=== PATIENT | female | born 1955 | race Caucasian/White ===

== ENCOUNTER 2022-02-11 09:22 | Emergency (ER) | payer OTHER ==
--- OUTSIDE RECORDS SUMMARY | 2022-02-11 09:35 | XMS REPORT | Continuity of Care Document ---
:1955 Author Organization [facility] t Address [address] [place] [address] Dr. [address] [place] [address] Care Team Providers Name Role Phone AIDAN GARCIA Primary Care Physician Unavailable Aidan Garcia Attending Clinician Unavailable Brennon Lora Attending Clinician ELISE_N Attending Clinician Unavailable Gerri Peterson Attending Clinician BEN GARCIA Attending Clinician Unavailable Therapy, [facility] Attending Clinician Unavailable Ben Garcia MD Attending Clinician Doctor Unassigned, [place] Attending Clinician Unavailable NATTY PRADO Attending Clinician Unavailable MISSY ESPINOZA Attending Clinician Unavailable ELISE_Herbert Admitting Clinician Unavailable MISSY ESPINOZA Admitting Clinician Unavailable Payers Payer Name Policy Type Policy Effective Date Expiration Date Sour ce Number [id number] 00:00:00 REPLACEMENT HMO) [address] [facility] 00[facility]00 [facility] MEDICARE NOVITAS MB [id number] 2019 [facility] 00:00:[address] [facility]00 [facility] MEDICARE NOVITAS MB [id number] 2019 [facility] 00:00:00 [place] [id number] 2020 MEDICARE 00:00:00 ADVANTAGE PLAN BCBS [facility] [id number] 1998 00:00:00 MEDICARE NOVITAS MB [id number] 2019 [facility] 00:00:00 [place] [id number] 2020 [facility] 00:[facility]:00 [facility] MEDICARE NOVITAS MB [id number] 2019 [facility] 00:00:00 [place] [id number] 2020 [facility] 00:[facility]00 [facility] Problems Condition Condition Condition Status Onset Resolution Last Treating Co mments Source Name Details Category Date Date Treatment Clinician Date [id number] Unilateral Problem C ommon [id number] primary Spirit osteoarthr - [facility] itis, left [facility] Arthritis Arthritis Problem Com mon of both of both Spirit knees knees - [facility] [id number] Cataract Problem Commo n of both Spirit eyes, - [facility] unspecifie [facility] cataract [facility] GERD Problem Commo n hageal (gastroeso Spirit reflux phageal - CHI disease reflux St disease) [facility] [id number] Right Problem Common sciatic Spirit nerve pain - [facility] [id number] Pain, [place] n [id number] joint, Spirit hip, right - [facility] [id number] Other Problem Common chronic Spirit pain - [facility] [id number] Other Problem Common obesity Spirit due to - [facility]I excess [facility] [id number] Lymphedema Problem Co mmon Spirit - [facility] [id number] Mixed Problem Common hyperlipid Spirit emia - [facility] [id number] Allergic Problem Commo n rhinitis, Spirit unspecifie - CHI d [facility] seasonalit [facility] y, Medical unspecifie Center d trigger [id number] Current Problem Common moderate Spirit episode of - [facility] major [facility] prior episode [id number] Arthritis Problem Co mmon [id number] of knee, [facility] left [facility] [id number] Adult BMI Problem Com mon 33.0-33.9 Spirit kg/sq m [facility] [id number] GERD Problem Common without [facility] esophagiti - [facility] [id number] Bilateral Problem Com [facility] primary [facility] osteoarthr [facility] itis of [facility] [id number] Arthritis Problem Co mmon [id number] of knee, [facility] right [facility] Allergies, Adverse Reactions, Alerts Allergy Allergy Status Severity Reaction(s) Onset Inactive Treating Comm ents Source Name Type Date Date Clinician PENICILL Drug Active Hives 2020-03 Univers INS Class 0-09 ity of 00:00: [address] [place] Propensi Active Hives 2020-03 Univer s ins ty to 0-09 ity of adverse 00:00: [place] reaction [address] [place] [address] NO KNOWN Drug Active Univers ALLERGIE Class ity of [facility] Social History Social Habit Start Date Stop Date Quantity Comments Source History of Tobacco Use Co mmon [facility] Sex Assigned At Com [facility] Smoking Status Start Date Stop Date Source Unknown if ever smoked [facility] Former Smoker 2022-01-22 00:00:00 2022-01-22 00:00:00 Common S pirit [facility] nter Medications Ordered Filled Start Stop Current Ordering Indication Dosage Frequency Signature Comments Components Source Medication Medication Date Date Medication? Clinician (SIG) Name Name methylPREDN methylPREDN 2021- No QD methylPRED ISolone 4 ISolone 4 12-02 NISolone 4 MG MG 00:00: 00:00 MG 00 :00 methylPREDN methylPREDN 2021- No QD methylPRED ISolone 4 ISolone 4 12-02 NISolone 4 MG MG 00:00: 00:00 MG 00 :00 Kenalog Kenalog No 40mg Common (Triamcinol (Triamcinol 9-19 S pirit one) one) 00:00: - [facility] Kenalog Kenalog No 40mg Common (Triamcinol (Triamcinol 9-19 S pirit one) one) 00:00: - [facility]I 00 [facility] Kenalog Kenalog 2021-0 No 40mg Common (Triamcinol (Triamcinol 9-19 S pirit one) one) 00:00: - [facility]I 00 [facility] Ozempic Ozempic 2021-0 2- No Ozempic 0.25 or 0.5 0.25 or 0.5 - 11-20 0.25 or MG/DOSE MG/DOSE 00:00: 00:00 0.5 00 :00 MG/DOSE Ozempic Ozempic 2021-0 2021- No Ozempic 0.25 or 0.5 0.25 or 0.5 11-02 11-20 0.25 or MG/DOSE MG/DOSE 00:00: 00:00 0.5 00 :00 MG/DOSE Ozempic Ozempic 2021-0 2022- No Ozempic 0.25 or 0.5 0.25 or 0.5 11-02 11-20 0.25 or MG/DOSE MG/DOSE 00:00: 00:00 0.5 00 :00 MG/DOSE Cephalexin Cephalexin 0 2021- No 1{capsu TID Cephalexin 500 MG 500 MG 09-16 le} 500 MG 00:00: 00:00 00 :00 Cephalexin Cephalexin 2021-0 2- No 1{capsu TID Cephalexin 500 MG 500 MG 09-16 le} 500 MG 00:00: 00:00 00 :00 Rocephin Rocephin 2021-0 No 1g Commo n (Ceftriaxon (Ceftriaxon 4-04 S pirit e) e) 00:00: - CHI 00 [facility] Toradol Toradol 2021-0 No 2mL Common (Ketorolac) (Ketorolac) 4-04 S pirit 00:00: - CHI 00 [facility] Rocephin Rocephin 2021-0 No 1g Commo n (Ceftriaxon (Ceftriaxon 4-04 S pirit e) e) 00:00: - CHI 00 [facility] Toradol Toradol 2021-0 No 2mL Common (Ketorolac) (Ketorolac) 4-04 S pirit 00:00: - CHI 00 [facility] Toradol Toradol 2-0 No 2mL Common (Ketorolac) (Ketorolac) 4-04 S pirit 00:00: - [facility]I 00 [facility] Rocephin Rocephin 2-0 No 1g Commo n (Ceftriaxon (Ceftriaxon 4-04 S pirit e) e) 00:00: - CHI 00 [facility] Toradol Toradol 2021-0 No 2mL Common (Ketorolac) (Ketorolac) 4-04 S pirit 00:00: - CHI 00 [facility] Rocephin Rocephin 2-0 No 1g Commo n (Ceftriaxon (Ceftriaxon 4-04 S pirit e) e) 00:00: - CHI 00 [facility] Toradol Toradol 2021-0 No 2mL Common (Ketorolac) (Ketorolac) 4-04 S pirit 00:00: - CHI 00 [facility] Rocephin Rocephin 2-0 No 1g Commo n (Ceftriaxon (Ceftriaxon 4-04 S pirit e) e) 00:00: - CHI 00 [facility] Toradol Toradol 2021-0 No 2mL Common (Ketorolac) (Ketorolac) 4-04 S pirit 00:00: - CHI 00 [facility] Rocephin Rocephin 2-0 No 1g Commo n (Ceftriaxon (Ceftriaxon 4-04 S pirit e) e) 00:00: - CHI 00 [facility] Toradol Toradol 2-0 No 2mL Common (Ketorolac) (Ketorolac) 4-04 S pirit 00:00: - CHI 00 [facility] Rocephin Rocephin 2-0 No 1g Commo n (Ceftriaxon (Ceftriaxon 4-04 S pirit e) e) 00:00: - [facility]I 00 [facility] Toradol Toradol 2-0 No 2mL Common (Ketorolac) (Ketorolac) 4-04 S pirit 00:00: - [facility]I 00 [facility] Rocephin Rocephin 2-0 No 1g Commo n (Ceftriaxon (Ceftriaxon 4-04 S pirit e) e) 00:00: - CHI 00 [facility] Toradol Toradol 2021-0 No 2mL Common (Ketorolac) (Ketorolac) 4-04 S pirit 00:00: - [facility]I 00 [facility] Rocephin Rocephin 2-0 No 1g Commo n (Ceftriaxon (Ceftriaxon 4-04 S pirit e) e) 00:00: - [facility]I 00 [facility] Toradol Toradol 2021-0 No 2mL Common (Ketorolac) (Ketorolac) 4-04 S pirit 00:00: - [facility]I 00 [facility] Rocephin Rocephin 2021-0 No 1g Commo n (Ceftriaxon (Ceftriaxon 4-04 S pirit e) e) 00:00: - [facility]I 00 [facility] Toradol Toradol 2021-0 No 2mL Common (Ketorolac) (Ketorolac) 4-04 S pirit 00:00: - CHI 00 [facility] Rocephin Rocephin 2021-0 No 1g Commo n (Ceftriaxon (Ceftriaxon 4-04 S pirit e) e) 00:00: - [facility]I 00 [facility] Toradol Toradol 2021-0 No 2mL Common (Ketorolac) (Ketorolac) 4-04 S pirit 00:00: - CHI 00 [facility] Rocephin Rocephin 2-0 No 1g Commo n (Ceftriaxon (Ceftriaxon 4-04 S pirit e) e) 00:00: - [facility]I 00 [facility] Toradol Toradol 2021-0 No 2mL Common (Ketorolac) (Ketorolac) 4-04 S pirit 00:00: - CHI 00 [facility] Rocephin Rocephin 2-0 No 1g Commo n (Ceftriaxon (Ceftriaxon 4-04 S pirit e) e) 00:00: - [facility]I 00 [facility] Toradol Toradol 2-0 No 2mL Common (Ketorolac) (Ketorolac) 4-04 S pirit 00:00: - CHI 00 [facility] Rocephin Rocephin 2022-0 No 1g Commo n (Ceftriaxon (Ceftriaxon 4-04 S pirit e) e) 00:00: - CHI [facility] Toradol Toradol 2021-0 No 2mL Common (Ketorolac) (Ketorolac) 4-04 S pirit 00:00: - [facility]I [facility] Rocephin Rocephin 2021-0 No 1g Commo n (Ceftriaxon (Ceftriaxon 4-04 S pirit e) e) 00:00: - [facility]I [facility] Toradol Toradol 2021-0 No 2mL Common (Ketorolac) (Ketorolac) 4-04 S pirit 00:00: - CHI [facility] Rocephin Rocephin 2021-0 No 1g Commo n (Ceftriaxon (Ceftriaxon 4-04 S pirit e) e) 00:00: - CHI [facility] Rocephin Rocephin 2021-0 No 1g Commo n (Ceftriaxon (Ceftriaxon 4-04 S pirit e) e) 00:00: - CHI [facility] Toradol Toradol 2021-0 No 2mL Common (Ketorolac) (Ketorolac) 4-04 S pirit 00:00: - CHI [facility] Azithromyci Azithromyci 2021-0 2021- No QD Azithromyc n 250 MG n 250 MG 06-14-09 in 250 MG 00:00: 00:00 00 :00 Azithromyci Azithromyci 2021-0 2021- No QD Azithromyc n 250 MG n 250 MG 06-14-09 in 250 MG 00:00: 00:00 00 :00 Promethazin Promethazin 2021-0 2021- No 10{ml_a TID Promethazi e HCl 6.25 e HCl 6.25 04-09 s_neede ne HCl MG/5ML MG/5ML 00:00: 00:00 d} 6.25 00 :00 MG/5ML predniSONE predniSONE 2021-0 2021- No QD predniSONE 20 MG 20 MG 04-09 20 MG 00:00: 00:00 00 :00 Furosemide Furosemide 2020-03 No QD Furosemide 20 MG 20 MG 209 20 MG 00:00: 00 Furosemide Furosemide 2020-03 No QD Furosemide 20 MG 20 MG 2 20 MG 00:00: 00 Furosemide Furosemide 2020-03 No QD Furosemide 20 MG 20 MG 09 20 MG 00:00: 00 Furosemide Furosemide 2020-03 No QD Furosemide 20 MG 20 MG 09 20 MG 00:00: 00 Ondansetron Ondansetron 2020-03 No 1{table Ondansetro HCl 4 MG HCl 4 MG 0-21 t} n HCl 4 MG 00:00: 00 Ondansetron Ondansetron 2020-03 No 1{table Ondansetro HCl 4 MG HCl 4 MG 0-21 t} n HCl 4 MG 00:00: 00 Ondansetron Ondansetron 2020-03 No 1{table Ondansetro HCl 4 MG HCl 4 MG 0-21 t} n HCl 4 MG 00:00: 00 Ondansetron Ondansetron 2020-03 No 1{table Ondansetro HCl 4 MG HCl 4 MG 0-21 t} n HCl 4 MG 00:00: 00 Ondansetron Ondansetron 2020-03 No 1{table Ondansetro HCl 4 MG HCl 4 MG 0-21 t} n HCl 4 MG 00:00: 00 Levsin Levsin 2020-03- No 1{table Levsin 0.125 MG 0.125 MG 0-21 - t_as_ne 0.125 MG 00:00: 00:00 eded} 00 :00 casirivimab 2020-03- No [id number] 1200mg 1,200 mg, Univers -imdevimab 12-19 Subcutaneo it y of (REGEN-COV 16:45: 15:30 us, ONCE, [place] (EUA)) 00 :00 1 dose, On Medical injection Sat Branch 1,200 mg 12/19/20 at 1145, Routine Pantoprazol Pantoprazol No 1{table QD Pantoprazo e Sodium 40 e Sodium 40 8-27 t} le Sodium MG MG 00:00: 40 MG 00 Pantoprazol Pantoprazol No 1{table QD Pantoprazo e Sodium 40 e Sodium 40 8-27 t} le Sodium MG MG 00:00: 40 MG 00 Pantoprazol Pantoprazol 2020-0 No 1{table QD Pantoprazo e Sodium 40 e Sodium 40 8-27 t} le Sodium MG MG 00:00: 40 MG 00 Pantoprazol Pantoprazol 2020-0 No 1{table QD Pantoprazo e Sodium 40 e Sodium 40 8-27 t} le Sodium MG MG 00:00: 40 MG 00 Pantoprazol Pantoprazol 2020-0 No 1{table QD Pantoprazo e Sodium 40 e Sodium 40 8-27 t} le Sodium MG MG 00:00: 40 MG 00 Pantoprazol Pantoprazol 2020-0 No 1{table QD Pantoprazo e Sodium 40 e Sodium 40 8-27 t} le Sodium MG MG 00:00: 40 MG 00 Pantoprazol Pantoprazol 2020-0 No 1{table QD Pantoprazo e Sodium 40 e Sodium 40 8-27 t} le Sodium MG MG 00:00: 40 MG 00 Pantoprazol Pantoprazol 2020-0 No 1{table QD Pantoprazo e Sodium 40 e Sodium 40 8-27 t} le Sodium MG MG 00:00: 40 MG 00 Synvisc Synvisc 2020-0 No 16mg Common 11-03 Spirit 00:00: - [facility] 00 [facility] Synvisc Synvisc 2020-0 No 16mg Common 11-03 Spirit 00:00: - [facility] 00 [facility] Synvisc Synvisc 1-0 No 16mg Common 11-03 Spirit 00:00: - [facility] 00 [facility] Synvisc Synvisc 1-0 No 16mg Common 11-03 Spirit 00:00: - [facility] 00 [facility] Synvisc Synvisc 1-0 No 16mg Common 11-03 Spirit 00:00: - [facility] 00 [facility] Synvisc Synvisc 1-0 No 16mg Common 11-03 Spirit 00:00: - [facility] 00 [facility] Synvisc Synvisc 1-0 No 16mg Common 11-03 Spirit 00:00: - [facility] 00 [facility] Synvisc Synvisc 1-0 No 16mg Common 11-03 Spirit 00:00: - [facility] 00 [facility] Synvisc Synvisc 2021-0 No 16mg Common 8-24 Spirit 00:00: - [facility] 00 [facility] Synvisc Synvisc 2021-0 No 16mg Common 8-24 Spirit 00:00: - [facility] 00 [facility] Synvisc Synvisc 1-0 No 16mg Common 8-24 Spirit 00:00: - [facility] 00 [facility] Synvisc Synvisc 1-0 No 16mg Common 8-24 Spirit 00:00: - [facility] 00 [facility] Synvisc Synvisc 1-0 No 16mg Common 8-24 Spirit 00:00: - [facility] 00 [facility] Synvisc Synvisc 1-0 No 16mg Common 8-24 Spirit 00:00: - [facility] 00 [facility] Synvisc Synvisc 1-0 No 16mg Common 8 Spirit 00:00: - [facility] 00 [facility] Synvisc Synvisc 1-0 No 16mg Common 8-24 Spirit 00:00: - [facility] 00 [facility] Synvisc Synvisc 1-0 No 16mg Common 8-24 Spirit 00:00: - [facility] 00 [facility] Synvisc Synvisc 1-0 No 16mg Common 8-24 Spirit 00:00: - [facility] 00 [facility] Synvisc Synvisc 1-0 No 16mg Common 8-24 Spirit 00:00: - [facility]I 00 [facility] Synvisc Synvisc 2021-0 No 16mg Common 8-24 Spirit 00:00: - [facility] 00 [facility] Synvisc Synvisc 1-0 No 16mg Common 8-24 Spirit 00:00: - [facility] 00 [facility] Synvisc Synvisc 2021-0 No 16mg Common 8-24 Spirit 00:00: - [facility] 00 [facility] Synvisc Synvisc 1-0 No 16mg Common 8-24 Spirit 00:00: - [facility] 00 [facility] Synvisc Synvisc 2021-0 No 16mg Common 8-24 Spirit 00:00: - [facility] 00 [facility] Synvisc Synvisc 1-0 No 16mg Common 8-24 Spirit 00:00: - [facility] 00 [facility] Synvisc Synvisc 2021-0 No 16mg Common 11-03 Spirit 00:00: - [facility] 00 [facility] Synvisc Synvisc 1-0 No 16mg Common 11-03 Spirit 00:00: - [facility] 00 [facility] Synvisc Synvisc 1-0 No 16mg Common 11-03 Spirit 00:00: - [facility] 00 [facility] Synvisc Synvisc 1-0 No 16mg Common 11-03 Spirit 00:00: - [facility] 00 [facility] Synvisc Synvisc 1-0 No 16mg Common 11-03 Spirit 00:00: - [facility] 00 [facility] Synvisc Synvisc 1-0 No 16mg Common 11-03 Spirit 00:00: - [facility] Synvisc Synvisc 1-0 No 16mg Common 11-03 Spirit 00:00: - CH[facility] Synvisc Synvisc 1-0 No 16mg Common 11-03 Spirit 00:00: - [facility] 00 [facility] Synvisc Synvisc 1-0 No 16mg Common 11-03 Spirit 00:00: - [facility] 00 [facility] Synvisc Synvisc 1-0 No 16mg Common 11-03 Spirit 00:00: - [facility] Synvisc Synvisc 1-0 No 16mg Common 11-03 Spirit 00:00: - CH[facility] Synvisc Synvisc 1-0 No 16mg Common 10-27 Spirit 00:00: - [facility] 00 [facility] Synvisc Synvisc 1-0 No 16mg Common 8 Spirit 00:00: - [facility] 00 [facility] Synvisc Synvisc 1-0 No 16mg Common 8- Spirit 00:00: - [facility] 00 [facility] Synvisc Synvisc 1-0 No 16mg Common 8- Spirit 00:00: - [facility] 00 [facility] Synvisc Synvisc 1-0 No 16mg Common 8-17 Spirit 00:00: - [facility] 00 [facility] Synvisc Synvisc 1-0 No 16mg Common 8-17 Spirit 00:00: - [facility] 00 [facility] Synvisc Synvisc 2021-0 No 16mg Common 8-17 Spirit 00:00: - [facility] 00 [facility] Synvisc Synvisc 2021-0 No 16mg Common 8-17 Spirit 00:00: - [facility] 00 [facility] Synvisc Synvisc 2021-0 No 16mg Common 8-17 Spirit 00:00: - [facility] 00 [facility] Synvisc Synvisc 2021-0 No 16mg Common 8-17 Spirit 00:00: - [facility] 00 [facility] Synvisc Synvisc 2021-0 No 16mg Common 8-17 Spirit 00:00: - [facility] 00 [facility] Synvisc Synvisc 1-0 No 16mg Common 8-17 Spirit 00:00: - [facility] 00 [facility] Synvisc Synvisc 2021-0 No 16mg Common 8-17 Spirit 00:00: - [facility] 00 [facility] Synvisc Synvisc 2021-0 No 16mg Common 8-17 Spirit 00:00: - [facility] 00 [facility] Synvisc Synvisc 2021-0 No 16mg Common 8-17 Spirit 00:00: - [facility] 00 [facility] Synvisc Synvisc 2021-0 No 16mg Common 8-17 Spirit 00:00: - [facility] 00 [facility] Synvisc Synvisc 2021-0 No 16mg Common 8-17 Spirit 00:00: - [facility] 00 [facility] Synvisc Synvisc 2021-0 No 16mg Common 8-17 Spirit 00:00: - [facility] 00 [facility] Synvisc Synvisc 2021-0 No 16mg Common 8-17 Spirit 00:00: - [facility] 00 [facility] Synvisc Synvisc 2021-0 No 16mg Common 8-17 Spirit 00:00: - [facility] 00 [facility] Synvisc Synvisc 2021-0 No 16mg Common 8-17 Spirit 00:00: - [facility] 00 [facility] Synvisc Synvisc 2021-0 No 16mg Common 8-17 Spirit 00:00: - [facility] 00 [facility] Synvisc Synvisc 2021-0 No 16mg Common 8-17 Spirit 00:00: - [facility] 00 [facility] Synvisc Synvisc 2020-0 No 16mg Common 8-17 Spirit 00:00: - [facility] 00 [facility] Synvisc Synvisc 2020-0 No 16mg Common 8-17 Spirit 00:00: - [facility] 00 [facility] Synvisc Synvisc 2020-0 No 16mg Common 8-17 Spirit 00:00: - [facility] 00 [facility] Synvisc Synvisc 2020-0 No 16mg Common 8-17 Spirit 00:00: - [facility] 00 [facility] Synvisc Synvisc 2020-0 No 16mg Common 8-17 Spirit 00:00: - [facility] 00 [facility] Synvisc Synvisc 2020-0 No 16mg Common 8-17 Spirit 00:00: - [facility]I 00 [facility] Synvisc Synvisc 2020-0 No 16mg Common 8-17 Spirit 00:00: - [facility] 00 [facility] Synvisc Synvisc 2020-0 No 16mg Common 8-17 Spirit 00:00: - [facility] 00 [facility] Synvisc Synvisc 2020-0 No 16mg Common 8-17 Spirit 00:00: - [facility] 00 [facility] Synvisc Synvisc 2020-0 No 16mg Common 8-17 Spirit 00:00: - [facility] 00 [facility] Synvisc Synvisc 2020-0 No 16mg Common 8-17 Spirit 00:00: - [facility] 00 [facility] Synvisc Synvisc 2020-0 No 16mg Common 8-17 Spirit 00:00: - [facility] 00 [facility] Synvisc Synvisc 2020-0 No 16mg Common 8-17 Spirit 00:00: - [facility] 00 [facility] Bupivicaine Bupivicaine 2020-0 No 2.5mg Common [place] 8-10 Spirit 00:00: - CHI 00 [facility] Synvisc Synvisc 2020-0 No 16mg Common 8-10 Spirit 00:00: - CHI 00 [facility] Kenalog Kenalog 2020-0 No 40mg Common (Triamcinol (Triamcinol 8-10 S pirit one) one) 00:00: - CHI 00 [facility] Bupivicaine Bupivicaine 2020-0 No 2.5mg Common [place] 8-10 Spirit 00:00: - [facility]I 00 [facility] Synvisc Synvisc 2020-0 No 16mg Common 8-10 Spirit 00:00: - [facility]I 00 [facility] Kenalog Kenalog 2020-0 No 40mg Common (Triamcinol (Triamcinol 8-10 S pirit one) one) 00:00: - CHI 00 [facility] Bupivicaine Bupivicaine 2020-0 No 2.5mg Common [place] 8-10 Spirit 00:00: - [facility]I 00 [facility] Synvisc Synvisc 2020-0 No 16mg Common 8-10 Spirit 00:00: - CH[facility] Kenalog Kenalog 2020-0 No 40mg Common (Triamcinol (Triamcinol 8-10 S pirit one) one) 00:00: - CH[facility] Bupivicaine Bupivicaine 2020-0 No 2.5mg Common [place] 8-10 Spirit 00:00: - [facility]I 00 [facility] Synvisc Synvisc 2020-0 No 16mg Common 8-10 Spirit 00:00: - [facility] 00 [facility] Kenalog Kenalog 2020-0 No 40mg Common (Triamcinol (Triamcinol 8-10 S pirit one) one) 00:00: - [facility]I 00 [facility] Bupivicaine Bupivicaine 2020-0 No Common [place] 8-10 Spirit 00:00: - [facility] 00 [facility] Bupivicaine Bupivicaine 2020-0 No Common [place] 8-10 Spirit 00:00: - [facility]I 00 [facility] Synvisc Synvisc 2020-0 No 16mg Common 8-10 Spirit 00:00: - [facility] 00 [facility] Synvisc Synvisc 2020-0 No 16mg Common 8-10 Spirit 00:00: - [facility] 00 [facility] Kenalog Kenalog 2020-0 No 40mg Common (Triamcinol (Triamcinol 8-10 S pirit one) one) 00:00: - CHI 00 [facility] Kenalog Kenalog 2020-0 No 40mg Common (Triamcinol (Triamcinol 8-10 S pirit one) one) 00:00: - [facility]I 00 [facility] Bupivicaine Bupivicaine 2020-0 No 2.5mg Common [place] 8-10 Spirit 00:00: - [facility] 00 [facility] Bupivicaine Bupivicaine 2020-0 No 2.5mg Common [place] 8-10 Spirit 00:00: - [facility] 00 [facility] Synvisc Synvisc 2020-0 No 16mg Common 8-10 Spirit 00:00: - [facility] 00 [facility] Synvisc Synvisc 2020-0 No 16mg Common 8-10 Spirit 00:00: - [facility] 00 [facility] Kenalog Kenalog 2020-0 No 40mg Common (Triamcinol (Triamcinol 8-10 S pirit one) one) 00:00: - CHI 00 [facility] Kenalog Kenalog 2020-0 No 40mg Common (Triamcinol (Triamcinol 8-10 S pirit one) one) 00:00: - [facility]I 00 [facility] Bupivicaine Bupivicaine 2020-0 No 2.5mg Common [place] 8-10 Spirit 00:00: - [facility] 00 [facility] Bupivicaine Bupivicaine 2020-0 No 2.5mg Common [place] 8-10 Spirit 00:00: - [facility] 00 [facility] Synvisc Synvisc 2020-0 No 16mg Common 8-10 Spirit 00:00: - [facility] 00 [facility] Synvisc Synvisc 2020-0 No 16mg Common 8-10 Spirit 00:00: - [facility] 00 [facility] Kenalog Kenalog 2020-0 No 40mg Common (Triamcinol (Triamcinol 8-10 S pirit one) one) 00:00: - [facility]I 00 [facility] Kenalog Kenalog 2020-0 No 40mg Common (Triamcinol (Triamcinol 8-10 S pirit one) one) 00:00: - [facility] 00 [facility] Bupivicaine Bupivicaine 2020-0 No 2.5mg Common [place] 8-10 Spirit 00:00: - [facility] 00 [facility] Bupivicaine Bupivicaine 2020-0 No 2.5mg Common [place] 8-10 Spirit 00:00: - [facility] 00 [facility] Synvisc Synvisc 2020-0 No 16mg Common 8-10 Spirit 00:00: - [facility] 00 [facility] Synvisc Synvisc 2020-0 No 16mg Common 8-10 Spirit 00:00: - [facility] 00 [facility] Kenalog Kenalog 2020-0 No 40mg Common (Triamcinol (Triamcinol 8-10 S pirit one) one) 00:00: - [facility]I 00 [facility] Kenalog Kenalog 2020-0 No 40mg Common (Triamcinol (Triamcinol 8-10 S pirit one) one) 00:00: - [facility] 00 [facility] Bupivicaine Bupivicaine 2020-0 No 2.5mg Common [place] 8-10 Spirit 00:00: - [facility] 00 [facility] Bupivicaine Bupivicaine 2020-0 No 2.5mg Common [place] 8-10 Spirit 00:00: - [facility] 00 [facility] Synvisc Synvisc 2020-0 No 16mg Common 8-10 Spirit 00:00: - [facility] 00 [facility] Synvisc Synvisc 2020-0 No 16mg Common 8-10 Spirit 00:00: - [facility] 00 [facility] Kenalog Kenalog 2020-0 No 40mg Common (Triamcinol (Triamcinol 8-10 S pirit one) one) 00:00: - [facility] 00 [facility] Kenalog Kenalog 2020-0 No 40mg Common (Triamcinol (Triamcinol 8-10 S pirit one) one) 00:00: - [facility] 00 [facility] Bupivicaine Bupivicaine 1-0 No 2.5mg Common [place] 8-10 [facility] 00:00: - [facility] 00 [facility] Bupivicaine Bupivicaine 2020-0 No 2.5mg Common [place] 8-10 Spirit 00:00: - [facility] 00 [facility] Synvisc Synvisc 2020-0 No 16mg Common 8-10 Spirit 00:00: - [facility] 00 [facility] Synvisc Synvisc 2020-0 No 16mg Common 8-10 Spirit 00:00: - [facility] 00 [facility] Kenalog Kenalog 2020-0 No 40mg Common (Triamcinol (Triamcinol 8-10 S pirit one) one) 00:00: - [facility] 00 [facility] Kenalog Kenalog 2020-0 No 40mg Common (Triamcinol (Triamcinol 8-10 S pirit one) one) 00:00: - [facility] Bupivicaine Bupivicaine 2020-0 No 2.5mg Common [place] 8[place]10 Spirit 00:00: - [facility] Bupivicaine Bupivicaine 2020-0 No 2.5mg Common [place] 8[place]10 Spirit 00:00: - [facility] Synvisc Synvisc 2020-0 No 16mg Common 8-10 Spirit 00:00: - [facility] Synvisc Synvisc 2020-0 No 16mg Common 8-10 Spirit 00:00: - [facility] Kenalog Kenalog 2020-0 No 40mg Common (Triamcinol (Triamcinol 8-10 S pirit one) one) 00:00: - [facility] Kenalog Kenalog 2020-0 No 40mg Common (Triamcinol (Triamcinol 8-10 S pirit one) one) 00:00: - [facility] Bupivicaine Bupivicaine 2020-0 No 2.5mg Common [place] 8-10 Spirit 00:00: - [facility] Bupivicaine Bupivicaine 2020-0 No 2.5mg Common [place] 8-10 Spirit 00:00: - [facility] Synvisc Synvisc 2020-0 No 16mg Common 8-10 Spirit 00:00: - [facility] Synvisc Synvisc 2021-0 No 16mg Common 8-10 Spirit 00:00: - [facility] Kenalog Kenalog 2020-0 No 40mg Common (Triamcinol (Triamcinol 8-10 S pirit one) one) 00:00: - [facility] Kenalog Kenalog 2020-0 No 40mg Common (Triamcinol (Triamcinol 8-10 S pirit one) one) 00:00: - [facility] Bupivicaine Bupivicaine 2020-0 No 2.5mg Common [place] 8-10 Spirit 00:00: - [facility] Bupivicaine Bupivicaine 2020-0 No 2.5mg Common [place] 8-10 Spirit 00:00: - [facility] Synvisc Synvisc 2020-0 No 16mg Common 8-10 Spirit 00:00: - [facility] Synvisc Synvisc 2020-0 No 16mg Common 8-10 Spirit 00:00: - [facility] Kenalog Kenalog 2020-0 No 40mg Common (Triamcinol (Triamcinol 8-10 S pirit one) one) 00:00: - [facility] Kenalog Kenalog 2020-0 No 40mg Common (Triamcinol (Triamcinol 8-10 S pirit one) one) 00:00: - [facility] Bupivicaine Bupivicaine 2020-0 No 2.5mg Common [place] 8-10 Spirit 00:00: - [facility] Bupivicaine Bupivicaine 2020-0 No 2.5mg Common [place] 8-10 Spirit 00:00: - [facility] Synvisc Synvisc 2020-0 No 16mg Common 8-10 Spirit 00:00: - [facility] Synvisc Synvisc 2020-0 No 16mg Common 8-10 Spirit 00:00: - [facility] Kenalog Kenalog 2020-0 No 40mg Common (Triamcinol (Triamcinol 8-10 S pirit one) one) 00:00: - [facility] Kenalog Kenalog 2020-0 No 40mg Common (Triamcinol (Triamcinol 8-10 S pirit one) one) 00:00: - [facility] Bupivicaine Bupivicaine 2020-0 No 2.5mg Common [place] 8-10 Spirit 00:00: - [facility] Bupivicaine Bupivicaine 2020-0 No 2.5mg Common [place] 8-10 Spirit 00:00: - [facility] Synvisc Synvisc 2020-0 No 16mg Common 8-10 Spirit 00:00: - [facility] 00 [facility] Synvisc Synvisc 2020-0 No 16mg Common 8-10 Spirit 00:00: - [facility] 00 [facility] Kenalog Kenalog 2020-0 No 40mg Common (Triamcinol (Triamcinol 8-10 S pirit one) one) 00:00: - [facility] Kenalog Kenalog 2020-0 No 40mg Common (Triamcinol (Triamcinol 8-10 S pirit one) one) 00:00: - [facility] Bupivicaine Bupivicaine 2020-0 No 2.5mg Common [place] 8-10 Spirit 00:00: - [facility] 00 [facility] Bupivicaine Bupivicaine 2020-0 No 2.5mg Common [place] 8-10 Spirit 00:00: - [facility] 00 [facility] Synvisc Synvisc 2020-0 No 16mg Common 8-10 Spirit 00:00: - [facility] 00 [facility] Synvisc Synvisc 2020-0 No 16mg Common 8-10 Spirit 00:00: - [facility] 00 [facility] Kenalog Kenalog 2020-0 No 40mg Common (Triamcinol (Triamcinol 8-10 S pirit one) one) 00:00: - [facility] Kenalog Kenalog 2020-0 No 40mg Common (Triamcinol (Triamcinol 8-10 S pirit one) one) 00:00: - [facility] Bupivicaine Bupivicaine 2021-0 No 2.5mg Common [place] 8-10 Spirit 00:00: - [facility] 00 [facility] Bupivicaine Bupivicaine 2020-0 No 2.5mg Common [place] 8-10 Spirit 00:00: - [facility] 00 [facility] Synvisc Synvisc 2020-0 No 16mg Common 8-10 Spirit 00:00: - [facility] 00 [facility] Synvisc Synvisc 2020-0 No 16mg Common 8-10 Spirit 00:00: - [facility] 00 [facility] Kenalog Kenalog 2020-0 No 40mg Common (Triamcinol (Triamcinol 8-10 S pirit one) one) 00:00: - [facility] Kenalog Kenalog 2020-0 No 40mg Common (Triamcinol (Triamcinol 8-10 S pirit one) one) 00:00: - [facility] Bupivicaine Bupivicaine 2020-0 No 2.5mg Common [place] 8-10 Spirit 00:00: - [facility] 00 [facility] Bupivicaine Bupivicaine 2020-0 No 2.5mg Common [place] 8-10 Spirit 00:00: - [facility] 00 [facility] Synvisc Synvisc 2020-0 No 16mg Common 8-10 Spirit 00:00: - [facility] 00 [facility] Synvisc Synvisc 2020-0 No 16mg Common 8-10 Spirit 00:00: - [facility] 00 [facility] Kenalog Kenalog 2020-0 No 40mg Common (Triamcinol (Triamcinol 8-10 S pirit one) one) 00:00: - [facility] 00 [facility] Kenalog Kenalog 2020-0 No 40mg Common (Triamcinol (Triamcinol 8-10 S pirit one) one) 00:00: - [facility] Bupivicaine Bupivicaine 1-0 No 2.5mg Common [place] 8-10 Spirit 00:00: - [facility] Bupivicaine Bupivicaine 2020-0 No 2.5mg Common [place] 8-10 Spirit 00:00: - [facility] 00 [facility] Synvisc Synvisc 0 No 16mg Common 8-10 Spirit 00:00: - [facility] Syn[facility]isc 0 No 16mg Common 8-10 Spirit 00:00: - [facility] Kenalog Kenalog 2020-0 No 40mg Common (Triamcinol (Triamcinol 8-10 S pirit one) one) 00:00: - [facility] Kenalog Kenalog 0 No 40mg Common (Triamcinol (Triamcinol 8-10 S pirit one) one) 00:00: - [facility] Bupivicaine Bupivicaine 2020-0 No 2.5mg Common [place] 8-10 Spirit 00:00: - [facility] Syn[facility] No 16mg Common 8-10 Spirit 00:00: - [facility] Kenalog Kenalog 0 No 40mg Common (Triamcinol (Triamcinol 8-10 S pirit one) one) 00:00: - [facility] Bupivicaine Bupivicaine 2020-0 No 2.5mg Common [place] 8-10 Spirit 00:00: - [facility] Syn[facility] 0 No 16mg Common 8-10 Spirit 00:00: - [facility] Kenalog Kenalog 2020-0 No 40mg Common (Triamcinol (Triamcinol 8-10 S pirit one) one) 00:00: - [facility] BD BD 2020-0 No QD BD Ultra-Fine Ultra-Fine 1-27 Ultra-Fine Anita Pen Anita Pen 00:00: Anita Pen Ericson 4mm Ericson 4mm 00 Ericson x 32Gm x 32Gm 4mm x 32Gm BD BD 2020-0 No QD BD Ultra-Fine Ultra-Fine 1-27 Ultra-Fine Anita Pen Anita Pen 00:00: Anita Pen Ericson 4mm Ericson 4mm 00 Ericson x 32Gm x 32Gm 4mm x 32Gm BD BD 2020-0 No QD BD Ultra-Fine Ultra-Fine 1-27 Ultra-Fine Anita Pen Anita Pen 00:00: Anita Pen Ericson 4mm Ericson 4mm 00 Ericson x 32Gm x 32Gm 4mm x 32Gm BD BD No QD BD Ultra-Fine Ultra-Fine 1-27 Ultra-Fine Anita Pen Anita Pen 00:00: Anita Pen Ericson 4mm Ericson 4mm 00 Ericson x 32Gm x 32Gm 4mm x 32Gm BD BD No QD BD Ultra-Fine Ultra-Fine 1-27 Ultra-Fine Anita Pen Anita Pen 00:00: Anita Pen Ericson 4mm Ericson 4mm 00 Ericson x 32Gm x 32Gm 4mm x 32Gm BD BD No QD BD Ultra-Fine Ultra-Fine 1-27 Ultra-Fine Anita Pen Anita Pen 00:00: Anita Pen Ericson 4mm Ericson 4mm 00 Ericson x 32Gm x 32Gm 4mm x 32Gm BD BD No QD BD Ultra-Fine Ultra-Fine 1-27 Ultra-Fine Anita Pen Anita Pen 00:00: Anita Pen Ericson 4mm Ericson 4mm 00 Ericson x 32Gm x 32Gm 4mm x 32Gm Omeprazole Omeprazole Yes Apolinar TAKE 1 Common [place] CAPSULE BY Spirit MOUTH - [facility] EVERY DAY [facility] MethylPREDN MethylPREDN Yes Apolinar TAKE Common ISolone ISolone [place] DIRECTED Spi rit - [facility] Doxycycline Doxycycline Yes Apolinar TAKE 1 Common Hyclate Hyclate [place] CAPSULE BY S pirit MOUTH - [facility] TWICE A [facility] DAY [facility] Methocarbam Methocarbam Yes Apolinar TAKE 1 Common ol ol [place] TABLET BY Spirit MOUTH - [facility]ICE A [facility] DAY [facility] Montelukast Montelukast Yes Apolinar TAKE 1 Common Sodium Sodium [place] TABLET BY Spir it MOUTH - [facility] EVERY DAY [facility] Acetaminoph Acetaminoph Yes Apolinar (Schedule Common en-Codeine en-Codeine [place] III Drug) Spirit #3 #3 TAKE 1 TO - [facility] [address] [facility] MOUTH [facility] HOURS [facility] NEEDED FOR PAIN Escitalopra Escitalopra No 1{table QD Escitalopr m Oxalate m Oxalate t} am Oxalate 10 MG 10 MG 10 MG traMADol traMADol No 1{table QD traMADol HCl 50 MG HCl 50 MG t_as_ne HCl 50 MG eded} CeleBREX CeleBREX No CeleBREX Pantoprazol Pantoprazol No Pantoprazo e Sodium 40 e Sodium 40 le Sodium MG MG 40 MG Multivital Multivital No Multivital Furosemide Furosemide No Furosemide 20 MG 20 MG 20 MG Atorvastati Atorvastati No 1{table QD Atorvastat n Calcium n Calcium t} in Calcium 20 MG 20 MG 20 MG Famotidine Famotidine No 1{table QD Famotidine 40 MG 40 MG t_at_be 40 MG dtime} Vitamin D3 Vitamin D3 No Vitamin D3 Vitamin B12 Vitamin B12 No Vitamin B12 Triamcinolo Triamcinolo No 1{appli BID Triamcinol ne ne cation} one Acetonide Acetonide Acetonide 0.1 % 0.1 % 0.1 % Escitalopra Escitalopra No Escitalopr m Oxalate m Oxalate am Oxalate 10 MG 10 MG 10 MG Celecoxib Celecoxib No Celecoxib 200 MG 200 MG 200 MG Montelukast Montelukast No Montelukas Sodium 10 Sodium 10 t Sodium MG MG 10 MG Ozempic Ozempic No Ozempic 0.25 or 0.5 0.25 or 0.5 0.25 or MG/DOSE MG/DOSE 0.5 MG/DOSE tiZANidine tiZANidine No tiZANidine HCl HCl HCl Trelegy Trelegy No 1{puff} QD Trelegy Ellipta Ellipta Ellipta 200-62.5-25 200-62.5-25 200-62.5-2 MCG/INH MCG/INH 5 MCG/INH Ozempic Ozempic No Ozempic (0.25 or (0.25 or (0.25 or 0.5 0.5 0.5 MG/DOSE) 2 MG/DOSE) 2 MG/DOSE) 2 MG/1.5ML MG/1.5ML MG/1.5ML CoQ10 CoQ10 No CoQ10 Triamcinolo Triamcinolo No 1{appli BID Triamcinol ne ne cation} one Acetonide Acetonide Acetonide 0.1 % 0.1 % 0.1 % CeleBREX CeleBREX No CeleBREX Pantoprazol Pantoprazol No Pantoprazo e Sodium 40 e Sodium 40 le Sodium MG MG 40 MG tiZANidine tiZANidine No 1{table QD tiZANidine HCl 4 MG HCl 4 MG t_as_ne HCl 4 MG eded} Vitamin D3 Vitamin D3 No Vitamin D3 Vitamin B12 Vitamin B12 No Vitamin B12 Atorvastati Atorvastati No 1{table QD Atorvastat n Calcium n Calcium t} in Calcium 10 MG 10 MG 10 MG traMADol traMADol No 1{table QD traMADol HCl 50 MG HCl 50 MG t_as_ne HCl 50 MG eded} Montelukast Montelukast No Montelukas Sodium 10 Sodium 10 t Sodium MG MG 10 MG Trelegy Trelegy No 1{puff} QD Trelegy Ellipta Ellipta Ellipta 200-62.5-25 200-62.5-25 200-62.5-2 MCG/INH MCG/INH 5 MCG/INH Escitalopra Escitalopra No 1{table QD Escitalopr m Oxalate m Oxalate t} am Oxalate 10 MG 10 MG 10 MG Celecoxib Celecoxib No Celecoxib 200 MG 200 MG 200 MG Multivital Multivital No Multivital Furosemide Furosemide No Furosemide 20 MG 20 MG 20 MG Famotidine Famotidine No 1{table QD Famotidine 40 MG 40 MG t_at_be 40 MG dtime} Vitamin D3 Vitamin D3 No Vitamin D3 Pantoprazol Pantoprazol No Pantoprazo e Sodium e Sodium le Sodium CeleBREX CeleBREX No CeleBREX methylPREDN methylPREDN No methylPRED ISolone 4 ISolone 4 NISolone 4 MG MG MG Montelukast Montelukast No Montelukas Sodium 10 Sodium 10 t Sodium MG MG 10 MG BD Pen BD Pen No BD Pen Needle Anita Needle Anita Needle U/F 32G X 4 U/F 32G X 4 Anita U/F MM MM 32G X 4 MM Celecoxib Celecoxib No Celecoxib 200 MG 200 MG 200 MG Montelukast Montelukast No Montelukas Sodium 10 Sodium 10 t Sodium MG MG 10 MG Saxenda 18 Saxenda 18 No 2.4{ml} QD Saxenda 18 MG/3ML MG/3ML MG/3ML Doxycycline Doxycycline No Doxycyclin Hyclate 100 Hyclate 100 e Hyclate MG MG 100 MG Vitamin B12 Vitamin B12 No Vitamin B12 CoQ10 CoQ10 No CoQ10 Acetaminoph Acetaminoph No Acetaminop en-Codeine en-Codeine hen-Codein #3 300-30 #3 300-30 e #3 MG MG 300-30 MG Escitalopra Escitalopra No 1{table QD Escitalopr m Oxalate m Oxalate t} am Oxalate 10 MG 10 MG 10 MG Atorvastati Atorvastati No 1{table QD Atorvastat n Calcium n Calcium t} in Calcium 10 MG 10 MG 10 MG Multivital Multivital No Multivital tiZANidine tiZANidine No tiZANidine HCl HCl HCl Pantoprazol Pantoprazol No Pantoprazo e Sodium e Sodium le Sodium Celecoxib Celecoxib No Celecoxib 200 MG 200 MG 200 MG Vitamin D3 Vitamin D3 No Vitamin D3 CeleBREX CeleBREX No CeleBREX Multivital Multivital No Multivital Acetaminoph Acetaminoph No Acetaminop en-Codeine en-Codeine hen-Codein #3 300-30 #3 300-30 e #3 MG MG 300-30 MG BD Pen BD Pen No BD Pen Needle Anita Needle Anita Needle U/F 32G X 4 U/F 32G X 4 Anita U/F MM MM 32G X 4 MM Atorvastati Atorvastati No 1{table QD Atorvastat n Calcium n Calcium t} in Calcium 10 MG 10 MG 10 MG methylPREDN methylPREDN No methylPRED ISolone 4 ISolone 4 NISolone 4 MG MG MG tiZANidine tiZANidine No tiZANidine HCl HCl HCl CoQ10 CoQ10 No CoQ10 Vitamin B12 Vitamin B12 No Vitamin B12 Montelukast Montelukast No Montelukas Sodium 10 Sodium 10 t Sodium MG MG 10 MG Escitalopra Escitalopra No 1{table QD Escitalopr m Oxalate m Oxalate t} am Oxalate 10 MG 10 MG 10 MG Montelukast Montelukast No Montelukas Sodium 10 Sodium 10 t Sodium MG MG 10 MG Doxycycline Doxycycline No Doxycyclin Hyclate 100 Hyclate 100 e Hyclate MG MG 100 MG Saxenda 18 Saxenda 18 No 2.4{ml} QD Saxenda 18 MG/3ML MG/3ML MG/3ML Celecoxib Celecoxib No Celecoxib 200 MG 200 MG 200 MG Saxenda 18 Saxenda 18 No 2.4{ml} QD Saxenda 18 MG/3ML MG/3ML MG/3ML Multivital Multivital No Multivital Escitalopra Escitalopra No 1{table QD Escitalopr m Oxalate m Oxalate t} am Oxalate 10 MG 10 MG 10 MG Pantoprazol Pantoprazol No Pantoprazo e Sodium e Sodium le Sodium Vitamin B12 Vitamin B12 No Vitamin B12 Acetaminoph Acetaminoph No Acetaminop en-Codeine en-Codeine hen-Codein #3 300-30 #3 300-30 e #3 MG MG 300-30 MG Doxycycline Doxycycline No Doxycyclin Hyclate 100 Hyclate 100 e Hyclate MG MG 100 MG tiZANidine tiZANidine No tiZANidine HCl HCl HCl CeleBREX CeleBREX No CeleBREX Montelukast Montelukast No Montelukas Sodium 10 Sodium 10 t Sodium MG MG 10 MG BD Pen BD Pen No BD Pen Needle Anita Needle Anita Needle U/F 32G X 4 U/F 32G X 4 Anita U/F MM MM 32G X 4 MM Atorvastati Atorvastati No 1{table QD Atorvastat n Calcium n Calcium t} in Calcium 10 MG 10 MG 10 MG Vitamin D3 Vitamin D3 No Vitamin D3 methylPREDN methylPREDN No methylPRED ISolone 4 ISolone 4 NISolone 4 MG MG MG CoQ10 CoQ10 No CoQ10 Montelukast Montelukast No Montelukas Sodium 10 Sodium 10 t Sodium MG MG 10 MG Montelukast Montelukast No Montelukas Sodium 10 Sodium 10 t Sodium MG MG 10 MG methylPREDN methylPREDN No methylPRED ISolone 4 ISolone 4 NISolone 4 MG MG MG Escitalopra Escitalopra No 1{table QD Escitalopr m Oxalate m Oxalate t} am Oxalate 10 MG 10 MG 10 MG CeleBREX CeleBREX No CeleBREX CoQ10 CoQ10 No CoQ10 BD Pen BD Pen No BD Pen Needle Anita Needle Anita Needle U/F 32G X 4 U/F 32G X 4 Anita U/F MM MM 32G X 4 MM Atorvastati Atorvastati No 1{table QD Atorvastat n Calcium n Calcium t} in Calcium 10 MG 10 MG 10 MG Acetaminoph Acetaminoph No Acetaminop en-Codeine en-Codeine hen-Codein #3 300-30 #3 300-30 e #3 MG MG 300-30 MG Pantoprazol Pantoprazol No Pantoprazo e Sodium e Sodium le Sodium Celecoxib Celecoxib No Celecoxib 200 MG 200 MG 200 MG Doxycycline Doxycycline No Doxycyclin Hyclate 100 Hyclate 100 e Hyclate MG MG 100 MG Multivital Multivital No Multivital Montelukast Montelukast No Montelukas Sodium 10 Sodium 10 t Sodium MG MG 10 MG Vitamin D3 Vitamin D3 No Vitamin D3 Vitamin B12 Vitamin B12 No Vitamin B12 tiZANidine tiZANidine No tiZANidine HCl HCl HCl Acetaminoph Acetaminoph No Acetaminop en-Codeine en-Codeine hen-Codein #3 300-30 #3 300-30 e #3 MG MG 300-30 MG CoQ10 CoQ10 No CoQ10 Montelukast Montelukast No Montelukas Sodium 10 Sodium 10 t Sodium MG MG 10 MG Vitamin B12 Vitamin B12 No Vitamin B12 Multivital Multivital No Multivital Vitamin D3 Vitamin D3 No Vitamin D3 Celecoxib Celecoxib No Celecoxib 200 MG 200 MG 200 MG BD Pen BD Pen No BD Pen Needle Anita Needle Anita Needle U/F 32G X 4 U/F 32G X 4 Anita U/F MM MM 32G X 4 MM Atorvastati Atorvastati No Atorvastat n Calcium n Calcium in Calcium 10 MG 10 MG 10 MG Pantoprazol Pantoprazol No Pantoprazo e Sodium e Sodium le Sodium tiZANidine tiZANidine No tiZANidine HCl HCl HCl Escitalopra Escitalopra No Escitalopr m Oxalate m Oxalate am Oxalate 10 MG 10 MG 10 MG CeleBREX CeleBREX No CeleBREX methylPREDN methylPREDN No methylPRED ISolone 4 ISolone 4 NISolone 4 MG MG MG Montelukast Montelukast No Montelukas Sodium 10 Sodium 10 t Sodium MG MG 10 MG Doxycycline Doxycycline No Doxycyclin Hyclate 100 Hyclate 100 e Hyclate MG MG 100 MG Azithromyci Azithromyci No QD Azithromyc n 250 MG n 250 MG in 250 MG Doxycycline Doxycycline No Doxycyclin Hyclate 100 Hyclate 100 e Hyclate MG MG 100 MG Vitamin B12 Vitamin B12 No Vitamin B12 Pantoprazol Pantoprazol No Pantoprazo e Sodium e Sodium le Sodium Celecoxib Celecoxib No Celecoxib 200 MG 200 MG 200 MG Acetaminoph Acetaminoph No Acetaminop en-Codeine en-Codeine hen-Codein #3 300-30 #3 300-30 e #3 MG MG 300-30 MG Montelukast Montelukast No Montelukas Sodium 10 Sodium 10 t Sodium MG MG 10 MG CoQ10 CoQ10 No CoQ10 BD Pen BD Pen No BD Pen Needle Anita Needle Anita Needle U/F 32G X 4 U/F 32G X 4 Anita U/F MM MM 32G X 4 MM Vitamin D3 Vitamin D3 No Vitamin D3 methylPREDN methylPREDN No methylPRED ISolone 4 ISolone 4 NISolone 4 MG MG MG Multivital Multivital No Multivital Atorvastati Atorvastati No Atorvastat n Calcium n Calcium in Calcium 10 MG 10 MG 10 MG tiZANidine tiZANidine No tiZANidine HCl HCl HCl Albuterol Albuterol No 2{puff_ 6xD Albuterol Sulfate HFA Sulfate HFA as_need Sulfate 108 (90 108 (90 ed} HFA 108 Base) Base) (90 Base) MCG/ACT MCG/ACT MCG/ACT CeleBREX CeleBREX No CeleBREX Montelukast Montelukast No Montelukas Sodium 10 Sodium 10 t Sodium MG MG 10 MG Escitalopra Escitalopra No Escitalopr m Oxalate m Oxalate am Oxalate 10 MG 10 MG 10 MG Vitamin B12 Vitamin B12 No Vitamin B12 tiZANidine tiZANidine No tiZANidine HCl HCl HCl Celecoxib Celecoxib No Celecoxib 200 MG 200 MG 200 MG methylPREDN methylPREDN No methylPRED ISolone 4 ISolone 4 NISolone 4 MG MG MG Acetaminoph Acetaminoph No Acetaminop en-Codeine en-Codeine hen-Codein #3 300-30 #3 300-30 e #3 MG MG 300-30 MG Montelukast Montelukast No Montelukas Sodium 10 Sodium 10 t Sodium MG MG 10 MG CoQ10 CoQ10 No CoQ10 Atorvastati Atorvastati No Atorvastat n Calcium n Calcium in Calcium 10 MG 10 MG 10 MG BD Pen BD Pen No BD Pen Needle Anita Needle Anita Needle U/F 32G X 4 U/F 32G X 4 Anita U/F MM MM 32G X 4 MM Montelukast Montelukast No Montelukas Sodium 10 Sodium 10 t Sodium MG MG 10 MG Escitalopra Escitalopra No Escitalopr m Oxalate m Oxalate am Oxalate 10 MG 10 MG 10 MG Doxycycline Doxycycline No Doxycyclin Hyclate 100 Hyclate 100 e Hyclate MG MG 100 MG Pantoprazol Pantoprazol No Pantoprazo e Sodium e Sodium le Sodium Vitamin D3 Vitamin D3 No Vitamin D3 Albuterol Albuterol No 2{puff_ 6xD Albuterol Sulfate HFA Sulfate HFA as_need Sulfate 108 (90 108 (90 ed} HFA 108 Base) Base) (90 Base) MCG/ACT MCG/ACT MCG/ACT Azithromyci Azithromyci No QD Azithromyc n 250 MG n 250 MG in 250 MG CeleBREX CeleBREX No CeleBREX Multivital Multivital No Multivital CeleBREX CeleBREX No CeleBREX Atorvastati Atorvastati No 1{table QD Atorvastat n Calcium n Calcium t} in Calcium 10 MG 10 MG 10 MG CoQ10 CoQ10 No CoQ10 Vitamin B12 Vitamin B12 No Vitamin B12 Celecoxib Celecoxib No Celecoxib 200 MG 200 MG 200 MG Atorvastati Atorvastati No Atorvastat n Calcium n Calcium in Calcium 10 MG 10 MG 10 MG Multivital Multivital No Multivital Montelukast Montelukast No Montelukas Sodium 10 Sodium 10 t Sodium MG MG 10 MG traMADol traMADol No 1{table QD traMADol HCl 50 MG HCl 50 MG t_as_ne HCl 50 MG eded} Montelukast Montelukast No Montelukas Sodium 10 Sodium 10 t Sodium MG MG 10 MG tiZANidine tiZANidine No tiZANidine HCl HCl HCl Escitalopra Escitalopra No Escitalopr m Oxalate m Oxalate am Oxalate 10 MG 10 MG 10 MG Vitamin D3 Vitamin D3 No Vitamin D3 Escitalopra Escitalopra No 1{table QD Escitalopr m Oxalate m Oxalate t} am Oxalate 10 MG 10 MG 10 MG Furosemide Furosemide No Furosemide 20 MG 20 MG 20 MG Vitamin D3 Vitamin D3 No Vitamin D3 Vitamin B12 Vitamin B12 No Vitamin B12 traMADol traMADol No 1{table QD traMADol HCl 50 MG HCl 50 MG t_as_ne HCl 50 MG eded} Celecoxib Celecoxib No Celecoxib 200 MG 200 MG 200 MG Pantoprazol Pantoprazol No Pantoprazo e Sodium 40 e Sodium 40 le Sodium MG MG 40 MG Atorvastati Atorvastati No Atorvastat n Calcium n Calcium in Calcium 10 MG 10 MG 10 MG CoQ10 CoQ10 No CoQ10 Escitalopra Escitalopra No Escitalopr m Oxalate m Oxalate am Oxalate 10 MG 10 MG 10 MG tiZANidine tiZANidine No tiZANidine HCl HCl HCl CeleBREX CeleBREX No CeleBREX Montelukast Montelukast No Montelukas Sodium 10 Sodium 10 t Sodium MG MG 10 MG Multivital Multivital No Multivital CoQ10 CoQ10 No CoQ10 tiZANidine tiZANidine No tiZANidine HCl HCl HCl traMADol traMADol No 1{table QD traMADol HCl 50 MG HCl 50 MG t_as_ne HCl 50 MG eded} Multivital Multivital No Multivital Pantoprazol Pantoprazol No Pantoprazo e Sodium 40 e Sodium 40 le Sodium MG MG 40 MG Vitamin D3 Vitamin D3 No Vitamin D3 Celecoxib Celecoxib No Celecoxib 200 MG 200 MG 200 MG Atorvastati Atorvastati No Atorvastat n Calcium n Calcium in Calcium 10 MG 10 MG 10 MG Vitamin B12 Vitamin B12 No Vitamin B12 Montelukast Montelukast No Montelukas Sodium 10 Sodium 10 t Sodium MG MG 10 MG CeleBREX CeleBREX No CeleBREX Furosemide Furosemide No Furosemide 20 MG 20 MG 20 MG Escitalopra Escitalopra No Escitalopr m Oxalate m Oxalate am Oxalate 10 MG 10 MG 10 MG CoQ10 CoQ10 No CoQ10 tiZANidine tiZANidine No tiZANidine HCl HCl HCl traMADol traMADol No 1{table QD traMADol HCl 50 MG HCl 50 MG t_as_ne HCl 50 MG eded} Multivital Multivital No Multivital Pantoprazol Pantoprazol No Pantoprazo e Sodium 40 e Sodium 40 le Sodium MG MG 40 MG Vitamin D3 Vitamin D3 No Vitamin D3 Celecoxib Celecoxib No Celecoxib 200 MG 200 MG 200 MG Atorvastati Atorvastati No Atorvastat n Calcium n Calcium in Calcium 10 MG 10 MG 10 MG Vitamin B12 Vitamin B12 No Vitamin B12 Montelukast Montelukast No Montelukas Sodium 10 Sodium 10 t Sodium MG MG 10 MG CeleBREX CeleBREX No CeleBREX Furosemide Furosemide No Furosemide 20 MG 20 MG 20 MG Escitalopra Escitalopra No Escitalopr m Oxalate m Oxalate am Oxalate 10 MG 10 MG 10 MG Vitamin D3 Vitamin D3 No Vitamin D3 Celecoxib Celecoxib No Celecoxib 200 MG 200 MG 200 MG tiZANidine tiZANidine No tiZANidine HCl HCl HCl traMADol traMADol No 1{table QD traMADol HCl 50 MG HCl 50 MG t_as_ne HCl 50 MG eded} Multivital Multivital No Multivital Montelukast Montelukast No Montelukas Sodium 10 Sodium 10 t Sodium MG MG 10 MG Pantoprazol Pantoprazol No Pantoprazo e Sodium 40 e Sodium 40 le Sodium MG MG 40 MG Furosemide Furosemide No Furosemide 20 MG 20 MG 20 MG Escitalopra Escitalopra No Escitalopr m Oxalate m Oxalate am Oxalate 10 MG 10 MG 10 MG CoQ10 CoQ10 No CoQ10 Atorvastati Atorvastati No Atorvastat n Calcium n Calcium in Calcium 10 MG 10 MG 10 MG CeleBREX CeleBREX No CeleBREX Vitamin B12 Vitamin B12 No Vitamin B12 CeleBREX CeleBREX No CeleBREX Celecoxib Celecoxib No Celecoxib 200 MG 200 MG 200 MG traMADol traMADol No 1{table QD traMADol HCl 50 MG HCl 50 MG t_as_ne HCl 50 MG eded} Multivital Multivital No Multivital Atorvastati Atorvastati No Atorvastat n Calcium n Calcium in Calcium 10 MG 10 MG 10 MG tiZANidine tiZANidine No tiZANidine HCl HCl HCl Vitamin B12 Vitamin B12 No Vitamin B12 Pantoprazol Pantoprazol No Pantoprazo e Sodium 40 e Sodium 40 le Sodium MG MG 40 MG Escitalopra Escitalopra No Escitalopr m Oxalate m Oxalate am Oxalate 10 MG 10 MG 10 MG CoQ10 CoQ10 No CoQ10 Vitamin D3 Vitamin D3 No Vitamin D3 Furosemide Furosemide No Furosemide 20 MG 20 MG 20 MG Montelukast Montelukast No Montelukas Sodium 10 Sodium 10 t Sodium MG MG 10 MG CeleBREX CeleBREX No CeleBREX Celecoxib Celecoxib No Celecoxib 200 MG 200 MG 200 MG traMADol traMADol No 1{table QD traMADol HCl 50 MG HCl 50 MG t_as_ne HCl 50 MG eded} Multivital Multivital No Multivital Atorvastati Atorvastati No Atorvastat n Calcium n Calcium in Calcium 10 MG 10 MG 10 MG tiZANidine tiZANidine No tiZANidine HCl HCl HCl Vitamin B12 Vitamin B12 No Vitamin B12 Pantoprazol Pantoprazol No Pantoprazo e Sodium 40 e Sodium 40 le Sodium MG MG 40 MG Escitalopra Escitalopra No Escitalopr m Oxalate m Oxalate am Oxalate 10 MG 10 MG 10 MG CoQ10 CoQ10 No CoQ10 Vitamin D3 Vitamin D3 No Vitamin D3 Furosemide Furosemide No Furosemide 20 MG 20 MG 20 MG Montelukast Montelukast No Montelukas Sodium 10 Sodium 10 t Sodium MG MG 10 MG CeleBREX CeleBREX No CeleBREX Celecoxib Celecoxib No Celecoxib 200 MG 200 MG 200 MG traMADol traMADol No 1{table QD traMADol HCl 50 MG HCl 50 MG t_as_ne HCl 50 MG eded} Multivital Multivital No Multivital Atorvastati Atorvastati No Atorvastat n Calcium n Calcium in Calcium 10 MG 10 MG 10 MG tiZANidine tiZANidine No tiZANidine HCl HCl HCl Vitamin B12 Vitamin B12 No Vitamin B12 Pantoprazol Pantoprazol No Pantoprazo e Sodium 40 e Sodium 40 le Sodium MG MG 40 MG Escitalopra Escitalopra No Escitalopr m Oxalate m Oxalate am Oxalate 10 MG 10 MG 10 MG CoQ10 CoQ10 No CoQ10 Vitamin D3 Vitamin D3 No Vitamin D3 Furosemide Furosemide No Furosemide 20 MG 20 MG 20 MG Montelukast Montelukast No Montelukas Sodium 10 Sodium 10 t Sodium MG MG 10 MG CeleBREX CeleBREX No CeleBREX Celecoxib Celecoxib No Celecoxib 200 MG 200 MG 200 MG traMADol traMADol No 1{table QD traMADol HCl 50 MG HCl 50 MG t_as_ne HCl 50 MG eded} Multivital Multivital No Multivital Atorvastati Atorvastati No Atorvastat n Calcium n Calcium in Calcium 10 MG 10 MG 10 MG tiZANidine tiZANidine No tiZANidine HCl HCl HCl Vitamin B12 Vitamin B12 No Vitamin B12 Pantoprazol Pantoprazol No Pantoprazo e Sodium 40 e Sodium 40 le Sodium MG MG 40 MG Escitalopra Escitalopra No Escitalopr m Oxalate m Oxalate am Oxalate 10 MG 10 MG 10 MG CoQ10 CoQ10 No CoQ10 Vitamin D3 Vitamin D3 No Vitamin D3 Furosemide Furosemide No Furosemide 20 MG 20 MG 20 MG Montelukast Montelukast No Montelukas Sodium 10 Sodium 10 t Sodium MG MG 10 MG CeleBREX CeleBREX No CeleBREX Celecoxib Celecoxib No Celecoxib 200 MG 200 MG 200 MG traMADol traMADol No 1{table QD traMADol HCl 50 MG HCl 50 MG t_as_ne HCl 50 MG eded} Multivital Multivital No Multivital Atorvastati Atorvastati No Atorvastat n Calcium n Calcium in Calcium 10 MG 10 MG 10 MG tiZANidine tiZANidine No tiZANidine HCl HCl HCl Vitamin B12 Vitamin B12 No Vitamin B12 Pantoprazol Pantoprazol No Pantoprazo e Sodium 40 e Sodium 40 le Sodium MG MG 40 MG Escitalopra Escitalopra No Escitalopr m Oxalate m Oxalate am Oxalate 10 MG 10 MG 10 MG CoQ10 CoQ10 No CoQ10 Vitamin D3 Vitamin D3 No Vitamin D3 Furosemide Furosemide No Furosemide 20 MG 20 MG 20 MG Montelukast Montelukast No Montelukas Sodium 10 Sodium 10 t Sodium MG MG 10 MG Multivital Multivital No Multivital Furosemide Furosemide No Furosemide 20 MG 20 MG 20 MG tiZANidine tiZANidine No 1{table QD tiZANidine HCl 4 MG HCl 4 MG t_as_ne HCl 4 MG eded} Vitamin B12 Vitamin B12 No Vitamin B12 CeleBREX CeleBREX No CeleBREX Vitamin D3 Vitamin D3 No Vitamin D3 Pantoprazol Pantoprazol No Pantoprazo e Sodium 40 e Sodium 40 le Sodium MG MG 40 MG CoQ10 CoQ10 No CoQ10 Atorvastati Atorvastati No Atorvastat n Calcium n Calcium in Calcium 10 MG 10 MG 10 MG Celecoxib Celecoxib No Celecoxib 200 MG 200 MG 200 MG Escitalopra Escitalopra No Escitalopr m Oxalate m Oxalate am Oxalate 10 MG 10 MG 10 MG Famotidine Famotidine No 1{table QD Famotidine 40 MG 40 MG t_at_be 40 MG dtime} traMADol traMADol No 1{table QD traMADol HCl 50 MG HCl 50 MG t_as_ne HCl 50 MG eded} Montelukast Montelukast No Montelukas Sodium 10 Sodium 10 t Sodium MG MG 10 MG Multivital Multivital No Multivital Furosemide Furosemide No Furosemide 20 MG 20 MG 20 MG tiZANidine tiZANidine No 1{table QD tiZANidine HCl 4 MG HCl 4 MG t_as_ne HCl 4 MG eded} Vitamin B12 Vitamin B12 No Vitamin B12 CeleBREX CeleBREX No CeleBREX Vitamin D3 Vitamin D3 No Vitamin D3 Pantoprazol Pantoprazol No Pantoprazo e Sodium 40 e Sodium 40 le Sodium MG MG 40 MG CoQ10 CoQ10 No CoQ10 Atorvastati Atorvastati No Atorvastat n Calcium n Calcium in Calcium 10 MG 10 MG 10 MG Celecoxib Celecoxib No Celecoxib 200 MG 200 MG 200 MG Escitalopra Escitalopra No Escitalopr m Oxalate m Oxalate am Oxalate 10 MG 10 MG 10 MG Famotidine Famotidine No 1{table QD Famotidine 40 MG 40 MG t_at_be 40 MG dtime} traMADol traMADol No 1{table QD traMADol HCl 50 MG HCl 50 MG t_as_ne HCl 50 MG eded} Montelukast Montelukast No Montelukas Sodium 10 Sodium 10 t Sodium MG MG 10 MG Multivital Multivital No Multivital Furosemide Furosemide No Furosemide 20 MG 20 MG 20 MG tiZANidine tiZANidine No 1{table QD tiZANidine HCl 4 MG HCl 4 MG t_as_ne HCl 4 MG eded} Vitamin B12 Vitamin B12 No Vitamin B12 CeleBREX CeleBREX No CeleBREX Vitamin D3 Vitamin D3 No Vitamin D3 Pantoprazol Pantoprazol No Pantoprazo e Sodium 40 e Sodium 40 le Sodium MG MG 40 MG CoQ10 CoQ10 No CoQ10 Atorvastati Atorvastati No Atorvastat n Calcium n Calcium in Calcium 10 MG 10 MG 10 MG Celecoxib Celecoxib No Celecoxib 200 MG 200 MG 200 MG Escitalopra Escitalopra No Escitalopr m Oxalate m Oxalate am Oxalate 10 MG 10 MG 10 MG Famotidine Famotidine No 1{table QD Famotidine 40 MG 40 MG t_at_be 40 MG dtime} traMADol traMADol No 1{table QD traMADol HCl 50 MG HCl 50 MG t_as_ne HCl 50 MG eded} Montelukast Montelukast No Montelukas Sodium 10 Sodium 10 t Sodium MG MG 10 MG Multivital Multivital No Multivital Furosemide Furosemide No Furosemide 20 MG 20 MG 20 MG tiZANidine tiZANidine No 1{table QD tiZANidine HCl 4 MG HCl 4 MG t_as_ne HCl 4 MG eded} Vitamin B12 Vitamin B12 No Vitamin B12 CeleBREX CeleBREX No CeleBREX Vitamin D3 Vitamin D3 No Vitamin D3 Pantoprazol Pantoprazol No Pantoprazo e Sodium 40 e Sodium 40 le Sodium MG MG 40 MG CoQ10 CoQ10 No CoQ10 Atorvastati Atorvastati No Atorvastat n Calcium n Calcium in Calcium 10 MG 10 MG 10 MG Celecoxib Celecoxib No Celecoxib 200 MG 200 MG 200 MG Escitalopra Escitalopra No Escitalopr m Oxalate m Oxalate am Oxalate 10 MG 10 MG 10 MG Famotidine Famotidine No 1{table QD Famotidine 40 MG 40 MG t_at_be 40 MG dtime} traMADol traMADol No 1{table QD traMADol HCl 50 MG HCl 50 MG t_as_ne HCl 50 MG eded} Montelukast Montelukast No Montelukas Sodium 10 Sodium 10 t Sodium MG MG 10 MG Multivital Multivital No Multivital Furosemide Furosemide No Furosemide 20 MG 20 MG 20 MG tiZANidine tiZANidine No 1{table QD tiZANidine HCl 4 MG HCl 4 MG t_as_ne HCl 4 MG eded} Vitamin B12 Vitamin B12 No Vitamin B12 CeleBREX CeleBREX No CeleBREX Vitamin D3 Vitamin D3 No Vitamin D3 Pantoprazol Pantoprazol No Pantoprazo e Sodium 40 e Sodium 40 le Sodium MG MG 40 MG CoQ10 CoQ10 No CoQ10 Atorvastati Atorvastati No Atorvastat n Calcium n Calcium in Calcium 10 MG 10 MG 10 MG Celecoxib Celecoxib No Celecoxib 200 MG 200 MG 200 MG Escitalopra Escitalopra No Escitalopr m Oxalate m Oxalate am Oxalate 10 MG 10 MG 10 MG Famotidine Famotidine No 1{table QD Famotidine 40 MG 40 MG t_at_be 40 MG dtime} traMADol traMADol No 1{table QD traMADol HCl 50 MG HCl 50 MG t_as_ne HCl 50 MG eded} Montelukast Montelukast No Montelukas Sodium 10 Sodium 10 t Sodium MG MG 10 MG Pantoprazol Pantoprazol No Pantoprazo e Sodium 40 e Sodium 40 le Sodium MG MG 40 MG Montelukast Montelukast No Montelukas Sodium 10 Sodium 10 t Sodium MG MG 10 MG Atorvastati Atorvastati No Atorvastat n Calcium n Calcium in Calcium 10 MG 10 MG 10 MG traMADol traMADol No 1{table QD traMADol HCl 50 MG HCl 50 MG t_as_ne HCl 50 MG eded} Furosemide Furosemide No Furosemide 20 MG 20 MG 20 MG Atorvastati Atorvastati No 1{table QD Atorvastat n Calcium n Calcium t} in Calcium 10 MG 10 MG 10 MG Escitalopra Escitalopra No Escitalopr m Oxalate m Oxalate am Oxalate 10 MG 10 MG 10 MG CoQ10 CoQ10 No CoQ10 CeleBREX CeleBREX No CeleBREX Montelukast Montelukast No Montelukas Sodium 10 Sodium 10 t Sodium MG MG 10 MG Vitamin D3 Vitamin D3 No Vitamin D3 Multivital Multivital No Multivital Vitamin B12 Vitamin B12 No Vitamin B12 Celecoxib Celecoxib No Celecoxib 200 MG 200 MG 200 MG Famotidine Famotidine No 1{table QD Famotidine 40 MG 40 MG t_at_be 40 MG dtime} Escitalopra Escitalopra No 1{table QD Escitalopr m Oxalate m Oxalate t} am Oxalate 10 MG 10 MG 10 MG tiZANidine tiZANidine No tiZANidine HCl HCl HCl Trelegy Trelegy No 1{puff} QD Trelegy Ellipta Ellipta Ellipta 200-62.5-25 200-62.5-25 200-62.5-2 MCG/INH MCG/INH 5 MCG/INH Triamcinolo Triamcinolo No 1{appli BID Triamcinol ne ne cation} one Acetonide Acetonide Acetonide 0.1 % 0.1 % 0.1 % CeleBREX CeleBREX No CeleBREX Pantoprazol Pantoprazol No Pantoprazo e Sodium 40 e Sodium 40 le Sodium MG MG 40 MG tiZANidine tiZANidine No 1{table QD tiZANidine HCl 4 MG HCl 4 MG t_as_ne HCl 4 MG eded} Vitamin D3 Vitamin D3 No Vitamin D3 Vitamin B12 Vitamin B12 No Vitamin B12 Atorvastati Atorvastati No 1{table QD Atorvastat n Calcium n Calcium t} in Calcium 10 MG 10 MG 10 MG traMADol traMADol No 1{table QD traMADol HCl 50 MG HCl 50 MG t_as_ne HCl 50 MG eded} Montelukast Montelukast No Montelukas Sodium 10 Sodium 10 t Sodium MG MG 10 MG Trelegy Trelegy No 1{puff} QD Trelegy Ellipta Ellipta Ellipta 200-62.5-25 200-62.5-25 200-62.5-2 MCG/INH MCG/INH 5 MCG/INH Escitalopra Escitalopra No 1{table QD Escitalopr m Oxalate m Oxalate t} am Oxalate 10 MG 10 MG 10 MG Celecoxib Celecoxib No Celecoxib 200 MG 200 MG 200 MG Multivital Multivital No Multivital Furosemide Furosemide No Furosemide 20 MG 20 MG 20 MG Famotidine Famotidine No 1{table QD Famotidine 40 MG 40 MG t_at_be 40 MG dtime} Immunizations Ordered Filled Immunization Date Status Comments Sourc e Immunization Name Name [facility]vis 2020-11-03 [facility]isc Synvis 2020-11-03 [facility]:00 [facility] Synvis Synvis 2020-11-03 Com[facility] 13:40:00 [facility] Synvis Synvis 2020-11-03 Com[facility] - 13:39:00 [facility] Synvis Synvis 2020-11-03 Com[facility] 13:39:00 [facility] Synvis Synvis 2020-11-03 [facility]:39:[facility]27 [facility] 08:48:00 [facility] Synvis Synvis 2020-10-27 Com[facility] - 08:48:00 [facility] Synvis Synvis 2020-10-27 Com[facility] - 08:47:00 [facility] Synvis Synvis 2020-10-27 Completed [facility] - 08:47:00 [facility] Synvisc Synvis 2020-10-27 Com[facility] 08:47:00 [facility] Vianney Faith 2020-10-20 Com[facility] - (Triamcinolone) (Triamcinolone) 08:22:00 [facility] 2020-10-20 Com[facility] (Triamcinolone) (Triamcinolone) 08:22:00 [facility] 2020-10-20 Completed [facility] (Triamcinolone) (Triamcinolone) 08:22:00 [facility] 2020-10-20 Completed [facility] (Triamcinolone) (Triamcinolone) 08:22:00 [facility] 2020-10-20 Completed [facility] (Triamcinolone) (Triamcinolone) 08:22:00 [facility] V[facility] 2020-10-20 Com[facility] (Triamcinolone) (Triamcinolone) 08:22:00 [facility] Synvisc Synvisc 2020-10-20 Completed [facility] - 08:21:00 [facility] Bupivicaine [place] Bupivicaine [place] 2020-10-20 Completed [facility] - 08:21:00 [facility] Bupivicaine [place] Bupivicaine [place] 2020-10-20 Completed [facility] - 08:21:00 [facility] Synvisc Synvisc 2020-10-20 Completed [facility] - 08:21:00 [facility] Bupivicaine [place] Bupivicaine [place] 2020-10-20 Completed [facility] - 08:21:00 [facility] Bupivicaine [place] Bupivicaine [place] 2020-10-20 Completed [facility] - 08:21:00 [facility] Synvisc Synvisc 2020-10-20 Completed [facility] - 08:21:00 [facility] Bupivicaine [place] Bupivicaine [place] 2020-10-20 Completed [facility] - 08:21:00 [facility] Bupivicaine [place] Bupivicaine [place] 2020-10-20 Completed [facility] - 08:21:00 [facility] Synvisc Synvisc 2020-10-20 Completed [facility] - 08:20:00 [facility] Synvisc Synvisc 2020-10-20 Completed [facility] - 08:20:00 [facility] Synvisc Synvisc 2020-10-20 Completed [facility] - 08:20:00 [facility] SARS-COV-2 COVID-19 2020-05-17 Completed [facility]:00:00 [facility] SARS-COV-2 COVID-19 2020-05-17 Completed [facility] MODERNA VACCINE 00:00:00 [facility] SARS-COV-2 COVID-19 2020-04-19 Completed [facility] MODERNA VACCINE 00:00:00 [facility] SARS-COV-2 COVID-19 2020-04-19 Completed [facility] MODERNA VACCINE 00:00:00 [facility] Pneumovax (PPSV23) Pneumovax (PPSV23) 2019-12-26 Completed [facility] - 15:10:00 [facility] Pneumovax (PPSV23) Pneumovax (PPSV23) 2019-12-26 Completed [facility] - 15:10:00 [facility] Pneumovax (PPSV23) Pneumovax (PPSV23) 2019-12-26 Completed [facility] - 15:10:00 [facility] Pneumovax (PPSV23) Pneumovax (PPSV23) 2019-12-26 Completed [facility] 15:10:00 [facility] Pneumovax (PPSV23) Pneumovax (PPSV23) 2019-12-26 Completed [facility] 15:10:00 [facility] Pneumovax (PPSV23) Pneumovax (PPSV23) 2019-12-26 Completed [facility] - 15:10:00 [facility] Pneumovax (PPSV23) Pneumovax (PPSV23) 2019-12-26 Completed [facility] 15:10:00 [facility] Pneumovax (PPSV23) Pneumovax (PPSV23) 2019-12-26 Completed [facility] 15:10:00 [facility] Pneumovax (PPSV23) Pneumovax (PPSV23) 2019-12-26 Completed [facility] 15:10:00 [facility] Pneumovax (PPSV23) Pneumovax (PPSV23) 2019-12-26 Completed [facility] 15:10:00 [facility] Pneumovax (PPSV23) Pneumovax (PPSV23) 2019-12-26 Completed [facility] 15:10:00 [facility] Pneumovax (PPSV23) Pneumovax (PPSV23) 2019-12-26 Completed [facility] 15:10:00 [facility] Pneumovax (PPSV23) Pneumovax (PPSV23) 2019-12-26 Completed [facility] 15:10:00 [facility] Pneumovax (PPSV23) Pneumovax (PPSV23) 2019-12-26 Completed [facility] 15:10:00 [facility] Pneumovax (PPSV23) Pneumovax (PPSV23) 2019-12-26 Completed [facility] 15:10:00 [facility] Pneumovax (PPSV23) Pneumovax (PPSV23) 2019-12-26 Completed [facility] 15:10:00 [facility] Pneumovax (PPSV23) Pneumovax (PPSV23) 2019-12-26 Completed [facility] 15:10:00 [facility] Pneumovax (PPSV23) Pneumovax (PPSV23) 2019-12-26 Completed [facility] 15:10:00 [facility] Pneumovax (PPSV23) Pneumovax (PPSV23) 2019-12-26 Completed [facility] - 15:10:00 [facility] Pneumovax (PPSV23) Pneumovax (PPSV23) 2019-12-26 Completed [facility] - 15:10:00 [facility] Pneumovax (PPSV23) Pneumovax (PPSV23) 2019-12-26 Completed [facility] - 15:10:00 [facility] Pneumovax (PPSV23) Pneumovax (PPSV23) 2019-12-26 Completed [facility] - 15:10:00 [facility] Pneumovax (PPSV23) Pneumovax (PPSV23) 2019-12-26 Completed [facility] - 15:10:00 [facility] Pneumovax (PPSV23) Pneumovax (PPSV23) 2019-12-26 Completed [facility] - 15:10:00 [facility] Pneumovax (PPSV23) Pneumovax (PPSV23) 2019-12-26 Completed [facility] - 15:10:00 [facility] Pneumovax (PPSV23) Pneumovax (PPSV23) 2019-12-26 Completed [facility] - 15:10:00 [facility] Shingrix Shingrix 2019-12-24 Completed [facility] - 15:10:00 [facility] Shingrix Shingrix 2019-12-24 Completed [facility] - 15:10:00 [facility] Shingrix Shingrix 2019-12-24 Completed [facility] - 15:10:00 [facility] Shingrix Shingrix 2019-12-24 Completed [facility] - 15:10:00 [facility] Shingrix Shingrix 2019-12-24 Completed [facility] - 15:10:00 [facility] Shingrix Shingrix 2019-12-24 Completed [facility] - 15:10:00 [facility] Shingrix Shingrix 2019-12-24 Completed [facility] - 15:10:00 [facility] Shingrix Shingrix 2019-12-24 Completed [facility] - 15:10:00 [facility] Shingrix Shingrix 2019-12-24 Completed [facility] - 15:10:00 [facility] Shingrix Shingrix 2019-12-24 Completed [facility] - 15:10:00 [facility] Shingrix Shingrix 2019-12-24 Completed [facility] - 15:10:00 [facility] Shingrix Shingrix 2019-12-24 Completed [facility] - 15:10:00 [facility] Shingrix Shingrix 2019-12-24 Completed [facility] - 15:10:00 [facility] Shingrix Shingrix 2019-12-24 Completed [facility] - 15:10:00 [facility] Shingrix Shingrix 2019-12-24 Completed [facility] - 15:10:00 [facility] Shingrix Shingrix 2019-12-24 Completed [facility] - 15:10:00 [facility] Shingrix Shingrix 2019-12-24 Completed [facility] - 15:10:00 [facility] Shingrix Shingrix 2019-12-24 Completed [facility] - 15:10:00 [facility] Shingrix Shingrix 2019-12-24 Completed [facility] - 15:10:00 [facility] Shingrix Shingrix 2019-12-24 Completed [facility] - 15:10:00 [facility] Shingrix Shingrix 2019-12-24 Completed [facility] - 15:10:00 [facility] Shingrix Shingrix 2019-12-24 Completed [facility] - 15:10:00 [facility] Shingrix Shingrix 2019-12-24 Completed [facility] - 15:10:00 [facility] Shingrix Shingrix 2019-12-24 Completed [facility] - 15:10:00 [facility] Shingrix Shingrix 2019-12-24 Completed [facility] - 15:10:00 [facility] Shingrix Shingrix 2019-12-24 Completed [facility] - 15:10:00 [facility] FluAD FluAD 2019-12-18 Completed [facility] - 15:09:00 [facility] FluAD FluAD 2019-12-18 Completed [facility] - 15:09:00 [facility] FluAD FluAD 2019-12-18 Completed [facility] - 15:09:00 [facility] FluAD FluAD 2019-12-18 Completed [facility] - 15:09:00 [facility] FluAD FluAD 2019-12-18 Completed [facility] - 15:09:00 [facility] FluAD FluAD 2019-12-18 Completed [facility] - 15:09:00 [facility] FluAD FluAD 2019-12-18 Completed [facility] - 15:09:00 [facility] FluAD FluAD 2019-12-18 Completed [facility] - 15:09:00 [facility] FluAD FluAD 2019-12-18 Completed [facility] - 15:09:00 [facility] FluAD FluAD 2019-12-18 Completed [facility] - 15:09:00 [facility] FluAD FluAD 2019-12-18 Completed [facility] - 15:09:00 [facility] FluAD FluAD 2019-12-18 Completed [facility] - 15:09:00 [facility] FluAD FluAD 2019-12-18 Completed [facility] - 15:09:00 [facility] FluAD FluAD 2019-12-18 Completed [facility] - 15:09:00 [facility] FluAD FluAD 2019-12-18 Completed [facility] - 15:09:00 [facility] FluAD FluAD 2019-12-18 Completed [facility] - 15:09:00 [facility] FluAD FluAD 2019-12-18 Completed [facility] - 15:09:00 [facility] FluAD FluAD 2019-12-18 Completed [facility] - 15:09:00 [facility] FluAD FluAD 2019-12-18 Completed [facility] - 15:09:00 [facility] FluAD FluAD 2019-12-18 Completed [facility] - 15:09:00 [facility] FluAD FluAD 2019-12-18 Completed [facility] - 15:09:00 [facility] FluAD FluAD 2019-12-18 Completed [facility] - 15:09:00 [facility] FluAD FluAD 2019-12-18 Completed [facility] - 15:09:00 [facility] FluAD FluAD 2019-12-18 Completed [facility] - 15:09:00 [facility] FluAD FluAD 2019-12-18 Completed [facility] - 15:09:00 [facility] FluAD FluAD 2019-12-18 Completed [facility] - 15:09:00 [facility] Vital Signs Vital Name Observation Time Observation Value Comments Source height 2022-01-26 15:00:00 64 [in_i] [facility] weight 2022-01-26 15:00:00 174.4 [lb_av] [facility] temperature 2022-01-26 15:00:00 96.9 [degF] [facility] bmi 2022-01-26 15:00:00 29.93 kg/m2 [facility] oximetry 2022-01-26 15:00:00 94 % [facility] respiratory rate 2022-01-26 15:00:00 16 /min Comm on [facility] blood pressure 2022-01-26 15:00:00 110 mm[Hg] [facility] - systolic [facility] blood pressure 2022-01-26 15:00:00 63 mm[Hg] [facility] - diastolic [facility] height 2021-12-02 08:20:00 64 [in_i] [facility] weight 2021-12-02 08:20:00 184.6 [lb_av] [facility] temperature 2021-12-02 08:20:00 97.3 [degF] [facility] bmi 2021-12-02 08:20:00 31.68 kg/m2 [facility] oximetry 2021-12-02 08:20:00 97 % [facility] 2021-12-02 08:20:00 16 /min Comm on [facility] blood pressure 2021-12-02 08:20:00 131 mm[Hg] [facility] - systolic [facility] blood pressure 2021-12-02 08:20:00 64 mm[Hg] [facility] - diastolic [facility] height 2021-11-02 14:40:00 64 [in_i] [facility] 2021-11-02 14:40:00 194.0 [lb_av] [facility] temperature 2021-11-02 14:40:00 97.8 [degF] [facility] bmi 2021-11-02 14:40:00 33.3 kg/m2 [facility] oximetry 2021-11-02 14:40:00 93 % [facility] 2021-11-02 14:40:00 16 /min Comm on [facility] blood pressure 2021-11-02 14:40:00 119 mm[Hg] [facility] - systolic [facility] blood pressure 2021-11-02 14:40:00 72 mm[Hg] [facility] diastolic [facility] height 2021-09-16 11:20:00 64 [in_i] [facility] weight 2021-09-16 11:20:00 193.2 [lb_av] [facility] temperature 2021-09-16 11:20:00 97.5 [degF] [facility] bmi 2021-09-16 11:20:00 33.16 kg/m2 [facility] oximetry 2021-09-16 11:20:00 97 % [facility] respiratory rate 2021-09-16 11:20:00 18 /min Comm on [facility] blood pressure 2021-09-16 11:20:00 135 mm[Hg] [facility] - systolic [facility] blood pressure 2021-09-16 11:20:00 70 mm[Hg] [facility] - diastolic [facility] height 2021-08-03 10:30:00 64 [in_i] [facility] weight 2021-08-03 10:30:00 191.0 [lb_av] [facility] temperature 2021-08-03 10:30:00 97.7 [degF] [facility] bmi 2021-08-03 10:30:00 32.78 kg/m2 [facility] oximetry 2021-08-03 10:30:00 97 % [facility] respiratory rate 2021-08-03 10:30:00 17 /min Comm on [facility] blood pressure 2021-08-03 10:30:00 132 mm[Hg] [facility] - systolic [facility] blood pressure 2021-08-03 10:30:00 70 mm[Hg] [facility] - diastolic [facility] height 2021-08-03 10:30:00 64 [in_i] [facility] weight 2021-08-03 10:30:00 191.0 [lb_av] [facility] temperature 2021-08-03 10:30:00 97.7 [degF] [facility] bmi 2021-08-03 10:30:00 32.78 kg/m2 [facility] oximetry 2021-08-03 10:30:00 97 % [facility] respiratory rate 2021-08-03 10:30:00 17 /min Comm on [facility] blood pressure 2021-08-03 10:30:00 132 mm[Hg] [facility] - systolic [facility] blood pressure 2021-08-03 10:30:00 70 mm[Hg] [facility] - diastolic [facility] height 2021-06-14 13:40:00 64 [in_i] Common [facility] weight 2021-06-14 13:40:00 192.7 [lb_av] [facility] temperature 2021-06-14 13:40:00 98.1 [degF] [facility] bmi 2021-06-14 13:40:00 33.07 kg/m2 [facility] oximetry 2021-06-14 13:40:00 95 % Common [facility] respiratory rate 2021-06-14 13:40:00 18 /min Comm on [facility] blood pressure 2021-06-14 13:40:00 136 mm[Hg] Common [facility] - systolic [facility] blood pressure 2021-06-14 13:40:00 75 mm[Hg] Common [facility] - diastolic [facility] height 2021-05-03 11:20:00 64 [in_i] Common [facility] weight 2021-05-03 11:20:00 199 [lb_av] [facility] temperature 2021-05-03 11:20:00 97.5 [degF] Common [facility] bmi 2021-05-03 11:20:00 34.15 kg/m2 Common [facility] oximetry 2021-05-03 11:20:00 96 % [facility] respiratory rate 2021-05-03 11:20:00 18 /min Comm on [facility] blood pressure 2021-05-03 11:20:00 122 mm[Hg] Common [facility] - systolic [facility] blood pressure 2021-05-03 11:20:00 63 mm[Hg] Common [facility] - diastolic [facility] height 2021-04-09 13:40:00 64 [in_i] Common [facility] weight 2021-04-09 13:40:00 190 [lb_av] [facility] temperature 2021-04-09 13:40:00 98.6 [degF] [facility] bmi 2021-04-09 13:40:00 32.61 kg/m2 [facility] height 2021-01-21 08:10:00 64 [in_i] [facility] weight 2021-01-21 08:10:00 187 [lb_av] [facility] temperature 2021-01-21 08:10:00 98.7 [degF] [facility] bmi 2021-01-21 08:10:00 32.09 kg/m2 [facility] blood pressure 2021-01-21 08:10:00 121 mm[Hg] Common [facility] - systolic [facility] blood pressure 2021-01-21 08:10:00 77 mm[Hg] Common [facility] - [facility] height 2020-12-31 10:40:00 64 [in_i] [facility] weight 2020-12-31 10:40:00 180 [lb_av] [facility] bmi 2020-12-31 10:40:00 30.89 kg/m2 [facility] Systolic blood 2020-12-19 16:15:00 141 mm[Hg] [facility] Diastolic blood 2020-12-19 16:15:00 78 mm[Hg] Unive rsity of pressure [facility] Heart rate 2020-12-19 16:15:00 71 /min [facility] Body temperature 2020-12-19 16:15:00 36.72 [facility] rate 2020-12-19 16:15:00 18 /min [facility] Oxygen saturation in 2020-12-19 16:15:00 93 /min [facility] Arterial blood by [facility] Pulse oximetry [facility] height 2020-12-19 15:13:00 160 cm [facility] Body weight 2020-12-19 15:13:00 81.647 kg [facility] BMI 2020-12-19 15:13:00 31.89 kg/m2 [facility] height 2020-12-17 10:20:00 64 [in_i] [facility] weight 2020-12-17 10:20:00 180 [lb_av] [facility] temperature 2020-12-17 10:20:00 98.3 [degF] [facility] bmi 2020-12-17 10:20:00 30.89 kg/m2 [facility] Procedures Procedure Date / Time Performed Performing Clinician Sour e [id number] CONSENT 2020-12-19 05:01:00 [facility] End Encounter Admission Attending Care Care Encounter Source Date/Time Date/Time Type Type Clinicians Facility Department ID 2022-01-24 Outpatient [facility] [id number] Common 14:09:00 Aidan [id number] [facility] 2021-09-16 Outpatient Garcia, STLMLC ST[facility] [id number] Common 11:49:00 Aidan [id number] [facility] 2021-04-29 Outpatient Garcia, STLMLC [facility] [id number] Common 11:21:02 Aidan [facility] 2021-04-07 Outpatient Garcia, STLMLC STL[facility] [id number] Common 14:12:39 Aidan [id number] [facility] 2021-04-07 Outpatient Garcia, STLMLC STL[facility] [id number] Common 14:03:22 Aidan [id number] [facility] 2021-04-07 Outpatient Garcia, STLMLC STLMLC [id number] Common 14:02:49 Aidan 34042 [facility] 2021-04-07 Outpatient Garcia, STLMLC STLMLC [id number] Common 13:35:30 Aidan [id number] [facility] 2021-04-07 Outpatient Garcia, STLMLC [facility] [id number] Common 13:29:38 Aidan 04952 [facility] 2021-04-07 Outpatient Garcia, STLMLC [facility] [id number] Common 13:22:30 Aidan 82374 [facility] 2021-04-07 Outpatient Garcia, STLMLC ST[facility] [id number] Common 13:13:27 Aidan 62664 [facility] 2021-04-07 Outpatient Garcia, STLMLC ST[facility] [id number] Common 13:10:27 Aidan 62926 [facility] 2021-04-07 Outpatient Garcia, STLMLC ST[facility] [id number] Common 13:09:48 Aidan [id number] [facility] 2021-04-07 Outpatient Garcia, STLMLC STLMLC [id number] Common 12:55:44 Aidan [id number] [facility] 2021-04-07 Outpatient Garcia, STLMLC STLMLC [id number] Common 12:42:28 Aidan [id number] [facility] 2021-04-07 Outpatient Garcia, STLMLC ST[facility] [id number] Common 12:16:01 Aidan 90015 [facility] 2021-04-07 Outpatient Garcia, STLMLC STLMLC [id number] Common 12:13:51 Aidan [id number] [facility] 2022-01-26 2022-01-26 OFFICE STLMLC STLMLC [id number] Co mmon 00:00:00 00:00:00 VISIT Spirit ESTAB PT - CHI LEVEL 4 [facility] 2021-12-02 2021-12-02 OFFICE STLMLC STLMLC [id number] Co mmon 00:00:00 00:00:00 VISIT EST Spir it PT LEVEL 3 - CHI [facility] 2021-11-11 2021-11-11 TORRIE Lora [id number] [facility] 20:30:00 21:30:00 [id number] 4CF [facility] [id number] 2021-11-02 2021-11-02 OFFICE STLMLC STLMLC [id number] Co mmon 00:00:00 00:00:00 VISIT [facility] PT - CHI LEVEL 4 [facility] 2021-10-08 2021-10-08 (TEL) STLMLC STLMLC [id number] Co mmon 00:00:00 00:00:00 [facility] 2021-10-05 2021-10-05 (TEL) STLMLC STLMLC [id number] Co mmon 00:00:00 00:00:00 [facility] 2021-09-30 2021-09-30 (TEL) STLMLC STLMLC [id number] Co mmon 00:00:00 00:00:00 [facility] 2021-09-24 2021-09-24 [facility] [id number] [facility] 03:46:00 03:46:00 _N 0715 [facility] 2021-09-16 2021-09-16 (TEL) STLMLC STLMLC [id number] Co mmon 00:00:00 00:00:00 [facility] 2021-09-16 2021-09-16 OFFICE STLMLC STLMLC [id number] Co mmon 00:00:00 00:00:00 VISIT EST Spir it PT LEVEL 3 - [facility]I [facility] 2021-09-07 2021-09-07 (TEL) STLMLC STLMLC [id number] Co mmon 00:00:00 00:00:00 [facility] 2021-09-06 2021-09-06 (TEL) STLMLC STLMLC [id number] Co mmon 00:00:00 00:00:00 [facility] 2021-08-03 2021-08-03 OFFICE STLMLC STLMLC [id number] Co mmon 00:00:00 00:00:[address] [facility] ESTAB PT - CHI LEVEL 4 [facility] 2021-08-03 2021-08-03 (TEL) STLMLC STLMLC [id number] Co mmon 00:00:00 00:00:00 [facility] 2021-08-03 2021-08-03 SUB ANNUAL STLMLC STLMLC [id number] Common 00:00:00 00:00:[address] [facility] - [facility] VISIT [facility] 2021-07-02 2021-07-02 (TEL) STLMLC STLMLC [id number] Co mmon 00:00:00 00:00:00 [facility] 2021-06-14 2021-06-14 (TEL) STLMLC STLMLC [id number] Co mmon 00:00:00 00:00:00 [facility] 2021-06-14 2021-06-14 OFFICE STLMLC STLMLC [id number] Co mmon 00:00:00 00:00:00 VISIT EST Spir it PT LEVEL 3 - [facility]I [facility] 2021-05-31 2021-05-31 (TEL) STLMLC STLMLC [id number] Co mmon 00:00:00 00:00:00 [facility] 2021-05-03 2021-05-03 OFFICE STLMLC STLMLC [id number] Co mmon 00:00:00 00:00:[address] [facility] ESTAB PT - CHI LEVEL 4 [facility] 2021-04-09 2021-04-09 OFFICE STLMLC STLMLC [id number] Co mmon 00:00:00 00:00:00 VISIT EST Spir it PT LEVEL 3 - [facility] 2021-04-08 2021-04-08 CAV Gerri [id number]. [id number]. CLAC [id number] [facility] 17:30:00 18:30:00 [place] [id number] [facility] Medical [id number] 2021-04-08 2021-04-08 (TEL) STLMLC STLMLC [id number] Co mmon 00:00:00 00:00:00 [facility] - [facility] 2021-02-26 2021-02-26 Outpatient ELISE SINGER [facility] [id number] [facility] 10:32:00 10:32:00 _N 1217 [facility] 2021-02-16 2021-02-16 (TEL) STLMLC STLMLC [id number] Co mmon 00:00:00 00:00:00 [facility] - [facility] 2021-01-21 2021-01-21 OFFICE STLMLC STLMLC [id number] Co mmon 00:00:00 00:00:00 VISIT Spirit ESTAB PT - [facility]I LEVEL 4 [facility] 2020-12-31 2020-12-31 OFFICE STLMLC STLMLC [id number] Co mmon 00:00:00 00:00:00 VISIT EST Spir it PT LEVEL 3 - [facility] 2020-12-19 2020-12-19 Outpatient Jeannette GARCIA [facility] [id number] Univers 10:00:00 10:00:00 BEN morales [facility] 2020-12-19 2020-12-19 Nurse Therapy, Adc Covid Infusion [facility] [id number] Univers 08:04:33 09:04:33 Visit Ben Garcia [id number] lucie [facility] [id number] [place] [facility] [id number] [place] [address] [place] 2020-12-19 2020-12-19 Orders Doctor ROSS [id number] Univers 00:00:00 00:00:00 Only Unassigned, JESSE [id number] [facility] [place] [facility] [id number] Michael as [id number] [place] [address] [place] 2020-12-17 2020-12-17 OFFICE STLMLC STLMLC [id number] Co mmon 00:00:00 00:00:00 VISIT EST Spir it PT LEVEL 3 [facility] 2020-12-16 2020-12-16 (TEL) STLMLC STLMLC [id number] Co mmon 00:00:00 00:00:00 [facility] 2020-11-06 2020-11-06 Outpatient STLMLC STLMLC [id number] Common 00:00:00 00:00:00 [facility] 2020-11-03 2020-11-03 Outpatient STLMLC STLMLC [id number] Common 00:00:00 00:00:00 [facility] 2020-10-27 2020-10-27 Outpatient STLMLC STLMLC [id number] Common 00:00:00 00:00:00 [facility] 2020-10-20 2020-10-20 Outpatient STLMLC STLMLC [id number] Common 00:00:00 00:00:00 [facility] 2020-10-19 2020-10-19 Outpatient STLMLC STLMLC [id number] Common 00:00:00 00:00:00 [facility] 2020-10-07 2020-10-07 Outpatient STLMLC STLMLC [id number] Common 00:00:00 00:00:00 [facility] 2020-10-01 2020-10-01 Outpatient STLMLC STLMLC [id number] Common 00:00:00 00:00:00 [facility] 2020-09-30 2020-09-30 Outpatient STLMLC STLMLC [id number] Common 00:00:00 00:00:00 [facility] 2020-09-29 2020-09-29 Outpatient STLMLC STLMLC [id number] Common 00:00:00 00:00:00 [facility] 2020-09-15 2020-09-15 Outpatient STLMLC STLMLC [id number] Common 00:00:00 00:00:00 [facility] 2020-08-20 2020-08-20 Outpatient STLMLC STLMLC [id number] Common 00:00:00 00:00:00 [facility] 2020-08-13 2020-08-13 Outpatient STLMLC STLMLC [id number] Common 00:00:00 00:00:00 [facility] 2020-07-17 2020-07-17 Outpatient STLMLC STLMLC [id number] Common 00:00:00 00:00:00 [facility] 2020-07-17 2020-07-17 Outpatient STLMLC STLMLC [id number] Common 00:00:00 00:00:00 [facility] 2020-07-15 2020-07-15 [facility] [id number] [facility] 10:50:00 10:50:00 _N 0505 [facility] 2020-07-08 2020-07-08 Outpatient STLMLC STLMLC [id number] Common 00:00:00 00:00:00 [facility] 2020-07-06 2020-07-06 Outpatient STLMLC STLMLC [id number] Common 00:00:00 00:00:00 [facility] 2020-06-10 2020-06-10 Outpatient STLMLC STLMLC [id number] Common 00:00:00 00:00:00 [facility] 2020-06-01 2020-06-01 Outpatient STLMLC STLMLC [id number] Common 00:00:00 00:00:00 [facility] 2020-06-01 2020-06-01 Outpatient STLMLC STLMLC [id number] Common 00:00:00 00:00:00 [facility] 2020-05-17 2020-05-17 Outpatient Jeannette PRADO [facility] [id number] Univers 13:00:00 13:00:00 NATTY [facility] 2020-04-19 2020-04-19 Outpatient Jeannette PRADO [facility] [id number] Univers 13:00:00 13:00:00 NATTY [facility] 2020-04-07 2020-04-07 Outpatient STLMLC STLMLC [id number] Common 00:00:00 00:00:00 [facility] 2020-03-04 2020-03-04 [facility]patient [facility] [id number] Common 00:00:00 00:00:00 [facility] 2018-10-24 2018-10-24 [id number] Common 10:00:00 10:00:00 [facility] 2016-07-11 2016-07-11 Emergency Luis Fernando ESPINOZA, [facility] [id number] [place] 19:43:00 20:06:00 [facility] Results This patient has no known results.
[2022-02-11] MEDS ORDERED: TAMSULOSIN 0.4 MG SR CAP ONE (09:38)
[2022-02-11] MEDS ORDERED: MORPHINE 4 MG/ML SYR ONE ×2 (09:38→10:12)
[2022-02-11] MEDS ORDERED: MAGNESIUM SULFATE 1 gm IVPB 1 GM/100 ML BAG IV ONE (09:38)
[2022-02-11] MEDS ORDERED: ONDANSETRON 4 MG/2 ML VIAL ONE (09:38)
[2022-02-11 09:52] LABS: Absolute Lymphocytes (CBC) 2.3 K/uL (0.7-4.9); Hematocrit 38.1 % (36.0-45.0); Lymphocytes % 18.2 % (15.3-44.8); MCV 91.1 fL (80-100); MPV 7.2 fL (7.6-11.3); RBC Red Blood Cell Count 4.19 M/uL (3.86-4.86)
[2022-02-11 10:04] LABS: Potassium 3.6 mmol/L (3.5-5.1)
--- NOTE | 2022-02-11 10:18 | RAD REPORT ---
EXAM DESCRIPTION: CTStone Protocol - 02/11/2022 10:03 am CLINICAL HISTORY: right flank pain, hx of stones COMPARISON: Abdomen Pelvis Wo Contrast dated 10/23/2017; CT ABD PELVIS W CONTRAST dated 12/10/2006 TECHNIQUE: CT of the abdomen and pelvis was performed without contrast. All CT scans are performed using dose optimization technique as appropriate and may include automated exposure control or mA/KV adjustment according to patient size. FINDINGS: Lower chest: Small hiatal hernia. Liver: No acute abnormality or suspicious lesions. Biliary: No biliary ductal dilatation. Stomach: No significant focal abnormality. Duodenum: No significant focal abnormality. Pancreas: No significant abnormality. Spleen: No significant abnormality. Adrenal: No suspicious lesions. Kidney/ureter: Mild right-sided hydroureteronephrosis secondary to a 5 mm stone in the right proximal to mid ureter. Retroperitoneum: No retroperitoneal adenopathy. Vascular: No aneurysm. Bowel: No significant focal abnormality. Peritoneum: No ascites or free air. Bladder: Grossly unremarkable. Reproductive: No adnexal masses. Hysterectomy Bones: No acute fracture. Other: n/a IMPRESSION: Mild right-sided hydroureteronephrosis secondary to a 5 mm stone at the right proximal t o mid ureter.
[2022-02-11] MEDS ORDERED: KETOROLAC 30 MG/ML INJ ONE (10:33)
[2022-02-11] MEDS ORDERED: NA CHLORIDE 0.9% 500 ML ONE (13:46)
[2022-02-11] MEDS ORDERED: FENTANYL CITR 100 MCG/2 ML ONE (13:46)
--- NOTE | 2022-02-11 15:01 | EDPHYS ---
Physician Documentation [facility] Name: Jessica Riojas Age: 66 yrs Sex: Female : 1955 Arrival Date: 02/11/2022 Time: 09:23 Bed 6 Private MD: ED Physician Robbie Echevarria HPI: 02/11 10:02 This 66 yrs old Female presents to ER via Wheelchair with complaints of Possible Kidney rn Stone. 10:02 The patient complains of pain in the right low back. The pain radiates to the abdomen. rn Onset: The symptoms/episode began/occurred 2 hour(s) ago. Modifying factors: The symptoms are alleviated by nothing. the symptoms are aggravated by nothing. Associated signs and symptoms: Pertinent positives: nausea, vomiting, Pertinent negatives: fever. Severity of pain: At its worst the pain was moderate in the emergency department the pain is unchanged. The patient has experienced similar episodes in the past. The patient has not recently seen a physician. + right flank and right abd pain, began 2 hours ago, identical to previous kidney stones. Has never had surgery or procedure for kidney stones. . Historical: - Allergies: 09:34 PENICILLINS; kb3 - PMHx: 09:34 seasonal allergies; Hypercholesterolemia; kb3 - PSHx: 09:34 None; kb3 - Immunization history:: Adult Immunizations up to date, Client reports having NOT received the Covid vaccine. Last tetanus immunization: unknown. - Social history:: Smoking status: unknown. - Family history:: not pertinent. - Hospitalizations: : No recent hospitalization is reported. ROS: 10:02 Constitutional: Negative for fever, chills, and weight loss, Cardiovascular: Negative rn for chest pain, palpitations, and edema, Respiratory: Negative for shortness of breath, cough, wheezing, and pleuritic chest pain, Abdomen/GI: Negative for diarrhea, and constipation Back: + right flank pain : Negative for injury, bleeding, discharge, and swelling, MS/Extremity: Negative for injury and deformity, Skin: Negative for injury, rash, and discoloration, Neuro: Negative for headache, weakness, numbness, tingling, and seizure. Exam: 10:02 Constitutional: This is a well developed, well nourished patient who is awake, alert, rn appears in pain and uncomfortable. Cardiovascular: Regular rate and rhythm. No pulse deficits. Respiratory: Mild tachypnea, no retractions Abdomen/GI: soft, non-tender Back: No spinal tenderness. No costovertebral tenderness. Full range of motion. Skin: Warm, dry MS/ Extremity: Pulses equal, no cyanosis. Neuro: Awake and alert, GCS 15 Vital Signs: 09:33 BP 115 / 78; Pulse 63; Resp 26; Temp 97.6; Pulse Ox 100% ; Weight 79.38 kg; Height 5 kb3 ft. 3 in. (160.02 cm); Pain 10/10; 10:49 BP 132 / 71; Pulse 71; Resp 12; Pulse Ox 95% on 4 lpm NC; vg1 11:00 BP 121 / 70; Pulse 66; Resp 12; Pulse Ox 96% on 2 lpm NC; vg1 11:30 BP 133 / 71; Pulse 68; Resp 15; Pulse Ox 97% on R/A; vg1 12:00 BP 114 / 70; Pulse 73; Resp 14; Pulse Ox 92% on 2 lpm NC; vg1 13:00 BP 116 / 65; Pulse 67; Resp 14; Pulse Ox 100% on 2 lpm NC; vg1 09:33 Body Mass Index 31.00 (79.38 kg, 160.02 cm) kb3 MDM: 09:23 Patient medically screened. rn 12:08 ED course: Pain down to 0, will cont to monitor for return of pain. rn 14:59 Differential diagnosis: nephrolithiasis. Data reviewed: vital signs, nurses notes, laboratory sampler test result(s), radiologic studies, CT scan, and as a result, I will discharge patient. Counseling: I had a detailed discussion with the patient and/or guardian regarding: the historical points, exam findings, and any diagnostic results supporting the discharge/admit diagnosis, lab results, radiology results, the need for outpatient follow up, to return to the emergency department if symptoms worsen or persist or if there are any questions or concerns that arise at home. Response to treatment: the patient's symptoms have markedly improved after treatment, and as a result, I will discharge patient. ED course: pt improved, no pain, states ready to go home. . 02/11 09:32 Order name: CBC with Diff; Complete Time: 10:16 rn 02/11 09:32 Order name: CT Stone Protocol; Complete Time: 10:19 rn 02/11 09:32 Order name: Basic Metabolic Panel; Complete Time: 10:16 rn 02/11 09:32 Order name: Urine Dipstick-Ancillary (obtain specimen); Complete Time: 09:45 rn 02/11 09:32 Order name: IV Start; Complete Time: :45 rn Administered Medications: 09:38 Drug: Zofran (Ondansetron) 4 mg Route: IVP; Site: right antecubital; vg1 10:14 Follow up: Response: No adverse reaction; Marked relief of symptoms vg1 09:40 Drug: morphine 4 mg Route: IVP; Infused Over: 4 mins; Site: right antecubital; vg1 10:15 Follow up: Response: No adverse reaction; Pain is decreased; Pain is decreased; 10/20 vg1 09:42 Drug: Magnesium Sulfate 1 grams Route: IVPB; Infused Over: 1 hrs; Site: right vg1 antecubital; 12:00 Follow up: IV Status: Completed infusion; IV Intake: 100ml vg1 09:57 Drug: Flomax (tamsulosin) 0.4 mg Route: PO; vg1 12:01 Follow up: Response: No adverse reaction vg1 10:10 Drug: morphine 4 mg Route: IVP; Infused Over: 4 mins; Site: right antecubital; vg1 12:01 Follow up: Response: No adverse reaction; Marked relief of symptoms vg1 10:30 Drug: Ketorolac 15 mg Route: IVP; Site: right antecubital; bp 12:01 Follow up: Response: No adverse reaction; Marked relief of symptoms vg1 13:46 Drug: NS 0.9% 500 ml Route: IV; Rate: bolus; Site: right antecubital; vg1 15:25 Follow up: IV Status: Completed infusion; IV Intake: 500ml vg1 13:47 Drug: fentaNYL (PF) 50 mcg Route: IVP; Site: right antecubital; vg1 15:25 Follow up: Response: No adverse reaction; Marked relief of symptoms vg1 Disposition Summary: 02/11/22 15:00 Discharge Ordered Location: Home rn Problem: an acute exacerbation rn Symptoms: have improved rn Condition: Stable rn Diagnosis - Urinary calculus, unspecified rn Followup: rn - With: Private Physician - When: As needed - Reason: Recheck today's complaints, Re-evaluation by your physician Discharge Instructions: - Discharge Summary Sheet rn - Kidney Stones rn - Renal Colic rn Forms: - Medication Reconciliation Form rn - Thank You Letter rn - Antibiotic e learning coordinator - Prescription Opioid Use rn Prescriptions: - Flomax 0.4 mg Oral capsule - take 1 capsule by ORAL route once daily Stop taking once you feel that you have rn passed your kidney stone.; 10 capsule; Refills: 0, Product Selection Permitted - ondansetron 4 mg Oral tablet,disintegrating - take 1 tablet by ORAL route every 6-8 hours As needed; 15 tablet; Refills: 0, rn Product Selection Permitted - Cipro 500 mg Oral Tablet - take 1 tablet by ORAL route every 12 hours for 7 days; 14 tablet; Refills: 0, rn Product Selection Permitted - Tylenol-Codeine #3 300 mg-30 mg Oral - take 1 tablet by ORAL route every 6 hours As needed; 15 tablet; Refills: 0, rn Product Selection Permitted Signatures: Dispatcher [employer] EDRobbie Pérez MD MD rn Peltier, Brian, RN RN Katie Kahn RN RN vg1 Yu Deshpande RN RN kb3
--- NOTE | 2022-02-11 15:01 | ER ---
Nurse's Notes [facility] Name: Jessica Riojas Age: 66 yrs Sex: Female : 1955 Arrival Date: 02/11/2022 Time: 09:23 Bed 6 Private MD: Diagnosis: Urinary calculus, unspecified Presentation: 02/11 09:33 Chief complaint: Patient states: Right flank pain radiating into right lower abdomen x2 kb3 hrs with associated vomiting. Hx of kidney stones. Coronavirus screen: Vaccine status: Patient reports being unvaccinated. Client denies travel out of the [place] in the last 14 days. Ebola Screen: Patient negative for fever greater than or equal to 101.5 degrees Fahrenheit, and additional compatible Ebola Virus Disease symptoms Patient denies exposure to infectious person. Patient denies travel to an Ebola-affected area in the 21 days before illness onset. Initial Sepsis Screen: Does the patient meet any 2 criteria? No. Patient's initial sepsis screen is negative. Does the patient have a suspected source of infection? No. Patient's initial sepsis screen is negative. Risk Assessment: Do you want to hurt yourself or someone else? Patient reports no desire to harm self or others. Onset of symptoms was February 11, 2022 at 07:30. 09:33 Method Of Arrival: Wheelchair kb3 09:33 Acuity: ABRAHAM 3 kb3 Triage Assessment: 09:34 General: Appears distressed, uncomfortable, Behavior is cooperative. Pain: Complains of kb3 pain in right low back Pain radiates to right lower quadrant Pain currently is 10 out of 10 on a pain scale. Quality of pain is described as sharp, Pain began 2 hours ago. GI: Reports lower abdominal pain, vomiting. : Reports right flank pain with history of kidney stones. Historical: - Allergies: 09:34 PENICILLINS; kb3 - PMHx: 09:34 seasonal allergies; Hypercholesterolemia; kb3 - PSHx: 09:34 None; kb3 - Immunization history:: Adult Immunizations up to date, Client reports having NOT received the Covid vaccine. Last tetanus immunization: unknown. - Social history:: Smoking status: unknown. - Family history:: not pertinent. - Hospitalizations: : No recent hospitalization is reported. Screenin:46 Abuse screen: Denies threats or abuse. Nutritional screening: No deficits noted. vg1 Tuberculosis screening: No symptoms or risk factors identified. Fall Risk No fall in past 12 months (0 pts). No secondary diagnosis (0 pts). IV access (20 points). Ambulatory Aid- None/Bed Rest/Nurse Assist (0 pts). Gait- Normal/Bed Rest/Wheelchair (0 pts) Mental Status- Oriented to own ability (0 pts). Total Reese Fall Scale indicates No Risk (0-24 pts). Assessment: 09:46 General: Appears uncomfortable, Behavior is cooperative. Pain: Complains of pain in vg1 right lower quadrant and right low back Pain currently is 10 out of 10 on a pain scale. Pain began 2 hours ago. Neuro: Level of Consciousness is awake, alert, obeys commands, Oriented to person, place, time, situation. Cardiovascular: Patient's skin is warm and dry. Respiratory: Airway is patent Respiratory effort is even, unlabored. GI: Abdomen is round non-distended, Bowel sounds present X 4 quads. Abdomen is tender to palpation in posterior aspect of right lateral abdomen and right lower quadrant Parent/caregiver reports the patient having nausea, vomiting. : No signs and/or symptoms were reported regarding the genitourinary system. EENT: No signs and/or symptoms were reported regarding the EENT system. Derm: Skin is clammy. Musculoskeletal: Circulation, motion, and sensation intact. 10:08 Reassessment: Received VO from DR Echevarria to administer Morphine 4 mg IVP x1. vg1 10:20 Reassessment: Pt O2 at 85 % RA; provider notified, pt placed on Oxygen 4 L NC. vg1 10:49 Reassessment: Patient appears in no apparent distress at this time. Patient and/or vg1 family updated on plan of care and expected duration. Pain level reassessed. Resting with eyes closed. 11:57 Reassessment: Patient appears in no apparent distress at this time. Patient and/or vg1 family updated on plan of care and expected duration. Pain level reassessed. Patient is alert, oriented x 3, equal unlabored respirations, skin warm/dry/pink. Rated pain 2/10 Patient states feeling better. 13:51 Reassessment: Patient appears in no apparent distress at this time. Patient and/or vg1 family updated on plan of care and expected duration. Pain level reassessed. Patient is alert, oriented x 3, equal unlabored respirations, skin warm/dry/pink. 15:26 Reassessment: Patient appears in no apparent distress at this time. No changes from vg1 previously documented assessment. Patient is alert, oriented x 3, equal unlabored respirations, skin warm/dry/pink. Patient states feeling better. Vital Signs: 09:33 BP 115 / 78; Pulse 63; Resp 26; Temp 97.6; Pulse Ox 100% ; Weight 79.38 kg; Height 5 kb3 ft. 3 in. (160.02 cm); Pain 10/10; 10:49 BP 132 / 71; Pulse 71; Resp 12; Pulse Ox 95% on 4 lpm NC; vg1 11:00 BP 121 / 70; Pulse 66; Resp 12; Pulse Ox 96% on 2 lpm NC; vg1 11:30 BP 133 / 71; Pulse 68; Resp 15; Pulse Ox 97% on R/A; vg1 12:00 BP 114 / 70; Pulse 73; Resp 14; Pulse Ox 92% on 2 lpm NC; vg1 13:00 BP 116 / 65; Pulse 67; Resp 14; Pulse Ox 100% on 2 lpm NC; vg1 09:33 Body Mass Index 31.00 (79.38 kg, 160.02 cm) kb3 ED Course: 09:23 Patient arrived in ED. rg4 09:23 Robbie Echevarria MD is Attending Physician. rn 09:27 Ashish Schultz, RN is Primary Nurse. bp 09:34 Triage completed. kb3 09:34 Arm band placed on right wrist. kb3 09:38 Inserted saline lock: 20 gauge in right antecubital area, using aseptic technique. vg1 Blood collected. 09:45 Primary Nurse role handed off by Ashish Schultz, RN vg1 09:45 Katie Sherman, RN is Primary Nurse. vg1 09:46 Bed in low position. Call light in reach. Side rails up X 1. Adult w/ patient. vg1 10:05 CT Stone Protocol In Process Unspecified. EDMS 15:26 No provider procedures requiring assistance completed. IV discontinued, intact, vg1 bleeding controlled, No redness/swelling at site. Pressure dressing applied. Administered Medications: 09:38 Drug: Zofran (Ondansetron) 4 mg Route: IVP; Site: right antecubital; vg1 10:14 Follow up: Response: No adverse reaction; Marked relief of symptoms vg1 09:40 Drug: morphine 4 mg Route: IVP; Infused Over: 4 mins; Site: right antecubital; vg1 10:15 Follow up: Response: No adverse reaction; Pain is decreased; Pain is decreased; 10/20 vg1 09:42 Drug: Magnesium Sulfate 1 grams Route: IVPB; Infused Over: 1 hrs; Site: right vg1 antecubital; 12:00 Follow up: IV Status: Completed infusion; IV Intake: 100ml vg1 09:57 Drug: Flomax (tamsulosin) 0.4 mg Route: PO; vg1 12:01 Follow up: Response: No adverse reaction vg1 10:10 Drug: morphine 4 mg Route: IVP; Infused Over: 4 mins; Site: right antecubital; vg1 12:01 Follow up: Response: No adverse reaction; Marked relief of symptoms vg1 10:30 Drug: Ketorolac 15 mg Route: IVP; Site: right antecubital; bp 12:01 Follow up: Response: No adverse reaction; Marked relief of symptoms vg1 13:46 Drug: NS 0.9% 500 ml Route: IV; Rate: bolus; Site: right antecubital; vg1 15:25 Follow up: IV Status: Completed infusion; IV Intake: 500ml vg1 13:47 Drug: fentaNYL (PF) 50 mcg Route: IVP; Site: right antecubital; vg1 15:25 Follow up: Response: No adverse reaction; Marked relief of symptoms vg1 Medication: 09:46 VIS not applicable for this client. vg1 Intake: 12:00 IV: 100ml; Total: 100ml. vg1 15:25 IV: 500ml; Total: 600ml. vg1 Outcome: 15:00 Discharge ordered by . rn 15:25 Discharged to home via wheelchair, with family. vg1 15:25 Condition: good 15:25 Discharge instructions given to patient, Instructed on discharge instructions, follow up and referral plans. medication usage, Demonstrated understanding of instructions, follow-up care, medications, Prescriptions given X 4. 15:26 Patient left the ED. vg1 Signatures: Dispatcher [employer] EDMS Robbie Echevarria MD MD rn Garcia, Rubi 4 Ashish Schultz RN RN bp Garcia, Victoria, RN RN vg1 Yu Deshpande RN RN kb3 Corrections: (The following items were deleted from the chart) 10:51 10:49 Reassessment: Patient appears in no apparent distress at this time. Patient vg1 and/or family updated on plan of care and expected duration. Pain level reassessed. Patient is alert, oriented x 3, equal unlabored respirations, skin warm/dry/pink. vg1
[2022-02-11 15:42] VITALS: TEMP 97.6
[2022-02-11 15:48] VITALS: BP 116/65; O2SAT 100
== END 2022-02-11 15:26 | disposition home or self-care (01) ==
LOC: ER 09:22
DX: N20.9 Urinary calculus, unspecified (principal); Z87.442 Personal history of urinary calculi; Z88.0 Allergy status to penicillin
CPT/HCPCS: 96365; 96361; 85025; 80048; 36415; 76377; 74176; 96375; 99284; 96366; J3010; J3475; J7040; J2405

== ENCOUNTER 2022-03-11 11:35 | Emergency (ER) | payer OTHER ==
--- OUTSIDE RECORDS SUMMARY | 2022-03-11 11:43 | XMS REPORT | Continuity of Care Document ---
:1955 Author Organization [facility] t Address [address] [place] [address] Dr. Carlin. [address] [place] [address] Care Team Providers Name Role Phone AIDAN GARCIA Primary Care Physician Unavailable Aidan Garcia Attending Clinician Unavailable Brennon Lora Attending Clinician ELISE_N Attending Clinician Unavailable Gerri Peterson Attending Clinician BEN GARCIA Attending Clinician Unavailable Therapy, [facility] Attending Clinician Unavailable Ben Garcia MD Attending Clinician Doctor Unassigned, [place] E[place]as Attending Clinician Unavailable NATTY PRADO Attending Clinician Unavailable MISSY ESPINOZA Attending Clinician Unavailable ELISE_Herbert Admitting Clinician Unavailable MISSY ESPINOZA Admitting Clinician Unavailable Payers Payer Name Policy Type Policy Effective Date Expiration Date [facility]our [facility] Number [facility] 00:00:00 REPLACEMENT HMO) [address] [facility] 00:00:00 [facility] MEDICARE NOVITAS MB [id number] 2019 [facility] 00:00:[address] [facility] 00:00:00 [facility] MEDICARE NOVITAS MB [id number] 2019 [facility] 00:00:00 [place] [id number] 2020 MEDICARE 00:00:00 [employer] [place] [id number] 1998 00:00:00 MEDICARE NOVITAS MB [id number] 2019 [facility] 00:00:00 [place] [id number] 2020 [facility] 00:00:00 [facility] MEDICARE NOVITAS MB [id number] 2019 [facility] 00:00:00 [place] [id number] 2020 [facility] 00:00:00 [facility] Problems Condition Condition Condition Status Onset Resolution Last Treating Co mments Source Name Details Category Date Date Treatment Clinician Date [id number] Right Problem Common sciatic Spirit nerve pain [facility] [id number] [place], [place] [address] joint, Spirit hip, right [facility] [id number] Other Problem Common chronic Spirit pain [facility] [id number] Other Problem Common obesity Spirit due to - [facility]I excess [facility] [id number] Lymphedema Problem Co mmon [facility] [id number] Mixed Problem Common hyperlipid Spirit emia [facility] [id number] Allergic Problem Commo n rhinitis, Spirit unspecifie - [facility] d [facility] Medical unspecifie Center d trigger [id number] Current Problem Common moderate Spirit episode of - [facility] major [facility] Center prior episode [id number] Arthritis Problem Co mmon 617929 of knee, Spirit left [facility] [id number] Adult BMI Problem Com mon 33.0-33.9 Spirit kg/sq m [facility] [id number] GERD Problem Common without Spirit esophagiti - 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 itis, left St knee [facility] Arthritis Arthritis Problem Com mon of both of both Spirit knees knees - [facility] [id number] Cataract Problem Commo n of both Spirit eyes, - [facility] unspecifie St d cataract [facility] Gastroesop GERD Problem Commo n hageal (gastroeso Spirit reflux phageal - [facility] disease reflux St disease) [facility] Allergies, Adverse Reactions, Alerts Allergy Allergy Status Severity Reaction(s) Onset Inactive Treating Comm ents Source Name Type Date Date Clinician PEN[place]ILL Drug Active Hives 2020-03 Univers INS Class 0-09 ity of 00:00: [address] [place] Propensi Active Hives 2020-03 Univer s ins ty to 0-09 ity of adverse 00:00: [place] reaction [address] [place] [address] NO KNOWN Drug Active Univers ALLERGIE Class ity of [facility] Social History Social Habit Start Date Stop Date Quantity Comments Source History of Tobacco Use Co mmon [facility] Sex Assigned At Com mon [facility] Smoking Status Start Date Stop Date Source Unknown if ever smoked [facility] Former Smoker 2022-01-22 00:00:00 2022-01-22 00:00:00 Common S pirit [facility] nter Medications Ordered Filled Start Stop Current [...] S pirit one) one) 00:00: - [facility] Kenalog Kenalog No 40mg Common (Triamcinol (Triamcinol 9-19 S pirit one) one) 00:00: - CHI 00 [facility] Kenalog Kenalog 0 No 40mg Common (Triamcinol (Triamcinol 9-19 S pirit one) one) 00:00: - CHI 00 [facility] Kenalog Kenalog No 40mg Common (Triamcinol (Triamcinol 9-19 S pirit one) one) 00:00: - CHI 00 [facility] Ozempic Ozempic 2021- No Ozempic 0.25 or 0.5 0.25 or 0.5 8-23 11-20 0.25 or MG/DOSE MG/DOSE 00:00: 00:00 0.5 00 :00 MG/DOSE Ozempic Ozempic 2021- No Ozempic 0.25 or 0.5 0.25 or 0.5 8-23 11-20 0.25 or MG/DOSE MG/DOSE 00:00: 00:00 0.5 00 :00 MG/DOSE Ozempic Ozempic 2021- No Ozempic 0.25 or 0.5 0.25 or 0.5 8-23 11-20 0.25 or MG/DOSE MG/DOSE 00:00: 00:00 0.5 00 :00 MG/DOSE Cephalexin Cephalexin 2021- No 1{capsu TID Cephalexin 500 MG 500 MG 09-16 le} 500 MG 00:00: 00:00 00 :00 Cephalexin Cephalexin 2021- No 1{capsu TID Cephalexin 500 MG 500 MG 09-16 le} 500 MG 00:00: 00:00 00 :00 Rocephin Rocephin 2021-0 No 1g Commo n (Ceftriaxon (Ceftriaxon 4-04 S pirit e) e) 00:00: - CHI 00 [facility] Toradol Toradol No 2mL Common (Ketorolac) (Ketorolac) 4-04 S pirit 00:00: - CHI 00 [facility] Rocephin Rocephin 2021-0 No 1g Commo n (Ceftriaxon (Ceftriaxon 4-04 S pirit e) e) 00:00: - CHI 00 [facility] Toradol Toradol 2021-0 No 2mL Common (Ketorolac) (Ketorolac) 4-04 S pirit 00:00: - CHI 00 [facility] Rocephin Rocephin 2-0 No 1g Commo n (Ceftriaxon (Ceftriaxon 4-04 S pirit e) e) 00:00: - CHI 00 [facility] Toradol Toradol 2021-0 No 2mL Common (Ketorolac) (Ketorolac) 4-04 S pirit 00:00: - CHI 00 [facility] Toradol Toradol 2021-0 No 2mL Common (Ketorolac) (Ketorolac) 4-04 S pirit 00:00: - CHI 00 [facility] Rocephin Rocephin 2021-0 No 1g Commo n (Ceftriaxon (Ceftriaxon 4-04 S pirit e) e) 00:00: - CHI 00 [facility] Toradol Toradol 2021-0 No 2mL Common (Ketorolac) (Ketorolac) 4-04 S pirit 00:00: - CHI 00 [facility] Rocephin Rocephin 2021-0 No 1g Commo n (Ceftriaxon (Ceftriaxon 4-04 S pirit e) e) 00:00: - CHI 00 [facility] Toradol Toradol 2021-0 No 2mL Common (Ketorolac) (Ketorolac) 4-04 S pirit 00:00: - CHI 00 [facility] Rocephin Rocephin 2-0 No 1g Commo n (Ceftriaxon (Ceftriaxon 4-04 S pirit e) e) 00:00: - CHI 00 [facility] Toradol Toradol 2021-0 No 2mL Common (Ketorolac) (Ketorolac) 4-04 S pirit 00:00: - CHI 00 [facility] Rocephin Rocephin 2-0 No 1g Commo n (Ceftriaxon (Ceftriaxon 4-04 S pirit e) e) 00:00: - CHI 00 [facility] Toradol Toradol 2021-0 No 2mL Common (Ketorolac) (Ketorolac) 4-04 S pirit 00:00: - CHI 00 [facility] Rocephin Rocephin 2-0 No 1g Commo n (Ceftriaxon (Ceftriaxon 4-04 S pirit e) e) 00:00: - CHI 00 [facility] Toradol Toradol 2021-0 No 2mL Common (Ketorolac) (Ketorolac) 4-04 S pirit 00:00: - CHI 00 [facility] Rocephin Rocephin 2021-0 No 1g Commo n (Ceftriaxon (Ceftriaxon 4-04 S pirit e) e) 00:00: - CHI 00 [facility] Toradol Toradol 2021-0 No 2mL Common (Ketorolac) (Ketorolac) 4-04 S pirit 00:00: - CHI 00 [facility] Rocephin Rocephin 2-0 No 1g Commo n (Ceftriaxon (Ceftriaxon 4-04 S pirit e) e) 00:00: - CHI 00 [facility] Toradol Toradol 2021-0 No 2mL Common (Ketorolac) (Ketorolac) 4-04 S pirit 00:00: - CHI 00 [facility] Rocephin Rocephin 2-0 No 1g Commo n (Ceftriaxon (Ceftriaxon 4-04 S pirit e) e) 00:00: - CHI 00 [facility] Toradol Toradol 2021-0 No 2mL Common (Ketorolac) (Ketorolac) 4-04 S pirit 00:00: - CHI 00 [facility] Rocephin Rocephin 2-0 No 1g Commo n (Ceftriaxon (Ceftriaxon 4-04 S pirit e) e) 00:00: - CHI 00 [facility] Toradol Toradol 2021-0 No 2mL Common (Ketorolac) (Ketorolac) 4-04 S pirit 00:00: - CHI 00 [facility] Rocephin Rocephin 2-0 No 1g Commo n (Ceftriaxon (Ceftriaxon 4-04 S pirit e) e) 00:00: - CHI 00 [facility] Toradol Toradol 2022-0 No 2mL Common (Ketorolac) (Ketorolac) 4-04 S pirit 00:00: - CHI 00 [facility] Rocephin Rocephin 2-0 No 1g Commo n (Ceftriaxon (Ceftriaxon 4-04 S pirit e) e) 00:00: - CHI 00 [facility] Toradol Toradol 2-0 No 2mL Common (Ketorolac) (Ketorolac) 4-04 S pirit 00:00: - CHI 00 [facility] Rocephin Rocephin 2021-0 No 1g Commo n (Ceftriaxon (Ceftriaxon 4-04 S pirit e) e) 00:00: - CHI 00 [facility] Toradol Toradol 2-0 No 2mL Common (Ketorolac) (Ketorolac) 4-04 S pirit 00:00: - CHI 00 [facility] Rocephin Rocephin 2-0 No 1g Commo n (Ceftriaxon (Ceftriaxon 4-04 S pirit e) e) 00:00: - CHI 00 [facility] Toradol Toradol 2021-0 No 2mL Common (Ketorolac) (Ketorolac) 4-04 S pirit 00:00: - CHI 00 [facility] Rocephin Rocephin 2-0 No 1g Commo n (Ceftriaxon (Ceftriaxon 4-04 S pirit e) e) 00:00: - CHI 00 [facility] Rocephin Rocephin 2-0 No 1g Commo n (Ceftriaxon (Ceftriaxon 4-04 S pirit e) e) 00:00: - CHI 00 [facility] Toradol Toradol 2021-0 No 2mL Common (Ketorolac) (Ketorolac) 4-04 S pirit 00:00: - CHI [facility] Azithromyci Azithromyci 2021-0 2021- No QD Azithromyc n 250 MG n 250 MG 06-1409 in 250 MG 00:00: 00:00 00 :00 Azithromyci Azithromyci 2021-0 2021- No QD Azithromyc n 250 MG n 250 MG 06-1409 in 250 MG 00:00: 00:00 00 :00 Promethazin Promethazin 2021- No 10{ml_a TID Promethazi e HCl 6.25 e HCl 6.25 04-09 s_neede ne HCl MG/5ML MG/5ML 00:00: 00:00 d} 6.25 00 :00 MG/5ML predniSONE predniSONE 2021- No QD predniSONE 20 MG 20 MG 04-09 20 MG 00:00: 00:00 00 :00 Furosemide Furosemide 2020-03 No QD Furosemide 20 MG 20 MG 04-21 20 MG 00:00: 00 Furosemide Furosemide 2020-03 [...] No 1{table Levsin 0.125 MG 0.125 MG 01-05 t_as_ne 0.125 MG 00:00: 00:00 eded} 00 :00 casirivimab 2020-03- No [id number] 1200mg 1,200 mg, Univers -imdevimab 12-19 Subcutaneo it y of (REGEN-COV 16:45: 15:30 us, ONCE, [place] (EUA)) 00 :00 1 dose, On Medical injection Sat Branch 1,200 mg 12/19/20 at 1145, Routine Pantoprazol Pantoprazol 2020-0 No 1{table QD Pantoprazo [...] 00 Synvisc Synvisc 2020-0 No 16mg Common -24 Spirit 00:00: - CHI 00 [facility] Synvisc Synvisc 2020-0 No 16mg Common - Spirit 00:00: - CHI 00 [facility] Synvisc Synvisc 2020-0 No 16mg Common -24 Spirit 00:00: - CHI 00 [facility] Synvisc Synvisc 2020-0 No 16mg Common 8- Spirit 00:00: - CHI 00 [facility] Synvisc Synvisc 2021-0 No 16mg Common 8- Spirit 00:00: - CHI 00 [facility] Synvisc Synvisc 1-0 No 16mg Common 11-03 Spirit 00:00: - CHI 00 [facility] Synvisc Synvisc 1-0 No 16mg Common 11-03 Spirit 00:00: - CHI 00 [facility] Synvisc Synvisc 1-0 No 16mg Common 11-03 Spirit 00:00: - CHI 00 [facility] Synvisc Synvisc 1-0 No 16mg Common 11-03 Spirit 00:00: - CHI 00 [facility] Synvisc Synvisc 1-0 No 16mg Common 11-03 Spirit 00:00: - CHI [facility] Synvisc Synvisc 1-0 No 16mg Common 11-03 Spirit 00:00: - CHI [facility] Synvisc Synvisc 1-0 No 16mg Common 11-03 Spirit 00:00: - CHI 00 [facility] Synvisc Synvisc 1-0 No 16mg Common 11-03 Spirit 00:00: - CHI 00 [facility] Synvisc Synvisc 1-0 No 16mg Common 11-03 Spirit 00:00: - CHI [facility] Synvisc Synvisc 1-0 No 16mg Common 11-03 Spirit 00:00: - CHI [facility] Synvisc Synvisc 1-0 No 16mg Common 11-03 Spirit 00:00: - CHI 00 [facility] Synvisc Synvisc 1-0 No 16mg Common 11-03 Spirit 00:00: - CHI 00 [facility] Synvisc Synvisc 1-0 No 16mg Common 824 Spirit 00:00: - CHI 00 [facility] Synvisc Synvisc 1-0 No 16mg Common 11-03 Spirit 00:00: - CHI 00 [facility] Synvisc Synvisc 1-0 No 16mg Common 24 Spirit 00:00: - CHI [facility] Synvisc Synvisc 1-0 No 16mg Common 24 Spirit 00:00: - CHI 00 [facility] Synvisc Synvisc 2021-0 No 16mg Common 8-24 Spirit 00:00: - CHI 00 [facility] Synvisc Synvisc 2021-0 No 16mg Common 11-03 Spirit 00:00: - CHI 00 [facility] Synvisc Synvisc 2021-0 No 16mg Common 11-03 Spirit 00:00: - CHI 00 [facility] Synvisc Synvisc 2021-0 No 16mg Common 11-03 Spirit 00:00: - CHI 00 [facility] Synvisc Synvisc 2021-0 No 16mg Common 11-03 Spirit 00:00: - CHI 00 [facility] Synvisc Synvisc 1-0 No 16mg Common 11-03 Spirit 00:00: - CHI 00 [facility] Synvisc Synvisc 2021-0 No 16mg Common 11-03 Spirit 00:00: - CHI 00 [facility] Synvisc Synvisc 2021-0 No 16mg Common 11-03 Spirit 00:00: - CHI 00 [facility] Synvisc Synvisc 2021-0 No 16mg Common 11-03 Spirit 00:00: - CHI 00 [facility] Synvisc Synvisc 2021-0 No 16mg Common 11-03 Spirit 00:00: - CHI 00 [facility] Synvisc Synvisc 2021-0 No 16mg Common 11-03 Spirit 00:00: - CHI 00 [facility] Synvisc Synvisc 2021-0 No 16mg Common 11-03 Spirit 00:00: - CHI 00 [facility] Synvisc Synvisc 2021-0 No 16mg Common 11-03 Spirit 00:00: - CHI 00 [facility] Synvisc Synvisc 2021-0 No 16mg Common 11-03 Spirit 00:00: - CHI 00 [facility] Synvisc Synvisc 2021-0 No 16mg Common 11-03 Spirit 00:00: - CHI 00 [facility] Synvisc Synvisc 2021-0 No 16mg Common 11-03 Spirit 00:00: - CHI 00 [facility] Synvisc Synvisc 2021-0 No 16mg Common 8-24 Spirit 00:00: - CHI 00 [facility] Synvisc Synvisc 1-0 No 16mg Common 8-17 Spirit 00:00: - CHI 00 [facility] Synvisc Synvisc 1-0 No 16mg Common 8-17 Spirit 00:00: - CHI 00 [facility] Synvisc Synvisc 1-0 No 16mg Common 8-17 Spirit 00:00: - CHI 00 [facility] Synvisc Synvisc 1-0 No 16mg Common 8-17 Spirit 00:00: - CHI 00 [facility] Synvisc Synvisc 1-0 No 16mg Common 8-17 Spirit 00:00: - CHI 00 [facility] Synvisc Synvisc 1-0 No 16mg Common 8-17 Spirit 00:00: - CHI 00 [facility] Synvisc Synvisc 1-0 No 16mg Common 8-17 Spirit 00:00: - CHI 00 [facility] Synvisc Synvisc 1-0 No 16mg Common 8-17 Spirit 00:00: - CHI 00 [facility] Synvisc Synvisc 1-0 No 16mg Common 8-17 Spirit 00:00: - CHI 00 [facility] Synvisc Synvisc 1-0 No 16mg Common 8-17 Spirit 00:00: - CHI 00 [facility] Synvisc Synvisc 1-0 No 16mg Common 8-17 Spirit 00:00: - CHI 00 [facility] Synvisc Synvisc 1-0 No 16mg Common 8-17 Spirit 00:00: - CHI 00 [facility] Synvisc Synvisc 2021-0 No 16mg Common 8-17 Spirit 00:00: - CHI 00 [facility] Synvisc Synvisc 1-0 No 16mg Common 8-17 Spirit 00:00: - CHI 00 [facility] Synvisc Synvisc 2021-0 No 16mg Common 8-17 Spirit 00:00: - CHI 00 [facility] Synvisc Synvisc 1-0 No 16mg Common 8-17 Spirit 00:00: - CHI 00 [facility] Synvisc Synvisc 2021-0 No 16mg Common 8-17 Spirit 00:00: - CHI 00 [facility] Synvisc Synvisc 1-0 No 16mg Common 8-17 Spirit 00:00: - CHI 00 [facility] Synvisc Synvisc 1-0 No 16mg Common 8-17 Spirit 00:00: - CHI 00 [facility] Synvisc Synvisc 1-0 No 16mg Common 8-17 Spirit 00:00: - CHI 00 [facility] Synvisc Synvisc 1-0 No 16mg Common 8-17 Spirit 00:00: - CHI 00 [facility] Synvisc Synvisc 1-0 No 16mg Common 8-17 Spirit 00:00: - CHI 00 [facility] Synvisc Synvisc 1-0 No 16mg Common 8-17 Spirit 00:00: - CHI [facility] Synvisc Synvisc 1-0 No 16mg Common 8-17 Spirit 00:00: - CHI 00 [facility] Synvisc Synvisc 1-0 No 16mg Common 8-17 Spirit 00:00: - CHI 00 [facility] Synvisc Synvisc 1-0 No 16mg Common 8-17 Spirit 00:00: - CHI 00 [facility] Synvisc Synvisc 1-0 No 16mg Common 8-17 Spirit 00:00: - CHI [facility] Synvisc Synvisc 1-0 No 16mg Common 8-17 Spirit 00:00: - CHI 00 [facility] Synvisc Synvisc 1-0 No 16mg Common 8-17 Spirit 00:00: - CHI 00 [facility] Synvisc Synvisc 1-0 No 16mg Common 8-17 Spirit 00:00: - CHI 00 [facility] Synvisc Synvisc 1-0 No 16mg Common 8-17 Spirit 00:00: - CHI 00 [facility] Synvisc Synvisc 1-0 No 16mg Common 8-17 Spirit 00:00: - CHI 00 [facility] Synvisc Synvisc 1-0 No 16mg Common 8-17 Spirit 00:00: - CHI 00 [facility] Synvisc Synvisc 2020-0 No 16mg Common 8-17 Spirit 00:00: - CHI 00 [facility] Synvisc Synvisc 2020-0 No 16mg Common 8-17 Spirit 00:00: - CHI 00 [facility] Synvisc Synvisc 2020-0 No 16mg Common 8-17 Spirit 00:00: - CHI 00 [facility] Synvisc Synvisc 2020-0 No 16mg Common 8-17 Spirit 00:00: - CHI 00 [facility] Synvisc Synvisc 2020-0 No 16mg Common 8-17 Spirit 00:00: - CHI 00 [facility] Bupivicaine Bupivicaine 2020-0 No 2.5mg Common [place] 8-10 Spirit 00:00: - CHI 00 [facility] Synvisc Synvisc 2020-0 No 16mg Common 8-10 Spirit 00:00: - CHI 00 [facility] Kenalog Kenalog 2020-0 No 40mg Common (Triamcinol (Triamcinol 8-10 S pirit one) one) 00:00: - CHI 00 [facility] Bupivicaine Bupivicaine 2020-0 No 2.5mg Common [place] 8-10 Spirit 00:00: - CHI 00 [facility] Synvisc Synvisc 2020-0 No 16mg Common 8-10 Spirit 00:00: - CHI 00 [facility] Kenalog Kenalog 2020-0 No 40mg Common (Triamcinol (Triamcinol 8-10 S pirit one) one) 00:00: - CHI 00 [facility] Bupivicaine Bupivicaine 2020-0 No 2.5mg Common [place] 8-10 Spirit 00:00: - CHI 00 [facility] Synvisc Synvisc 2020-0 No 16mg Common 8-10 Spirit 00:00: - CHI 00 [facility] Kenalog Kenalog 2020-0 No 40mg Common (Triamcinol (Triamcinol 8-10 S pirit one) one) 00:00: - CHI 00 [facility] Bupivicaine Bupivicaine 2020-0 No 2.5mg Common [place] 8-10 Spirit 00:00: - CHI 00 [facility] Synvisc Synvisc 2020-0 No 16mg Common 8-10 Spirit 00:00: - CHI 00 [facility] Kenalog Kenalog 2020-0 No 40mg Common (Triamcinol (Triamcinol 8-10 S pirit one) one) 00:00: - CHI 00 [facility] Bupivicaine Bupivicaine 2020-0 No 2.5mg Common [place] 8-10 Spirit 00:00: - CHI 00 [facility] Synvisc Synvisc 2020-0 No 16mg Common 8-10 Spirit 00:00: - CHI 00 [facility] Kenalog Kenalog 2020-0 No 40mg Common (Triamcinol (Triamcinol 8-10 S pirit one) one) 00:00: - CHI [facility] Bupivicaine Bupivicaine 2020-0 No 2.5mg Common [place] 8-10 Spirit 00:00: - CHI 00 [facility] Synvisc Synvisc 0 No 16mg Common 8-10 Spirit 00:00: - CHI 00 [facility] Kenalog Kenalog 2020-0 No 40mg Common (Triamcinol (Triamcinol 8-10 S pirit one) one) 00:00: - CHI [facility] Bupivicaine Bupivicaine 2020-0 No Common [place] 8-10 Spirit 00:00: - CHI 00 [facility] Bupivicaine Bupivicaine 2020-0 No Common [place] 8-10 Spirit 00:00: - CHI 00 [facility] Synvisc Synvisc 2020-0 No 16mg Common 8-10 Spirit 00:00: - CHI 00 [facility] Synvisc Synvisc 2020-0 No 16mg Common 8-10 Spirit 00:00: - CHI 00 [facility] Kenalog Kenalog 2020-0 No 40mg Common (Triamcinol (Triamcinol 8-10 S pirit one) one) 00:00: - CHI 00 [facility] Kenalog Kenalog 2020-0 No 40mg Common (Triamcinol (Triamcinol 8-10 S pirit one) one) 00:00: - CHI 00 [facility] Bupivicaine Bupivicaine 2020-0 No 2.5mg Common [place] 8-10 Spirit 00:00: - CHI 00 [facility] Bupivicaine Bupivicaine 2020-0 No 2.5mg Common [place] 8-10 Spirit 00:00: - CHI 00 [facility] Synvisc Synvisc 2020-0 No 16mg Common 8-10 Spirit 00:00: - CHI 00 [facility] Synvisc Synvisc 2020-0 No 16mg Common 8-10 Spirit 00:00: - CHI 00 [facility] Kenalog Kenalog 2020-0 No 40mg Common (Triamcinol (Triamcinol 8-10 S pirit one) one) 00:00: - CHI 00 [facility] Kenalog Kenalog 2020-0 No 40mg Common (Triamcinol (Triamcinol 8-10 S pirit one) one) 00:00: - CHI 00 [facility] Bupivicaine Bupivicaine 2020-0 No 2.5mg Common [place] 8-10 Spirit 00:00: - CHI 00 [facility] Bupivicaine Bupivicaine 2020-0 No 2.5mg Common [place] 8-10 Spirit 00:00: - CHI 00 [facility] Synvisc Synvisc 2020-0 No 16mg Common 8-10 Spirit 00:00: - CHI 00 [facility] Synvisc Synvisc 2020-0 No 16mg Common 8-10 Spirit 00:00: - CHI 00 [facility] Kenalog Kenalog 2020-0 No 40mg Common (Triamcinol (Triamcinol 8-10 S pirit one) one) 00:00: - CHI 00 [facility] Kenalog Kenalog 2020-0 No 40mg Common (Triamcinol (Triamcinol 8-10 S pirit one) one) 00:00: - CHI 00 [facility] Bupivicaine Bupivicaine 2020-0 No 2.5mg Common [place] 8-10 Spirit 00:00: - CHI 00 [facility] Bupivicaine Bupivicaine 2020-0 No 2.5mg Common [place] 8-10 Spirit 00:00: - CHI 00 [facility] Synvisc Synvisc 2020-0 No 16mg Common 8-10 Spirit 00:00: - CHI 00 [facility] Synvisc Synvisc 2020-0 No 16mg Common 8-10 Spirit 00:00: - CHI 00 [facility] Kenalog Kenalog 2020-0 No 40mg Common (Triamcinol (Triamcinol 8-10 S pirit one) one) 00:00: - CHI 00 [facility] Kenalog Kenalog 2020-0 No 40mg Common (Triamcinol (Triamcinol 8-10 S pirit one) one) 00:00: - CHI 00 [facility] Bupivicaine Bupivicaine 2020-0 No 2.5mg Common [place] 8-10 Spirit 00:00: - CHI 00 [facility] Bupivicaine Bupivicaine 2020-0 No 2.5mg Common [place] 8-10 Spirit 00:00: - CHI 00 [facility] Synvisc Synvisc 2020-0 No 16mg Common 8-10 Spirit 00:00: - CHI 00 [facility] Synvisc Synvisc 2020-0 No 16mg Common 8-10 Spirit 00:00: - CHI 00 [facility] Kenalog Kenalog 2020-0 No 40mg Common (Triamcinol (Triamcinol 8-10 S pirit one) one) 00:00: - CHI 00 [facility] Kenalog Kenalog 2020-0 No 40mg Common (Triamcinol (Triamcinol 8-10 S pirit one) one) 00:00: - CHI 00 [facility] Bupivicaine Bupivicaine 1-0 No 2.5mg Common [place] 8-10 Spirit 00:00: - CHI 00 [facility] Bupivicaine Bupivicaine 1-0 No 2.5mg Common [place] 8-10 Spirit 00:00: - CHI 00 [facility] Synvisc Synvisc 2020-0 No 16mg Common 8-10 Spirit 00:00: - CHI 00 [facility] Synvisc Synvisc 2020-0 No 16mg Common 8-10 Spirit 00:00: - CHI 00 [facility] Kenalog Kenalog 2020-0 No 40mg Common (Triamcinol (Triamcinol 8-10 S pirit one) one) 00:00: - CHI 00 [facility] Kenalog Kenalog 2020-0 No 40mg Common (Triamcinol (Triamcinol 8-10 S pirit one) one) 00:00: - [facility] 00 [facility] Bupivicaine Bupivicaine 2020-0 No 2.5mg Common [place] 8-10 [facility] 00:00: - [facility] 00 [facility] Bupivicaine Bupivicaine 2020-0 No 2.5mg Common [place] 8-10 Spirit 00:00: - [facility] 00 [facility] Synvisc Synvisc 2020-0 No 16mg Common 8-10 Spirit 00:00: - [facility] 00 [facility] Synvisc Synvisc 2020-0 No 16mg [facility] 8[facility]10 [facility] 00:00: - [facility]I 00 [facility] Kenalog Kenalog 2020-0 No 40mg Common (Triamcinol (Triamcinol 8-10 S pirit one) one) 00:00: - CHI 00 [facility] Kenalog Kenalog 2020-0 No 40mg Common (Triamcinol (Triamcinol 8-10 S pirit one) one) 00:00: - CHI 00 [facility] Bupivicaine Bupivicaine 2020-0 No 2.5mg [place] [facility] 00:00: - [facility]I 00 [facility] Bupivicaine Bupivicaine 2020-0 No 2.5mg [facility] [place] [facility] 00:00: - [facility]I 00 [facility] Synvisc Synvisc 2020-0 No 16mg [facility] 8-10 Spirit 00:00: - CHI 00 [facility] Synvisc Synvisc 2020-0 No 16mg [facility] 8-10 Spirit 00:00: - CHI 00 [facility] Kenalog Kenalog 2020-0 No 40mg Common (Triamcinol (Triamcinol 8-10 S pirit one) one) 00:00: - CHI 00 [facility] Kenalog Kenalog 2020-0 No 40mg Common (Triamcinol (Triamcinol 8-10 S pirit one) one) 00:00: - CHI 00 [facility] Bupivicaine Bupivicaine 2020-0 No 2.5mg [facility] [place] [facility] 00:00: - [facility]I 00 [facility] Bupivicaine Bupivicaine 2020-0 No 2.5mg [facility] [place] [facility] 00:00: - [facility]I 00 [facility] Synvisc Synvisc 2020-0 No 16mg [facility] 8[facility]10 Spirit 00:00: - CHI 00 [facility] Synvisc Synvisc 2020-0 No 16mg [facility] 8[facility]10 [facility] 00:00: - CHI [facility] Kenalog Kenalog 2020-0 No 40mg [facility] (Triamcinol (Triamcinol 8-10 S pirit one) one) 00:00: - CHI 00 [facility] Kenalog Kenalog 2020-0 No 40mg Common (Triamcinol (Triamcinol 8-10 S pirit one) one) 00:00: - CHI 00 [facility] Bupivicaine Bupivicaine 2020-0 No 2.5mg [facility] [place] [facility] 00:00: - CHI [facility] Bupivicaine Bupivicaine 2020-0 No 2.5mg [facility] [place] [facility] 00:00: - CHI 00 [facility] Synvisc Synvisc 2020-0 No 16mg [facility] 8[facility]10 [facility] 00:00: - CHI 00 [facility] Synvisc Synvisc 2020-0 No 16mg [facility] 00:00: - CHI 00 [facility] Kenalog Kenalog 2020-0 No 40mg [facility] (Triamcinol (Triamcinol 8-10 S pirit one) one) 00:00: - CHI [facility] Kenalog Kenalog 2020-0 No 40mg [facility] (Triamcinol (Triamcinol 8-10 S pirit one) one) 00:00: - CHI 00 [facility] Bupivicaine Bupivicaine 2020-0 No 2.5mg [facility] [place] [facility] 00:00: - [facility]I 00 [facility] Bupivicaine Bupivicaine 2020-0 No 2.5mg [facility] [place] [facility] 00:00: - [facility]I 00 [facility] Synvisc Synvisc 2020-0 No 16mg [facility] 8[facility]10 [facility] 00:00: - CHI 00 [facility] Synvisc Synvisc 2020-0 No 16mg [facility] 8[facility]10 [facility] 00:00: - CHI 00 [facility] Kenalog Kenalog 2020-0 No 40mg [facility] (Triamcinol (Triamcinol 8-10 S pirit one) one) 00:00: - CHI 00 [facility] Kenalog Kenalog 2020-0 No 40mg [facility] (Triamcinol (Triamcinol 8-10 S pirit one) one) 00:00: - CHI 00 [facility] Bupivicaine Bupivicaine 2020-0 No 2.5mg [facility] [place] [facility] 00:00: - CHI 00 [facility] Bupivicaine Bupivicaine 2020-0 No 2.5mg [facility] [place] [facility] 00:00: - CHI 00 [facility] Synvisc Synvisc 2020-0 No 16mg [facility] 8[facility]10 [facility] 00:00: - CHI 00 [facility] Synvisc Synvisc 2020-0 No 16mg [facility] 8[facility]10 [facility] 00:00: - CHI 00 [facility] Kenalog Kenalog 2020-0 No 40mg Common (Triamcinol (Triamcinol 8-10 S pirit one) one) 00:00: - CHI 00 [facility] Kenalog Kenalog 2020-0 No 40mg Common (Triamcinol (Triamcinol 8-10 S pirit one) one) 00:00: - CHI 00 [facility] Bupivicaine Bupivicaine 1-0 No 2.5mg [facility] [place] [facility] 00:00: - [facility]I 00 [facility] Bupivicaine Bupivicaine 2020-0 No 2.5mg [facility] [place] [facility] 00:00: - CHI 00 [facility] Synvisc Synvisc 2020-0 No 16mg [facility] 8[facility]10 [facility] 00:00: - CHI 00 [facility] Synvisc Synvisc 2020-0 No 16mg [facility] 8[facility]10 [facility] 00:00: - CHI 00 [facility] Kenalog Kenalog 2020-0 No 40mg Common (Triamcinol (Triamcinol 8-10 S pirit one) one) 00:00: - CHI 00 [facility] Kenalog Kenalog 2020-0 No 40mg [facility] (Triamcinol (Triamcinol 8-10 S pirit one) one) 00:00: - CHI 00 [facility] Bupivicaine Bupivicaine 2020-0 No 2.5mg [facility] [place] [facility] 00:00: - CHI [facility] Bupivicaine Bupivicaine 2020-0 No 2.5mg [facility] [place] [facility] 00:00: - CHI 00 [facility] Synvisc Synvisc 2020-0 No 16mg [facility] 8[facility]10 [facility] 00:00: - CHI 00 [facility] Synvisc Synvisc 2020-0 No 16mg [facility] 8[facility]10 [facility] 00:00: - CHI 00 [facility] Kenalog Kenalog 2020-0 No 40mg Common (Triamcinol (Triamcinol 8-10 S pirit one) one) 00:00: - CHI 00 [facility] Kenalog Kenalog 2020-0 No 40mg Common (Triamcinol (Triamcinol 8-10 S pirit one) one) 00:00: - CHI 00 [facility] Bupivicaine Bupivicaine 2020-0 No 2.5mg [facility] [place] [facility] 00:00: - CHI 00 [facility] Bupivicaine Bupivicaine 2020-0 No 2.5mg [facility] [place] [facility] 00:00: - CHI 00 [facility] Synvisc Synvisc 2020-0 No 16mg [facility] 8[facility]10 [facility] 00:00: - CHI [facility] Synvisc Synvisc 0 No 16mg [facility] 8[facility]10 [facility] 00:00: - CHI 00 [facility] Kenalog Kenalog 2020-0 No 40mg Common (Triamcinol (Triamcinol 8-10 S pirit one) one) 00:00: - CHI [facility] Kenalog Kenalog 0 No 40mg Common (Triamcinol (Triamcinol 8-10 S pirit one) one) 00:00: - CHI 00 [facility] Bupivicaine Bupivicaine 2020-0 No 2.5mg [facility] [place] [facility] 00:00: - [facility]I 00 [facility] Synvisc 0 No 16mg [facility] 8[facility]10 [facility] 00:00: - CHI [facility] Kenalog Kenalog 0 No 40mg Common (Triamcinol (Triamcinol 8-10 S pirit one) one) 00:00: - CHI [facility] Bupivicaine Bupivicaine 2020-0 No 2.5mg [facility] [place] [facility] 00:00: - CHI [facility] Synvisc 0 No 16mg [facility] 8[facility]10 [facility] 00:00: - CHI [facility] Kenalog Kenalog 0 No 40mg Common (Triamcinol (Triamcinol 8-10 S pirit one) one) 00:00: - CHI [facility] BD BD 2020-0 No QD BD Ultra-Fine Ultra-Fine 1-27 Ultra-Fine Anita Pen Anita Pen 00:00: Anita Pen [place] 4mm [place] 4mm 00 [place] x 32Gm x 32Gm 4mm x 32Gm BD BD 2020-0 No QD BD Ultra-Fine Ultra-Fine 1-27 Ultra-Fine Anita Pen Anita Pen 00:00: Anita Pen [place] 4mm [place] 4mm 00 [place] x 32Gm x 32Gm 4mm x 32Gm BD BD 2020-0 No QD BD Ultra-Fine Ultra-Fine 1-27 Ultra-Fine Anita Pen Anita Pen 00:00: Anita Pen [place] 4mm [place] 4mm 00 [place] x 32Gm x 32Gm 4mm x 32Gm BD BD 2020-0 No QD BD Ultra-Fine Ultra-Fine 1-27 Ultra-Fine Anita Pen Anita Pen 00:00: Anita Pen [place] 4mm [place] 4mm 00 [place] x 32Gm x 32Gm 4mm x 32Gm BD BD No QD BD Ultra-Fine Ultra-Fine 1-27 Ultra-Fine Anita Pen Anita Pen 00:00: Anita Pen [place] 4mm [place] 4mm 00 [place] x 32Gm x 32Gm 4mm x 32Gm BD BD No QD BD Ultra-Fine Ultra-Fine 1-27 Ultra-Fine Anita Pen Anita Pen 00:00: Anita Pen [place] 4mm [place] 4mm 00 [place] x 32Gm x 32Gm 4mm x 32Gm BD BD No QD BD Ultra-Fine Ultra-Fine 1-27 Ultra-Fine Anita Pen Anita Pen 00:00: Anita Pen [place] 4mm [place] 4mm 00 [place] x 32Gm x 32Gm 4mm x 32Gm Omeprazole Omeprazole Yes [place] TAKE 1 Common Nowak CAPSULE BY Spirit MOUTH - CHI EVERY DAY [facility] MethylPREDN MethylPREDN Yes [place] TAKE Common ISolone ISolone [place] DIRECTED Spi rit - CHI [facility] Doxycycline Doxycycline Yes [place] TAKE 1 Common Hyclate Hyclate Nowak CAPSULE BY S pirit MOUTH - CHI TWICE A [facility] DAY [facility] Methocarbam Methocarbam Yes [place] TAKE 1 Common ol ol Nowak TABLET BY Spirit MOUTH - CHI TWICE [facility] DAY [facility] [place] Montelukast Montelukast Yes [place] TAKE 1 Common Sodium Sodium [place] TABLET BY Spir it MOUTH - CHI EVERY DAY [facility] Acetaminoph Acetaminoph Yes [place] (Schedule Common en-Codeine [...] MG/1.5ML MG/1.5ML MG/1.5ML CoQ10 CoQ10 No CoQ10 Escitalopra Escitalopra No 1{table QD Escitalopr m [...] tiZANidine tiZANidine No tiZANidine HCl HCl HCl Ozempic Ozempic No Ozempic 0.25 or 0.5 0.25 or 0.5 0.25 or MG/DOSE MG/DOSE 0.5 MG/DOSE Montelukast Montelukast No Montelukas Sodium 10 Sodium [...] Status Comments Sourc e Immunization Name Name Syn[facility] 2020-11-03 Completed [facility] - 13:40:00 [facility] 2020-11-03 Completed [facility] - 13:40:00 [facility] Synvisc Synvisc 2020-11-03 Completed [facility] - 13:40:00 [facility] Synvisc Synvisc 2020-11-03 Completed [facility] - 13:39:00 [facility] Synvisc Synvisc 2020-11-03 Completed [facility] - 13:39:00 [facility] Synvisc Synvisc 2020-11-03 Completed [facility] - 13:39:00 [facility] Synvisc Synvisc 2020-10-27 Completed [facility] - 08:48:00 [facility] Synvisc Synvisc 2020-10-27 Completed [facility] - 08:48:00 [facility] Synvisc Synvisc 2020-10-27 Completed [facility] - 08:48:00 [facility] Synvisc Synvisc 2020-10-27 Completed [facility] - 08:47:00 [facility] Synvisc Synvisc 2020-10-27 Completed [facility] - 08:47:00 [facility] Synvisc Synvisc 2020-10-27 Completed [facility] - 08:47:00 [facility] Vianney Faith 2020-10-20 Completed [facility] - (Triamcinolone) (Triamcinolone) 08:22:00 [facility] Vianney Faith 2020-10-20 Completed [facility] - (Triamcinolone) (Triamcinolone) 08:22:00 [facility] Vianney Faith 2020-10-20 Completed [facility] - (Triamcinolone) (Triamcinolone) 08:22:00 [facility] Vianney Faith 2020-10-20 Completed [facility] - (Triamcinolone) (Triamcinolone) 08:22:00 [facility] Vianney Faith 2020-10-20 Completed [facility] - (Triamcinolone) (Triamcinolone) 08:22:00 [facility] Vianney Faith 2020-10-20 Completed [facility] - (Triamcinolone) (Triamcinolone) 08:22:00 [facility] Synvisc Synvisc 2020-10-20 Completed [facility] - 08:21:00 [facility] Bupivicaine [place] Bupivicaine [place] 2020-10-20 Completed [facility] - 08:21:00 [facility] Bupivicaine [place] Bupivicaine [place] 2020-10-20 Completed [facility] - 08:21:00 [facility] Synvisc Synvisc 2020-10-20 Completed [facility] - 08:21:00 [facility] Bupivicaine [place] Bupivicaine [place] 2020-10-20 Completed [facility] - 08:21:00 [facility] Bupivicaine [place] Bupivicaine [place] 2020-10-20 Completed [facility] - 08:21:00 [facility] Synvisc Synvisc 2020-10-20 Completed [facility] - 08:21:00 [facility] Bupivicaine [place] Bupivicaine [place] 2020-10-20 Completed [facility] - 08:21:00 [facility] Bupivicaine [place] Bupivicaine [place] 2020-10-20 Completed [facility] - 08:21:00 [facility] Synvisc Synvisc 2020-10-20 Completed [facility] - 08:20:00 [facility] Synvisc Synvisc 2020-10-20 Completed [facility] - 08:20:00 [facility] Synvisc Synvisc 2020-10-20 Completed [facility] - 08:20:00 [facility] SARS-COV-2 COVID-19 2020-05-17 Completed Unive rsity of MODERNA VACCINE 00:00:00 [facility] SARS-COV-2 COVID-19 2020-05-17 Completed Unive rsity of MODERNA VACCINE 00:00:00 [facility] SARS-COV-2 COVID-19 2020-04-19 Completed Unive rsity of MODERNA VACCINE 00:00:00 [facility] SARS-COV-2 COVID-19 2020-04-19 Completed Unive rsity of MODERNA VACCINE 00:00:00 [facility] Pneumovax (PPSV23) Pneumovax (PPSV23) 2019-12-26 Completed [facility] - 15:10:00 [facility] Pneumovax (PPSV23) Pneumovax (PPSV23) 2019-12-26 Completed [facility] - 15:10:00 [facility] Pneumovax (PPSV23) Pneumovax (PPSV23) 2019-12-26 Completed [facility] - 15:10:00 [facility] Pneumovax (PPSV23) Pneumovax (PPSV23) 2019-12-26 Completed [facility] - 15:10:00 [facility] Pneumovax (PPSV23) Pneumovax (PPSV23) 2019-12-26 Completed [facility] - 15:10:00 [facility] Pneumovax (PPSV23) Pneumovax (PPSV23) 2019-12-26 Completed [facility] - 15:10:00 [facility] Pneumovax (PPSV23) Pneumovax (PPSV23) 2019-12-26 Completed [facility] - 15:10:00 [facility] Pneumovax (PPSV23) Pneumovax (PPSV23) 2019-12-26 Completed [facility] - 15:10:00 [facility] Pneumovax (PPSV23) Pneumovax (PPSV23) 2019-12-26 Completed [facility] - 15:10:00 [facility] Pneumovax (PPSV23) Pneumovax (PPSV23) 2019-12-26 Completed [facility] - 15:10:00 [facility] Pneumovax (PPSV23) Pneumovax (PPSV23) 2019-12-26 Completed [facility] - 15:10:00 [facility] Pneumovax (PPSV23) Pneumovax (PPSV23) 2019-12-26 Completed [facility] - 15:10:00 [facility] Pneumovax (PPSV23) Pneumovax (PPSV23) 2019-12-26 Completed [facility] - 15:10:00 [facility] Pneumovax (PPSV23) Pneumovax (PPSV23) 2019-12-26 Completed [facility] - 15:10:00 [facility] Pneumovax (PPSV23) Pneumovax (PPSV23) 2019-12-26 Completed [facility] - 15:10:00 [facility] Pneumovax (PPSV23) Pneumovax (PPSV23) 2019-12-26 Completed [facility] - 15:10:00 [facility] Pneumovax (PPSV23) Pneumovax (PPSV23) 2019-12-26 Completed [facility] - 15:10:00 [facility] Pneumovax (PPSV23) Pneumovax (PPSV23) 2019-12-26 Completed [facility] - 15:10:00 [facility] Pneumovax (PPSV23) Pneumovax (PPSV23) 2019-12-26 Completed [facility] - 15:10:00 [facility] Pneumovax (PPSV23) Pneumovax (PPSV23) 2019-12-26 Completed [facility] - 15:10:00 [facility] Pneumovax (PPSV23) Pneumovax (PPSV23) 2019-12-26 Completed [facility] - 15:10:00 [facility] Pneumovax (PPSV23) Pneumovax (PPSV23) 2019-12-26 Completed [facility] - 15:10:00 [facility] Pneumovax (PPSV23) Pneumovax (PPSV23) 2019-12-26 Completed [facility] - 15:10:00 [facility] Pneumovax (PPSV23) Pneumovax (PPSV23) 2019-12-26 Completed [facility] - 15:10:00 [facility] Pneumovax (PPSV23) Pneumovax (PPSV23) 2019-12-26 Completed [facility] - 15:10:00 [facility] Pneumovax (PPSV23) Pneumovax (PPSV23) 2019-12-26 Completed [facility] - 15:10:00 [facility] Pneumovax (PPSV23) Pneumovax (PPSV23) 2019-12-26 Completed [facility] - 15:10:00 [facility] Shingrix Shingrix 2019-12-24 Completed [facility] - 15:10:00 [facility] Shingrix Shingrix 2019-12-24 Completed [facility] - 15:10:00 [facility] Shingrix Shingrix 2019-12-24 Completed [facility] - 15:10:00 [facility] Shingrix Shingrix 2019-12-24 Completed [facility] - 15:10:00 [facility] Shingrix Shingrix 2019-12-24 Completed [facility] - 15:10:00 [facility] Shingrix Shingrix 2019-12-24 Completed [facility] - 15:10:00 [facility] Shingrix Shingrix 2019-12-24 Completed [facility] - 15:10:00 [facility] Shingrix Shingrix 2019-12-24 Completed [facility] - 15:10:00 [facility] Shingrix Shingrix 2019-12-24 Completed [facility] - 15:10:00 [facility] Shingrix Shingrix 2019-12-24 Completed [facility] - 15:10:00 [facility] Shingrix Shingrix 2019-12-24 Completed [facility] - 15:10:00 [facility] Shingrix Shingrix 2019-12-24 Completed [facility] - 15:10:00 [facility] Shingrix Shingrix 2019-12-24 Completed [facility] - 15:10:00 [facility] Shingrix Shingrix 2019-12-24 Completed [facility] - 15:10:00 [facility] Shingrix Shingrix 2019-12-24 Completed [facility] - 15:10:00 [facility] Shingrix Shingrix 2019-12-24 Completed [facility] - 15:10:00 [facility] Shingrix Shingrix 2019-12-24 Completed [facility] - 15:10:00 [facility] Shingrix Shingrix 2019-12-24 Completed [facility] - 15:10:00 [facility] Shingrix Shingrix 2019-12-24 Completed [facility] - 15:10:00 [facility] Shingrix Shingrix 2019-12-24 Completed [facility] - 15:10:00 [facility] Shingrix Shingrix 2019-12-24 Completed [facility] - 15:10:00 [facility] Shingrix Shingrix 2019-12-24 Completed [facility] - 15:10:00 [facility] Shingrix Shingrix 2019-12-24 Completed [facility] - 15:10:00 [facility] Shingrix Shingrix 2019-12-24 Completed [facility] - 15:10:00 [facility] Shingrix Shingrix 2019-12-24 Completed [facility] - 15:10:00 [facility] Shingrix Shingrix 2019-12-24 Completed [facility] - 15:10:00 [facility] Shingrix Shingrix 2019-12-24 Completed [facility] - 15:10:00 [facility] FluAD FluAD 2019-12-18 Completed [facility] - 15:09:00 [facility] FluAD FluAD 2019-12-18 Completed [facility] - 15:09:00 [facility] FluAD FluAD 2019-12-18 Completed [facility] - 15:09:00 [facility] FluAD FluAD 2019-12-18 Completed [facility] - 15:09:00 [facility] FluAD FluAD 2019-12-18 Completed [facility] - 15:09:00 [facility] FluAD FluAD 2019-12-18 Completed [facility] - 15:09:00 [facility] FluAD FluAD 2019-12-18 Completed [facility] - 15:09:00 [facility] FluAD FluAD 2019-12-18 Completed [facility] - 15:09:00 [facility] FluAD FluAD 2019-12-18 Completed [facility] - 15:09:00 [facility] FluAD FluAD 2019-12-18 Completed [facility] - 15:09:00 [facility] FluAD FluAD 2019-12-18 Completed [facility] - 15:09:00 [facility] FluAD FluAD 2019-12-18 Completed [facility] - 15:09:00 [facility] FluAD FluAD 2019-12-18 Completed [facility] - 15:09:00 [facility] FluAD FluAD 2019-12-18 Completed [facility] - 15:09:00 [facility] FluAD FluAD 2019-12-18 Completed [facility] - 15:09:00 [facility] FluAD FluAD 2019-12-18 Completed [facility] - 15:09:00 [facility] FluAD FluAD 2019-12-18 Completed [facility] - 15:09:00 [facility] FluAD FluAD 2019-12-18 Completed [facility] - 15:09:00 [facility] FluAD FluAD 2019-12-18 Completed [facility] - 15:09:00 [facility] FluAD FluAD 2019-12-18 Completed [facility] - 15:09:00 [facility] FluAD FluAD 2019-12-18 Completed [facility] - 15:09:00 [facility] FluAD FluAD 2019-12-18 Completed [facility] - 15:09:00 [facility] FluAD FluAD 2019-12-18 Completed [facility] - 15:09:00 [facility] FluAD FluAD 2019-12-18 Completed [facility] - 15:09:00 [facility] FluAD FluAD 2019-12-18 Completed [facility] - 15:09:00 [facility] FluAD FluAD 2019-12-18 Completed [facility] - 15:09:00 [facility] FluAD FluAD 2019-12-18 Completed [facility] - 15:09:00 [facility] Vital Signs Vital Name Observation Time Observation Value Comments Source height 2022-01-26 15:00:00 64 [in_i] [facility] weight 2022-01-26 15:00:00 174.4 [lb_av] Common [facility] temperature 2022-01-26 15:00:00 96.9 [degF] [facility] bmi 2022-01-26 15:00:00 29.93 kg/m2 [facility] oximetry 2022-01-26 15:00:00 94 % [facility] respiratory rate 2022-01-26 15:00:00 16 /min Comm on [facility] blood pressure 2022-01-26 15:00:00 110 mm[Hg] Common [facility] - systolic [facility] blood pressure 2022-01-26 15:00:00 63 mm[Hg] Common [facility] - diastolic [facility] height 2021-12-02 08:20:00 64 [in_i] Common [facility] weight 2021-12-02 08:20:00 184.6 [lb_av] Common [facility] temperature 2021-12-02 08:20:00 97.3 [degF] Common [facility] bmi 2021-12-02 08:20:00 31.68 kg/m2 Common [facility] oximetry 2021-12-02 08:20:00 97 % [facility] respiratory rate 2021-12-02 08:20:00 16 /min Comm on [facility] blood pressure 2021-12-02 08:20:00 131 mm[Hg] Common [facility] - systolic [facility] blood pressure 2021-12-02 08:20:00 64 mm[Hg] Common [facility] - diastolic [facility] height 2021-11-02 14:40:00 64 [in_i] Common [facility] weight 2021-11-02 14:40:00 194.0 [lb_av] [facility] temperature 2021-11-02 14:40:00 97.8 [degF] Common S [facility] bmi 2021-11-02 14:40:00 33.3 kg/m2 Common S [facility] oximetry 2021-11-02 14:40:00 93 % Common [facility] respiratory rate 2021-11-02 14:40:00 16 /min Comm on [facility] blood pressure 2021-11-02 14:40:00 119 mm[Hg] Common [facility] - systolic [facility] blood pressure 2021-11-02 14:40:00 72 mm[Hg] [facility] - diastolic [facility] height 2021-09-16 11:20:00 64 [in_i] Common [facility] weight 2021-09-16 11:20:00 193.2 [lb_av] Common [facility] temperature 2021-09-16 11:20:00 97.5 [degF] Common S [facility] bmi 2021-09-16 11:20:00 33.16 kg/m2 Common S [facility] oximetry 2021-09-16 11:20:00 97 % Common [facility] respiratory rate 2021-09-16 11:20:00 18 /min Comm on [facility] blood pressure 2021-09-16 11:20:00 135 mm[Hg] Common [facility] - systolic [facility] blood pressure 2021-09-16 11:20:00 70 mm[Hg] Common [facility] - diastolic [facility] height 2021-08-03 10:30:00 64 [in_i] Common [facility] weight 2021-08-03 10:30:00 191.0 [lb_av] [facility] temperature 2021-08-03 10:30:00 97.7 [degF] Common [facility] bmi 2021-08-03 10:30:00 32.78 kg/m2 [facility] oximetry 2021-08-03 10:30:00 97 % Common [facility] respiratory rate 2021-08-03 10:30:00 17 /min Comm on [facility] blood pressure 2021-08-03 10:30:00 132 mm[Hg] Common [facility] - systolic [facility] blood pressure 2021-08-03 10:30:00 70 mm[Hg] [facility] - diastolic [facility] height 2021-08-03 10:30:00 64 [in_i] Common [facility] weight 2021-08-03 10:30:00 191.0 [lb_av] [facility] temperature 2021-08-03 10:30:00 97.7 [degF] Common S pirit [facility] bmi 2021-08-03 10:30:00 32.78 kg/m2 Common S pirit [facility] oximetry 2021-08-03 10:30:00 97 % Common S [facility] respiratory rate 2021-08-03 10:30:00 17 /min Comm on [facility] blood pressure 2021-08-03 10:30:00 132 mm[Hg] Common [facility] - systolic [facility] blood pressure 2021-08-03 10:30:00 70 mm[Hg] [facility] - diastolic [facility] height 2021-06-14 13:40:00 64 [in_i] Common [facility] weight 2021-06-14 13:40:00 192.7 [lb_av] Common [facility] temperature 2021-06-14 13:40:00 98.1 [degF] Common S pirit [facility] bmi 2021-06-14 13:40:00 33.07 kg/m2 Common S [facility] oximetry 2021-06-14 13:40:00 95 % Common S [facility] respiratory rate 2021-06-14 13:40:00 18 /min Comm on [facility] blood pressure 2021-06-14 13:40:00 136 mm[Hg] Common [facility] - systolic [facility] blood pressure 2021-06-14 13:40:00 75 mm[Hg] [facility] - diastolic [facility] bmi 2021-05-03 11:20:00 34.15 kg/m2 [facility] 2021-05-03 11:20:00 96 % Common [facility]-03 11:20:00 18 /min Comm on [facility] blood pressure 2021-05-03 11:20:00 122 mm[Hg] Common [facility] - systolic [facility] blood pressure 2021-05-03 11:20:00 63 mm[Hg] [facility] - diastolic [facility] height 2021-05-03 11:20:00 64 [in_i] Common S pirit [facility] weight 2021-05-03 11:20:00 199 [lb_av] Common [facility] temperature 2021-05-03 11:20:00 97.5 [degF] Common S pirit [facility] height 2021-04-09 13:40:00 64 [in_i] Common S [facility] weight 2021-04-09 13:40:00 190 [lb_av] Common S [facility] temperature 2021-04-09 13:40:00 98.6 [degF] [facility] bmi 2021-04-09 13:40:00 32.61 kg/m2 Common S pirit [facility] height 2021-01-21 08:10:00 64 [in_i] Common S [facility] weight 2021-01-21 08:10:00 187 [lb_av] [facility] temperature 2021-01-21 08:10:00 98.7 [degF] Common S [facility] bmi 2021-01-21 08:10:00 32.09 kg/m2 Common S pirit - [facility] blood pressure 2021-01-21 08:10:00 121 mm[Hg] [facility] - systolic [facility] blood pressure 2021-01-21 08:10:00 77 mm[Hg] [facility] - diastolic [facility] height 2020-12-31 10:40:00 64 [in_i] Common S pirit [facility] weight 2020-12-31 10:40:00 180 [lb_av] [facility] bmi 2020-12-31 10:40:00 30.89 kg/m2 [facility] Systolic blood 2020-12-19 16:15:00 141 mm[Hg] Univer sity of pressure [facility] Diastolic blood 2020-12-19 16:15:00 78 mm[Hg] Unive rsity of pressure [facility] Heart rate 2020-12-19 16:15:00 71 /min [facility] Body temperature 2020-12-19 16:15:00 [facility].72 [facility] 2020-12-19 16:15:00 18 /min [facility] O[facility] saturation in 2020-12-19 16:15:00 93 /min [facility] blood by [facility] Pulse oximetry [facility] height 2020-12-19 15:13:00 160 cm [facility] Body weight 2020-12-19 15:13:00 81.647 kg [facility] BMI 2020-12-19 15:13:00 31.89 kg/m2 [facility] height 2020-12-17 10:20:00 64 [in_i] [facility] weight 2020-12-17 10:20:00 180 [lb_av] [facility] temperature 2020-12-17 10:20:00 98.3 [degF] [facility] bmi 2020-12-17 10:20:00 30.89 kg/m2 [facility] Procedures Procedure Date / Time Performed Performing Clinician Jon e [id number] CONSENT 2020-12-19 05:01:00 Doctor Unassigned, No Unive [facility] Encounters Start End Encounter Admission Attending Care Care Encounter Source Date/Time Date/Time Type Type Clinicians Facility Department ID 2022-01-24 Outpatient Garcia, STMILLIE [facility] [id number] Common 14:09:00 Aidan 09389 [facility] 2021-09-16 Outpatient Garcia, [facility] [id number] Common 11:49:00 Aidan 38649 [facility] 2021-04-29 Outpatient Garcia, [facility] [id number] Common 11:21:02 Aidan [facility] 2021-04-07 Outpatient Garcia, STLMLC STLMLC [id number] Common 14:12:39 Aidan [facility] 2021-04-07 Outpatient Garcia, STLMLC STLC [id number] Common 14:03:22 Aidan 37870 [facility] 2021-04-07 Outpatient Garcia, STLMLC STLMLC [id number] Common 14:02:49 Aidan 54566 [facility] 2021-04-07 Outpatient Garcia, STLMLC STLC [id number] Common 13:35:30 Aidan 53439 [facility] 2021-04-07 Outpatient Garcia, STLMLC STLC [id number] Common 13:29:38 Aidan 97128 [facility] 2021-04-07 Outpatient Garcia, STLMLC STLC [id number] Common 13:22:30 Aidan 32134 [facility] 2021-04-07 Outpatient Garcia, STLMLC STLC [id number] Common 13:13:27 Aidan 46020 [facility] 2021-04-07 Outpatient Garcia, STLMLC STLC [id number] Common 13:10:27 Aidan 97493 [facility] 2021-04-07 Outpatient Garcia, STLMLC STLC [id number] Common 13:09:48 Aidan 52201 [facility] 2021-04-07 Outpatient Garcia, STLMLC STLC [id number] Common 12:55:44 Aidan 17139 [facility] 2021-04-07 Outpatient Garcia, STLMLC STLC [id number] Common 12:42:28 Aidan 32306 [facility] 2021-04-07 Outpatient Garcia, STLMLC STLC [id number] Common 12:16:01 Aidan 27421 [facility] 2021-04-07 Outpatient Garcia, STLMLC STLMLC [id number] Common 12:13:51 [facility] [address] [facility] 2022-02-11 2022-02-11 (TEL) STLMLC STLMLC [id number] Co mmon 00:00:00 00:00:00 [facility] 2022-01-26 2022-01-26 OFFICE STLMLC STLMLC [id number] Co mmon 00:00:00 00:00:00 VISIT Spirit ESTAB PT - CHI LEVEL 4 [facility] 2021-12-02 2021-12-02 OFFICE STLMLC STLMLC [id number] Co mmon 00:00:00 00:00:00 VISIT EST Spir it PT LEVEL 3 - [facility] 2021-11-11 2021-11-11 TORRIE Lora [id number]. [id number]. [id number] [facility] 20:30:00 21:30:00 [id number] [id number] 2021-11-02 2021-11-02 OFFICE STLMLC STLMLC [id number] Co mmon 00:00:00 00:00:00 VISIT [facility] PT - CHI LEVEL 4 [facility] 2021-10-08 2021-10-08 (TEL) STLMLC STLMLC [id number] Co mmon 00:00:00 00:00:00 [facility] 2021-10-05 2021-10-05 (TEL) STLMLC STLMLC [id number] Co mmon 00:00:00 00:00:00 [facility] 2021-09-30 2021-09-30 (TEL) STLMLC STLMLC [id number] Co mmon 00:00:00 00:00:00 [facility] 2021-09-24 2021-09-24 Outpatient ELISE IVY [id number] [facility] 03:46:00 03:46:00 _N [facility] 2021-09-16 2021-09-16 (TEL) STLMLC STLMLC [id number] Co mmon 00:00:00 00:00:00 [facility] 2021-09-16 2021-09-16 OFFICE STLMLC STLMLC [id number] Co mmon 00:00:00 00:00:00 VISIT EST Spir it PT LEVEL 3 - [facility] 2021-09-07 2021-09-07 (TEL) STLMLC STLMLC [id number] Co mmon 00:00:00 00:00:00 [facility] 2021-09-06 2021-09-06 (TEL) STLMLC STLMLC [id number] Co mmon 00:00:00 00:00:00 [facility] 2021-08-03 2021-08-03 OFFICE STLMLC STLMLC [id number] Co mmon 00:00:00 00:00:00 VISIT [facility] LEVEL 4 [facility] 2021-08-03 2021-08-03 (TEL) STLMLC STLMLC [id number] Co mmon 00:00:00 00:00:00 [facility] 2021-08-03 2021-08-03 SUB ANNUAL STLMLC STLMLC [id number] Common 00:00:00 00:00:00 M[facility] VISIT [facility] 2021-07-02 2021-07-02 (TEL) STLMLC STLMLC [id number] Co mmon 00:00:00 00:00:00 [facility] 2021-06-14 2021-06-14 (TEL) STLMLC STLMLC [id number] Co mmon 00:00:00 00:00:00 [facility] 2021-06-14 2021-06-14 OFFICE STLMLC STLMLC [id number] Co mmon 00:00:00 00:00:00 VISIT EST Spir it PT LEVEL 3 [facility] 2021-05-31 2021-05-31 (TEL) STLMLC STLMLC [id number] Co mmon 00:00:00 00:00:00 [facility] 2021-05-03 2021-05-03 OFFICE STLMLC STLMLC [id number] Co mmon 00:00:00 00:00:00 VISIT Spirit ESTAB PT - CHI LEVEL 4 [facility] 2021-04-09 2021-04-09 OFFICE STLMLC STLMLC [id number] Co mmon 00:00:00 00:00:00 VISIT EST Spir it PT LEVEL 3 - CHI [facility] 2021-04-08 2021-04-08 CAV Gerri 2.16.840. 2.16.840.1. CLAC [id number] [facility] 17:30:00 18:30:00 [place] [id number] [facility] [id number] 2021-04-08 2021-04-08 (TEL) STLMLC STLMLC [id number] Co mmon 00:00:00 00:00:00 [facility] - CHI [facility] 2021-02-26 2021-02-26 [id number] [facility] 10:32:00 10:32:00 _N 12[facility] 2021-02-16 2021-02-16 (TEL) STLMLC STLMLC [id number] Co mmon 00:00:00 00:00:00 [facility] - CHI [facility] 2021-01-21 2021-01-21 OFFICE STLMLC STLMLC [id number] Co mmon 00:00:00 00:00:00 VISIT Spirit ESTAB PT - CHI LEVEL 4 [facility] 2020-12-31 2020-12-31 OFFICE STLMLC STLMLC [id number] Co mmon 00:00:00 00:00:00 VISIT EST Spir it PT LEVEL 3 - CHI [facility] 2020-12-19 2020-12-19 Outpatient Jeannette [facility] [id number] Univers 10:00:00 10:00:00 BEN [facility] 2020-12-19 2020-12-19 Nurse Therapy, Adc Covid Infusion [facility] [id number] Univers 08:04:33 09:04:33 Visit Bne Garcia [id number] [facility] [id number] [facility] [id number] [facility] [address] 2020-12-19 2020-12-19 Orders Doctor CODY [id number] [id number] Univers 00:00:00 00:00:00 Only Unassigned, JESSE [id number] [facility] [id number] Michael as [id number] [facility] [address] Branch 2020-12-17 2020-12-17 OFFICE STLMLC STLMLC [id number] Co mmon 00:00:00 00:00:00 VISIT EST Spir it PT LEVEL 3 [facility] 2020-12-16 2020-12-16 (TEL) STLMLC STLMLC [id number] Co mmon 00:00:00 00:00:00 [facility] 2020-11-06 2020-11-06 Outpatient STLMLC STLMLC [id number] Common 00:00:00 00:00:00 [facility] 2020-11-03 2020-11-03 Outpatient STLMLC STLMLC [id number] Common 00:00:00 00:00:00 [facility] 2020-10-27 2020-10-27 Outpatient STLMLC STLMLC [id number] Common 00:00:00 00:00:00 [facility] 2020-10-20 2020-10-20 Outpatient STLMLC STLMLC [id number] Common 00:00:00 00:00:00 [facility] 2020-10-19 2020-10-19 Outpatient STLMLC STLMLC [id number] Common 00:00:00 00:00:00 [facility] 2020-10-07 2020-10-07 Outpatient STLMLC STLMLC [id number] Common 00:00:00 00:00:00 [facility] 2020-10-01 2020-10-01 Outpatient STLMLC STLMLC [id number] Common 00:00:00 00:00:00 [facility] 2020-09-30 2020-09-30 Outpatient STLMLC STLMLC [id number] Common 00:00:00 00:00:00 [facility] 2020-09-29 2020-09-29 Outpatient STLMLC STLMLC [id number] Common 00:00:00 00:00:00 [facility] 2020-09-15 2020-09-15 Outpatient STLMLC STLMLC [id number] Common 00:00:00 00:00:00 [facility] 2020-08-20 2020-08-20 Outpatient STLMLC STLMLC [id number] Common 00:00:00 00:00:00 [facility] 2020-08-13 2020-08-13 Outpatient STLMLC STLMLC [id number] Common 00:00:00 00:00:00 [facility] 2020-07-17 2020-07-17 Outpatient STLMLC STLMLC [id number] Common 00:00:00 00:00:00 [facility] 2020-07-17 2020-07-17 Outpatient STLMLC STLMLC [id number] Common 00:00:00 00:00:00 [facility] 2020-07-15 2020-07-15 [id number] [facility] 10:50:00 10:50:00 _N 0[facility] 2020-07-08 2020-07-08 Outpatient STLMLC STLMLC [id number] Common 00:00:00 00:00:00 [facility] 2020-07-06 2020-07-06 Outpatient STLMLC STLMLC [id number] Common 00:00:00 00:00:00 [facility] 2020-06-10 2020-06-10 Outpatient STLMLC STLMLC [id number] Common 00:00:00 00:00:00 [facility] 2020-06-01 2020-06-01 Outpatient STLMLC STLMLC [id number] Common 00:00:00 00:00:00 [facility] 2020-06-01 2020-06-01 Outpatient STLMLC STLMLC [id number] Common 00:00:00 00:00:00 [facility] 2020-05-17 2020-05-17 [facility] [id number] Univers 13:00:00 13:00:00 [facility] 2020-04-19 2020-04-19 [facility] [id number] Univers 13:00:00 13:00:00 [facility] 2020-04-07 2020-04-07 Outpatient STLMLC STLMLC [id number] Common 00:00:00 00:00:00 [facility] 2020-03-04 2020-03-04 Outpatient STLMLC STLMLC [id number] Common 00:00:00 00:00:00 [facility] 2018-10-24 2018-10-24 [id number] Common 10:00:00 10:00:00 [facility] - [facility] 2016-07-11 2016-07-11 Emergency E ALEXIS, GUTHRIE [facility] [id number] [facility] 19:43:00 20:06:00 MISSY Peterson [facility] Results Test Description Test Time Test Comments Results Result Comments Source Colonoscopy Colonoscopy
[2022-03-11 12:36] LABS: Urine Blood 3+ (Negative); Urine Glucose Negative (Negative); Urine Protein Trace (Negative); Urine Specific Gravity >=1.030 (1.005-1.030); Urine pH 6.5 (5.0-7.0)
--- NOTE | 2022-03-11 12:53 | RAD REPORT ---
EXAM DESCRIPTION: CT - Stone Protocol - 03/11/2022 12:31 pm CLINICAL HISTORY: Abdominal pain. Right flank pain COMPARISON: February 11, 2022 TECHNIQUE: Computed axial tomography of the abdomen pelvis was obtained without oral or IV contrast. Lack of IV and oral contrast limits evaluation of solid organs, appendix, bowel, and vessels. Mosley l reformatted images were obtained and reviewed. All CT scans are performed using dose optimization technique as appropriate and may include automated exposure control or mA/KV adjustment according to patient size. FINDINGS: Mild right hydronephrosis. Tiny nonobstructing left renal calculi. 4 millimeter calculus distal right ureter. The liver, spleen, pancreas and adrenals appear grossly normal There is no evidence of diverticulitis. A small to moderate umbilical hernia IMPRESSION: 4 millimeter calculus distal right ureter resulting in mild right hydronephrosis
[2022-03-11 13:05] LABS: Urine Bacteria None Seen /HPF (<20); Urine Mucus 3+ /HPF (None Seen); Urine RBC >50 /HPF (None Seen)
[2022-03-11 13:05] LABS: Absolute Lymphocytes (CBC) 2.2 K/uL (0.7-4.9); Hematocrit 36.8 % (36.0-45.0); MPV 6.8 fL (7.6-11.3); RBC Red Blood Cell Count 4.04 M/uL (3.86-4.86)
[2022-03-11] MEDS ORDERED: MAGNESIUM SULFATE 1 gm IVPB 1 GM/100 ML BAG IV ONE (13:17)
[2022-03-11] MEDS ORDERED: ONDANSETRON 4 MG/2 ML VIAL ONE (13:17)
[2022-03-11] MEDS ORDERED: TAMSULOSIN 0.4 MG SR CAP ONE (13:17)
[2022-03-11] MEDS ORDERED: MORPHINE 4 MG/ML SYR ONE ×3 (13:17→16:08)
[2022-03-11 13:25] LABS: Albumin 3.2 g/dL (3.4-5.0); Bilirubin Total 0.3 mg/dL (0.2-1.0); Potassium 3.7 mmol/L (3.5-5.1); Protein, Total 6.7 g/dL (6.4-8.2)
[2022-03-11] MEDS ORDERED: KETOROLAC 30 MG/ML INJ ONE (14:03)
--- NOTE | 2022-03-11 15:52 | ER ---
Nurse's Notes [facility] Name: Jessica Riojas Age: 66 yrs Sex: Female : 1955 Arrival Date: 03/11/2022 Time: 11:39 Bed DIS4 Private MD: Diagnosis: Calculus of ureter Presentation: 03/11 12:16 Chief complaint: Patient states: right flank pain, nausea, blood in urine since last iw night , hx of kidney stones. Coronavirus screen: At this time, the client does not indicate any symptoms associated with coronavirus-19. Ebola Screen: Patient negative for fever greater than or equal to 101.5 degrees Fahrenheit, and additional compatible Ebola Virus Disease symptoms Patient denies exposure to infectious person. Patient denies travel to an Ebola-affected area in the 21 days before illness onset. No symptoms or risks identified at this time. Initial Sepsis Screen: Does the patient meet any 2 criteria? No. Patient's initial sepsis screen is negative. Does the patient have a suspected source of infection? No. Patient's initial sepsis screen is negative. Risk Assessment: Do you want to hurt yourself or someone else? Patient reports no desire to harm self or others. Onset of symptoms was March 11, 2022. 12:16 Method Of Arrival: Ambulatory iw 12:16 Acuity: ABRAHAM 3 iw - Family history:: not pertinent. - Hospitalizations: : No recent hospitalization is reported. Vital Signs: 12:16 BP 142 / 64; Pulse 64; Resp 16; Pulse Ox 100% on R/A; iw ED Course: 11:39 Patient arrived in ED. rg4 12:06 Robbie Echevarria MD is Attending Physician. rn 12:15 Jaymie Mckeon, CARLOS is Primary Nurse. iw 12:16 Triage completed. iw 12:32 Stone Protocol In Process Unspecified. EDMS 12:47 Urine Culture Sent. mm9 12:47 Urine Microscopic Only Sent. mm9 13:15 Urine Culture Sent. mm9 13:15 CMP Sent. mm9 13:15 Initial lab(s) drawn, by me, sent to lab. Urine collected: clean catch specimen, mm9 cloudy. Inserted saline lock: 20 gauge in right antecubital area, using aseptic technique. Blood collected. 13:16 Patient has correct armband on for positive identification. Bed in low position. Call mm9 light in reach. Administered Medications: 13:31 Drug: morphine 4 mg Route: IVP; Infused Over: 4 mins; Site: right forearm; iw 13:31 Drug: Zofran (Ondansetron) 4 mg Route: IVP; Site: right forearm; iw 13:31 Drug: Flomax (tamsulosin) 0.4 mg Route: PO; iw 13:31 Drug: Magnesium Sulfate 1 grams Route: IVPB; Infused Over: 1 hrs; Site: right forearm; iw 14:08 Drug: Ketorolac 15 mg Route: IVP; Site: right forearm; iw 14:08 Drug: morphine 4 mg Route: IVP; Infused Over: 4 mins; Site: right forearm; iw 16:09 Drug: morphine 4 mg Route: IVP; Infused Over: 4 mins; Site: right antecubital; iw Outcome: 15:51 Discharge ordered by . rn 16:33 Patient left the ED. iw Signatures: Dispatcher [employer] Jaymie Steen RN RN iw Nieto, Roman, MD MD rn Garcia, Rubi [facility] Mami Jackson mm9
--- NOTE | 2022-03-11 15:52 | EDPHYS ---
Physician Documentation [facility] Name: Jessica Riojas Age: 66 yrs Sex: Female : 1955 Arrival Date: 03/11/2022 Time: 11:39 Bed DIS4 Private MD: ED Physician Robbie Echevarria HPI: 03/11 14:06 This 66 yrs old Female presents to ER via Ambulatory with complaints of Blood In Urine, rn Back Pain. 14:06 The patient presents with pain that is acute, with no known mechanism of injury. The rn symptoms are located in the low back. Onset: The symptoms/episode began/occurred just prior to arrival. The pain radiates to the abdomen. Associated signs and symptoms: Pertinent positives: abdominal pain, hematuria, Pertinent negatives: chest pain, fever. Modifying factors: The patient symptoms are alleviated by nothing, the patient symptoms are aggravated by nothing. Severity of symptoms: At their worst the symptoms were moderate, in the emergency department the symptoms are unchanged. The patient has experienced similar episodes in the past. The patient has not recently seen a physician. - Family history:: not pertinent. - Hospitalizations: : No recent hospitalization is reported. ROS: 14:06 Constitutional: Negative for fever, chills, and weight loss, Eyes: Negative for injury, rn pain, redness, and discharge, Cardiovascular: Negative for chest pain, palpitations, and edema, Respiratory: Negative for shortness of breath, cough, wheezing, and pleuritic chest pain, Abdomen/GI: + right lower abd pain Back: + right lower back pain : + hematuria MS/Extremity: Negative for injury and deformity, Skin: Negative for injury, rash, and discoloration, Neuro: Negative for headache, weakness, numbness, tingling, and seizure. Exam: 14:06 Constitutional: This is a well developed, well nourished patient who is awake, alert, rn appears in pain Head/Face: Normocephalic, atraumatic. Cardiovascular: Regular rate and rhythm. No pulse deficits. Respiratory: No increased work of breathing, no retractions or nasal flaring. Abdomen/GI: Soft, non-tender Skin: Warm, dry MS/ Extremity: Pulses equal, no cyanosis. Neuro: Awake and alert, GCS 15 Vital Signs: 12:16 BP 142 / 64; Pulse 64; Resp 16; Pulse Ox 100% on R/A; iw MDM: 12:06 Patient medically screened. rn 15:50 Differential diagnosis: ureterolithiasis, UTI. Data reviewed: vital signs, nurses rn notes, lab test result(s), radiologic studies, CT scan, and as a result, I will discharge patient. Counseling: I had a detailed discussion with the patient and/or guardian regarding: the historical points, exam findings, and any diagnostic results supporting the discharge/admit diagnosis, lab results, radiology results, the need for outpatient follow up, to return to the emergency department if symptoms worsen or persist or if there are any questions or concerns that arise at home. Response to treatment: the patient's symptoms have markedly improved after treatment, and as a result, I will discharge patient. Special discussion: I discussed with the patient/guardian in detail that at this point there is no indication for admission to the hospital. It is understood, however, that if the symptoms persist or worsen the patient needs to return immediately for re-evaluation. Based on the history and exam findings, there is no indication for further emergent testing or inpatient evaluation. I discussed with the patient/guardian the need to see the urologist for further evaluation of the symptoms. ED course: Pt markedly improved, resting comfortably, has passed multiple kidney stones recently without intervention, states feels ok to be discharged now. Will dc home with return precautions. . 03/11 12:19 Order name: CBC with Diff; Complete Time: 13:36 rn 03/11 12:19 Order name: CMP; Complete Time: 13:36 rn 03/11 12:19 Order name: CT Stone Protocol rn 03/11 12:19 Order name: Urine Culture rn 03/11 12:19 Order name: Urine Microscopic Only; Complete Time: 13:36 rn 03/11 12:36 Order name: Urine Dipstick-Ancillary; Complete Time: 13:36 EDMS 03/11 12:23 Order name: Stone Protocol; Complete Time: 13:36 EDTX 03/11 12:19 Order name: IV Saline Lock; Complete Time: 13:15 rn 03/11 12:19 Order name: Labs collected and sent; Complete Time: 13:15 rn 03/11 12:19 Order name: Urine Dipstick-Ancillary (obtain specimen); Complete Time: 12:47 rn Administered Medications: 13:31 Drug: morphine 4 mg Route: IVP; Infused Over: 4 mins; Site: right forearm; iw 13:31 Drug: Zofran (Ondansetron) 4 mg Route: IVP; Site: right forearm; iw 13:31 Drug: Flomax (tamsulosin) 0.4 mg Route: PO; iw 13:31 Drug: Magnesium Sulfate 1 grams Route: IVPB; Infused Over: 1 hrs; Site: right forearm; iw 14:08 Drug: Ketorolac 15 mg Route: IVP; Site: right forearm; iw 14:08 Drug: morphine 4 mg Route: IVP; Infused Over: 4 mins; Site: right forearm; iw 16:09 Drug: morphine 4 mg Route: IVP; Infused Over: 4 mins; Site: right antecubital; iw Disposition Summary: 03/11/22 15:51 Discharge Ordered Location: Home rn Problem: new rn Symptoms: have improved rn Condition: Stable rn Diagnosis - Calculus of ureter rn Followup: rn - With: Private Physician - When: As needed - Reason: Recheck today's complaints, Re-evaluation by your physician Discharge Instructions: - Discharge Summary Sheet rn - Kidney Stones rn - Renal Colic rn - Dietary Guidelines to Help Prevent Kidney Stones rn Forms: - Medication Reconciliation Form rn - Thank You Letter rn - Antibiotic video intern - Prescription Opioid Use rn Prescriptions: - Flomax 0.4 mg Oral capsule - take 1 capsule by ORAL route once daily As needed 1/2 hour following the same rn meal each day; 15 capsule; Refills: 0, Product Selection Permitted - Tramadol 50 mg Oral Tablet - take 1 tablet by ORAL route every 8 hours as needed; 12 tablet; Refills: 0, rn Product Selection Permitted - ondansetron 4 mg Oral - take 4 milligrams by SUBLINGUAL route every 8 hours; 15 tablet; Refills: 0, rn Product Selection Permitted Signatures: Dispatcher [employer] Jaymie Steen RN RN iw Robbie Echevarria MD MD rn
[2022-03-11 16:36] VITALS: BP 142/64; O2SAT 100
== END 2022-03-11 16:33 | disposition home or self-care (01) ==
LOC: ER 11:35
DX: N20.1 Calculus of ureter (principal)
CPT/HCPCS: 87088; 85025; 87086; 36415; 80053; 76377; 74176; 99284; J3475; J2405; 81003; 81015

== ENCOUNTER 2022-03-16 15:17 | Emergency (ER) | payer OTHER ==
--- OUTSIDE RECORDS SUMMARY | 2022-03-16 15:24 | XMS REPORT | Continuity of Care Document ---
:1955 Author Organization [facility] t Address [address] [place] [address] Dr. Carlin. [address] [place] [address] Care Team Providers Name Role Phone AIDAN GARCIA Primary Care Physician Unavailable Aidan Garcia Attending Clinician Unavailable Brennon Lora Attending Clinician ELISE_N Attending Clinician Unavailable Gerri Peterson Attending Clinician BEN GARCIA Attending Clinician Unavailable Therapy, [facility] Attending Clinician Unavailable Ben Garcia MD Attending Clinician Doctor Unassigned, [place] Attending Clinician Unavailable NATTY PRADO Attending Clinician Unavailable MISSY ESPINOZA Attending Clinician Unavailable ELISE_Herbert Admitting Clinician Unavailable MISSY ESPINOZA Admitting Clinician Unavailable Payers Payer Name Policy Type Policy Effective Date Expiration Date Sour ce Number [id number] (MEDICARE 00:00:00 REPLACEMENT HMO) [address] [facility] 00[facility]00 [facility] MEDICARE NOVITAS MB [id number] 2019 [facility] 00:00:[address] [facility]00 [facility] MEDICARE NOVITAS MB [id number] 2019 [facility] 00:00:00 [place] [id number] 2020 MEDICARE 00:00:00 ADVANTAGE PLAN [employer] [place] [id number] 1998 00:00:00 MEDICARE NOVITAS MB [id number] 2019 [facility] 00:00:00 [place] [id number] 2020 [facility] 00:[facility]:00 [facility] MEDICARE NOVITAS MB [id number] 2019 [facility] 00:00:00 [place] [id number] 2020 [facility] 00:00:00 [facility] Problems Condition Condition Condition Status Onset Resolution Last Treating Co mments Source Name Details Category Date Date Treatment Clinician Date [id number] Right Problem Common sciatic Spirit nerve pain [facility] [id number] [place], [place] [id number] joint, Spirit hip, right [facility] [id number] Other Problem Common chronic Spirit pain [facility] [id number] Other Problem Common obesity Spirit due to - [facility] excess [facility] [id number] Lymphedema Problem Co mmon [facility] [id number] Mixed Problem Common hyperlipid Spirit emia [facility] [id number] Allergic Problem Commo n rhinitis, Spirit unspecifie - [facility]I d [facility] y, Medical unspecifie Center d trigger [id number] Current Problem Common moderate Spirit episode of - CHI major [facility] Center prior episode [id number] Arthritis Problem Co mmon 157312 of knee, Spirit left [facility] [id number] Adult BMI Problem Com mon 33.0-33.9 Spirit kg/sq m [facility] [id number] GERD Problem Common without Spirit esophagiti - [facility] s 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 [id number] Unilateral Problem C ommon 45732 primary Spirit osteoarthr - [facility] itis, left St knee [facility] Arthritis Arthritis Problem Com mon of both of both Spirit knees knees - [facility] [id number] Cataract Problem Commo n of both Spirit eyes, - [facility] unspecifie St d cataract [facility] Gastroesop GERD Problem Commo n hageal (gastroeso Spirit reflux phageal - [facility] disease reflux St disease) [facility] Allergies, Adverse Reactions, Alerts Allergy Allergy Status Severity Reaction(s) Onset Inactive Treating Comm ents Source Name Type Date Date Clinician PEN[place]ILL Drug Active Hives 2020-03 Univers INS Class 0-09 ity of 00:00: [address] [place] Propensi Active Hives 2020-03 Univer s ins ty to 0-09 ity of adverse 00:00: [place] reaction [address] [place] [address] NO KNOWN Drug Active Univers ALLERGIE Class ity of [facility] Social History Social Habit Start Date Stop Date Quantity Comments Source History of Tobacco Use Co mmon [facility] Sex Assigned At Com mon [facility] Smoking Status Start Date Stop Date Source Unknown if ever smoked [facility] Former Smoker 2022-01-22 00:00:00 2022-01-22 00:00:00 Common S pirit [facility] nter Medications Ordered Filled Start [...] 9-19 S pirit one) one) 00:00: - [facility] Kenalog Kenalog No 40mg Common (Triamcinol (Triamcinol 9-19 S pirit one) one) 00:00: - [facility] 00 [facility] Kenalog Kenalog 0 No 40mg Common (Triamcinol (Triamcinol 9-19 S pirit one) one) 00:00: - [facility] 00 [facility] Kenalog Kenalog No 40mg Common (Triamcinol (Triamcinol 9-19 S pirit one) one) 00:00: - [facility]I 00 [facility] Ozempic Ozempic 2021- No Ozempic 0.25 or [...] pirit e) e) 00:00: - [facility]I 00 [facility] Toradol Toradol No 2mL Common (Ketorolac) (Ketorolac) 4-04 S pirit 00:00: - [facility]I 00 [facility] Rocephin Rocephin 2021-0 No 1g Commo n (Ceftriaxon (Ceftriaxon 4-04 S pirit e) e) 00:00: - [facility] 00 [facility] Toradol Toradol 2021-0 No 2mL Common (Ketorolac) (Ketorolac) 4-04 S pirit 00:00: - [facility] 00 [facility] Rocephin Rocephin 2-0 No 1g Commo n (Ceftriaxon (Ceftriaxon 4-04 S pirit e) e) 00:00: - [facility] 00 [facility] Toradol Toradol 2021-0 No 2mL Common (Ketorolac) (Ketorolac) 4-04 S pirit 00:00: - [facility] 00 [facility] Toradol Toradol 2021-0 No 2mL Common (Ketorolac) (Ketorolac) 4-04 S pirit 00:00: - [facility] 00 [facility] Rocephin Rocephin 2021-0 No 1g Commo n (Ceftriaxon (Ceftriaxon 4-04 S pirit e) e) 00:00: - [facility]I 00 [facility] Toradol Toradol 2021-0 No 2mL Common (Ketorolac) (Ketorolac) 4-04 S pirit 00:00: - [facility] 00 [facility] Rocephin Rocephin 2021-0 No 1g Commo n (Ceftriaxon (Ceftriaxon 4-04 S pirit e) e) 00:00: - [facility]I 00 [facility] Toradol Toradol 2021-0 No 2mL Common (Ketorolac) (Ketorolac) 4-04 S pirit 00:00: - [facility] 00 [facility] Rocephin Rocephin 2-0 No 1g Commo n (Ceftriaxon (Ceftriaxon 4-04 S pirit e) e) 00:00: - [facility]I 00 [facility] Toradol Toradol 2021-0 No 2mL Common (Ketorolac) (Ketorolac) 4-04 S pirit 00:00: - [facility] 00 [facility] Rocephin Rocephin 2-0 No 1g Commo n (Ceftriaxon (Ceftriaxon 4-04 S pirit e) e) 00:00: - [facility] 00 [facility] Toradol Toradol 2021-0 No 2mL Common (Ketorolac) (Ketorolac) 4-04 S pirit 00:00: - [facility] 00 [facility] Rocephin Rocephin 2-0 No 1g Commo n (Ceftriaxon (Ceftriaxon 4-04 S pirit e) e) 00:00: - [facility] 00 [facility] Toradol Toradol 2021-0 No 2mL Common (Ketorolac) (Ketorolac) 4-04 S pirit 00:00: - [facility] 00 [facility] Rocephin Rocephin 2021-0 No 1g Commo n (Ceftriaxon (Ceftriaxon 4-04 S pirit e) e) 00:00: - [facility] 00 [facility] Toradol Toradol 2021-0 No 2mL Common (Ketorolac) (Ketorolac) 4-04 S pirit 00:00: - [facility] 00 [facility] Rocephin Rocephin 2-0 No 1g Commo n (Ceftriaxon (Ceftriaxon 4-04 S pirit e) e) 00:00: - [facility] 00 [facility] Toradol Toradol 2021-0 No 2mL Common (Ketorolac) (Ketorolac) 4-04 S pirit 00:00: - [facility] 00 [facility] Rocephin Rocephin 2-0 No 1g Commo n (Ceftriaxon (Ceftriaxon 4-04 S pirit e) e) 00:00: - [facility] 00 [facility] Toradol Toradol 2021-0 No 2mL Common (Ketorolac) (Ketorolac) 4-04 S pirit 00:00: - [facility] 00 [facility] Rocephin Rocephin 2-0 No 1g Commo n (Ceftriaxon (Ceftriaxon 4-04 S pirit e) e) 00:00: - [facility] 00 [facility] Toradol Toradol 2021-0 No 2mL Common (Ketorolac) (Ketorolac) 4-04 S pirit 00:00: - [facility] 00 [facility] Rocephin Rocephin 2-0 No 1g Commo n (Ceftriaxon (Ceftriaxon 4-04 S pirit e) e) 00:00: - [facility] 00 [facility] Toradol Toradol 2022-0 No 2mL Common (Ketorolac) (Ketorolac) 4-04 S pirit 00:00: - [facility] 00 [facility] Rocephin Rocephin 2-0 No 1g Commo n (Ceftriaxon (Ceftriaxon 4-04 S pirit e) e) 00:00: - [facility] 00 [facility] Toradol Toradol 2-0 No 2mL Common (Ketorolac) (Ketorolac) 4-04 S pirit 00:00: - [facility] 00 [facility] Rocephin Rocephin 2021-0 No 1g Commo n (Ceftriaxon (Ceftriaxon 4-04 S pirit e) e) 00:00: - [facility] 00 [facility] Toradol Toradol 2-0 No 2mL Common (Ketorolac) (Ketorolac) 4-04 S pirit 00:00: - [facility] 00 [facility] Rocephin Rocephin 2-0 No 1g Commo n (Ceftriaxon (Ceftriaxon 4-04 S pirit e) e) 00:00: - [facility] 00 [facility] Toradol Toradol 2021-0 No 2mL Common (Ketorolac) (Ketorolac) 4-04 S pirit 00:00: - [facility] 00 [facility] Rocephin Rocephin 2-0 No 1g Commo n (Ceftriaxon (Ceftriaxon 4-04 S pirit e) e) 00:00: - [facility] 00 [facility] Rocephin Rocephin 2-0 No 1g Commo n (Ceftriaxon (Ceftriaxon 4-04 S pirit e) e) 00:00: - [facility] 00 [facility] Toradol Toradol 2021-0 No 2mL Common (Ketorolac) (Ketorolac) 4-04 S pirit 00:00: - [facility] Azithromyci Azithromyci 2021-0 2021- No [...] 00:00 eded} 00 :00 casirivimab 2020-03- No [id number] 1200mg 1,200 mg, Univers -imdevimab 12-19 Subcutaneo [...] Common -24 Spirit 00:00: - [facility] 00 [facility] Synvisc Synvisc 2020-0 No 16mg Common - Spirit 00:00: - [facility] 00 [facility] Synvisc Synvisc 2020-0 No 16mg Common -24 Spirit 00:00: - [facility] 00 [facility] Synvisc Synvisc 2020-0 No 16mg Common 8- Spirit 00:00: - [facility] 00 [facility] Synvisc Synvisc 2021-0 No 16mg Common 8- Spirit 00:00: - [facility] 00 [facility] Synvisc Synvisc 1-0 No 16mg Common 11-03 Spirit 00:00: - [facility] 00 [facility] Synvisc Synvisc 1-0 No 16mg Common 11-03 Spirit 00:00: - [facility] 00 [facility] Synvisc Synvisc 1-0 No 16mg Common 11-03 Spirit 00:00: - [facility] 00 [facility] Synvisc Synvisc 1-0 No 16mg Common 11-03 Spirit 00:00: - [facility] 00 [facility] Synvisc Synvisc 1-0 No 16mg Common 11-03 Spirit 00:00: - [facility] Synvisc Synvisc 1-0 No 16mg Common 11-03 Spirit 00:00: - [facility] Synvisc Synvisc 1-0 No 16mg Common 11-03 Spirit 00:00: - [facility] 00 [facility] Synvisc Synvisc 1-0 No 16mg Common 11-03 Spirit 00:00: - [facility] 00 [facility] Synvisc Synvisc 1-0 No 16mg Common 11-03 Spirit 00:00: - [facility] Synvisc Synvisc 1-0 No 16mg Common 11-03 Spirit 00:00: - [facility] Synvisc Synvisc 1-0 No 16mg Common 11-03 Spirit 00:00: - [facility] 00 [facility] Synvisc Synvisc 1-0 No 16mg Common 11-03 Spirit 00:00: - [facility] 00 [facility] Synvisc Synvisc 1-0 No 16mg Common 824 Spirit 00:00: - [facility] 00 [facility] Synvisc Synvisc 1-0 No 16mg Common 11-03 Spirit 00:00: - [facility] 00 [facility] Synvisc Synvisc 1-0 No 16mg Common 24 Spirit 00:00: - [facility] Synvisc Synvisc 1-0 No 16mg Common 24 Spirit 00:00: - [facility] 00 [facility] Synvisc Synvisc 2021-0 No 16mg Common 8-24 Spirit 00:00: - [facility] 00 [facility] Synvisc Synvisc 2021-0 No 16mg Common 11-03 Spirit 00:00: - [facility] 00 [facility] Synvisc Synvisc 2021-0 No 16mg Common 11-03 Spirit 00:00: - [facility] 00 [facility] Synvisc Synvisc 2021-0 No 16mg Common 11-03 Spirit 00:00: - [facility] 00 [facility] Synvisc Synvisc 2021-0 No 16mg Common 11-03 Spirit 00:00: - [facility] 00 [facility] Synvisc Synvisc 1-0 No 16mg Common 11-03 Spirit 00:00: - [facility] 00 [facility] Synvisc Synvisc 2021-0 No 16mg Common 11-03 Spirit 00:00: - [facility] 00 [facility] Synvisc Synvisc 2021-0 No 16mg Common 11-03 Spirit 00:00: - [facility] 00 [facility] Synvisc Synvisc 2021-0 No 16mg Common 11-03 Spirit 00:00: - [facility] 00 [facility] Synvisc Synvisc 2021-0 No 16mg Common 11-03 Spirit 00:00: - [facility] 00 [facility] Synvisc Synvisc 2021-0 No 16mg Common 11-03 Spirit 00:00: - [facility] 00 [facility] Synvisc Synvisc 2021-0 No 16mg Common 11-03 Spirit 00:00: - [facility] 00 [facility] Synvisc Synvisc 2021-0 No 16mg Common 11-03 Spirit 00:00: - [facility] 00 [facility] Synvisc Synvisc 2021-0 No 16mg Common 11-03 Spirit 00:00: - [facility] 00 [facility] Synvisc Synvisc 2021-0 No 16mg Common 11-03 Spirit 00:00: - [facility] 00 [facility] Synvisc Synvisc 2021-0 No 16mg Common 11-03 Spirit 00:00: - [facility] 00 [facility] Synvisc Synvisc 2021-0 No 16mg Common 8-24 Spirit 00:00: - [facility] 00 [facility] Synvisc Synvisc 1-0 No 16mg Common 8-17 Spirit 00:00: - [facility] 00 [facility] Synvisc Synvisc 1-0 No 16mg Common 8-17 Spirit 00:00: - [facility] 00 [facility] Synvisc Synvisc 1-0 No 16mg Common 8-17 Spirit 00:00: - [facility] 00 [facility] Synvisc Synvisc 1-0 No 16mg Common 8-17 Spirit 00:00: - [facility] 00 [facility] Synvisc Synvisc 1-0 No 16mg Common 8-17 Spirit 00:00: - [facility] 00 [facility] Synvisc Synvisc 1-0 No 16mg Common 8-17 Spirit 00:00: - [facility] 00 [facility] Synvisc Synvisc 1-0 No 16mg Common 8-17 Spirit 00:00: - [facility] 00 [facility] Synvisc Synvisc 1-0 No 16mg Common 8-17 Spirit 00:00: - [facility] 00 [facility] Synvisc Synvisc 1-0 No 16mg Common 8-17 Spirit 00:00: - [facility] 00 [facility] Synvisc Synvisc 1-0 No 16mg Common 8-17 Spirit 00:00: - [facility] 00 [facility] Synvisc Synvisc 1-0 No 16mg Common 8-17 Spirit 00:00: - [facility] 00 [facility] Synvisc Synvisc 1-0 No 16mg Common 8-17 Spirit 00:00: - [facility] 00 [facility] Synvisc Synvisc 2021-0 No 16mg Common 8-17 Spirit 00:00: - [facility] 00 [facility] Synvisc Synvisc 1-0 No 16mg Common 8-17 Spirit 00:00: - [facility] 00 [facility] Synvisc Synvisc 2021-0 No 16mg Common 8-17 Spirit 00:00: - [facility] 00 [facility] Synvisc Synvisc 1-0 No 16mg Common 8-17 Spirit 00:00: - [facility] 00 [facility] Synvisc Synvisc 2021-0 No 16mg Common 8-17 Spirit 00:00: - [facility] 00 [facility] Synvisc Synvisc 1-0 No 16mg Common 8-17 Spirit 00:00: - [facility] 00 [facility] Synvisc Synvisc 1-0 No 16mg Common 8-17 Spirit 00:00: - [facility] 00 [facility] Synvisc Synvisc 1-0 No 16mg Common 8-17 Spirit 00:00: - [facility] 00 [facility] Synvisc Synvisc 1-0 No 16mg Common 8-17 Spirit 00:00: - [facility] 00 [facility] Synvisc Synvisc 1-0 No 16mg Common 8-17 Spirit 00:00: - [facility] 00 [facility] Synvisc Synvisc 1-0 No 16mg Common 8-17 Spirit 00:00: - [facility] Synvisc Synvisc 1-0 No 16mg Common 8-17 Spirit 00:00: - [facility] 00 [facility] Synvisc Synvisc 1-0 No 16mg Common 8-17 Spirit 00:00: - [facility] 00 [facility] Synvisc Synvisc 1-0 No 16mg Common 8-17 Spirit 00:00: - [facility] 00 [facility] Synvisc Synvisc 1-0 No 16mg Common 8-17 Spirit 00:00: - [facility] Synvisc Synvisc 1-0 No 16mg Common 8-17 Spirit 00:00: - [facility] 00 [facility] Synvisc Synvisc 1-0 No 16mg Common 8-17 Spirit 00:00: - [facility] 00 [facility] Synvisc Synvisc 1-0 No 16mg Common 8-17 Spirit 00:00: - [facility] 00 [facility] Synvisc Synvisc 1-0 No 16mg Common 8-17 Spirit 00:00: - [facility] 00 [facility] Synvisc Synvisc 1-0 No 16mg Common 8-17 Spirit 00:00: - [facility] 00 [facility] Synvisc Synvisc 1-0 No 16mg Common 8-17 Spirit 00:00: - [facility] 00 [facility] Synvisc Synvisc 2020-0 No 16mg Common 8-17 Spirit 00:00: - [facility] 00 [facility] Synvisc Synvisc 2020-0 No 16mg Common 8-17 Spirit 00:00: - [facility] 00 [facility] Synvisc Synvisc 2020-0 No 16mg Common 8-17 Spirit 00:00: - [facility] 00 [facility] Synvisc Synvisc 2020-0 No 16mg Common 8-17 Spirit 00:00: - [facility] 00 [facility] Synvisc Synvisc 2020-0 No 16mg Common 8-17 Spirit 00:00: - [facility] 00 [facility] Bupivicaine Bupivicaine 2020-0 No 2.5mg Common [place] 8-10 Spirit 00:00: - [facility] 00 [facility] Synvisc Synvisc 2020-0 No 16mg Common 8-10 Spirit 00:00: - [facility] 00 [facility] Kenalog Kenalog 2020-0 No 40mg Common (Triamcinol (Triamcinol 8-10 S pirit one) one) 00:00: - [facility] 00 [facility] Bupivicaine Bupivicaine 2020-0 No 2.5mg Common [place] 8-10 Spirit 00:00: - [facility] 00 [facility] Synvisc Synvisc 2020-0 No 16mg Common 8-10 Spirit 00:00: - [facility] 00 [facility] Kenalog Kenalog 2020-0 No 40mg Common (Triamcinol (Triamcinol 8-10 S pirit one) one) 00:00: - [facility] 00 [facility] Bupivicaine Bupivicaine 2020-0 No 2.5mg Common [place] 8-10 Spirit 00:00: - [facility] 00 [facility] Synvisc Synvisc 2020-0 No 16mg Common 8-10 Spirit 00:00: - [facility] 00 [facility] Kenalog Kenalog 2020-0 No 40mg Common (Triamcinol (Triamcinol 8-10 S pirit one) one) 00:00: - [facility] 00 [facility] Bupivicaine Bupivicaine 2020-0 No 2.5mg Common [place] 8-10 Spirit 00:00: - [facility] 00 [facility] Synvisc Synvisc 2020-0 No 16mg Common 8-10 Spirit 00:00: - [facility] 00 [facility] Kenalog Kenalog 2020-0 No 40mg Common (Triamcinol (Triamcinol 8-10 S pirit one) one) 00:00: - [facility] 00 [facility] Bupivicaine Bupivicaine 2020-0 No 2.5mg Common [place] 8-10 Spirit 00:00: - [facility] 00 [facility] Synvisc Synvisc 2020-0 No 16mg Common 8-10 Spirit 00:00: - [facility] 00 [facility] Kenalog Kenalog 2020-0 No 40mg Common (Triamcinol (Triamcinol 8-10 S pirit one) one) 00:00: - [facility] Bupivicaine Bupivicaine 2020-0 No 2.5mg Common [place] 8-10 Spirit 00:00: - [facility] 00 [facility] Synvisc Synvisc 0 No 16mg Common 8-10 Spirit 00:00: - [facility] 00 [facility] Kenalog Kenalog 2020-0 No 40mg Common (Triamcinol (Triamcinol 8-10 S pirit one) one) 00:00: - [facility] Bupivicaine Bupivicaine 2020-0 No Common [place] Wi[place] 8-10 Spirit 00:00: - [facility] 00 [facility] Bupivicaine Bupivicaine 2020-0 No Common [place] 8-10 Spirit 00:00: - [facility] 00 [facility] Synvisc Synvisc 2020-0 No 16mg Common 8-10 Spirit 00:00: - [facility] 00 [facility] Synvisc Synvisc 2020-0 No 16mg Common 8-10 Spirit 00:00: - [facility] 00 [facility] Kenalog Kenalog 2020-0 No 40mg Common (Triamcinol (Triamcinol 8-10 S pirit one) one) 00:00: - [facility] 00 [facility] Kenalog Kenalog 2020-0 No 40mg Common (Triamcinol (Triamcinol 8-10 S pirit one) one) 00:00: - [facility] 00 [facility] Bupivicaine Bupivicaine 2020-0 No 2.5mg Common [place] 8-10 Spirit 00:00: - [facility] 00 [facility] Bupivicaine Bupivicaine 2020-0 No 2.5mg Common [place] 8-10 Spirit 00:00: - [facility] 00 [facility] Synvisc Synvisc 2020-0 No 16mg Common 8-10 Spirit 00:00: - [facility] 00 [facility] Synvisc Synvisc 2020-0 No 16mg Common 8-10 Spirit 00:00: - [facility] 00 [facility] Kenalog Kenalog 2020-0 No 40mg Common (Triamcinol (Triamcinol 8-10 S pirit one) one) 00:00: - [facility] 00 [facility] Kenalog Kenalog 2020-0 No 40mg Common (Triamcinol (Triamcinol 8-10 S pirit one) one) 00:00: - [facility] 00 [facility] Bupivicaine Bupivicaine 2020-0 No 2.5mg Common [place] 8-10 Spirit 00:00: - [facility] 00 [facility] Bupivicaine Bupivicaine 2020-0 No 2.5mg Common [place] 8-10 Spirit 00:00: - [facility] 00 [facility] Synvisc Synvisc 2020-0 No 16mg Common 8-10 Spirit 00:00: - [facility] 00 [facility] Synvisc Synvisc 2020-0 No 16mg Common 8-10 Spirit 00:00: - [facility] 00 [facility] Kenalog Kenalog 2020-0 No 40mg Common (Triamcinol (Triamcinol 8-10 S pirit one) one) 00:00: - [facility] 00 [facility] Kenalog Kenalog 2020-0 No 40mg Common (Triamcinol (Triamcinol 8-10 S pirit one) one) 00:00: - [facility] 00 [facility] Bupivicaine Bupivicaine 2020-0 No 2.5mg Common [place] 8-10 Spirit 00:00: - [facility] 00 [facility] Bupivicaine Bupivicaine 2020-0 No 2.5mg Common [place] 8-10 Spirit 00:00: - [facility] 00 [facility] Synvisc Synvisc 2020-0 No 16mg Common 8-10 Spirit 00:00: - [facility] 00 [facility] Synvisc Synvisc 2020-0 No 16mg Common 8-10 Spirit 00:00: - [facility] 00 [facility] Kenalog Kenalog 2020-0 No 40mg Common (Triamcinol (Triamcinol 8-10 S pirit one) one) 00:00: - [facility] 00 [facility] Kenalog Kenalog 2020-0 No 40mg Common (Triamcinol (Triamcinol 8-10 S pirit one) one) 00:00: - [facility] 00 [facility] Bupivicaine Bupivicaine 2020-0 No 2.5mg Common [place] 8-10 Spirit 00:00: - [facility] 00 [facility] Bupivicaine Bupivicaine 2020-0 No 2.5mg Common [place] 8-10 Spirit 00:00: - [facility] 00 [facility] Synvisc Synvisc 2020-0 No 16mg Common 8-10 Spirit 00:00: - [facility] 00 [facility] Synvisc Synvisc 2020-0 No 16mg Common 8-10 Spirit 00:00: - [facility] 00 [facility] Kenalog Kenalog 2020-0 No 40mg Common (Triamcinol (Triamcinol 8-10 S pirit one) one) 00:00: - [facility] 00 [facility] Kenalog Kenalog 2020-0 No 40mg Common (Triamcinol (Triamcinol 8-10 S pirit one) one) 00:00: - [facility] 00 [facility] Bupivicaine Bupivicaine 1-0 No 2.5mg Common [place] 8-10 Spirit 00:00: - [facility] 00 [facility] Bupivicaine Bupivicaine 1-0 No 2.5mg Common [place] 8-10 Spirit 00:00: - [facility] 00 [facility] Synvisc Synvisc 2020-0 No 16mg Common 8-10 Spirit 00:00: - [facility] 00 [facility] Synvisc Synvisc 2020-0 No 16mg Common 8-10 Spirit 00:00: - [facility] 00 [facility] Kenalog Kenalog 2020-0 No 40mg Common (Triamcinol (Triamcinol 8-10 S pirit one) one) 00:00: - [facility] 00 [facility] Kenalog Kenalog 2020-0 No 40mg Common (Triamcinol (Triamcinol 8-10 S pirit one) one) 00:00: - [facility] 00 [facility] Bupivicaine Bupivicaine 2020-0 No 2.5mg Common [place] 8-10 Spirit 00:00: - [facility] 00 [facility] Bupivicaine Bupivicaine 2020-0 No 2.5mg Common [place] 8-10 Spirit 00:00: - [facility] 00 [facility] Synvisc Synvisc 2020-0 No 16mg Common 8-10 Spirit 00:00: - [facility] 00 [facility] Synvisc Synvisc 2020-0 No 16mg Common 8-10 Spirit 00:00: - [facility] 00 [facility] Kenalog Kenalog 2020-0 No 40mg Common (Triamcinol (Triamcinol 8-10 S pirit one) one) 00:00: - [facility] 00 [facility] Kenalog Kenalog 2020-0 No 40mg Common (Triamcinol (Triamcinol 8-10 S pirit one) one) 00:00: - [facility] 00 [facility] Bupivicaine Bupivicaine 2020-0 No 2.5mg Common [place] 8-10 Spirit 00:00: - [facility] 00 [facility] Bupivicaine Bupivicaine 2020-0 No 2.5mg Common [place] 8-10 Spirit 00:00: - [facility] Synvisc Synvisc 2020-0 No 16mg Common 8-10 Spirit 00:00: - [facility] Synvisc Synvisc 2020-0 No 16mg Common 8-10 Spirit 00:00: - [facility] Kenalog Kenalog 2020-0 No 40mg Common (Triamcinol (Triamcinol 8-10 S pirit one) one) 00:00: - [facility] Kenalog Kenalog 2020-0 No 40mg Common (Triamcinol (Triamcinol 8-10 S pirit one) one) 00:00: - [facility] Bupivicaine Bupivicaine 2020-0 No 2.5mg Common [place] 8-10 Spirit 00:00: - [facility] Bupivicaine Bupivicaine 2020-0 No 2.5mg Common [place] 8-10 Spirit 00:00: - [facility] Synvisc Synvisc 2020-0 No 16mg Common 8-10 Spirit 00:00: - [facility] Synvisc Synvisc 2020-0 No 16mg Common 8-10 Spirit 00:00: - [facility] Kenalog Kenalog 2020-0 No 40mg Common (Triamcinol (Triamcinol 8-10 S pirit one) one) 00:00: - [facility] Kenalog Kenalog 2020-0 No 40mg Common (Triamcinol (Triamcinol 8-10 S pirit one) one) 00:00: - [facility] Bupivicaine Bupivicaine 2020-0 No 2.5mg Common Wi[place] Wiota 8-10 Spirit 00:00: - [facility] Bupivicaine Bupivicaine 2020-0 No 2.5mg Common [place] Wiota 8-10 Spirit 00:00: - [facility] Synvisc Synvisc 2020-0 No 16mg Common 8-10 Spirit 00:00: - [facility] Synvisc Synvisc 2020-0 No 16mg Common 8-10 Spirit 00:00: - [facility] Kenalog Kenalog 2020-0 No 40mg Common (Triamcinol (Triamcinol 8-10 S pirit one) one) 00:00: - [facility] Kenalog Kenalog 2020-0 No 40mg Common (Triamcinol (Triamcinol 8-10 S pirit one) one) 00:00: - [facility] Bupivicaine Bupivicaine 2020-0 No 2.5mg Common [place] Wiota 8-10 Spirit 00:00: - [facility] Bupivicaine Bupivicaine 2020-0 No 2.5mg Common [place] Wiota 8-10 Spirit 00:00: - [facility] Synvisc Synvisc 2020-0 No 16mg Common 8-10 Spirit 00:00: - [facility] Synvisc Synvisc 2020-0 No 16mg Common 8-10 Spirit 00:00: - [facility] Kenalog Kenalog 2020-0 No 40mg Common (Triamcinol (Triamcinol 8-10 S pirit one) one) 00:00: - [facility] Kenalog Kenalog 2020-0 No 40mg Common (Triamcinol (Triamcinol 8-10 S pirit one) one) 00:00: - [facility] Bupivicaine Bupivicaine 2020-0 No 2.5mg Common [place] Wiota 8-10 Spirit 00:00: - [facility] Bupivicaine Bupivicaine 2020-0 No 2.5mg Common [place] Wi[place] 8-10 Spirit 00:00: - [facility] Synvisc Synvisc 2020-0 No 16mg Common 8-10 Spirit 00:00: - [facility] Synvisc Synvisc 2020-0 No 16mg Common 8-10 Spirit 00:00: - [facility] Kenalog Kenalog 2020-0 No 40mg Common (Triamcinol (Triamcinol 8-10 S pirit one) one) 00:00: - [facility] Kenalog Kenalog 2020-0 No 40mg Common (Triamcinol (Triamcinol 8-10 S pirit one) one) 00:00: - [facility] Bupivicaine Bupivicaine 1-0 No 2.5mg Common [place] Wiota 8-10 Spirit 00:00: - [facility] Bupivicaine Bupivicaine 2020-0 No 2.5mg [facility] [place] Wi[place] 8-10 Spirit 00:00: - [facility] Synvisc Synvisc 2020-0 No 16mg Common 8-10 Spirit 00:00: - [facility] Synvisc Synvisc 2020-0 No 16mg Common 8-10 Spirit 00:00: - [facility] Kenalog Kenalog 2020-0 No 40mg Common (Triamcinol (Triamcinol 8-10 S pirit one) one) 00:00: - [facility] Kenalog Kenalog 2020-0 No 40mg Common (Triamcinol (Triamcinol 8-10 S pirit one) one) 00:00: - [facility] Bupivicaine Bupivicaine 2020-0 No 2.5mg Common [place] Wiota 8-10 Spirit 00:00: - [facility] Bupivicaine Bupivicaine 2020-0 No 2.5mg Common [place] Wi[place] 8-10 Spirit 00:00: - [facility] Synvisc Synvisc 2020-0 No 16mg Common 8-10 Spirit 00:00: - [facility] Synvisc Synvisc 2020-0 No 16mg Common 8-10 Spirit 00:00: - [facility] Kenalog Kenalog 2020-0 No 40mg Common (Triamcinol (Triamcinol 8-10 S pirit one) one) 00:00: - [facility] Kenalog Kenalog 2020-0 No 40mg Common (Triamcinol (Triamcinol 8-10 S pirit one) one) 00:00: - [facility] Bupivicaine Bupivicaine 2020-0 No 2.5mg Common [place] Wiota 8-10 Spirit 00:00: - [facility] Bupivicaine Bupivicaine 2020-0 No 2.5mg Common [place] Wiota 8-10 Spirit 00:00: - [facility] Synvisc Synvisc 2020-0 No 16mg Common 8-10 Spirit 00:00: - [facility] Synvisc Synvisc 0 No 16mg Common 8-10 Spirit 00:00: - [facility] Kenalog Kenalog 2020-0 No 40mg Common (Triamcinol (Triamcinol 8-10 S pirit one) one) 00:00: - [facility] Kenalog Kenalog 0 No 40mg Common (Triamcinol (Triamcinol 8-10 S pirit one) one) 00:00: - [facility] Bupivicaine Bupivicaine 2020-0 No 2.5mg Common [place] Wiota 8-10 Spirit 00:00: - [facility] Synvisc 0 No 16mg Common 8-10 Spirit 00:00: - [facility] Kenalog Kenalog 0 No 40mg Common (Triamcinol (Triamcinol 8-10 S pirit one) one) 00:00: - [facility] Bupivicaine Bupivicaine 2020-0 No 2.5mg Common [place] Wiota 8-10 Spirit 00:00: - [facility] Synvisc 0 No 16mg Common 8-10 Spirit 00:00: - [facility] Kenalog Kenalog 0 No 40mg Common (Triamcinol (Triamcinol 8-10 S pirit one) one) 00:00: - [facility] BD BD 2020-0 No QD BD Ultra-Fine Ultra-Fine 1-27 Ultra-Fine Anita Pen Anita Pen 00:00: Anita Pen Morganza 4mm Morganza 4mm 00 Morganza x 32Gm x 32Gm 4mm x 32Gm BD BD 2020-0 No QD BD Ultra-Fine Ultra-Fine 1-27 Ultra-Fine Anita Pen Anita Pen 00:00: Anita Pen Morganza 4mm Morganza 4mm 00 Morganza x 32Gm x 32Gm 4mm x 32Gm BD BD 2020-0 No QD BD Ultra-Fine Ultra-Fine 1-27 Ultra-Fine Anita Pen Anita Pen 00:00: Anita Pen Morganza 4mm Morganza 4mm 00 Morganza x 32Gm x 32Gm 4mm x 32Gm BD BD 2020-0 No QD BD Ultra-Fine Ultra-Fine 1-27 Ultra-Fine Anita Pen Anita Pen 00:00: Anita Pen Morganza 4mm Morganza 4mm 00 Morganza x 32Gm x 32Gm 4mm x 32Gm BD BD No QD BD Ultra-Fine Ultra-Fine 1-27 Ultra-Fine Anita Pen Anita Pen 00:00: Anita Pen Morganza 4mm Morganza 4mm 00 Morganza x 32Gm x 32Gm 4mm x 32Gm BD BD No QD BD Ultra-Fine Ultra-Fine 1-27 Ultra-Fine Anita Pen Anita Pen 00:00: Anita Pen Morganza 4mm Morganza 4mm 00 Morganza x 32Gm x 32Gm 4mm x 32Gm BD BD No QD BD Ultra-Fine Ultra-Fine 1-27 Ultra-Fine Anita Pen Anita Pen 00:00: Anita Pen Morganza 4mm Morganza 4mm 00 Morganza x 32Gm x 32Gm 4mm x 32Gm Omeprazole Omeprazole Yes Apolinar TAKE 1 Common [place] CAPSULE BY Spirit MOUTH - [facility] EVERY DAY [facility] MethylPREDN MethylPREDN Yes Apolinar TAKE Common ISolone ISolone [place] DIRECTED Spi rit - [facility] Doxycycline Doxycycline Yes Apolinar TAKE 1 Common Hyclate Hyclate [place] CAPSULE BY S pirit MOUTH - [facility] TWICE A [facility] DAY [facility] Methocarbam Methocarbam Yes Apolinar TAKE 1 Common ol ol [place] TABLET BY Spirit MOUTH - [facility]ICE A [facility] DAY [facility] [place] Montelukast Montelukast Yes Apolinar TAKE 1 Common Sodium Sodium [place] TABLET BY Spir it MOUTH - [facility] EVERY DAY [facility] Acetaminoph Acetaminoph Yes Apolinar (Schedule [...] Comments Sourc e Immunization Name Name Syn[facility] 2020-11-03 Completed [facility] - 13:40:00 [facility] 2020-11-03 Completed [facility] - 13:40:00 [facility] Synvisc Synvisc 2020-11-03 Completed [facility] - 13:40:00 [facility] Synvisc Synvisc 2020-11-03 Completed [facility] - 13:39:00 [facility] Synvisc Synvisc 2020-11-03 Completed [facility] - 13:39:00 [facility] Synvisc Synvisc 2020-11-03 Completed [facility] - 13:39:00 [facility] Synvisc Synvisc 2020-10-27 Completed [facility] - 08:48:00 [facility] Synvisc Synvisc 2020-10-27 Completed [facility] - 08:48:00 [facility] Synvisc Synvisc 2020-10-27 Completed [facility] - 08:48:00 [facility] Synvisc Synvisc 2020-10-27 Completed [facility] - 08:47:00 [facility] Synvisc Synvisc 2020-10-27 Completed [facility] - 08:47:00 [facility] Synvisc Synvisc 2020-10-27 Completed [facility] - 08:47:00 [facility] Vianney Faith 2020-10-20 Completed [facility] - (Triamcinolone) (Triamcinolone) 08:22:00 [facility] Vianney Faith 2020-10-20 Completed [facility] - (Triamcinolone) (Triamcinolone) 08:22:00 [facility] Vianney Faith 2020-10-20 Completed [facility] - (Triamcinolone) (Triamcinolone) 08:22:00 [facility] Vianney Faith 2020-10-20 Completed [facility] - (Triamcinolone) (Triamcinolone) 08:22:00 [facility] Vianney Faith 2020-10-20 Completed [facility] - (Triamcinolone) (Triamcinolone) 08:22:00 [facility] Vianney Faith 2020-10-20 Completed [facility] - (Triamcinolone) (Triamcinolone) 08:22:00 [facility] Synvisc Synvisc 2020-10-20 Completed [facility] - 08:21:00 [facility] Bupivicaine Wiota Bupivicaine Wiota 2020-10-20 Completed [facility] - 08:21:00 [facility] Bupivicaine Wiota Bupivicaine Wiota 2020-10-20 Completed [facility] - 08:21:00 [facility] Synvisc Synvisc 2020-10-20 Completed [facility] - 08:21:00 [facility] Bupivicaine Wiota Bupivicaine Wiota 2020-10-20 Completed [facility] - 08:21:00 [facility] Bupivicaine Wiota Bupivicaine Wiota 2020-10-20 Completed [facility] - 08:21:00 [facility] Synvisc Synvisc 2020-10-20 Completed [facility] - 08:21:00 [facility] Bupivicaine Wiota Bupivicaine Wiota 2020-10-20 Completed [facility] - 08:21:00 [facility] Bupivicaine Wiota Bupivicaine Wiota 2020-10-20 Completed [facility] - 08:21:00 [facility] Synvisc Synvisc 2020-10-20 Completed [facility] - 08:20:00 [facility] Synvisc Synvisc 2020-10-20 Completed [facility] - 08:20:00 [facility] Synvisc Synvisc 2020-10-20 Completed [facility] - 08:20:00 [facility] SARS-COV-2 COVID-19 2020-05-17 Completed [facility] rs[facility] MODERNA VACCINE 00:00:00 [facility] SARS-COV-2 COVID-19 2020-05-17 Completed Unive rs[facility] of MODERNA VACCINE 00:00:00 [facility] SARS-COV-2 COVID-19 2020-04-19 Completed Unive rsity of MODERNA VACCINE 00:00:00 [facility] SARS-COV-2 COVID-19 2020-04-19 Completed Unive rsity of MODERNA VACCINE 00:00:00 [facility] Pneumovax (PPSV23) Pneumovax (PPSV23) 2019-12-26 Completed [facility] - 15:10:00 [facility] Pneumovax (PPSV23) Pneumovax (PPSV23) 2019-12-26 Completed [facility] - 15:10:00 [facility] Pneumovax (PPSV23) Pneumovax (PPSV23) 2019-12-26 Completed [facility] - 15:10:00 [facility] Pneumovax (PPSV23) Pneumovax (PPSV23) 2019-12-26 Completed [facility] - 15:10:00 [facility] Pneumovax (PPSV23) Pneumovax (PPSV23) 2019-12-26 Completed [facility] - 15:10:00 [facility] Pneumovax (PPSV23) Pneumovax (PPSV23) 2019-12-26 Completed [facility] - 15:10:00 [facility] Pneumovax (PPSV23) Pneumovax (PPSV23) 2019-12-26 Completed [facility] - 15:10:00 [facility] Pneumovax (PPSV23) Pneumovax (PPSV23) 2019-12-26 Completed [facility] - 15:10:00 [facility] Pneumovax (PPSV23) Pneumovax (PPSV23) 2019-12-26 Completed [facility] - 15:10:00 [facility] Pneumovax (PPSV23) Pneumovax (PPSV23) 2019-12-26 Completed [facility] - 15:10:00 [facility] Pneumovax (PPSV23) Pneumovax (PPSV23) 2019-12-26 Completed [facility] - 15:10:00 [facility] Pneumovax (PPSV23) Pneumovax (PPSV23) 2019-12-26 Completed [facility] - 15:10:00 [facility] Pneumovax (PPSV23) Pneumovax (PPSV23) 2019-12-26 Completed [facility] - 15:10:00 [facility] Pneumovax (PPSV23) Pneumovax (PPSV23) 2019-12-26 Completed [facility] - 15:10:00 [facility] Pneumovax (PPSV23) Pneumovax (PPSV23) 2019-12-26 Completed [facility] - 15:10:00 [facility] Pneumovax (PPSV23) Pneumovax (PPSV23) 2019-12-26 Completed [facility] - 15:10:00 [facility] Pneumovax (PPSV23) Pneumovax (PPSV23) 2019-12-26 Completed [facility] - 15:10:00 [facility] Pneumovax (PPSV23) Pneumovax (PPSV23) 2019-12-26 Completed [facility] - 15:10:00 [facility] Pneumovax (PPSV23) Pneumovax (PPSV23) 2019-12-26 Completed [facility] - 15:10:00 [facility] Pneumovax (PPSV23) Pneumovax (PPSV23) 2019-12-26 Completed [facility] - 15:10:00 [facility] Pneumovax (PPSV23) Pneumovax (PPSV23) 2019-12-26 Completed [facility] - 15:10:00 [facility] Pneumovax (PPSV23) Pneumovax (PPSV23) 2019-12-26 Completed [facility] - 15:10:00 [facility] Pneumovax (PPSV23) Pneumovax (PPSV23) 2019-12-26 Completed [facility] - 15:10:00 [facility] Pneumovax (PPSV23) Pneumovax (PPSV23) 2019-12-26 Completed [facility] - 15:10:00 [facility] Pneumovax (PPSV23) Pneumovax (PPSV23) 2019-12-26 Completed [facility] - 15:10:00 [facility] Pneumovax (PPSV23) Pneumovax (PPSV23) 2019-12-26 Completed [facility] - 15:10:00 [facility] Pneumovax (PPSV23) Pneumovax (PPSV23) 2019-12-26 Completed [facility] - 15:10:00 [facility] Shingrix Shingrix 2019-12-24 Completed [facility] - 15:10:00 [facility] Shingrix Shingrix 2019-12-24 Completed [facility] - 15:10:00 [facility] Shingrix Shingrix 2019-12-24 Completed [facility] - 15:10:00 [facility] Shingrix Shingrix 2019-12-24 Completed [facility] - 15:10:00 [facility] Shingrix Shingrix 2019-12-24 Completed [facility] - 15:10:00 [facility] Shingrix Shingrix 2019-12-24 Completed [facility] - 15:10:00 [facility] Shingrix Shingrix 2019-12-24 Completed [facility] - 15:10:00 [facility] Shingrix Shingrix 2019-12-24 Completed [facility] - 15:10:00 [facility] Shingrix Shingrix 2019-12-24 Completed [facility] - 15:10:00 [facility] Shingrix Shingrix 2019-12-24 Completed [facility] - 15:10:00 [facility] Shingrix Shingrix 2019-12-24 Completed [facility] - 15:10:00 [facility] Shingrix Shingrix 2019-12-24 Completed [facility] - 15:10:00 [facility] Shingrix Shingrix 2019-12-24 Completed [facility] - 15:10:00 [facility] Shingrix Shingrix 2019-12-24 Completed [facility] - 15:10:00 [facility] Shingrix Shingrix 2019-12-24 Completed [facility] - 15:10:00 [facility] Shingrix Shingrix 2019-12-24 Completed [facility] - 15:10:00 [facility] Shingrix Shingrix 2019-12-24 Completed [facility] - 15:10:00 [facility] Shingrix Shingrix 2019-12-24 Completed [facility] - 15:10:00 [facility] Shingrix Shingrix 2019-12-24 Completed [facility] - 15:10:00 [facility] Shingrix Shingrix 2019-12-24 Completed [facility] - 15:10:00 [facility] Shingrix Shingrix 2019-12-24 Completed [facility] - 15:10:00 [facility] Shingrix Shingrix 2019-12-24 Completed [facility] - 15:10:00 [facility] Shingrix Shingrix 2019-12-24 Completed [facility] - 15:10:00 [facility] Shingrix Shingrix 2019-12-24 Completed [facility] - 15:10:00 [facility] Shingrix Shingrix 2019-12-24 Completed [facility] - 15:10:00 [facility] Shingrix Shingrix 2019-12-24 Completed [facility] - 15:10:00 [facility] Shingrix Shingrix 2019-12-24 Completed [facility] - 15:10:00 [facility] FluAD FluAD 2019-12-18 Completed [facility] - 15:09:00 [facility] FluAD FluAD 2019-12-18 Completed [facility] - 15:09:00 [facility] FluAD FluAD 2019-12-18 Completed [facility] - 15:09:00 [facility] FluAD FluAD 2019-12-18 Completed [facility] - 15:09:00 [facility] FluAD FluAD 2019-12-18 Completed [facility] - 15:09:00 [facility] FluAD FluAD 2019-12-18 Completed [facility] - 15:09:00 [facility] FluAD FluAD 2019-12-18 Completed [facility] - 15:09:00 [facility] FluAD FluAD 2019-12-18 Completed [facility] - 15:09:00 [facility] FluAD FluAD 2019-12-18 Completed [facility] - 15:09:00 [facility] FluAD FluAD 2019-12-18 Completed [facility] - 15:09:00 [facility] FluAD FluAD 2019-12-18 Completed [facility] - 15:09:00 [facility] FluAD FluAD 2019-12-18 Completed [facility] - 15:09:00 [facility] FluAD FluAD 2019-12-18 Completed [facility] - 15:09:00 [facility] FluAD FluAD 2019-12-18 Completed [facility] - 15:09:00 [facility] FluAD FluAD 2019-12-18 Completed [facility] - 15:09:00 [facility] FluAD FluAD 2019-12-18 Completed [facility] - 15:09:00 [facility] FluAD FluAD 2019-12-18 Completed [facility] - 15:09:00 [facility] FluAD FluAD 2019-12-18 Completed [facility] - 15:09:00 [facility] FluAD FluAD 2019-12-18 Completed [facility] - 15:09:00 [facility] FluAD FluAD 2019-12-18 Completed [facility] - 15:09:00 [facility] FluAD FluAD 2019-12-18 Completed [facility] - 15:09:00 [facility] FluAD FluAD 2019-12-18 Completed [facility] - 15:09:00 [facility] FluAD FluAD 2019-12-18 Completed [facility] - 15:09:00 [facility] FluAD FluAD 2019-12-18 Completed [facility] - 15:09:00 [facility] FluAD FluAD 2019-12-18 Completed [facility] - 15:09:00 [facility] FluAD FluAD 2019-12-18 Completed [facility] - 15:09:00 [facility] FluAD FluAD 2019-12-18 Completed [facility] - 15:09:00 [facility] Vital Signs Vital Name Observation Time Observation Value Comments Source height 2022-01-26 15:00:00 64 [in_i] [facility] weight 2022-01-26 15:00:00 174.4 [lb_av] Common [facility] temperature 2022-01-26 15:00:00 96.9 [degF] [facility] bmi 2022-01-26 15:00:00 29.93 kg/m2 [facility] oximetry 2022-01-26 15:00:00 94 % [facility] respiratory rate 2022-01-26 15:00:00 16 /min Comm on [facility] blood pressure 2022-01-26 15:00:00 110 mm[Hg] Common [facility] - systolic [facility] blood pressure 2022-01-26 15:00:00 63 mm[Hg] Common [facility] - diastolic [facility] height 2021-12-02 08:20:00 64 [in_i] Common [facility] weight 2021-12-02 08:20:00 184.6 [lb_av] Common [facility] temperature 2021-12-02 08:20:00 97.3 [degF] Common [facility] bmi 2021-12-02 08:20:00 31.68 kg/m2 Common [facility] oximetry 2021-12-02 08:20:00 97 % [facility] respiratory rate 2021-12-02 08:20:00 16 /min Comm on [facility] blood pressure 2021-12-02 08:20:00 131 mm[Hg] Common [facility] - systolic [facility] blood pressure 2021-12-02 08:20:00 64 mm[Hg] Common [facility] - diastolic [facility] height 2021-11-02 14:40:00 64 [in_i] Common [facility] weight 2021-11-02 14:40:00 194.0 [lb_av] [facility] temperature 2021-11-02 14:40:00 97.8 [degF] Common [facility] bmi 2021-11-02 14:40:00 33.3 kg/m2 Common [facility] oximetry 2021-11-02 14:40:00 93 % Common [facility] respiratory rate 2021-11-02 14:40:00 16 /min Comm on [facility] blood pressure 2021-11-02 14:40:00 119 mm[Hg] Common [facility] - systolic [facility] blood pressure 2021-11-02 14:40:00 72 mm[Hg] [facility] - diastolic [facility] height 2021-09-16 11:20:00 64 [in_i] Common [facility] weight 2021-09-16 11:20:00 193.2 [lb_av] Common [facility] temperature 2021-09-16 11:20:00 97.5 [degF] Common [facility] bmi 2021-09-16 11:20:00 33.16 kg/m2 Common [facility] oximetry 2021-09-16 11:20:00 97 % Common [facility] respiratory rate 2021-09-16 11:20:00 18 /min Comm on [facility] blood pressure 2021-09-16 11:20:00 135 mm[Hg] Common [facility] - systolic [facility] blood pressure 2021-09-16 11:20:00 70 mm[Hg] Common [facility] - diastolic [facility] height 2021-08-03 10:30:00 64 [in_i] Common [facility] weight 2021-08-03 10:30:00 191.0 [lb_av] [facility] temperature 2021-08-03 10:30:00 97.7 [degF] Common [facility] bmi 2021-08-03 10:30:00 32.78 kg/m2 [facility] oximetry 2021-08-03 10:30:00 97 % Common [facility] respiratory rate 2021-08-03 10:30:00 17 /min Comm on [facility] blood pressure 2021-08-03 10:30:00 132 mm[Hg] Common [facility] - systolic [facility] blood pressure 2021-08-03 10:30:00 70 mm[Hg] Common [facility] - diastolic [facility] height 2021-08-03 10:30:00 64 [in_i] Common [facility] weight 2021-08-03 10:30:00 191.0 [lb_av] [facility] temperature 2021-08-03 10:30:00 97.7 [degF] Common [facility] bmi 2021-08-03 10:30:00 32.78 kg/m2 Common [facility] oximetry 2021-08-03 10:30:00 97 % Common [facility] respiratory rate 2021-08-03 10:30:00 17 /min Comm on [facility] blood pressure 2021-08-03 10:30:00 132 mm[Hg] Common [facility] - systolic [facility] blood pressure 2021-08-03 10:30:00 70 mm[Hg] Common [facility] - diastolic [facility] height 2021-06-14 13:40:00 64 [in_i] Common [facility] weight 2021-06-14 13:40:00 192.7 [lb_av] Common [facility] temperature 2021-06-14 13:40:00 98.1 [degF] Common [facility] bmi 2021-06-14 13:40:00 33.07 kg/m2 Common [facility] oximetry 2021-06-14 13:40:00 95 % Common [facility] respiratory rate 2021-06-14 13:40:00 18 /min Comm on [facility] blood pressure 2021-06-14 13:40:00 136 mm[Hg] Common [facility] - systolic [facility] blood pressure 2021-06-14 13:40:00 75 mm[Hg] Common [facility] - diastolic [facility] bmi 2021-05-03 11:20:00 34.15 kg/m2 [facility] 11:20:00 96 % [facility] 2021-05-03 11:20:00 18 /min Comm on [facility] blood pressure 2021-05-03 11:20:00 122 mm[Hg] Common [facility] - systolic [facility] blood pressure 2021-05-03 11:20:00 63 mm[Hg] [facility] - diastolic [facility] height 2021-05-03 11:20:00 64 [in_i] Common [facility] weight 2021-05-03 11:20:00 199 [lb_av] Common [facility] temperature 2021-05-03 11:20:00 97.5 [degF] Common [facility] height 2021-04-09 13:40:00 64 [in_i] Common [facility] weight 2021-04-09 13:40:00 190 [lb_av] Common [facility] temperature 2021-04-09 13:40:00 98.6 [degF] [facility] bmi 2021-04-09 13:40:00 32.61 kg/m2 Common [facility] height 2021-01-21 08:10:00 64 [in_i] Common [facility] weight 2021-01-21 08:10:00 187 [lb_av] [facility] temperature 2021-01-21 08:10:00 98.7 [degF] Common [facility] bmi 2021-01-21 08:10:00 32.09 kg/m2 Common S pirit - [facility] blood pressure 2021-01-21 08:10:00 121 mm[Hg] [facility] - systolic [facility] blood pressure 2021-01-21 08:10:00 77 mm[Hg] Common Spirit - diastolic [facility] height 2020-12-31 10:40:00 64 [in_i] Common S pirit [facility] weight 2020-12-31 10:40:00 180 [lb_av] [facility] bmi 2020-12-31 10:40:00 30.89 kg/m2 [facility] Systolic blood 2020-12-19 16:15:00 141 mm[Hg] Univer sity of pressure [facility] Diastolic blood 2020-12-19 16:15:00 78 mm[Hg] Unive rsity of pressure [facility] Heart rate 2020-12-19 16:15:00 71 /min [facility] Body temperature 2020-12-19 16:15:00 36.72 [facility] Respiratory rate 2020-12-19 16:15:00 18 /min [facility] Oxygen saturation in 2020-12-19 16:15:00 93 /min [facility] blood by [facility] Pulse oximetry [facility] height 2020-12-19 15:13:00 160 cm [facility] Body weight 2020-12-19 15:13:00 81.647 kg [facility] BMI 2020-12-19 15:13:00 31.89 kg/m2 [facility] height 2020-12-17 10:20:00 64 [in_i] [facility] weight 2020-12-17 10:20:00 180 [lb_av] [facility] temperature 2020-12-17 10:20:00 98.3 [degF] [facility] bmi 2020-12-17 10:20:00 30.89 kg/m2 [facility] Procedures Procedure Date / Time Performed Performing Clinician Jon e [id number] CONSENT 2020-12-19 05:01:00 Doctor Unassigned, No Unive [facility] Encounters Start End Encounter Admission Attending Care Care Encounter Source Date/Time Date/Time Type Type Clinicians Facility Department ID 2022-01-24 Outpatient Garcia, [facility] [id number] Common 14:09:00 Aidan 00340 [facility] 2021-09-16 Outpatient Garcia, [facility] [id number] Common 11:49:00 Aidan [id number] [facility] 2021-04-29 Outpatient Garcia, [facility] [id number] Common 11:21:02 Aidan [facility] 2021-04-07 Outpatient Garcia, STLMLC STLMLC [id number] Common 14:12:39 Aidan [facility] 2021-04-07 Outpatient Garcia, STLMLC STLC [id number] Common 14:03:22 Aidan 83838 [facility] 2021-04-07 Outpatient Garcia, STLMLC STLMLC [id number] Common 14:02:49 Aidan 51207 [facility] 2021-04-07 Outpatient Garcia, STLMLC STLC [id number] Common 13:35:30 Aidan 17078 [facility] 2021-04-07 Outpatient Garcia, STLMLC STLC [id number] Common 13:29:38 Aidan 40050 [facility] 2021-04-07 Outpatient Garcia, STLMLC STLC [id number] Common 13:22:30 Aidan 52527 [facility] 2021-04-07 Outpatient Garcia, STLMLC STLC [id number] Common 13:13:27 Aidan 52043 [facility] 2021-04-07 Outpatient Garcia, STLMLC STLC [id number] Common 13:10:27 Aidan 39897 [facility] 2021-04-07 Outpatient Garcia, STLMLC STLC [id number] Common 13:09:48 Aidan 79013 [facility] 2021-04-07 Outpatient Garcia, STLMLC STLC [id number] Common 12:55:44 Aidan 91508 [facility] 2021-04-07 Outpatient Garcia, STLMLC STLC [id number] Common 12:42:28 Aidan 42420 [facility] 2021-04-07 Outpatient Garcia, STLMLC STLC [id number] Common 12:16:01 Aidan 00560 [facility] 2021-04-07 Outpatient Garcia, STLMLC STLMLC [id number] Common 12:13:51 [facility] 16733 [facility] 2022-02-11 2022-02-11 (TEL) STLMLC STLMLC [id number] Co mmon 00:00:00 00:00:00 [facility] 2022-01-26 2022-01-26 OFFICE STLMLC STLMLC [id number] Co mmon 00:00:00 00:00:00 VISIT Spirit ESTAB PT - CHI LEVEL 4 [facility] 2021-12-02 2021-12-02 OFFICE STLMLC STLMLC [id number] Co mmon 00:00:00 00:00:00 VISIT EST Spir it PT LEVEL 3 - [facility] 2021-11-11 2021-11-11 TORRIE Lora 2.16.840. [id number]. [id number] [facility] 20:30:00 21:30:00 [id number] [facility] [id number] 2021-11-02 2021-11-02 OFFICE STLMLC STLMLC [id number] Co mmon 00:00:00 00:00:00 VISIT [facility] PT - CHI LEVEL 4 [facility] 2021-10-08 2021-10-08 (TEL) STLMLC STLMLC [id number] Co mmon 00:00:00 00:00:00 [facility] 2021-10-05 2021-10-05 (TEL) STLMLC STLMLC [id number] Co mmon 00:00:00 00:00:00 [facility] 2021-09-30 2021-09-30 (TEL) STLMLC STLMLC [id number] Co mmon 00:00:00 00:00:00 [facility] 2021-09-24 2021-09-24 Outpatient ELISE IVY [id number] [facility] 03:46:00 03:46:00 _N 07[facility] 2021-09-16 2021-09-16 (TEL) STLMLC STLMLC [id number] Co mmon 00:00:00 00:00:00 [facility] 2021-09-16 2021-09-16 OFFICE STLMLC STLMLC [id number] Co mmon 00:00:00 00:00:00 VISIT EST Spir it PT LEVEL 3 - [facility] 2021-09-07 2021-09-07 (TEL) STLMLC STLMLC [id number] Co mmon 00:00:00 00:00:00 [facility] 2021-09-06 2021-09-06 (TEL) STLMLC STLMLC [id number] Co mmon 00:00:00 00:00:00 [facility] 2021-08-03 2021-08-03 OFFICE STLMLC STLMLC [id number] Co mmon 00:00:00 00:00:00 VISIT [facility] LEVEL 4 [facility] 2021-08-03 2021-08-03 (TEL) STLMLC STLMLC [id number] Co mmon 00:00:00 00:00:00 [facility] 2021-08-03 2021-08-03 SUB ANNUAL STLMLC STLMLC [id number] Common 00:00:00 00:00:00 MCR [facility] VISIT [facility] 2021-07-02 2021-07-02 (TEL) STLMLC STLMLC [id number] Co mmon 00:00:00 00:00:00 [facility] 2021-06-14 2021-06-14 (TEL) STLMLC STLMLC [id number] Co mmon 00:00:00 00:00:00 [facility] 2021-06-14 2021-06-14 OFFICE STLMLC STLMLC [id number] Co mmon 00:00:00 00:00:00 VISIT EST Spir it PT LEVEL 3 [facility] 2021-05-31 2021-05-31 (TEL) STLMLC STLMLC [id number] Co mmon 00:00:00 00:00:00 [facility] 2021-05-03 2021-05-03 OFFICE STLMLC STLMLC [id number] Co mmon 00:00:00 00:00:00 VISIT Spirit ESTAB PT - CHI LEVEL 4 [facility] 2021-04-09 2021-04-09 OFFICE STLMLC STLMLC [id number] Co mmon 00:00:00 00:00:00 VISIT EST Spir it PT LEVEL 3 - [facility] 2021-04-08 2021-04-08 CAV Gerri 2.16.840. 2.16.840.1. CLAC [id number] [facility] 17:30:00 18:30:00 [place] [id number]. [facility] [id number] 2021-04-08 2021-04-08 (TEL) STLMLC STLMLC [id number] Co mmon 00:00:00 00:00:00 [facility] 2021-02-26 2021-02-26 [id number] [facility] 10:32:00 10:32:00 _N 1217 [facility] 2021-02-16 2021-02-16 (TEL) STLMLC STLMLC [id number] Co mmon 00:00:00 00:00:00 [facility] 2021-01-21 2021-01-21 OFFICE STLMLC STLMLC [id number] Co mmon 00:00:00 00:00:00 VISIT Spirit ESTAB PT - CHI LEVEL 4 [facility] 2020-12-31 2020-12-31 OFFICE STLMLC STLMLC [id number] Co mmon 00:00:00 00:00:00 VISIT EST Spir it PT LEVEL 3 - [facility] 2020-12-19 2020-12-19 Outpatient Jeannette [facility] [id number] Univers 10:00:00 10:00:00 BEN faulkner [facility] 2020-12-19 2020-12-19 Nurse Therapy, Adc Covid Infusion [facility] [id number] Univers 08:04:33 09:04:33 Visit Ben Garcia [id number] [place] [facility] [id number] [facility] [address] Branch 2020-12-19 2020-12-19 Orders Doctor CODY 1.2.840.114 [id number] Univers 00:00:00 00:00:00 Only Unassigned, JESSE [id number] [facility] 4.2.7.2.686 Michael as [id number] [facility] [address] 2020-12-17 2020-12-17 OFFICE STLMLC STLMLC [id number] Co mmon 00:00:00 00:00:00 VISIT EST Spir it PT LEVEL 3 [facility] 2020-12-16 2020-12-16 (TEL) STLMLC STLMLC [id number] Co mmon 00:00:00 00:00:00 [facility] 2020-11-06 2020-11-06 Outpatient STLMLC STLMLC [id number] Common 00:00:00 00:00:00 [facility] 2020-11-03 2020-11-03 Outpatient STLMLC STLMLC [id number] Common 00:00:00 00:00:00 [facility] 2020-10-27 2020-10-27 Outpatient STLMLC STLMLC [id number] Common 00:00:00 00:00:00 [facility] 2020-10-20 2020-10-20 Outpatient STLMLC STLMLC [id number] Common 00:00:00 00:00:00 [facility] 2020-10-19 2020-10-19 Outpatient STLMLC STLMLC [id number] Common 00:00:00 00:00:00 [facility] 2020-10-07 2020-10-07 Outpatient STLMLC STLMLC [id number] Common 00:00:00 00:00:00 [facility] 2020-10-01 2020-10-01 Outpatient STLMLC STLMLC [id number] Common 00:00:00 00:00:00 [facility] 2020-09-30 2020-09-30 Outpatient STLMLC STLMLC [id number] Common 00:00:00 00:00:00 [facility] 2020-09-29 2020-09-29 Outpatient STLMLC STLMLC [id number] Common 00:00:00 00:00:00 [facility] 2020-09-15 2020-09-15 Outpatient STLMLC STLMLC [id number] Common 00:00:00 00:00:00 [facility] 2020-08-20 2020-08-20 Outpatient STLMLC STLMLC [id number] Common 00:00:00 00:00:00 [facility] 2020-08-13 2020-08-13 Outpatient STLMLC STLMLC [id number] Common 00:00:00 00:00:00 [facility] 2020-07-17 2020-07-17 Outpatient STLMLC STLMLC [id number] Common 00:00:00 00:00:00 [facility] 2020-07-17 2020-07-17 Outpatient STLMLC STLMLC [id number] Common 00:00:00 00:00:00 [facility] 2020-07-15 2020-07-15 [facility] [id number] [facility] 10:50:00 10:50:00 _N 0505 [facility] 2020-07-08 2020-07-08 Outpatient STLMLC STLMLC [id number] Common 00:00:00 00:00:00 [facility] 2020-07-06 2020-07-06 Outpatient STLMLC STLMLC [id number] Common 00:00:00 00:00:00 [facility] 2020-06-10 2020-06-10 Outpatient STLMLC STLMLC [id number] Common 00:00:00 00:00:00 [facility] 2020-06-01 2020-06-01 Outpatient STLMLC STLMLC [id number] Common 00:00:00 00:00:00 [facility] 2020-06-01 2020-06-01 Outpatient STLMLC STLMLC [id number] Common 00:00:00 00:00:00 [facility] 2020-05-17 2020-05-17 [facility] [id number] Univers 13:00:00 13:00:00 [facility] 2020-04-19 2020-04-19 [facility] [id number] Univers 13:00:00 13:00:00 [facility] 2020-04-07 2020-04-07 Outpatient STLMLC STLMLC [id number] Common 00:00:00 00:00:00 [facility] 2020-03-04 2020-03-04 Outpatient STLMLC STLMLC [id number] Common 00:00:00 00:00:00 [facility] 2018-10-24 2018-10-24 [id number] Common 10:00:00 10:00:00 [facility] 2016-07-11 2016-07-11 Emergency E ALEXIS, [facility] [id number] [facility] [place] 19:43:00 20:06:00 MISSY Peterson [facility] Results Test Description Test Time Test Comments Results Result Comments Source Colonoscopy Colonoscopy
[2022-03-16 16:14] LABS: Urine Blood 3+ (Negative); Urine Glucose Negative (Negative); Urine Protein 1+ (Negative); Urine Specific Gravity >=1.030 (1.005-1.030)
[2022-03-16 16:15] LABS: Hematocrit 38.1 % (36.0-45.0); MCV 90.9 fL (80-100); MPV 6.9 fL (7.6-11.3); RBC Red Blood Cell Count 4.19 M/uL (3.86-4.86)
[2022-03-16 16:36] LABS: Albumin 3.6 g/dL (3.4-5.0); Bilirubin Total 0.4 mg/dL (0.2-1.0); Potassium 4.1 mmol/L (3.5-5.1); Protein, Total 7.3 g/dL (6.4-8.2)
--- NOTE | 2022-03-16 16:44 | RAD REPORT ---
EXAM DESCRIPTION: CT - Stone Protocol - 03/16/2022 4:23 pm CLINICAL HISTORY: Abdominal pain. COMPARISON: March 11, 2022 right flank pain TECHNIQUE: Computed axial tomography of the abdomen pelvis was obtained without oral or IV contrast. Lack of IV and oral contrast limits evaluation of solid organs, appendix, bowel, and vessels. Mosley l reformatted images were obtained and reviewed. All CT scans are performed using dose optimization technique as appropriate and may include automated exposure control or mA/KV adjustment according to patient size. FINDINGS: Moderate to marked right hydronephrosis. Dilatation right ureter. Distal right ureteral ca lculus has migrated into UVJ. It measures 4 millimeters. Tiny nonobstructing left renal calculi The liver, spleen, pancreas and adrenals appear grossly normal There is no evidence of diverticulitis. Small to moderate umbilical hernia IMPRESSION: 4 millimeter distal right UVJ calculus resulting in moderate to marked right hydronephr osis
[2022-03-16 18:02] LABS: Urine Bacteria None Seen /HPF (<20); Urine Crystals Unidentified Few /HPF (None Seen); Urine Mucus 1+ /HPF (None Seen); Urine RBC >50 /HPF (None Seen)
[2022-03-16] MEDS ORDERED: MAGNESIUM SULFATE 1 gm IVPB 1 GM/100 ML BAG IV ONE (18:12)
[2022-03-16] MEDS ORDERED: MORPHINE 4 MG/ML SYR ONE (18:12)
[2022-03-16] MEDS ORDERED: ONDANSETRON 4 MG/2 ML VIAL ONE (18:12)
[2022-03-16] MEDS ORDERED: NA CHLORIDE 0.9% 1,000 ML ONE (18:12)
[2022-03-16] MEDS ORDERED: KETOROLAC 30 MG/ML INJ ONE (18:12)
[2022-03-16] MEDS ORDERED: FENTANYL CITR 100 MCG/2 ML ONE (18:56)
--- NOTE | 2022-03-16 19:29 | ER ---
Nurse's Notes [facility] Name: Jessica Riojas Age: 66 yrs Sex: Female : 1955 Arrival Date: 03/16/2022 Time: 15:19 Bed 20 Private MD: Diagnosis: Calculus of kidney Presentation: 03/16 15:37 Chief complaint: Patient states: right flank pain started today around 1330, and ap3 patient reports blood in her urine. patient reports a recent history of kidney stones. Coronavirus screen: At this time, the client does not indicate any symptoms associated with coronavirus-19. Ebola Screen: No symptoms or risks identified at this time. Initial Sepsis Screen: Does the patient meet any 2 criteria? No. Patient's initial sepsis screen is negative. Does the patient have a suspected source of infection? No. Patient's initial sepsis screen is negative. Risk Assessment: Do you want to hurt yourself or someone else? Patient reports no desire to harm self or others. Onset of symptoms was March 16, 2022 at 13:30. 15:37 Method Of Arrival: Ambulatory ap3 15:37 Acuity: ABRAHAM 3 ap3 Triage Assessment: 15:39 General: Appears uncomfortable, Behavior is restless. Pain: Complains of pain in right ap3 low back Pain currently is 7 out of 10 on a pain scale. Neuro: Level of Consciousness is awake, alert, obeys commands, Oriented to person, place, time, situation, Gait is steady. Cardiovascular: Patient's skin is warm and dry. Respiratory: Airway is patent Respiratory effort is even, unlabored, Respiratory pattern is regular, symmetrical. GI: Reports nausea. : Reports pain in right flank(s). Historical: - Allergies: 15:39 PENICILLINS; ap3 - PMHx: 15:39 Hypercholesterolemia; seasonal allergies; ap3 - Immunization history:: Client reports receiving the 2nd dose of the Covid vaccine, Flu vaccine is up to date. - Social history:: Smoking status: Patient denies any tobacco usage or history of. Patient uses alcohol, only on a social basis. Screenin:40 Abuse screen: Denies threats or abuse. Nutritional screening: No deficits noted. ap3 Tuberculosis screening: No symptoms or risk factors identified. 19:23 [facility] ED Fall Risk Assessment (Adult) History of falling in the last 3 months, jj7 including since admission No falls in past 3 months (0 pts) Confusion or Disorientation No (0 pts) Intoxicated or Sedated No (0 pts) Impaired Gait No (0 pts) Mobility Assist Device Used No (0 pt) Altered Elimination No (0 pt) Score/Fall Risk Level 0 - 2 = Low Risk. Assessment: 18:08 Reassessment: Patient is alert, oriented x 3, equal unlabored respirations, skin aa5 warm/dry/pink. 18:55 Reassessment: Patient is alert, oriented x 3, equal unlabored respirations, skin aa5 warm/dry/pink. 19:23 Reassessment: ASSUMED CARE OF PT. PT SITTING UP IN BED STATES SHE IS FEELING MUCH jj7 BETTER AFTER THE FENTYL. VS STABLE. NO DISTRESS NOTED. Vital Signs: 15:37 BP 164 / 92; Pulse 92; Resp 17; Temp 97.7; Pulse Ox 100% ; Weight 78.02 kg; Height 5 ap3 ft. 3 in. (160.02 cm); Pain 7/10; 19:23 BP 152 / 90; Pulse 79; Resp 18; Pulse Ox 96% ; Pain 0/10; ls5 20:00 BP 116 / 62; Pulse 81; Resp 16; Pulse Ox 96% ; Pain 0/10; jj7 15:37 Body Mass Index 30.47 (78.02 kg, 160.02 cm) ap3 ED Course: 15:19 Patient arrived in ED. rg4 15:39 Triage completed. ap3 15:40 [facility]C [facility] kb 15:40 Jeffrey Ron MD is Attending Physician. kb 15:40 Arm band placed on right wrist. ap3 16:07 Inserted saline lock: 22 gauge in right antecubital area, using aseptic technique. ap3 Blood collected. 16:08 CBC with Diff Sent. ap3 16:08 CMP Sent. ap3 16:25 CT Stone Protocol In Process Unspecified. EDMS 19:16 Carine aMnn RN is Primary Nurse. jj7 19:23 Patient has correct armband on for positive identification. Bed in low position. Call jj7 light in reach. Side rails up X 1. 19:28 Rafael Dove MD is Referral Physician. kb 20:00 No provider procedures requiring assistance completed. IV discontinued, intact, jj7 bleeding controlled, No redness/swelling at site. Pressure dressing applied. Administered Medications: 18:08 Drug: NS 0.9% 1000 ml Route: IV; Rate: 1000 ml; Site: right antecubital; aa5 18:08 Drug: Zofran (Ondansetron) 4 mg Route: IVP; Site: right antecubital; aa5 18:15 Follow up: Response: No adverse reaction aa5 18:10 Drug: Ketorolac 15 mg Route: IVP; Site: right antecubital; aa5 18:15 Follow up: Response: No adverse reaction aa5 18:10 Drug: morphine 4 mg Route: IVP; Infused Over: 4 mins; Site: right antecubital; aa5 18:15 Follow up: Response: No adverse reaction aa5 18:14 Drug: Magnesium Sulfate 1 grams Route: IVPB; Infused Over: 1 hrs; Site: right aa5 antecubital; 19:55 Follow up: IV Status: Completed infusion jj7 18:55 Drug: fentaNYL (PF) 25 mcg Route: IVP; Site: right antecubital; aa5 19:00 Follow up: Response: No adverse reaction aa5 20:06 Follow up: Response: Pain is decreased jj7 Medication: 19:23 VIS not applicable for this client. jj7 Outcome: 19:29 Discharge ordered by . quin[place] 20:00 Discharged to home ambulatory. jj7 20:00 Condition: improved 20:00 Discharge instructions given to family, Instructed on discharge instructions, follow up and referral plans. medication usage, Demonstrated understanding of instructions, follow-up care, medications, Prescriptions given X 2. 20:10 Patient left the ED. jj7 Signatures: Dispatcher [employer] EDVT Donita Espino, ALEXANDER ALEJANDREP-Sheree De La O, RN RN aa5 Brenda Sherman4 Nalini Hernandez RN RN ap3 Carine Mann RN RN jj7 Dioni Arshad5
--- NOTE | 2022-03-16 19:29 | EDPHYS ---
Physician Documentation [facility] Name: Jessica Riojas Age: 66 yrs Sex: Female : 1955 Arrival Date: 03/16/2022 Time: 15:19 Bed 20 Private MD: JACQUELYN Physician Jeffrey Ron HPI: 03/16 23:43 This 66 yrs old Female presents to ER via Ambulatory with complaints of Possible Kidney kb Stone. 23:44 The patient complains of pain in the right flank. The pain does not radiate. Onset: The kb symptoms/episode began/occurred today. Modifying factors: The symptoms are alleviated by nothing. the symptoms are aggravated by nothing. Associated signs and symptoms: Pertinent positives: hematuria. Severity of pain: At its worst the pain was moderate in the emergency department the pain is unchanged. The patient has experienced similar episodes in the past. The patient has not recently seen a physician. Pt reports she has passed several stones over the last month. Today started having right flank pain again with hematuria. Historical: - Allergies: 15:39 PENICILLINS; ap3 - PMHx: 15:39 Hypercholesterolemia; seasonal allergies; ap3 - Immunization history:: Client reports receiving the 2nd dose of the Covid vaccine, Flu vaccine is up to date. - Social history:: Smoking status: Patient denies any tobacco usage or history of. Patient uses alcohol, only on a social basis. ROS: 23:42 Constitutional: Negative for fever, chills, and weight loss. kb 23:42 : Positive for urinary symptoms, flank pain, hematuria. 23:42 All other systems are negative. Exam: 23:43 Constitutional: This is a well developed, well nourished patient who is awake, alert, kb and in no acute distress. Head/Face: Normocephalic, atraumatic. ENT: Moist Mucous membranes Cardiovascular: Regular rate and rhythm with a normal S1 and S2. No gallops, murmurs, or rubs. No pulse deficits. Respiratory: Respirations even and unlabored. No increased work of breathing. Talking in full sentences Abdomen/GI: Soft, non-tender. No distention Skin: Warm, dry with normal turgor. Normal color. MS/ Extremity: Pulses equal, no cyanosis. Neurovascular intact. Full, normal range of motion. Neuro: Awake and alert, GCS 15, oriented to person, place, time, and situation. Moves all extremities. Normal gait. Psych: Awake, alert, with orientation to person, place and time. Behavior, mood, and affect are within normal limits. 23:43 Back: CVA tenderness, that is mild, is noted on the right. Vital Signs: 15:37 BP 164 / 92; Pulse 92; Resp 17; Temp 97.7; Pulse Ox 100% ; Weight 78.02 kg; Height 5 ap3 ft. 3 in. (160.02 cm); Pain 7/10; 19:23 BP 152 / 90; Pulse 79; Resp 18; Pulse Ox 96% ; Pain 0/10; ls5 20:00 BP 116 / 62; Pulse 81; Resp 16; Pulse Ox 96% ; Pain 0/10; jj7 15:37 Body Mass Index 30.47 (78.02 kg, 160.02 cm) ap3 MDM: 15:44 Patient medically screened. kb 23:38 Data reviewed: vital signs, nurses notes. Data interpreted: Pulse oximetry: on room air kb is 96 %. Interpretation: normal. Counseling: I had a detailed discussion with the patient and/or guardian regarding: the historical points, exam findings, and any diagnostic results supporting the discharge/admit diagnosis, lab results, radiology results, the need for outpatient follow up, a urologist, to return to the emergency department if symptoms worsen or persist or if there are any questions or concerns that arise at home. 23:39 ED course: Pt is adamant that she passed the stone that was seen during the previous kb visit. Pt educated to follow up with Dr Dove if symptoms persist. Pain under control at this time. . ED course: Consideration of hospitalization: considered hospitalization for obstructed stone and pain management, but pt insists that she passed the stone that was previously seen and this is a new one. Pt states she will follow up and is comfortable now; I considered the following discharge prescriptions or medication management in the emergency department: flomax and narcotic pain medication prescriptions considered, but pt was recently prescribed those during last visit for similar symptoms. 03/16 15:43 Order name: CBC with Diff; Complete Time: 16:29 kb 03/16 15:43 Order name: CMP; Complete Time: 16:45 kb 03/16 15:43 Order name: CT Stone Protocol; Complete Time: 16:45 kb 03/16 15:43 Order name: Urine Microscopic Only; Complete Time: 18:34 kb 03/16 16:15 Order name: Urine Dipstick-Ancillary; Complete Time: 16:21 EDMS 03/16 15:43 Order name: IV Saline Lock; Complete Time: 16:08 kb 03/16 15:43 Order name: Labs collected and sent; Complete Time: 16:08 kb 03/16 15:43 Order name: Urine Dipstick-Ancillary (obtain specimen); Complete Time: 18:23 kb Administered Medications: 18:08 Drug: NS 0.9% 1000 ml Route: IV; Rate: 1000 ml; Site: right antecubital; aa5 18:08 Drug: Zofran (Ondansetron) 4 mg Route: IVP; Site: right antecubital; aa5 18:15 Follow up: Response: No adverse reaction aa5 18:10 Drug: Ketorolac 15 mg Route: IVP; Site: right antecubital; aa5 18:15 Follow up: Response: No adverse reaction aa5 18:10 Drug: morphine 4 mg Route: IVP; Infused Over: 4 mins; Site: right antecubital; aa5 18:15 Follow up: Response: No adverse reaction aa5 18:14 Drug: Magnesium Sulfate 1 grams Route: IVPB; Infused Over: 1 hrs; Site: right aa5 antecubital; 19:55 Follow up: IV Status: Completed infusion jj7 18:55 Drug: fentaNYL (PF) 25 mcg Route: IVP; Site: right antecubital; aa5 19:00 Follow up: Response: No adverse reaction aa5 20:06 Follow up: Response: Pain is decreased jj7 Disposition Summary: 03/16/22 19:29 Discharge Ordered Location: Home kb Condition: Stable kb Diagnosis - Calculus of kidney kb Followup: kb - With: Emergency Department - When: As needed - Reason: Worsening of condition Followup: kb - With: Private Physician - When: 2 - 3 days - Reason: Recheck today's complaints, Continuance of care, Re-evaluation by your physician Followup: kb - With: Rafael Dove MD - When: 2 - 3 days - Reason: Recheck today's complaints Discharge Instructions: - Discharge Summary Sheet kb - Kidney Stones, [id number] kb Forms: - Medication Reconciliation Form kb - Thank You Letter kb - Antibiotic Education kb - Prescription Opioid Use kb Prescriptions: - Zofran 4 mg Oral Tablet - take 1 tablet by ORAL route every 6 hours As needed; 20 tablet; Refills: 0, kb Product Selection Permitted - Diclofenac Sodium 75 mg Oral tablet,delayed release (DR/EC) - take 1 tablet by ORAL route 2 times per day As needed; 30 tablet; Refills: 0, kb Product Selection Permitted Signatures: Dispatcher [employer] Donita Malone, Sheree Sapp, RN RN aa5 Nalini Hernandez RN RN ap3 Carine Mann RN jj7
[2022-03-16 20:52] VITALS: TEMP 97.7
[2022-03-16 21:06] VITALS: BP 152/90; O2SAT 96
== END 2022-03-16 20:10 | disposition home or self-care (01) ==
LOC: ER 15:17
DX: N20.0 Calculus of kidney (principal); Z87.442 Personal history of urinary calculi; Z88.0 Allergy status to penicillin
CPT/HCPCS: 96365; 85025; 36415; 80053; 76377; 74176; 96375; 99284; 96366; J3010; J3475; J7030; J2405; 81003; 81015

== ENCOUNTER 2022-03-18 12:19 | Inpatient (IN) | payer OTHER ==
--- OUTSIDE RECORDS SUMMARY | 2022-03-18 12:39 | XMS REPORT | Continuity of Care Document ---
:1955 Author Organization [facility] t Address [address] [place] [address] [address] [place] [address] Care Team Providers Name Role Phone AIDAN GARCIA Primary Care Physician Unavailable Aidan Garcia Attending Clinician Unavailable Brennon Lora Attending Clinician ELISE_Herbert Attending Clinician Unavailable Gerri Peterson Attending Clinician BEN GARCIA Attending Clinician Unavailable Therapy, [facility] Attending Clinician Unavailable Ben Garcia MD Attending Clinician Doctor Unassigned, [place] Attending Clinician Unavailable NATTY PRADO Attending Clinician Unavailable MISSY ESPINOZA Attending Clinician Unavailable ELISE_Herbert Admitting Clinician Unavailable MISSY ESPINOZA Admitting Clinician Unavailable Payers Payer Name Policy Type Policy Effective Date Expiration Date Sour [facility] Number [id number] 00:00:00 REPLACEMENT HMO) [address] [facility] 00:00:00 [facility] MEDICARE NOVITAS MB [id number] 2019 [facility] 00:00:[id number] [facility] 00:00:00 [facility] MEDICARE NOVITAS MB [id number] 2019 [facility] 00:00:00 [place] [id number] 2020 MEDICARE 00:00:00 ADVANTAGE PLAN [employer] [place] [id number] 1998 00:00:00 MEDICARE NOVITAS MB [id number] 2019 [facility] 00:00:00 [place] [id number] 2020 Common S[facility] rit 00:00:00 [facility] MEDICARE NOVITAS MB [id number] 2019 [facility] 00:00:00 [place] [id number] 2020 Common [facility] 00:00:00 [facility] Problems Condition Condition Condition Status Onset Resolution Last Treating Co mments Source Name Details Category Date Date Treatment Clinician Date [id number] Right Problem Common sciatic Spirit nerve pain [facility] [id number] [place], [place] [id number] joint, Spirit hip, right [facility] [id number] Other Problem Common chronic Spirit pain [facility] [id number] Other Problem Common obesity Spirit due to - [facility] excess [facility] [id number] Lymphedema Problem Co mmon [facility] [id number] Mixed Problem Common hyperlipid Spirit emia [facility] [id number] Allergic Problem Commo n rhinitis, Spirit unspecifie - CHI d [facility] y, Medical unspecifie Center d trigger [id number] Current Problem Common moderate Spirit episode of - [facility] major 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 - [facility]I itis of [facility] [id number] Arthritis Problem Co mmon 211401 of knee, Spirit right [facility] [id number] Unilateral Problem C ommon 29444 primary Spirit osteoarthr - [facility] itis, left St knee [facility] Arthritis Arthritis Problem Com mon of both of both Spirit knees knees - [facility] [id number] Cataract Problem Commo n of both Spirit eyes, - [facility] unspecifie St d cataract [facility] Gastroesop GERD Problem Commo n hageal (gastroeso Spirit reflux phageal - [facility] disease reflux St disease) [facility] Allergies, Adverse Reactions, Alerts Allergy Allergy Status Severity Reaction(s) Onset Inactive Treating Comm ents Source Name Type Date Date Clinician [place] Drug Active Hives 2020-03 Univers INS Class 0-09 ity of 00:00: [address] [place] Propensi Active Hives 2020-03 Univer s ins ty to 0-09 ity of adverse 00:00: [place] reaction [address] [place] [address] NO KNOWN Drug Active Univers ALLERGIE Class ity of [facility] Social History Social Habit Start Date Stop Date Quantity Comments Source History of Tobacco Use Co mmon [facility] Sex Assigned At Com mon [facility] Smoking Status Start Date Stop Date Source Unknown if ever smoked [facility] Former Smoker 2022-01-22 00:00:00 2022-01-22 00:00:00 Common S pirit [facility] nter Medications Ordered Filled Start Stop Current [...] 9-19 S pirit one) one) 00:00: - [facility] Kenalog Kenalog No 40mg Common (Triamcinol (Triamcinol 9-19 S pirit one) one) 00:00: - CHI 00 [facility] Kenalog Kenalog 0 No 40mg Common (Triamcinol (Triamcinol 9-19 S pirit one) one) 00:00: - CHI 00 [facility] Kenalog Kenalog No 40mg Common (Triamcinol (Triamcinol 9-19 S pirit one) one) 00:00: - CHI 00 [facility] Ozempic Ozempic 2021- No Ozempic [...] pirit e) e) 00:00: - CHI 00 [facility] Toradol Toradol No 2mL Common (Ketorolac) (Ketorolac) 4-04 S pirit 00:00: - CHI 00 [facility] Rocephin Rocephin 2021-0 No 1g Commo n (Ceftriaxon (Ceftriaxon 4-04 S pirit e) e) 00:00: - CHI 00 [facility] Toradol Toradol 2021-0 No 2mL Common (Ketorolac) (Ketorolac) 4-04 S pirit 00:00: - CHI 00 [facility] Rocephin Rocephin 2-0 No 1g Commo n (Ceftriaxon (Ceftriaxon 4-04 S pirit e) e) 00:00: - CHI 00 [facility] Toradol Toradol 2021-0 No 2mL Common (Ketorolac) (Ketorolac) 4-04 S pirit 00:00: - CHI 00 [facility] Toradol Toradol 2021-0 No 2mL Common (Ketorolac) (Ketorolac) 4-04 S pirit 00:00: - CHI 00 [facility] Rocephin Rocephin 2021-0 No 1g Commo n (Ceftriaxon (Ceftriaxon 4-04 S pirit e) e) 00:00: - CHI 00 [facility] Toradol Toradol 2021-0 No 2mL Common (Ketorolac) (Ketorolac) 4-04 S pirit 00:00: - CHI 00 [facility] Rocephin Rocephin 2021-0 No 1g Commo n (Ceftriaxon (Ceftriaxon 4-04 S pirit e) e) 00:00: - CHI 00 [facility] Toradol Toradol 2021-0 No 2mL Common (Ketorolac) (Ketorolac) 4-04 S pirit 00:00: - CHI 00 [facility] Rocephin Rocephin 2-0 No 1g Commo n (Ceftriaxon (Ceftriaxon 4-04 S pirit e) e) 00:00: - CHI 00 [facility] Toradol Toradol 2021-0 No 2mL Common (Ketorolac) (Ketorolac) 4-04 S pirit 00:00: - CHI 00 [facility] Rocephin Rocephin 2-0 No 1g Commo n (Ceftriaxon (Ceftriaxon 4-04 S pirit e) e) 00:00: - CHI 00 [facility] Toradol Toradol 2021-0 No 2mL Common (Ketorolac) (Ketorolac) 4-04 S pirit 00:00: - CHI 00 [facility] Rocephin Rocephin 2-0 No 1g Commo n (Ceftriaxon (Ceftriaxon 4-04 S pirit e) e) 00:00: - CHI 00 [facility] Toradol Toradol 2021-0 No 2mL Common (Ketorolac) (Ketorolac) 4-04 S pirit 00:00: - CHI 00 [facility] Rocephin Rocephin 2021-0 No 1g Commo n (Ceftriaxon (Ceftriaxon 4-04 S pirit e) e) 00:00: - CHI 00 [facility] Toradol Toradol 2021-0 No 2mL Common (Ketorolac) (Ketorolac) 4-04 S pirit 00:00: - CHI 00 [facility] Rocephin Rocephin 2-0 No 1g Commo n (Ceftriaxon (Ceftriaxon 4-04 S pirit e) e) 00:00: - CHI 00 [facility] Toradol Toradol 2021-0 No 2mL Common (Ketorolac) (Ketorolac) 4-04 S pirit 00:00: - CHI 00 [facility] Rocephin Rocephin 2-0 No 1g Commo n (Ceftriaxon (Ceftriaxon 4-04 S pirit e) e) 00:00: - CHI 00 [facility] Toradol Toradol 2021-0 No 2mL Common (Ketorolac) (Ketorolac) 4-04 S pirit 00:00: - CHI 00 [facility] Rocephin Rocephin 2-0 No 1g Commo n (Ceftriaxon (Ceftriaxon 4-04 S pirit e) e) 00:00: - CHI 00 [facility] Toradol Toradol 2021-0 No 2mL Common (Ketorolac) (Ketorolac) 4-04 S pirit 00:00: - CHI 00 [facility] Rocephin Rocephin 2-0 No 1g Commo n (Ceftriaxon (Ceftriaxon 4-04 S pirit e) e) 00:00: - CHI 00 [facility] Toradol Toradol 2022-0 No 2mL Common (Ketorolac) (Ketorolac) 4-04 S pirit 00:00: - CHI 00 [facility] Rocephin Rocephin 2-0 No 1g Commo n (Ceftriaxon (Ceftriaxon 4-04 S pirit e) e) 00:00: - CHI 00 [facility] Toradol Toradol 2-0 No 2mL Common (Ketorolac) (Ketorolac) 4-04 S pirit 00:00: - CHI 00 [facility] Rocephin Rocephin 2021-0 No 1g Commo n (Ceftriaxon (Ceftriaxon 4-04 S pirit e) e) 00:00: - CHI 00 [facility] Toradol Toradol 2-0 No 2mL Common (Ketorolac) (Ketorolac) 4-04 S pirit 00:00: - CHI 00 [facility] Rocephin Rocephin 2-0 No 1g Commo n (Ceftriaxon (Ceftriaxon 4-04 S pirit e) e) 00:00: - CHI 00 [facility] Toradol Toradol 2021-0 No 2mL Common (Ketorolac) (Ketorolac) 4-04 S pirit 00:00: - CHI 00 [facility] Rocephin Rocephin 2-0 No 1g Commo n (Ceftriaxon (Ceftriaxon 4-04 S pirit e) e) 00:00: - CHI 00 [facility] Rocephin Rocephin 2-0 No 1g Commo n (Ceftriaxon (Ceftriaxon 4-04 S pirit e) e) 00:00: - CHI 00 [facility] Toradol Toradol 2021-0 No 2mL Common (Ketorolac) (Ketorolac) 4-04 S pirit 00:00: - CHI [facility] Azithromyci Azithromyci 2021-0 2021- No [...] 00:00 eded} 00 :00 casirivimab 2020-03- No [id number] 1200mg 1,200 mg, Univers -imdevimab 12-19 Subcutaneo [...] Common -24 Spirit 00:00: - CHI 00 [facility] Synvisc Synvisc 2020-0 No 16mg Common - Spirit 00:00: - CHI 00 [facility] Synvisc Synvisc 2020-0 No 16mg Common -24 Spirit 00:00: - CHI 00 [facility] Synvisc Synvisc 2020-0 No 16mg Common 8- Spirit 00:00: - CHI 00 [facility] Synvisc Synvisc 2021-0 No 16mg Common 8- Spirit 00:00: - CHI 00 [facility] Synvisc Synvisc 1-0 No 16mg Common 11-03 Spirit 00:00: - CHI 00 [facility] Synvisc Synvisc 1-0 No 16mg Common 11-03 Spirit 00:00: - CHI 00 [facility] Synvisc Synvisc 1-0 No 16mg Common 11-03 Spirit 00:00: - CHI 00 [facility] Synvisc Synvisc 1-0 No 16mg Common 11-03 Spirit 00:00: - CHI 00 [facility] Synvisc Synvisc 1-0 No 16mg Common 11-03 Spirit 00:00: - CHI [facility] Synvisc Synvisc 1-0 No 16mg Common 11-03 Spirit 00:00: - CHI [facility] Synvisc Synvisc 1-0 No 16mg Common 11-03 Spirit 00:00: - CHI 00 [facility] Synvisc Synvisc 1-0 No 16mg Common 11-03 Spirit 00:00: - CHI 00 [facility] Synvisc Synvisc 1-0 No 16mg Common 11-03 Spirit 00:00: - CHI [facility] Synvisc Synvisc 1-0 No 16mg Common 11-03 Spirit 00:00: - CHI [facility] Synvisc Synvisc 1-0 No 16mg Common 11-03 Spirit 00:00: - CHI 00 [facility] Synvisc Synvisc 1-0 No 16mg Common 11-03 Spirit 00:00: - CHI 00 [facility] Synvisc Synvisc 1-0 No 16mg Common 824 Spirit 00:00: - CHI 00 [facility] Synvisc Synvisc 1-0 No 16mg Common 11-03 Spirit 00:00: - CHI 00 [facility] Synvisc Synvisc 1-0 No 16mg Common 24 Spirit 00:00: - CHI [facility] Synvisc Synvisc 1-0 No 16mg Common 24 Spirit 00:00: - CHI 00 [facility] Synvisc Synvisc 2021-0 No 16mg Common 8-24 Spirit 00:00: - CHI 00 [facility] Synvisc Synvisc 2021-0 No 16mg Common 11-03 Spirit 00:00: - CHI 00 [facility] Synvisc Synvisc 2021-0 No 16mg Common 11-03 Spirit 00:00: - CHI 00 [facility] Synvisc Synvisc 2021-0 No 16mg Common 11-03 Spirit 00:00: - CHI 00 [facility] Synvisc Synvisc 2021-0 No 16mg Common 11-03 Spirit 00:00: - CHI 00 [facility] Synvisc Synvisc 1-0 No 16mg Common 11-03 Spirit 00:00: - CHI 00 [facility] Synvisc Synvisc 2021-0 No 16mg Common 11-03 Spirit 00:00: - CHI 00 [facility] Synvisc Synvisc 2021-0 No 16mg Common 11-03 Spirit 00:00: - CHI 00 [facility] Synvisc Synvisc 2021-0 No 16mg Common 11-03 Spirit 00:00: - CHI 00 [facility] Synvisc Synvisc 2021-0 No 16mg Common 11-03 Spirit 00:00: - CHI 00 [facility] Synvisc Synvisc 2021-0 No 16mg Common 11-03 Spirit 00:00: - CHI 00 [facility] Synvisc Synvisc 2021-0 No 16mg Common 11-03 Spirit 00:00: - CHI 00 [facility] Synvisc Synvisc 2021-0 No 16mg Common 11-03 Spirit 00:00: - CHI 00 [facility] Synvisc Synvisc 2021-0 No 16mg Common 11-03 Spirit 00:00: - CHI 00 [facility] Synvisc Synvisc 2021-0 No 16mg Common 11-03 Spirit 00:00: - CHI 00 [facility] Synvisc Synvisc 2021-0 No 16mg Common 11-03 Spirit 00:00: - CHI 00 [facility] Synvisc Synvisc 2021-0 No 16mg Common 8-24 Spirit 00:00: - CHI 00 [facility] Synvisc Synvisc 1-0 No 16mg Common 8-17 Spirit 00:00: - CHI 00 [facility] Synvisc Synvisc 1-0 No 16mg Common 8-17 Spirit 00:00: - CHI 00 [facility] Synvisc Synvisc 1-0 No 16mg Common 8-17 Spirit 00:00: - CHI 00 [facility] Synvisc Synvisc 1-0 No 16mg Common 8-17 Spirit 00:00: - CHI 00 [facility] Synvisc Synvisc 1-0 No 16mg Common 8-17 Spirit 00:00: - CHI 00 [facility] Synvisc Synvisc 1-0 No 16mg Common 8-17 Spirit 00:00: - CHI 00 [facility] Synvisc Synvisc 1-0 No 16mg Common 8-17 Spirit 00:00: - CHI 00 [facility] Synvisc Synvisc 1-0 No 16mg Common 8-17 Spirit 00:00: - CHI 00 [facility] Synvisc Synvisc 1-0 No 16mg Common 8-17 Spirit 00:00: - CHI 00 [facility] Synvisc Synvisc 1-0 No 16mg Common 8-17 Spirit 00:00: - CHI 00 [facility] Synvisc Synvisc 1-0 No 16mg Common 8-17 Spirit 00:00: - CHI 00 [facility] Synvisc Synvisc 1-0 No 16mg Common 8-17 Spirit 00:00: - CHI 00 [facility] Synvisc Synvisc 2021-0 No 16mg Common 8-17 Spirit 00:00: - CHI 00 [facility] Synvisc Synvisc 1-0 No 16mg Common 8-17 Spirit 00:00: - CHI 00 [facility] Synvisc Synvisc 2021-0 No 16mg Common 8-17 Spirit 00:00: - CHI 00 [facility] Synvisc Synvisc 1-0 No 16mg Common 8-17 Spirit 00:00: - CHI 00 [facility] Synvisc Synvisc 2021-0 No 16mg Common 8-17 Spirit 00:00: - CHI 00 [facility] Synvisc Synvisc 1-0 No 16mg Common 8-17 Spirit 00:00: - CHI 00 [facility] Synvisc Synvisc 1-0 No 16mg Common 8-17 Spirit 00:00: - CHI 00 [facility] Synvisc Synvisc 1-0 No 16mg Common 8-17 Spirit 00:00: - CHI 00 [facility] Synvisc Synvisc 1-0 No 16mg Common 8-17 Spirit 00:00: - CHI 00 [facility] Synvisc Synvisc 1-0 No 16mg Common 8-17 Spirit 00:00: - CHI 00 [facility] Synvisc Synvisc 1-0 No 16mg Common 8-17 Spirit 00:00: - CHI [facility] Synvisc Synvisc 1-0 No 16mg Common 8-17 Spirit 00:00: - CHI 00 [facility] Synvisc Synvisc 1-0 No 16mg Common 8-17 Spirit 00:00: - CHI 00 [facility] Synvisc Synvisc 1-0 No 16mg Common 8-17 Spirit 00:00: - CHI 00 [facility] Synvisc Synvisc 1-0 No 16mg Common 8-17 Spirit 00:00: - CHI [facility] Synvisc Synvisc 1-0 No 16mg Common 8-17 Spirit 00:00: - CHI 00 [facility] Synvisc Synvisc 1-0 No 16mg Common 8-17 Spirit 00:00: - CHI 00 [facility] Synvisc Synvisc 1-0 No 16mg Common 8-17 Spirit 00:00: - CHI 00 [facility] Synvisc Synvisc 1-0 No 16mg Common 8-17 Spirit 00:00: - CHI 00 [facility] Synvisc Synvisc 1-0 No 16mg Common 8-17 Spirit 00:00: - CHI 00 [facility] Synvisc Synvisc 1-0 No 16mg Common 8-17 Spirit 00:00: - CHI 00 [facility] Synvisc Synvisc 2020-0 No 16mg Common 8-17 Spirit 00:00: - CHI 00 [facility] Synvisc Synvisc 2020-0 No 16mg Common 8-17 Spirit 00:00: - CHI 00 [facility] Synvisc Synvisc 2020-0 No 16mg Common 8-17 Spirit 00:00: - CHI 00 [facility] Synvisc Synvisc 2020-0 No 16mg Common 8-17 Spirit 00:00: - CHI 00 [facility] Synvisc Synvisc 2020-0 No 16mg Common 8-17 Spirit 00:00: - CHI 00 [facility] Bupivicaine Bupivicaine 2020-0 No 2.5mg Common [place] 8-10 Spirit 00:00: - CHI 00 [facility] Synvisc Synvisc 2020-0 No 16mg Common 8-10 Spirit 00:00: - CHI 00 [facility] Kenalog Kenalog 2020-0 No 40mg Common (Triamcinol (Triamcinol 8-10 S pirit one) one) 00:00: - CHI 00 [facility] Bupivicaine Bupivicaine 2020-0 No 2.5mg Common [place] 8-10 Spirit 00:00: - CHI 00 [facility] Synvisc Synvisc 2020-0 No 16mg Common 8-10 Spirit 00:00: - CHI 00 [facility] Kenalog Kenalog 2020-0 No 40mg Common (Triamcinol (Triamcinol 8-10 S pirit one) one) 00:00: - CHI 00 [facility] Bupivicaine Bupivicaine 2020-0 No 2.5mg Common [place] 8-10 Spirit 00:00: - CHI 00 [facility] Synvisc Synvisc 2020-0 No 16mg Common 8-10 Spirit 00:00: - CHI 00 [facility] Kenalog Kenalog 2020-0 No 40mg Common (Triamcinol (Triamcinol 8-10 S pirit one) one) 00:00: - CHI 00 [facility] Bupivicaine Bupivicaine 2020-0 No 2.5mg Common [place] 8-10 Spirit 00:00: - CHI 00 [facility] Synvisc Synvisc 2020-0 No 16mg Common 8-10 Spirit 00:00: - CHI 00 [facility] Kenalog Kenalog 2020-0 No 40mg Common (Triamcinol (Triamcinol 8-10 S pirit one) one) 00:00: - CHI 00 [facility] Bupivicaine Bupivicaine 2020-0 No 2.5mg Common [place] 8-10 Spirit 00:00: - CHI 00 [facility] Synvisc Synvisc 2020-0 No 16mg Common 8-10 Spirit 00:00: - CHI 00 [facility] Kenalog Kenalog 2020-0 No 40mg Common (Triamcinol (Triamcinol 8-10 S pirit one) one) 00:00: - CHI [facility] Bupivicaine Bupivicaine 2020-0 No 2.5mg Common [place] 8-10 Spirit 00:00: - CHI 00 [facility] Synvisc Synvisc 0 No 16mg Common 8-10 Spirit 00:00: - CHI 00 [facility] Kenalog Kenalog 2020-0 No 40mg Common (Triamcinol (Triamcinol 8-10 S pirit one) one) 00:00: - CHI [facility] Bupivicaine Bupivicaine 2020-0 No Common [place] 8-10 Spirit 00:00: - CHI 00 [facility] Bupivicaine Bupivicaine 2020-0 No Common [place] 8-10 Spirit 00:00: - CHI 00 [facility] Synvisc Synvisc 2020-0 No 16mg Common 8-10 Spirit 00:00: - CHI 00 [facility] Synvisc Synvisc 2020-0 No 16mg Common 8-10 Spirit 00:00: - CHI 00 [facility] Kenalog Kenalog 2020-0 No 40mg Common (Triamcinol (Triamcinol 8-10 S pirit one) one) 00:00: - CHI 00 [facility] Kenalog Kenalog 2020-0 No 40mg Common (Triamcinol (Triamcinol 8-10 S pirit one) one) 00:00: - CHI 00 [facility] Bupivicaine Bupivicaine 2020-0 No 2.5mg Common [place] 8-10 Spirit 00:00: - CHI 00 [facility] Bupivicaine Bupivicaine 2020-0 No 2.5mg Common [place] 8-10 Spirit 00:00: - CHI 00 [facility] Synvisc Synvisc 2020-0 No 16mg Common 8-10 Spirit 00:00: - CHI 00 [facility] Synvisc Synvisc 2020-0 No 16mg Common 8-10 Spirit 00:00: - CHI 00 [facility] Kenalog Kenalog 2020-0 No 40mg Common (Triamcinol (Triamcinol 8-10 S pirit one) one) 00:00: - CHI 00 [facility] Kenalog Kenalog 2020-0 No 40mg Common (Triamcinol (Triamcinol 8-10 S pirit one) one) 00:00: - CHI 00 [facility] Bupivicaine Bupivicaine 2020-0 No 2.5mg Common [place] 8-10 Spirit 00:00: - CHI 00 [facility] Bupivicaine Bupivicaine 2020-0 No 2.5mg Common [place] 8-10 Spirit 00:00: - CHI 00 [facility] Synvisc Synvisc 2020-0 No 16mg Common 8-10 Spirit 00:00: - CHI 00 [facility] Synvisc Synvisc 2020-0 No 16mg Common 8-10 Spirit 00:00: - CHI 00 [facility] Kenalog Kenalog 2020-0 No 40mg Common (Triamcinol (Triamcinol 8-10 S pirit one) one) 00:00: - CHI 00 [facility] Kenalog Kenalog 2020-0 No 40mg Common (Triamcinol (Triamcinol 8-10 S pirit one) one) 00:00: - CHI 00 [facility] Bupivicaine Bupivicaine 2020-0 No 2.5mg Common [place] 8-10 Spirit 00:00: - CHI 00 [facility] Bupivicaine Bupivicaine 2020-0 No 2.5mg Common [place] 8-10 Spirit 00:00: - CHI 00 [facility] Synvisc Synvisc 2020-0 No 16mg Common 8-10 Spirit 00:00: - CHI 00 [facility] Synvisc Synvisc 2020-0 No 16mg Common 8-10 Spirit 00:00: - CHI 00 [facility] Kenalog Kenalog 2020-0 No 40mg Common (Triamcinol (Triamcinol 8-10 S pirit one) one) 00:00: - CHI 00 [facility] Kenalog Kenalog 2020-0 No 40mg Common (Triamcinol (Triamcinol 8-10 S pirit one) one) 00:00: - CHI 00 [facility] Bupivicaine Bupivicaine 2020-0 No 2.5mg Common [place] 8-10 Spirit 00:00: - CHI 00 [facility] Bupivicaine Bupivicaine 2020-0 No 2.5mg Common [place] 8-10 Spirit 00:00: - [facility]I 00 [facility] Synvisc Synvisc 2020-0 No 16mg Common 8-10 Spirit 00:00: - [facility]I 00 [facility] Synvisc Synvisc 2020-0 No 16mg Common 8-10 Spirit 00:00: - [facility] 00 [facility] Kenalog Kenalog 2020-0 No 40mg Common (Triamcinol (Triamcinol 8-10 S pirit one) one) 00:00: - [facility] 00 [facility] Kenalog Kenalog 2020-0 No 40mg Common (Triamcinol (Triamcinol 8-10 S pirit one) one) 00:00: - [facility] 00 [facility] Bupivicaine Bupivicaine 1-0 No 2.5mg Common [place] Blue Point 8-10 Spirit 00:00: - [facility] 00 [facility] Bupivicaine Bupivicaine 1-0 No 2.5mg Common [place] Blue [place] 8-10 Spirit 00:00: - [facility] 00 [facility] Synvisc Synvisc 2020-0 No 16mg Common 8-10 Spirit 00:00: - [facility] 00 [facility] Synvisc Synvisc 2020-0 No 16mg Common 8-10 Spirit 00:00: - [facility] 00 [facility] Kenalog Kenalog 2020-0 No 40mg Common (Triamcinol (Triamcinol 8-10 S pirit one) one) 00:00: - [facility] 00 [facility] Kenalog Kenalog 2020-0 No 40mg Common (Triamcinol (Triamcinol 8-10 S pirit one) one) 00:00: - [facility] 00 [facility] Bupivicaine Bupivicaine 2020-0 No 2.5mg Common [place] Blue Point 8-10 Spirit 00:00: - [facility] 00 [facility] Bupivicaine Bupivicaine 2020-0 No 2.5mg Common [place] Blue [place] 8-10 Spirit 00:00: - [facility] 00 [facility] Synvisc Synvisc 2020-0 No 16mg Common 8-10 Spirit 00:00: - [facility] 00 [facility] Synvisc Synvisc 2020-0 No 16mg Common 8-10 Spirit 00:00: - [facility] 00 [facility] Kenalog Kenalog 2020-0 No 40mg Common (Triamcinol (Triamcinol 8-10 S pirit one) one) 00:00: - [facility] 00 [facility] Kenalog Kenalog 2020-0 No 40mg Common (Triamcinol (Triamcinol 8-10 S pirit one) one) 00:00: - [facility] 00 [facility] Bupivicaine Bupivicaine 2020-0 No 2.5mg Common [place] Blue Point 8-10 Spirit 00:00: - [facility] 00 [facility] Bupivicaine Bupivicaine 2020-0 No 2.5mg Common [place] 8-10 Spirit 00:00: - [facility] 00 [facility] Synvisc Synvisc 2020-0 No 16mg Common 8-10 Spirit 00:00: - [facility] 00 [facility] Synvisc Synvisc 2020-0 No 16mg Common 8-10 Spirit 00:00: - [facility] 00 [facility] Kenalog Kenalog 2020-0 No 40mg Common (Triamcinol (Triamcinol 8-10 S pirit one) one) 00:00: - [facility] 00 [facility] Kenalog Kenalog 2020-0 No 40mg Common (Triamcinol (Triamcinol 8-10 S pirit one) one) 00:00: - [facility] 00 [facility] Bupivicaine Bupivicaine 2020-0 No 2.5mg Common [place] Blue [place] 8-10 Spirit 00:00: - [facility] 00 [facility] Bupivicaine Bupivicaine 2020-0 No 2.5mg Common [place] 8-10 Spirit 00:00: - [facility] 00 [facility] Synvisc Synvisc 2020-0 No 16mg Common 8-10 Spirit 00:00: - [facility] 00 [facility] Synvisc Synvisc 2020-0 No 16mg Common 8-10 Spirit 00:00: - [facility] Kenalog Kenalog 2020-0 No 40mg Common (Triamcinol (Triamcinol 8-10 S pirit one) one) 00:00: - [facility] 00 [facility] Kenalog Kenalog 2020-0 No 40mg Common (Triamcinol (Triamcinol 8-10 S pirit one) one) 00:00: - [facility] 00 [facility] Bupivicaine Bupivicaine 2020-0 No 2.5mg Common [place] Blue [place] 8-10 Spirit 00:00: - [facility] Bupivicaine Bupivicaine 2020-0 No 2.5mg Common [place] 8-10 Spirit 00:00: - [facility] 00 [facility] Synvisc Synvisc 2020-0 No 16mg Common 8-10 Spirit 00:00: - [facility] 00 [facility] Synvisc Synvisc 2020-0 No 16mg Common 8-10 Spirit 00:00: - [facility] 00 [facility] Kenalog Kenalog 2020-0 No 40mg Common (Triamcinol (Triamcinol 8-10 S pirit one) one) 00:00: - [facility] Kenalog Kenalog 2020-0 No 40mg Common (Triamcinol (Triamcinol 8-10 S pirit one) one) 00:00: - [facility] 00 [facility] Bupivicaine Bupivicaine 2020-0 No 2.5mg Common [place] Blue [place] 8-10 Spirit 00:00: - [facility] 00 [facility] Bupivicaine Bupivicaine 2020-0 No 2.5mg Common [place] Blue [place] 8-10 Spirit 00:00: - [facility] 00 [facility] Synvisc Synvisc 2020-0 No 16mg Common 8-10 Spirit 00:00: - [facility] 00 [facility] Synvisc Synvisc 2020-0 No 16mg Common 8-10 Spirit 00:00: - [facility] 00 [facility] Kenalog Kenalog 2020-0 No 40mg Common (Triamcinol (Triamcinol 8-10 S pirit one) one) 00:00: - [facility] 00 [facility] Kenalog Kenalog 2020-0 No 40mg Common (Triamcinol (Triamcinol 8-10 S pirit one) one) 00:00: - [facility] 00 [facility] Bupivicaine Bupivicaine 2020-0 No 2.5mg Common [place] Blue [place] 8-10 Spirit 00:00: - [facility] 00 [facility] Bupivicaine Bupivicaine 2020-0 No 2.5mg Common [place] Blue [place] 8-10 Spirit 00:00: - [facility] 00 [facility] Synvisc Synvisc 2020-0 No 16mg Common 8-10 Spirit 00:00: - [facility] 00 [facility] Synvisc Synvisc 2020-0 No 16mg Common 8-10 Spirit 00:00: - [facility] 00 [facility] Kenalog Kenalog 2020-0 No 40mg Common (Triamcinol (Triamcinol 8-10 S pirit one) one) 00:00: - [facility] 00 [facility] Kenalog Kenalog 2020-0 No 40mg Common (Triamcinol (Triamcinol 8-10 S pirit one) one) 00:00: - [facility] 00 [facility] Bupivicaine Bupivicaine 1-0 No 2.5mg Common [place] Blue [place] 8-10 Spirit 00:00: - [facility] 00 [facility] Bupivicaine Bupivicaine 2020-0 No 2.5mg Common [place] Blue [place] 8-10 Spirit 00:00: - [facility] 00 [facility] Synvisc Synvisc 2020-0 No 16mg Common 8-10 Spirit 00:00: - [facility] 00 [facility] Synvisc Synvisc 2020-0 No 16mg Common 8-10 Spirit 00:00: - [facility] 00 [facility] Kenalog Kenalog 2020-0 No 40mg Common (Triamcinol (Triamcinol 8-10 S pirit one) one) 00:00: - [facility] 00 [facility] Kenalog Kenalog 2020-0 No 40mg Common (Triamcinol (Triamcinol 8-10 S pirit one) one) 00:00: - [facility] 00 [facility] Bupivicaine Bupivicaine 2020-0 No 2.5mg Common [place] Blue [place] 8-10 Spirit 00:00: - [facility] Bupivicaine Bupivicaine 2020-0 No 2.5mg Common [place] 8-10 Spirit 00:00: - [facility] 00 [facility] Synvisc Synvisc 2020-0 No 16mg Common 8-10 Spirit 00:00: - [facility] 00 [facility] Synvisc Synvisc 2020-0 No 16mg Common 8-10 Spirit 00:00: - [facility] 00 [facility] Kenalog Kenalog 2020-0 No 40mg Common (Triamcinol (Triamcinol 8-10 S pirit one) one) 00:00: - [facility] 00 [facility] Kenalog Kenalog 2020-0 No 40mg Common (Triamcinol (Triamcinol 8-10 S pirit one) one) 00:00: - [facility] 00 [facility] Bupivicaine Bupivicaine 2020-0 No 2.5mg Common [place] Blue [place] 8-10 Spirit 00:00: - [facility] 00 [facility] Bupivicaine Bupivicaine 2020-0 No 2.5mg Common [place] Blue [place] 8-10 Spirit 00:00: - [facility] 00 [facility] Synvisc Synvisc 2020-0 No 16mg Common 8-10 Spirit 00:00: - [facility] Synvisc Synvisc 0 No 16mg Common 8-10 Spirit 00:00: - [facility] 00 [facility] Kenalog Kenalog 2020-0 No 40mg Common (Triamcinol (Triamcinol 8-10 S pirit one) one) 00:00: - [facility] Kenalog Kenalog 0 No 40mg Common (Triamcinol (Triamcinol 8-10 S pirit one) one) 00:00: - [facility] 00 [facility] Bupivicaine Bupivicaine 2020-0 No 2.5mg Common [place] Blue Point 8-10 Spirit 00:00: - [facility] 00 [facility] Synvisc 0 No 16mg Common 8-10 [facility] 00:00: - [facility] Kenalog Kenalog 0 No 40mg Common (Triamcinol (Triamcinol 8-10 S pirit one) one) 00:00: - [facility] Bupivicaine Bupivicaine 2020-0 No 2.5mg Common [place] Blue [place] 8-10 [facility] 00:00: - [facility] Synvisc 0 No 16mg Common 8-10 [facility] 00:00: - [facility] Kenalog Kenalog 0 No 40mg Common (Triamcinol (Triamcinol 8-10 S pirit one) one) 00:00: - [facility] BD BD 2020-0 No QD BD Ultra-Fine Ultra-Fine 1-27 Ultra-Fine Anita Pen Anita Pen 00:00: Anita Pen [place] 4mm Lothair 4mm 00 [place] x 32Gm x 32Gm 4mm x 32Gm BD BD 2020-0 No QD BD Ultra-Fine Ultra-Fine 1-27 Ultra-Fine Anita Pen Anita Pen 00:00: Anita Pen [place] 4mm [place] 4mm 00 [place] x 32Gm x 32Gm 4mm x 32Gm BD BD 2020-0 No QD BD Ultra-Fine Ultra-Fine 1-27 Ultra-Fine Anita Pen Anita Pen 00:00: Anita Pen [place] 4mm [place] 4mm 00 [place] x 32Gm x 32Gm 4mm x 32Gm BD BD 2020-0 No QD BD Ultra-Fine Ultra-Fine 1-27 Ultra-Fine Anita Pen Anita Pen 00:00: Anita Pen [place] 4mm [place] 4mm 00 [place] x 32Gm x 32Gm 4mm x 32Gm BD BD No QD BD Ultra-Fine Ultra-Fine 1-27 Ultra-Fine Anita Pen Anita Pen 00:00: Anita Pen [place] 4mm [place] 4mm 00 [place] x 32Gm x 32Gm 4mm x 32Gm BD BD No QD BD Ultra-Fine Ultra-Fine 1-27 Ultra-Fine Anita Pen Anita Pen 00:00: Anita Pen [place] 4mm [place] 4mm 00 [place] x 32Gm x 32Gm 4mm x 32Gm BD BD No QD BD Ultra-Fine Ultra-Fine 1-27 Ultra-Fine Anita Pen Anita Pen 00:00: Anita Pen [place] 4mm [place] 4mm 00 [place] x 32Gm x 32Gm 4mm x 32Gm Omeprazole Omeprazole Yes Apolinar TAKE 1 Common Nowak CAPSULE BY Spirit MOUTH - [facility] EVERY DAY [facility] MethylPREDN MethylPREDN Yes Apolinar TAKE Common ISolone ISolone [place]ak DIRECTED Spi rit - CHI [facility] Doxycycline Doxycycline Yes Apolinar TAKE 1 Common Hyclate Hyclate Nowak CAPSULE BY S pirit MOUTH - [facility] TWICE [facility] DAY [facility] Methocarbam Methocarbam Yes Apolinar TAKE 1 Common ol ol Nowak TABLET BY Spirit MOUTH - [facility] TWICE [facility] Montelukast Montelukast Yes Apolinar TAKE 1 Common Sodium Sodium Nowak TABLET BY Spir it MOUTH - [facility]I EVERY DAY [facility] Acetaminoph Acetaminoph Yes Apolinar (Schedule [...] Comments Sourc e Immunization Name Name Synvis [facility] 2020-11-03 Completed [facility] - 13:40:00 [facility] 2020-11-03 Completed [facility] - 13:40:00 [facility] Synvisc Synvisc 2020-11-03 Completed [facility] - 13:40:00 [facility] Synvisc Synvisc 2020-11-03 Completed [facility] - 13:39:00 [facility] Synvisc Synvisc 2020-11-03 Completed [facility] - 13:39:00 [facility] Synvisc Synvisc 2020-11-03 Completed [facility] - 13:39:00 [facility] Synvisc Synvisc 2020-10-27 Completed [facility] - 08:48:00 [facility] Synvisc Synvisc 2020-10-27 Completed [facility] - 08:48:00 [facility] Synvisc Synvisc 2020-10-27 Completed [facility] - 08:48:00 [facility] Synvisc Synvisc 2020-10-27 Completed [facility] - 08:47:00 [facility] Synvisc Synvisc 2020-10-27 Completed [facility] - 08:47:00 [facility] Synvisc Synvisc 2020-10-27 Completed [facility] - 08:47:00 [facility] Vianney Faith 2020-10-20 Completed [facility] - (Triamcinolone) (Triamcinolone) 08:22:00 [facility] Vianney Faith 2020-10-20 Completed [facility] - (Triamcinolone) (Triamcinolone) 08:22:00 [facility] Vianney Faith 2020-10-20 Completed [facility] - (Triamcinolone) (Triamcinolone) 08:22:00 [facility] Vianney Faith 2020-10-20 Completed [facility] - (Triamcinolone) (Triamcinolone) 08:22:00 [facility] Vianney Faith 2020-10-20 Completed [facility] - (Triamcinolone) (Triamcinolone) 08:22:00 [facility] Vianney Faith 2020-10-20 Completed [facility] - (Triamcinolone) (Triamcinolone) 08:22:00 [facility] Synvisc Synvisc 2020-10-20 Completed [facility] - 08:21:00 [facility] Bupivicaine [place] Bupivicaine Blue Point 2020-10-20 Completed [facility] - 08:21:00 [facility] Bupivicaine [place] Bupivicaine [place] 2020-10-20 Completed [facility] - 08:21:00 [facility] Synvisc Synvisc 2020-10-20 Completed [facility] - 08:21:00 [facility] Bupivicaine [place] Bupivicaine Blue Point 2020-10-20 Completed [facility] - 08:21:00 [facility] Bupivicaine [place] Bupivicaine Blue Point 2020-10-20 Completed [facility] - 08:21:00 [facility] Synvisc Synvisc 2020-10-20 Completed [facility] - 08:21:00 [facility] Bupivicaine [place] Bupivicaine Blue [place] 2020-10-20 Completed [facility] - 08:21:00 [facility] Bupivicaine [place] Bupivicaine [place] 2020-10-20 Completed [facility] - 08:21:00 [facility] Synvisc Synvisc 2020-10-20 Completed [facility] - 08:20:00 [facility] Synvisc Synvisc 2020-10-20 Completed [facility] - 08:20:00 [facility] Synvisc Synvisc 2020-10-20 Completed [facility] - 08:20:00 [facility] SARS-COV-2 COVID-19 2020-05-17 Completed Unive rsity of MODERNA VACCINE 00:00:00 [facility] SARS-COV-2 COVID-19 2020-05-17 Completed Unive rsity of MODERNA VACCINE 00:00:00 [facility] SARS-COV-2 COVID-19 2020-04-19 Completed Unive rsity of MODERNA VACCINE 00:00:00 [facility] SARS-COV-2 COVID-19 2020-04-19 Completed Unive rsity of MODERNA VACCINE 00:00:00 [facility] Pneumovax (PPSV23) Pneumovax (PPSV23) 2019-12-26 Completed [facility] - 15:10:00 [facility] Pneumovax (PPSV23) Pneumovax (PPSV23) 2019-12-26 Completed [facility] - 15:10:00 [facility] Pneumovax (PPSV23) Pneumovax (PPSV23) 2019-12-26 Completed [facility] - 15:10:00 [facility] Pneumovax (PPSV23) Pneumovax (PPSV23) 2019-12-26 Completed [facility] - 15:10:00 [facility] Pneumovax (PPSV23) Pneumovax (PPSV23) 2019-12-26 Completed [facility] - 15:10:00 [facility] Pneumovax (PPSV23) Pneumovax (PPSV23) 2019-12-26 Completed [facility] - 15:10:00 [facility] Pneumovax (PPSV23) Pneumovax (PPSV23) 2019-12-26 Completed [facility] - 15:10:00 [facility] Pneumovax (PPSV23) Pneumovax (PPSV23) 2019-12-26 Completed [facility] - 15:10:00 [facility] Pneumovax (PPSV23) Pneumovax (PPSV23) 2019-12-26 Completed [facility] - 15:10:00 [facility] Pneumovax (PPSV23) Pneumovax (PPSV23) 2019-12-26 Completed [facility] - 15:10:00 [facility] Pneumovax (PPSV23) Pneumovax (PPSV23) 2019-12-26 Completed [facility] - 15:10:00 [facility] Pneumovax (PPSV23) Pneumovax (PPSV23) 2019-12-26 Completed [facility] - 15:10:00 [facility] Pneumovax (PPSV23) Pneumovax (PPSV23) 2019-12-26 Completed [facility] - 15:10:00 [facility] Pneumovax (PPSV23) Pneumovax (PPSV23) 2019-12-26 Completed [facility] - 15:10:00 [facility] Pneumovax (PPSV23) Pneumovax (PPSV23) 2019-12-26 Completed [facility] - 15:10:00 [facility] Pneumovax (PPSV23) Pneumovax (PPSV23) 2019-12-26 Completed [facility] - 15:10:00 [facility] Pneumovax (PPSV23) Pneumovax (PPSV23) 2019-12-26 Completed [facility] - 15:10:00 [facility] Pneumovax (PPSV23) Pneumovax (PPSV23) 2019-12-26 Completed [facility] - 15:10:00 [facility] Pneumovax (PPSV23) Pneumovax (PPSV23) 2019-12-26 Completed [facility] - 15:10:00 [facility] Pneumovax (PPSV23) Pneumovax (PPSV23) 2019-12-26 Completed [facility] - 15:10:00 [facility] Pneumovax (PPSV23) Pneumovax (PPSV23) 2019-12-26 Completed [facility] - 15:10:00 [facility] Pneumovax (PPSV23) Pneumovax (PPSV23) 2019-12-26 Completed [facility] - 15:10:00 [facility] Pneumovax (PPSV23) Pneumovax (PPSV23) 2019-12-26 Completed [facility] - 15:10:00 [facility] Pneumovax (PPSV23) Pneumovax (PPSV23) 2019-12-26 Completed [facility] - 15:10:00 [facility] Pneumovax (PPSV23) Pneumovax (PPSV23) 2019-12-26 Completed [facility] - 15:10:00 [facility] Pneumovax (PPSV23) Pneumovax (PPSV23) 2019-12-26 Completed [facility] - 15:10:00 [facility] Pneumovax (PPSV23) Pneumovax (PPSV23) 2019-12-26 Completed [facility] - 15:10:00 [facility] Shingrix Shingrix 2019-12-24 Completed [facility] - 15:10:00 [facility] Shingrix Shingrix 2019-12-24 Completed [facility] - 15:10:00 [facility] Shingrix Shingrix 2019-12-24 Completed [facility] - 15:10:00 [facility] Shingrix Shingrix 2019-12-24 Completed [facility] - 15:10:00 [facility] Shingrix Shingrix 2019-12-24 Completed [facility] - 15:10:00 [facility] Shingrix Shingrix 2019-12-24 Completed [facility] - 15:10:00 [facility] Shingrix Shingrix 2019-12-24 Completed [facility] - 15:10:00 [facility] Shingrix Shingrix 2019-12-24 Completed [facility] - 15:10:00 [facility] Shingrix Shingrix 2019-12-24 Completed [facility] - 15:10:00 [facility] Shingrix Shingrix 2019-12-24 Completed [facility] - 15:10:00 [facility] Shingrix Shingrix 2019-12-24 Completed [facility] - 15:10:00 [facility] Shingrix Shingrix 2019-12-24 Completed [facility] - 15:10:00 [facility] Shingrix Shingrix 2019-12-24 Completed [facility] - 15:10:00 [facility] Shingrix Shingrix 2019-12-24 Completed [facility] - 15:10:00 [facility] Shingrix Shingrix 2019-12-24 Completed [facility] - 15:10:00 [facility] Shingrix Shingrix 2019-12-24 Completed [facility] - 15:10:00 [facility] Shingrix Shingrix 2019-12-24 Completed [facility] - 15:10:00 [facility] Shingrix Shingrix 2019-12-24 Completed [facility] - 15:10:00 [facility] Shingrix Shingrix 2019-12-24 Completed [facility] - 15:10:00 [facility] Shingrix Shingrix 2019-12-24 Completed [facility] - 15:10:00 [facility] Shingrix Shingrix 2019-12-24 Completed [facility] - 15:10:00 [facility] Shingrix Shingrix 2019-12-24 Completed [facility] - 15:10:00 [facility] Shingrix Shingrix 2019-12-24 Completed [facility] - 15:10:00 [facility] Shingrix Shingrix 2019-12-24 Completed [facility] - 15:10:00 [facility] Shingrix Shingrix 2019-12-24 Completed [facility] - 15:10:00 [facility] Shingrix Shingrix 2019-12-24 Completed [facility] - 15:10:00 [facility] Shingrix Shingrix 2019-12-24 Completed [facility] - 15:10:00 [facility] FluAD FluAD 2019-12-18 Completed [facility] - 15:09:00 [facility] FluAD FluAD 2019-12-18 Completed [facility] - 15:09:00 [facility] FluAD FluAD 2019-12-18 Completed [facility] - 15:09:00 [facility] FluAD FluAD 2019-12-18 Completed [facility] - 15:09:00 [facility] FluAD FluAD 2019-12-18 Completed [facility] - 15:09:00 [facility] FluAD FluAD 2019-12-18 Completed [facility] - 15:09:00 [facility] FluAD FluAD 2019-12-18 Completed [facility] - 15:09:00 [facility] FluAD FluAD 2019-12-18 Completed [facility] - 15:09:00 [facility] FluAD FluAD 2019-12-18 Completed [facility] - 15:09:00 [facility] FluAD FluAD 2019-12-18 Completed [facility] - 15:09:00 [facility] FluAD FluAD 2019-12-18 Completed [facility] - 15:09:00 [facility] FluAD FluAD 2019-12-18 Completed [facility] - 15:09:00 [facility] FluAD FluAD 2019-12-18 Completed [facility] - 15:09:00 [facility] FluAD FluAD 2019-12-18 Completed [facility] - 15:09:00 [facility] FluAD FluAD 2019-12-18 Completed [facility] - 15:09:00 [facility] FluAD FluAD 2019-12-18 Completed [facility] - 15:09:00 [facility] FluAD FluAD 2019-12-18 Completed [facility] - 15:09:00 [facility] FluAD FluAD 2019-12-18 Completed [facility] - 15:09:00 [facility] FluAD FluAD 2019-12-18 Completed [facility] - 15:09:00 [facility] FluAD FluAD 2019-12-18 Completed [facility] - 15:09:00 [facility] FluAD FluAD 2019-12-18 Completed [facility] - 15:09:00 [facility] FluAD FluAD 2019-12-18 Completed [facility] - 15:09:00 [facility] FluAD FluAD 2019-12-18 Completed [facility] - 15:09:00 [facility] FluAD FluAD 2019-12-18 Completed [facility] - 15:09:00 [facility] FluAD FluAD 2019-12-18 Completed [facility] - 15:09:00 [facility] FluAD FluAD 2019-12-18 Completed [facility] - 15:09:00 [facility] FluAD FluAD 2019-12-18 Completed [facility] - 15:09:00 [facility] Vital Signs Vital Name Observation Time Observation Value Comments Source height 2022-01-26 15:00:00 64 [in_i] [facility] weight 2022-01-26 15:00:00 174.4 [lb_av] Common [facility] temperature 2022-01-26 15:00:00 96.9 [degF] [facility] bmi 2022-01-26 15:00:00 29.93 kg/m2 [facility] oximetry 2022-01-26 15:00:00 94 % [facility] respiratory rate 2022-01-26 15:00:00 16 /min Comm on [facility] blood pressure 2022-01-26 15:00:00 110 mm[Hg] Common [facility] - systolic [facility] blood pressure 2022-01-26 15:00:00 63 mm[Hg] Common [facility] - diastolic [facility] height 2021-12-02 08:20:00 64 [in_i] Common [facility] weight 2021-12-02 08:20:00 184.6 [lb_av] Common [facility] temperature 2021-12-02 08:20:00 97.3 [degF] Common [facility] bmi 2021-12-02 08:20:00 31.68 kg/m2 Common [facility] oximetry 2021-12-02 08:20:00 97 % [facility] respiratory rate 2021-12-02 08:20:00 16 /min Comm on [facility] blood pressure 2021-12-02 08:20:00 131 mm[Hg] Common [facility] - systolic [facility] blood pressure 2021-12-02 08:20:00 64 mm[Hg] Common [facility] - diastolic [facility] height 2021-11-02 14:40:00 64 [in_i] Common [facility] weight 2021-11-02 14:40:00 194.0 [lb_av] [facility] temperature 2021-11-02 14:40:00 97.8 [degF] Common [facility] bmi 2021-11-02 14:40:00 33.3 kg/m2 Common [facility] oximetry 2021-11-02 14:40:00 93 % Common [facility] respiratory rate 2021-11-02 14:40:00 16 /min Comm on [facility] blood pressure 2021-11-02 14:40:00 119 mm[Hg] Common [facility] - systolic [facility] blood pressure 2021-11-02 14:40:00 72 mm[Hg] [facility] - diastolic [facility] height 2021-09-16 11:20:00 64 [in_i] Common [facility] weight 2021-09-16 11:20:00 193.2 [lb_av] Common [facility] temperature 2021-09-16 11:20:00 97.5 [degF] Common [facility] bmi 2021-09-16 11:20:00 33.16 kg/m2 Common [facility] oximetry 2021-09-16 11:20:00 97 % Common [facility] respiratory rate 2021-09-16 11:20:00 18 /min Comm on [facility] blood pressure 2021-09-16 11:20:00 135 mm[Hg] Common [facility] - systolic [facility] blood pressure 2021-09-16 11:20:00 70 mm[Hg] Common [facility] - diastolic [facility] height 2021-08-03 10:30:00 64 [in_i] Common [facility] weight 2021-08-03 10:30:00 191.0 [lb_av] [facility] temperature 2021-08-03 10:30:00 97.7 [degF] Common [facility] bmi 2021-08-03 10:30:00 32.78 kg/m2 [facility] oximetry 2021-08-03 10:30:00 97 % Common [facility] respiratory rate 2021-08-03 10:30:00 17 /min Comm on [facility] blood pressure 2021-08-03 10:30:00 132 mm[Hg] Common [facility] - systolic [facility] blood pressure 2021-08-03 10:30:00 70 mm[Hg] Common [facility] - diastolic [facility] height 2021-08-03 10:30:00 64 [in_i] Common [facility] weight 2021-08-03 10:30:00 191.0 [lb_av] [facility] temperature 2021-08-03 10:30:00 97.7 [degF] Common S pirit [facility] bmi 2021-08-03 10:30:00 32.78 kg/m2 Common S pirit [facility] oximetry 2021-08-03 10:30:00 97 % Common [facility] respiratory rate 2021-08-03 10:30:00 17 /min Comm on [facility] blood pressure 2021-08-03 10:30:00 132 mm[Hg] Common [facility] - systolic [facility] blood pressure 2021-08-03 10:30:00 70 mm[Hg] Common [facility] - diastolic [facility] height 2021-06-14 13:40:00 64 [in_i] Common [facility] weight 2021-06-14 13:40:00 192.7 [lb_av] Common [facility] temperature 2021-06-14 13:40:00 98.1 [degF] Common S pirit [facility] bmi 2021-06-14 13:40:00 33.07 kg/m2 Common [facility] oximetry 2021-06-14 13:40:00 95 % Common [facility] respiratory rate 2021-06-14 13:40:00 18 /min Comm on [facility] blood pressure 2021-06-14 13:40:00 136 mm[Hg] Common [facility] - systolic [facility] blood pressure 2021-06-14 13:40:00 75 mm[Hg] Common [facility] - diastolic [facility] bmi 2021-05-03 11:20:00 34.15 kg/m2 [facility] 2021-05-03 11:20:00 96 % [facility] 2021-05-03 11:20:00 18 /min Comm on [facility] blood pressure 2021-05-03 11:20:00 122 mm[Hg] Common [facility] - systolic [facility] blood pressure 2021-05-03 11:20:00 63 mm[Hg] [facility] - [facility] height 2021-05-03 11:20:00 64 [in_i] Common S pirit [facility] weight 2021-05-03 11:20:00 199 [lb_av] Common [facility] temperature 2021-05-03 11:20:00 97.5 [degF] Common S pirit [facility] height 2021-04-09 13:40:00 64 [in_i] Common [facility] weight 2021-04-09 13:40:00 190 [lb_av] Common [facility] temperature 2021-04-09 13:40:00 98.6 [degF] [facility] bmi 2021-04-09 13:40:00 32.61 kg/m2 Common S pirit [facility] height 2021-01-21 08:10:00 64 [in_i] Common [facility] weight 2021-01-21 08:10:00 187 [lb_av] [facility] temperature 2021-01-21 08:10:00 98.7 [degF] Common [facility] bmi 2021-01-21 08:10:00 32.09 kg/m2 Common S pirit - [facility] blood pressure 2021-01-21 08:10:00 121 mm[Hg] [facility] - systolic [facility] blood pressure 2021-01-21 08:10:00 77 mm[Hg] [facility] - diastolic [facility] height 2020-12-31 10:40:00 64 [in_i] Common S pirit [facility] weight 2020-12-31 10:40:00 180 [lb_av] [facility] bmi 2020-12-31 10:40:00 30.89 kg/m2 [facility] Systolic blood 2020-12-19 16:15:00 141 mm[Hg] Univer sity of pressure [facility] Diastolic blood 2020-12-19 16:15:00 78 mm[Hg] Unive rsity of pressure [facility] Heart rate 2020-12-19 16:15:00 71 /min [facility] Body temperature 2020-12-19 16:15:00 36.72 [facility] 2020-12-19 16:15:00 18 /[facility] in 2020-12-19 16:15:00 93 /min [facility] blood by [facility] Pulse oximetry [place] Body height 2020-12-19 15:13:00 160 cm [facility] Body weight 2020-12-19 15:13:00 81.647 kg [facility] BMI 2020-12-19 15:13:00 31.89 kg/m2 [facility] height 2020-12-17 10:20:00 64 [in_i] [facility] weight 2020-12-17 10:20:00 180 [lb_av] [facility] temperature 2020-12-17 10:20:00 98.3 [degF] [facility] bmi 2020-12-17 10:20:00 30.89 kg/m2 [facility] Procedures Procedure Date / Time Performed Performing Clinician Jon e [id number] CONSENT 2020-12-19 05:01:00 Doctor Unassigned, No Unive [facility] Encounters Start End Encounter Admission Attending Care Care Encounter Source Date/Time Date/Time Type Type Clinicians Facility Department ID 2022-01-24 [facility] [id number] Common 14:09:00 Aidan [address] [facility] 2021-09-16 Out[facility], [facility] [id number] Common 11:49:00 Aidan 6[address]66 [facility] 2021-04-29 Outpatient Garcia, [facility] [id number] Common 11:21:02 Aidan [facility] 2021-04-07 Outpatient Garcia, STLMLC STLML[facility] [id number] Common 14:12:39 Aidan [facility] 2021-04-07 Outpatient Garcia, STLMLC STLC [id number] Common 14:03:22 Aidan 03200 [facility] 2021-04-07 Outpatient Garcia, STLMLC STLMLC [id number] Common 14:02:49 Aidan [address]390 [facility] 2021-04-07 Outpatient Garcia, STLMLC STLC [id number] Common 13:35:30 Aidan 20315 [facility] 2021-04-07 Outpatient Garcia, STLMLC STLC [id number] Common 13:29:38 Aidan 19469 [facility] 2021-04-07 Outpatient Garcia, STLMLC STLC [id number] Common 13:22:30 Aidan 10534 [facility] 2021-04-07 Outpatient Garcia, STLMLC STLC [id number] Common 13:13:27 Aidan 14400 [facility] 2021-04-07 Outpatient Garcia, STLMLC STLC [id number] Common 13:10:27 Aidan 10644 [facility] 2021-04-07 Outpatient Garcia, STLMLC STLC [id number] Common 13:09:48 Aidan 61122 [facility] 2021-04-07 Outpatient Garcia, STLMLC STLC [id number] Common 12:55:44 Aidan 04610 [facility] 2021-04-07 Outpatient Garcia, STLMLC STLC [id number] Common 12:42:28 Aidan 37121 [facility] 2021-04-07 Outpatient Garcia, STLMLC STLC [id number] Common 12:16:01 Aidan 99456 [facility] 2021-04-07 Outpatient Garcia, STLMLC STLMLC [id number] Common 12:13:51 [facility] [address] [facility] 2022-02-11 2022-02-11 (TEL) STLMLC STLMLC [id number] Co mmon 00:00:00 00:00:00 [facility] 2022-01-26 2022-01-26 OFFICE STLMLC STLMLC [id number] Co mmon 00:00:00 00:00:00 VISIT Spirit ESTAB PT - CHI LEVEL 4 [facility] 2021-12-02 2021-12-02 OFFICE STLMLC STLMLC [id number] Co mmon 00:00:00 00:00:00 VISIT EST Spir it PT LEVEL 3 - [facility] 2021-11-11 2021-11-11 TORRIE Loar [id number]. [id number] [facility] 20:30:00 21:30:00 [id number] [id number] 2021-11-02 2021-11-02 OFFICE STLMLC STLMLC [id number] Co mmon 00:00:00 00:00:00 VISIT [facility] PT - CHI LEVEL 4 [facility] 2021-10-08 2021-10-08 (TEL) STLMLC STLMLC [id number] Co mmon 00:00:00 00:00:00 [facility] 2021-10-05 2021-10-05 (TEL) STLMLC STLMLC [id number] Co mmon 00:00:00 00:00:00 [facility] 2021-09-30 2021-09-30 (TEL) STLMLC STLMLC [id number] Co mmon 00:00:00 00:00:00 [facility] 2021-09-24 2021-09-24 Outpatient ELISE IVY [id number] [facility] 03:46:00 03:46:00 _N [facility] 2021-09-16 2021-09-16 (TEL) STLMLC STLMLC [id number] Co mmon 00:00:00 00:00:00 [facility] 2021-09-16 2021-09-16 OFFICE STLMLC STLMLC [id number] Co mmon 00:00:00 00:00:00 VISIT EST Spir it PT LEVEL 3 - [facility] 2021-09-07 2021-09-07 (TEL) STLMLC STLMLC [id number] Co mmon 00:00:00 00:00:00 [facility] 2021-09-06 2021-09-06 (TEL) STLMLC STLMLC [id number] Co mmon 00:00:00 00:00:00 [facility] 2021-08-03 2021-08-03 OFFICE STLMLC STLMLC [id number] Co mmon 00:00:00 00:00:00 VISIT [facility] LEVEL 4 [facility] 2021-08-03 2021-08-03 (TEL) STLMLC STLMLC [id number] Co mmon 00:00:00 00:00:00 [facility] 2021-08-03 2021-08-03 SUB ANNUAL STLMLC STLMLC [id number] Common 00:00:00 00:00:00 MCR [facility] VISIT [facility] 2021-07-02 2021-07-02 (TEL) STLMLC STLMLC [id number] Co mmon 00:00:00 00:00:00 [facility] 2021-06-14 2021-06-14 (TEL) STLMLC STLMLC [id number] Co mmon 00:00:00 00:00:00 [facility] 2021-06-14 2021-06-14 OFFICE STLMLC STLMLC [id number] Co mmon 00:00:00 00:00:00 VISIT EST Spir it PT LEVEL 3 [facility] 2021-05-31 2021-05-31 (TEL) STLMLC STLMLC [id number] Co mmon 00:00:00 00:00:00 [facility] 2021-05-03 2021-05-03 OFFICE STLMLC STLMLC [id number] Co mmon 00:00:00 00:00:00 VISIT Spirit ESTAB PT - CHI LEVEL 4 [facility] 2021-04-09 2021-04-09 OFFICE STLMLC STLMLC [id number] Co mmon 00:00:00 00:00:00 VISIT EST Spir it PT LEVEL 3 - CHI [facility] 2021-04-08 2021-04-08 CAV Gerri [id number]. [id number]. CLAC [id number] [facility] 17:30:00 18:30:00 [place] [id number] [facility] [id number] 2021-04-08 2021-04-08 (TEL) STLMLC STLMLC [id number] Co mmon 00:00:00 00:00:00 [facility] - CHI [facility] 2021-02-26 2021-02-26 [id number] [facility] 10:32:00 10:32:00 _N 1217 [facility] 2021-02-16 2021-02-16 (TEL) STLMLC STLMLC [id number] Co mmon 00:00:00 00:00:00 [facility] - [facility] 2021-01-21 2021-01-21 OFFICE STLMLC STLMLC [id number] Co mmon 00:00:00 00:00:00 VISIT Spirit ESTAB PT - CHI LEVEL 4 [facility] 2020-12-31 2020-12-31 OFFICE STLMLC STLMLC [id number] Co mmon 00:00:00 00:00:00 VISIT EST Spir it PT LEVEL 3 - CHI [facility] 2020-12-19 2020-12-19 Outpatient Jeannette GARCIA [facility] [id number] Univers 10:00:00 10:00:00 BEN faulkner [facility] 2020-12-19 2020-12-19 Nurse Therapy, Adc Covid Infusion [facility] [id number] Univers 08:04:33 09:04:33 Visit Ben Garcia [id number] [id number] [id number] [facility] [address] 2020-12-19 2020-12-19 Orders Doctor COYD [id number] Univers 00:00:00 00:00:00 Only Unassigned, JES[id number] [facility] [id number] Michael as [id number] [facility] [address] Branch 2020-12-17 2020-12-17 OFFICE STLMLC STLMLC [id number] Co mmon 00:00:00 00:00:00 VISIT EST Spir it PT LEVEL 3 [facility] 2020-12-16 2020-12-16 (TEL) STLMLC STLMLC [id number] Co mmon 00:00:00 00:00:00 [facility] 2020-11-06 2020-11-06 Outpatient STLMLC STLMLC [id number] Common 00:00:00 00:00:00 [facility] 2020-11-03 2020-11-03 Outpatient STLMLC STLMLC [id number] Common 00:00:00 00:00:00 [facility] 2020-10-27 2020-10-27 Outpatient STLMLC STLMLC [id number] Common 00:00:00 00:00:00 [facility] 2020-10-20 2020-10-20 Outpatient STLMLC STLMLC [id number] Common 00:00:00 00:00:00 [facility] 2020-10-19 2020-10-19 Outpatient STLMLC STLMLC [id number] Common 00:00:00 00:00:00 [facility] 2020-10-07 2020-10-07 Outpatient STLMLC STLMLC [id number] Common 00:00:00 00:00:00 [facility] 2020-10-01 2020-10-01 Outpatient STLMLC STLMLC [id number] Common 00:00:00 00:00:00 [facility] 2020-09-30 2020-09-30 Outpatient STLMLC STLMLC [id number] Common 00:00:00 00:00:00 [facility] 2020-09-29 2020-09-29 Outpatient STLMLC STLMLC [id number] Common 00:00:00 00:00:00 [facility] 2020-09-15 2020-09-15 Outpatient STLMLC STLMLC [id number] Common 00:00:00 00:00:00 [facility] 2020-08-20 2020-08-20 Outpatient STLMLC STLMLC [id number] Common 00:00:00 00:00:00 [facility] 2020-08-13 2020-08-13 Outpatient STLMLC STLMLC [id number] Common 00:00:00 00:00:00 [facility] 2020-07-17 2020-07-17 Outpatient STLMLC STLMLC [id number] Common 00:00:00 00:00:00 [facility] 2020-07-17 2020-07-17 Outpatient STLMLC STLMLC [id number] Common 00:00:00 00:00:00 [facility] 2020-07-15 2020-07-15 [facility] [id number] [facility] 10:50:00 10:50:00 _N 0505 [facility] 2020-07-08 2020-07-08 Outpatient STLMLC STLMLC [id number] Common 00:00:00 00:00:00 [facility] 2020-07-06 2020-07-06 Outpatient STLMLC STLMLC [id number] Common 00:00:00 00:00:00 [facility] 2020-06-10 2020-06-10 Outpatient STLMLC STLMLC [id number] Common 00:00:00 00:00:00 [facility] 2020-06-01 2020-06-01 Outpatient STLMLC STLMLC [id number] Common 00:00:00 00:00:00 [facility] 2020-06-01 2020-06-01 Outpatient STLMLC STLMLC [id number] Common 00:00:00 00:00:00 [facility] 2020-05-17 2020-05-17 [facility] [id number] Univers 13:00:00 13:00:00 [facility] 2020-04-19 2020-04-19 [facility] [id number] Univers 13:00:00 13:00:00 [facility] 2020-04-07 2020-04-07 Outpatient STLMLC STLMLC [id number] Common 00:00:00 00:00:00 [facility] 2020-03-04 2020-03-04 Outpatient STLMLC STLMLC [id number] Common 00:00:00 00:00:00 [facility] 2018-10-24 2018-10-24 [id number] Common 10:00:00 10:00:00 [facility] 2016-07-11 2016-07-11 Emergency E ALEXIS, [facility] [id number] [facility] 19:43:00 20:06:00 MISSY Peterson [facility] Results Test Description Test Time Test Comments Results Result Comments Source Colonoscopy Colonoscopy
[2022-03-18] MEDS ORDERED: FENTANYL CITR 100 MCG/2 ML ONE ×3 (13:16→18:53)
--- NOTE | 2022-03-18 13:22 | RAD REPORT ---
EXAM DESCRIPTION: CT - Abdomen Pelvis Wo Contrast - 03/18/2022 1:10 pm CLINICAL HISTORY: Right flank pain COMPARISON: Stone Protocol dated 03/16/2022; Stone Protocol dated 03/11/2022 TECHNIQUE: Axial [address] imaging of the abdomen and pelvis was performed without IV contrast. No IV contrast was given because of allergy, abnormal renal function, patient refusal or physician re quest. No oral contrast administered. All CT scans are performed using dose optimization technique as appropriate and may include automated exposure control or mA/KV adjustment according to patient size. FINDINGS: No suspicious findings in the lung bases. The liver, spleen and pancreas show no suspicious findings on non-contrast imaging. Gallbladder and b iliary tree are also without suspicious finding. The prominent right-sided hydronephrosis secondary to the obstructing calculus at the right UVJ has n ot increased in severity since March 16 imaging. No change in positioning of the stone. Right kidney has an edematous appearance. There is trace amount of stranding in the right-sided perinephric fat n ot grossly different from March 16. Stranding along the right periureteral fat has increased. No new left-sided finding. No significant adrenal finding. Isodense renal masses and pyelonephritis cannot be excluded in the absence of IV contrast. The urinary bladder is without significant finding. No dilated bowel loops or bowel wall thickening. No free air, free fluid or inflammatory stranding. No hernia, mass or bulky lymphadenopathy. No suspicious bony findings. IMPRESSION: Prominent right-sided hydronephrosis has not changed. The obstructing right UVJ calcific ation unchanged in size or position. Increase in the periureteral stranding along the course of the right ureter. Full assessment is limited is the absence of IV contrast.
[2022-03-18 13:29] LABS: Absolute Lymphocytes (CBC) 1.4 K/uL (0.7-4.9); Hematocrit 38.3 % (36.0-45.0); Lymphocytes % 10.1 % (15.3-44.8); MCV 91.1 fL (80-100); RBC Red Blood Cell Count 4.21 M/uL (3.86-4.86)
[2022-03-18] MEDS ORDERED: ONDANSETRON 4 MG/2 ML VIAL ONE ×3 (13:30→19:31)
[2022-03-18] MEDS ORDERED: KETOROLAC 30 MG/ML INJ ONE (13:30)
[2022-03-18] MEDS ORDERED: NA CHLORIDE 0.9% 1,000 ML ONE ×2 (13:30→16:11)
[2022-03-18 13:45] LABS: Albumin 3.5 g/dL (3.4-5.0); Bilirubin Total 0.4 mg/dL (0.2-1.0); Potassium 4.3 mmol/L (3.5-5.1); Protein, Total 7.1 g/dL (6.4-8.2)
[2022-03-18] MEDS ORDERED: HYDROMORPHONE HCL 1 MG/ML INJ ONE ×2 (15:14→16:11)
[2022-03-18 15:30] LABS: Urine Blood Trace-intact (Negative); Urine Glucose Negative (Negative); Urine Protein Negative (Negative)
[2022-03-18 15:41] LABS: Urine Bacteria None Seen /HPF (<20); Urine Mucus Slight /HPF (None Seen)
--- NOTE | 2022-03-18 15:55 | EDPHYS ---
Physician Documentation [facility] Name: Jessica Riojas Age: 66 yrs Sex: Female : 1955 Arrival Date: 03/18/2022 Time: 12:19 Bed 12 Private MD: [facility] ED Physician Omer Parisi HPI: 03/18 13:28 This 66 yrs old Female presents to ER via Wheelchair with complaints of Flank Pain, ms3 Nausea/Vomiting. 13:28 66-year-old female with past medical history of hypercholesterolemia presents for right ms3 flank pain. Patient states she was seen in emergency department 2 days ago and diagnosed with a 4 mm kidney stone. Patient describes her pain as 10/10 and being sharp, stabbing, throbbing. Patient denies alleviating or inciting factors. Patient endorses nausea and vomiting. Historical: - Allergies: 12:41 PENICILLINS; kb3 - Home Meds: 12:42 atorvastatin 10 mg oral tab 1 tab once daily [Active]; escitalopram oxalate 10 mg oral kb3 tab 1 tab once daily [Active]; montelukast 10 mg oral tab 1 tab once daily [Active]; celecoxib 200 mg Oral cap 1 cap once daily [Active]; tramadol 50 mg Oral tab 1 tab every 4 hours [Active]; tizanidine 4 mg oral cap 1 cap every 6 hours [Active]; pantoprazole 40 mg oral TbEC 1 tab once daily [Active]; famotidine 40 mg Oral tab 1 tab once daily [Active]; - PMHx: 12:41 Hypercholesterolemia; seasonal allergies; kb3 - PSHx: 12:41 None; kb3 - Immunization history:: Adult Immunizations up to date, Client reports receiving the 2nd dose of the Covid vaccine, Last tetanus immunization: up to date. - Social history:: Smoking status: . ROS: 13:28 Constitutional: Negative for fever, and chills. Cardiovascular: Negative for chest ms3 pain, and palpitations. Respiratory: Negative for shortness of breath, cough, wheezing, and pleuritic chest pain, Abdomen/GI: Negative for abdominal pain, nausea, vomiting, diarrhea, and constipation, MS/Extremity: Negative for injury and deformity. 13:28 Back: Positive for flank pain, on the right. Exam: 13:28 Constitutional: This is a well developed, well nourished patient who is awake, alert, ms3 and in no acute distress. Head/Face: Normocephalic, atraumatic. Neck: Trachea midline, no cervical lymphadenopathy. Supple, full range of motion without nuchal rigidity, or vertebral point tenderness. No Meningismus. Cardiovascular: Regular rate and rhythm with a normal S1 and S2. No gallops, murmurs, or rubs. Normal PMI, no JVD. No pulse deficits. Respiratory: Lungs have equal breath sounds bilaterally, clear to auscultation and percussion. No rales, rhonchi or wheezes noted. No increased work of breathing, no retractions or nasal flaring. 13:28 Abdomen/GI: Soft, non-tender, with normal bowel sounds. No distension or tympany. No guarding or rebound. No evidence of tenderness throughout. 13:28 Abdomen/GI: 13:28 Back: CVA tenderness, that is moderate, is noted on the right. Vital Signs: 12:40 BP 145 / 62; Pulse 89; Resp 20; Temp 99.2; Pulse Ox 100% ; Weight 78.02 kg; Height 5 kb3 ft. 3 in. (160.02 cm); Pain 10/10; 14:12 BP 143 / 68; Pulse 78; Resp 20; Pulse Ox 100% on R/A; kr3 12:40 Body Mass Index 30.47 (78.02 kg, 160.02 cm) kb3 MDM: 12:47 Patient medically screened. ms3 13:28 Differential diagnosis: nephrolithiasis, pyelonephritis, UTI, Ruptured ureter. ms3 18:57 Data reviewed: vital signs, nurses notes, lab test result(s), radiologic studies, and ms3 as a result, I will admit patient. Counseling: I had a detailed discussion with the patient and/or guardian regarding: the historical points, exam findings, and any diagnostic results supporting the discharge/admit diagnosis, lab results, radiology results, the need for further work-up and treatment in the hospital. ED course: Discussed plan for Dr. Dove to take patient to the operating room this evening. Patient is aware she is to be n.p.o. Case discussed with Dr. Kate and he accepts patient as observation. Discussion of management of care with other providers: Dr Kate; Dr Dove History obtained from patient and her . 03/18 12:47 Order name: CBC with Diff; Complete Time: 13:36 ms3 03/18 12:47 Order name: CMP; Complete Time: 15:46 ms3 03/18 12:47 Order name: Urine Microscopic Only; Complete Time: 15:46 ms3 03/18 15:30 Order name: Urine Dipstick-Ancillary; Complete Time: 15:46 EDMS 03/18 16:03 Order name: SARS RAPID ap3 03/18 17:13 Order name: Urinalysis EDMS 03/18 17:13 Order name: Basic Metabolic Panel EDMS 03/18 17:13 Order name: Basic Metabolic Panel EDMS 03/18 17:13 Order name: Basic Metabolic Panel EDMS 03/18 17:13 Order name: Basic Metabolic Panel EDMS 03/18 17:13 Order name: CBC with Automated Diff EDMS 03/18 17:13 Order name: CBC with Automated Diff EDMS 03/18 17:13 Order name: CBC with Automated Diff EDMS 03/18 17:14 Order name: CBC with Automated Diff EDMS 03/18 12:47 Order name: CT Abd/Pelvis - Without Contrast; Complete Time: 13:36 ms3 03/18 12:47 Order name: IV Saline Lock; Complete Time: 13:26 ms3 03/18 12:47 Order name: Labs collected and sent; Complete Time: 13:26 ms3 03/18 12:47 Order name: Urine Dipstick-Ancillary (obtain specimen); Complete Time: 15:30 ms3 03/18 15:55 Order name: NPO; Complete Time: 16:03 ms3 03/18 17:13 Order name: NPO EDMS Administered Medications: 13:26 Drug: fentaNYL (PF) 50 mcg Route: IVP; Site: right antecubital; kr3 13:37 Drug: NS 0.9% 1000 ml Route: IV; Rate: 1 bolus; Site: right antecubital; kr3 13:37 Drug: TORadol - (ketorolac) 15 mg Route: IVP; Site: right antecubital; kr3 13:38 Drug: Zofran (Ondansetron) 4 mg Route: IVP; Site: right antecubital; kr3 15:19 Drug: Dilaudid (HYDROmorphone) 0.5 mg Route: IVP; Site: right antecubital; kr3 16:23 Drug: NS 0.9% 1000 ml Route: IV; Rate: 125 ml/hr; Site: right antecubital; kr3 16:23 Drug: Dilaudid (HYDROmorphone) 1 mg Route: IVP; Site: right antecubital; kr3 Disposition Summary: 03/18/22 15:55 Hospitalization Ordered Hospitalization Status: Observation ms3 Provider: Mikael Kate ms3 Location: Telemetry/MedSurg (observation) ms3 Condition: Stable ms3 Problem: new ms3 Symptoms: are unchanged ms3 Bed/Room Type: Standard ms3 Room Assignment: ms3 Diagnosis - Kidney stone ms3 - Intractable right flank pain ms3 Forms: - Medication Reconciliation Form ms3 - SBAR form ms3 Signatures: Dispatcher [employer] EDOmer Goff DO DO ms3 Emelyn Gil RN RN kr3 Yu Deshpande RN RN kb3 Corrections: (The following items were deleted from the chart) 12:45 12:41 Home Meds: Unable to obtain; kb3 kb3
--- NOTE | 2022-03-18 15:55 | ER ---
Nurse's Notes [facility] Name: Jessica Riojas Age: 66 yrs Sex: Female : 1955 Arrival Date: 03/18/2022 Time: 12:19 Bed 12 Private MD: Wilmar Garcia Diagnosis: Kidney stone;Intractable right flank pain Presentation: 03/18 12:40 Chief complaint: Patient states: dx with kidney stone on Mon in this ER. States pain kb3 continues despite taking pain meedication. Coronavirus screen: Vaccine status: Patient reports receiving the 2nd dose of the covid vaccine. Client denies travel out of the [place] in the last 14 days. Ebola Screen: Patient negative for fever greater than or equal to 101.5 degrees Fahrenheit, and additional compatible Ebola Virus Disease symptoms Patient denies exposure to infectious person. Patient denies travel to an Ebola-affected area in the 21 days before illness onset. Initial Sepsis Screen: Does the patient meet any 2 criteria? No. Patient's initial sepsis screen is negative. Does the patient have a suspected source of infection? No. Patient's initial sepsis screen is negative. Risk Assessment: Do you want to hurt yourself or someone else? Patient reports no desire to harm self or others. Onset of symptoms was March 16, 2022. 12:40 Method Of Arrival: Wheelchair kb3 12:40 Acuity: ABRAHAM 3 kb3 Triage Assessment: 12:45 General: Appears distressed, uncomfortable, Behavior is calm, cooperative. Pain: kb3 Complains of pain in right low back Pain radiates to right lower quadrant. Pain: Pain currently is 10 out of 10 on a pain scale. Quality of pain is described as sharp. GI: Reports nausea. Historical: - Allergies: 12:41 PENICILLINS; kb3 - Home Meds: 12:42 atorvastatin 10 mg oral tab 1 tab once daily [Active]; escitalopram oxalate 10 mg oral kb3 tab 1 tab once daily [Active]; montelukast 10 mg oral tab 1 tab once daily [Active]; celecoxib 200 mg Oral cap 1 cap once daily [Active]; tramadol 50 mg Oral tab 1 tab every 4 hours [Active]; tizanidine 4 mg oral cap 1 cap every 6 hours [Active]; pantoprazole 40 mg oral TbEC 1 tab once daily [Active]; famotidine 40 mg Oral tab 1 tab once daily [Active]; - PMHx: 12:41 Hypercholesterolemia; seasonal allergies; kb3 - PSHx: 12:41 None; kb3 - Immunization history:: Adult Immunizations up to date, Client reports receiving the 2nd dose of the Covid vaccine, Last tetanus immunization: up to date. - Social history:: Smoking status: . Screenin:36 [facility] ED Fall Risk Assessment (Adult) History of falling in the last 3 months, kr3 including since admission No falls in past 3 months (0 pts) Confusion or Disorientation No (0 pts) Intoxicated or Sedated No (0 pts) Impaired Gait No (0 pts) Mobility Assist Device Used No (0 pt) Altered Elimination Yes (1 pt) Score/Fall Risk Level 0 - 2 = Low Risk. Abuse screen: Denies threats or abuse. Nutritional screening: No deficits noted. Tuberculosis screening: No symptoms or risk factors identified. Assessment: 14:07 General: Appears distressed, uncomfortable, Behavior is cooperative, restless. Pain: kr3 Complains of pain in right low back. Neuro: Level of Consciousness is awake, alert, obeys commands, Oriented to person, place, time, situation. Cardiovascular: Patient's skin is warm and dry. Respiratory: Airway is patent Respiratory effort is even, unlabored, Respiratory pattern is tachypnea. GI: Abdomen is round non-distended. :. EENT: No signs and/or symptoms were reported regarding the EENT system. Derm: No signs and/or symptoms reported regarding the dermatologic system. Musculoskeletal: Circulation, motion, and sensation intact. 16:15 Reassessment: Patient and/or family updated on plan of care and expected duration. Pain kr3 level reassessed. Patient is alert, oriented x 3, equal unlabored respirations, skin warm/dry/pink. pain is 10 out of 10, patient states "the first med you gave me helped with the pain helped with the pain". Vital Signs: 12:40 BP 145 / 62; Pulse 89; Resp 20; Temp 99.2; Pulse Ox 100% ; Weight 78.02 kg; Height 5 kb3 ft. 3 in. (160.02 cm); Pain 10/10; 14:12 BP 143 / 68; Pulse 78; Resp 20; Pulse Ox 100% on R/A; kr3 12:40 Body Mass Index 30.47 (78.02 kg, 160.02 cm) kb3 ED Course: 12:19 Patient arrived in ED. am2 12:20 Wilmar Garcia DO is Private Physician. am2 12:34 Omer Parisi DO is Attending Physician. ms3 12:41 Triage completed. kb3 12:45 Arm band placed on right wrist. kb3 12:49 Emelyn Gil, CARLOS is Primary Nurse. kr3 13:12 CT Abd/Pelvis - Without Contrast In Process Unspecified. EDMS 13:15 Bed in low position. Call light in reach. Side rails up X 1. kr3 13:30 Inserted saline lock: 22 gauge in right antecubital area, using aseptic technique. kr3 Blood collected. 15:54 Mikael Kate MD is Hospitalizing Provider. ms3 17:37 No provider procedures requiring assistance completed. Patient admitted, IV remains in kr3 place. Administered Medications: 13:26 Drug: fentaNYL (PF) 50 mcg Route: IVP; Site: right antecubital; kr3 13:37 Drug: NS 0.9% 1000 ml Route: IV; Rate: 1 bolus; Site: right antecubital; kr3 13:37 Drug: TORadol - (ketorolac) 15 mg Route: IVP; Site: right antecubital; kr3 13:38 Drug: Zofran (Ondansetron) 4 mg Route: IVP; Site: right antecubital; kr3 15:19 Drug: Dilaudid (HYDROmorphone) 0.5 mg Route: IVP; Site: right antecubital; kr3 16:23 Drug: NS 0.9% 1000 ml Route: IV; Rate: 125 ml/hr; Site: right antecubital; kr3 16:23 Drug: Dilaudid (HYDROmorphone) 1 mg Route: IVP; Site: right antecubital; kr3 Medication: 17:38 VIS not applicable for this client. kr3 Outcome: 15:55 Decision to Hospitalize by Provider. ms3 17:37 Admitted to OR kr3 17:37 Condition: stable 17:37 Instructed on the need for admit. 18:11 Patient left the ED. ss Signatures: Dispatcher [facility] Hospital[facility]i Fuller RN RN ss Nalini Trimble am2 Omer Parisi, DO ms3 Emelyn Gil, RN RN kr3 Yu Deshpande RN RN kb3 Corrections: (The following items were deleted from the chart) 12:45 12:41 Home Meds: Unable to obtain; kb3 kb3 14 12:51 Reassessment: patient provided urine sample and stated " I feel like I passed kr3 it". After consulting with another nurse it does appear to be a stone in the urine sample. kr3 14: 12:52 Reassessment: provider notified kr3 kr3
[2022-03-18] MEDS ORDERED: ONDANSETRON 4 MG/2 ML VIAL IV PRN (17:05)
[2022-03-18] MEDS ORDERED: MORPHINE 2 MG/ML SYR IM PRN (17:10)
[2022-03-18] MEDS ORDERED: KETOROLAC 10 MG TAB PO PRN (17:10)
[2022-03-18] MEDS ORDERED: MORPHINE 2 MG/ML SYR IV PRN (17:28)
[2022-03-18] MEDS ORDERED: NA CHLORIDE 0.9% 1,000 ML IV SCH (18:00)
[2022-03-18 18:09] LABS: SARS-CoV-2 Antigen Rapid Res Negative (Negative)
--- NOTE | 2022-03-18 18:15 | P.HP ---
Certification for Inpatient Patient admitted to: Observation With expected LOS: <2 Midnights <Bryant Agudelo - Last Filed: 03/18/22 18:09> Patient History Date of Service: 03/18/22 Reason for admission: Kidney stone History of Present Illness: This is a 66-year-old female with prior medical history of mitral valve prolapse and anxiety who presents to the emergency room via wheelchair with complaints of flank pain, nausea and vomiting. Patient reports coming to the emergency room 2 days ago and was diagnosed with a 4 mm kidney stone. She describes the pain as being a throbbing, sharp, stabbing pain that radiates to her right flank. She reported associated symptoms of nausea, vomiting and chills. She reports taking Tylenol with codeine and tramadol, which did not alleviate the pain. She says the pain is aggravated with any sort of movement. She denies any chest pain, shortness of breath, palpitation, and cough. Abdominal was soft and tender to palpation with mild CVA tenderness. Patient will be admitted under the service of Dr. Vargas. Patient is set to go to the OR [facility]. - Past Medical/Surgical History Diabetic: No -: Mitral valve prolapse -: anxiety -: hysterectomy -: cyst removal -: tonsillectomy -: bunionectomy -: neck sx - Family History Mother -: Hypertension, Cancer Notes: Colon cancer - Social History Smoking Status: Never smoker Alcohol use: Yes CD- Drugs: No Caffeine use: No <Bryant Agudelo - Last Filed: 03/18/22 18:09> Date of Service: 03/19/22 <Mikael Kate - Last Filed: 03/19/22 19:31> Allergies Penicillins Allergy (Verified 01/23/15 17:49) Hives/Rash Home Medications: Beclomethasone Dipropionate [Qnasl] 8.7 gm NS DAILY 01/23/15 Escitalopram Oxalate [Lexapro] 10 mg PO DAILY 01/23/15 Flaxseed Oil [Flaxseed] 1,000 mg PO DAILY 01/23/15 Montelukast Sodium [Singulair] 10 mg PO DAILY 01/23/15 Turm/Ging/Harsh/Yuc/Juan/Bruce/Hor [Tumersaid Tablet] 1 each PO DAILY 01/23/15 hydroCHLOROthiazide [Hydrochlorothiazide] 25 mg PO DAILY 01/23/15 Aspirin 81 mg PO DAILY #30 tab.chew 01/24/15 Ciprofloxacin HCl [Cipro] 500 mg PO BID 5 Days #10 tab 03/18/22 Review of Systems 10-point ROS is otherwise unremarkable Gastrointestinal: Nausea, Vomiting, Abdominal Pain <Ubaldo Agudeloinald - Last Filed: 03/18/22 18:09> Physical Examination - Vital Signs Temperature: 99.2 F Blood Pressure: 122/86 Pulse: 89 Respirations: 22 Pulse Ox (%): 99 - Physical Exam General: Alert, Oriented x3, Mild distress HEENT: Atraumatic, Normocephalic, PERRLA Neck: Supple, 2+ carotid pulse no bruit Respiratory: Clear to auscultation bilaterally, Normal air movement Cardiovascular: No edema, Normal pulses, Regular rate/rhythm Capillary refill: <2 Seconds Gastrointestinal: Tenderness, Rebound Musculoskeletal: No clubbing, No swelling Integumentary: No rashes, No breakdown Neurological: Normal speech, Normal strength at 5/5 x4 extr Lymphatics: No axilla or inguinal lymphadenopathy - Studies Laboratory Data (last 24 hrs) 03/18/22 13:20: Sodium 141, Potassium 4.3, BUN 14, Creatinine 1.30 H, Glucose 110 H, Total Bilirubin 0.4, AST 19, ALT 20, Alkaline Phosphatase 101 03/18/22 13:20: WBC 13.60 H, Hgb 12.8, Hct 38.3, Plt Count 351 <MagnusBryant - Last Filed: 03/18/22 18:09> Assessment and Plan - Plan Assessment Kidney stone with intractable right flank pain Plan Kidney stone with intractable right flank pain -Continue IV fluids -Medicate for pain -N.p.o. -Patient to the OR -Nephrology consulted, recommendation appreciated -CT abdomen/pelvis -Prominent right-sided hydronephrosis has not changed. The obstructing right UVJ calcification unchanged in size or position. -Increase in the periureteral stranding along the course of the right ureter PPX-SCDs/PPI CODE STATUS- Full code Discharge Plan: Home Plan to discharge in: 48 Hours - Advance Directives Does patient have a Living Will: No Does patient have a Durable POA for Healthcare: No - Code Status/Comfort Care Code Status Assessed: Yes (Full code) Critical Care: No <Bryant Agudelo - Last Filed: 03/18/22 18:09> Physician Review: Patient Assessed, Agree with Above Assessment and Plan <Mikael Kate - Last Filed: 03/19/22 19:31>
[2022-03-18] MEDS ORDERED: MIDAZOLAM HCL 2 MG/2 ML INJ ONE (18:53)
[2022-03-18] MEDS ORDERED: propofoL 200 MG/20 ML VIAL IV ONE (18:53)
[2022-03-18] MEDS ORDERED: CIPROFLOXACIN 400mg IV 400 MG/200 ML BAG IV ONE (18:57)
--- NOTE | 2022-03-18 19:02 | P.CNS ---
Date of Consult: 03/18/22 Reason for Consult: Right flank pain Primary Care Provider: Suellen Chief Complaint: Kidney stone History of Present Illness: 66-year-old woman with mitral valve prolapse and anxiety disorder s/p remote history of Pfannenstiel incision for SUSANNAH presents with multiple recurrent stone events over 35-year period. Most recently, she says she has had acute pain associated with stones on the right side, which she believes she has passed on multiple occasions, between 02/14/2022 until recently. On 03/16/2022, she apparently was seen in the emergency department with pain associated with a ureteral calculus on the right side. She was discharged home but returned today with recurrence of severe right-sided flank pain that radiates into the right lower quadrant. The pain was not manageable despite administration of Toradol as well as IV fentanyl and apparently also Dilaudid. She had associated nausea and vomiting but denied any dysuria or fever. She did have some chills associated with the pain. 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 -No nephrolithiasis observed bilaterally, and solitary 3.2 mm calculus present at the right UVJ with moderate hydroureteronephrosis Assessment and recommendation: 66-year-old woman with mitral valve prolapse and anxiety disorder s/p remote history of Pfannenstiel incision for SUSANNAH with 3.2 mm right UVJ calculus, right hydroureteronephrosis, and intractable right sided flank pain. -Since the stone is at the UVJ and may be in fact in that location, we may endeavor to grasp the stone and deliver it intraoperatively. Alternatively, a retrograde pyelogram and right ureteral stent will be placed. -I counseled the patient on what it means to have a stent including that is a foreign body that can itself cause a degree of pain and/or misery. I explained that subsequent follow-up for definitive ureteroscopic management may be required likely, and the stent would subsequently be removed. I explained that in less than 5% of cases, the stone may be so impacted that it is impossible to place a stent, and a percutaneous nephrostomy tube may be required. -Risks of bleeding, infection, urethral stricture were discussed -Patient agreed to the procedure of cystoscopy and right ureteral stent placement and other indicated procedures, and consent was signed today. Approximately 20 to 30 minutes spent in this consultation prior to surgery Allergies Penicillins Allergy (Verified 01/23/15 17:49) Hives/Rash Home medications list reviewed: Yes Home Medications: Beclomethasone Dipropionate [Qnasl] 8.7 gm NS DAILY 01/23/15 Escitalopram Oxalate [Lexapro] 10 mg PO DAILY 01/23/15 Flaxseed Oil [Flaxseed] 1,000 mg PO DAILY 01/23/15 Montelukast Sodium [Singulair] 10 mg PO DAILY 01/23/15 Turm/Ging/Harsh/Yuc/Juan/Bruce/Hor [Tumersaid Tablet] 1 each PO DAILY 01/23/15 hydroCHLOROthiazide [Hydrochlorothiazide] 25 mg PO DAILY 01/23/15 Aspirin 81 mg PO DAILY #30 tab.chew 01/24/15 - Past Medical/Surgical History Diabetic: No -: Mitral valve prolapse -: anxiety -: hysterectomy -: cyst removal -: tonsillectomy -: bunionectomy -: neck sx - Family History Mother Medical History: Hypertension, Cancer Notes: Colon cancer - Social History Smoking Status: Unknown if ever smoked Alcohol use: Yes CD- Drugs: No Caffeine use: No Physical Examination Temp Pulse Resp BP Pulse Ox 99.2 F 89 22 H 122/86 99 03/18/22 18:25 03/18/22 18:25 03/18/22 18:25 03/18/22 18:25 03/18/22 18:25 Laboratory Data (last 24 hrs) 03/18/22 13:20: Sodium 141, Potassium 4.3, BUN 14, Creatinine 1.30 H, Glucose 110 H, Total Bilirubin 0.4, AST 19, ALT 20, Alkaline Phosphatase 101 03/18/22 13:20: WBC 13.60 H, Hgb 12.8, Hct 38.3, Plt Count 351 Conclusions/Impression: See HPI Critical Care: No Time Spent Managing Pts care (In Minutes): 30
[2022-03-18] MEDS ORDERED: dexAMETHasone 10 MG/ML VIAL ONE (19:31)
--- NOTE | 2022-03-18 19:56 | RAD REPORT ---
EXAM DESCRIPTION: RAD - Urethrocystogrphy Retrograde - 03/18/2022 7:47 pm FINDINGS: There were 10 portable KUB images obtained during fluoroscopic assisted placement of a samia ble pigtail stent in the right collecting system. Cumulative dose was 4.9 mGy. Fluoro time was 14 seconds.
[2022-03-18 20:27] VITALS: BP 105/55; TEMP 98; O2SAT 94
[2022-03-18] MEDS ORDERED: PHENAZOPYRIDINE 100MG TAB PO ONE (20:27)
[2022-03-18] MEDS ORDERED: CODEINE 30MG/APAP 300MG TAB PO PRN (20:27)
--- NOTE | 2022-03-18 20:56 | P.DS ---
Admission Date: 03/18/22 Discharge Date: 03/19/22 Primary Care Provider: Suellen Disposition: ROUTINE DISCHARGE Discharge Condition: GOOD Reason for Admission: Kidney stone Consultations: Urology-Dr. Dove Procedures: Urethrocystoscopy retrograde 03/18/2022 EXAM DESCRIPTION: RAD - Urethrocystogrphy Retrograde - 03/18/2022 7:47 pm FINDINGS: There were 10 portable KUB images obtained during fluoroscopic assisted placement of a double pigtail stent in the right collecting system. Cumulative dose was 4.9 mGy. Fluoro time was [address] abdomen pelvis 03/18/2019 FINDINGS: No suspicious findings in the lung bases. The liver, spleen and pancreas show no suspicious findings on non-contrast imaging. Gallbladder and biliary tree are also without suspicious finding. The prominent right-sided hydronephrosis secondary to the obstructing calculus at the right UVJ has not increased in severity since March 16 imaging. No change in positioning of the stone. Right kidney has an edematous appearance. There is trace amount of stranding in the right-sided perinephric fat not grossly different from March 16. Stranding along the right periureteral fat has increased. No new left-sided finding. No significant adrenal finding. Isodense renal masses and pyelonephritis cannot be excluded in the absence of IV contrast. The urinary bladder is without significant finding. No dilated bowel loops or bowel wall thickening. No free air, free fluid or inflammatory stranding. No hernia, mass or bulky lymphadenopathy. No suspicious bony findings. IMPRESSION: Prominent right-sided hydronephrosis has not changed. The obstructing right UVJ calcification unchanged in size or position. Increase in the periureteral stranding along the course of the right ureter. Full assessment is limited is the absence of IV contrast. Brief History of Present Illness: HPI This is a 66-year-old female with prior medical history of mitral valve prolapse and anxiety who presents to the emergency room via wheelchair with complaints of flank pain, nausea and vomiting. Patient reports coming to the emergency room 2 days ago and was diagnosed with a 4 mm kidney stone. She describes the pain as being a throbbing, sharp, stabbing pain that radiates to her right flank. She reported associated symptoms of nausea, vomiting and chills. She reports taking Tylenol with codeine and tramadol, which did not alleviate the pain. She says the pain is aggravated with any sort of movement. She denies any chest pain, shortness of breath, palpitation, and cough. Abdominal was soft and tender to palpation with mild CVA tenderness. Patient will be admitted under the service of Dr. Vargas. Patient is set to go to the [facility] Course: Patient was admitted under observation, she was brought to the operating room for diagnosis of intractable pain, MARCOS, hydroureteronephrosis secondary to 3.2 mm calculus present at the right UVJ. She was seen and evaluated by urology who took her to the operating room and performed a ureteral stent placement. Patient tolerated procedure well is up after surgery eating. She is cleared by urology for discharge. She has been sent a prescription for ciprofloxacin 5 mg p.o. twice daily for next 5 days. She has close follow-up with urology arranged. Vital Signs/Physical Exam: Temp Pulse Resp BP Pulse Ox 98.0 F 79 93 H 105/55 L 99 03/18/22 20:23 03/18/22 20:23 03/18/22 20:23 03/18/22 20:23 03/18/22 18:25 Laboratory Data at Discharge: WBC 13.60 K/uL (4.3-10.9) H 03/18/22 13:20 Hgb 12.8 g/dL (12.0-15.0) 03/18/22 13:20 Hct 38.3 % (36.0-45.0) 03/18/22 13:20 Plt Count 351 K/uL (152-406) 03/18/22 13:20 Sodium 141 mmol/L (136-145) 03/18/22 13:20 Potassium 4.3 mmol/L (3.5-5.1) 03/18/22 13:20 BUN 14 mg/dL (7-18) 03/18/22 13:20 Creatinine 1.30 mg/dL (0.55-1.02) H 03/18/22 13:20 Glucose 110 mg/dL (74-106) H 03/18/22 13:20 Total Bilirubin 0.4 mg/dL (0.2-1.0) 03/18/22 13:20 AST 19 U/L (15-37) 03/18/22 13:20 ALT 20 U/L (13-56) 03/18/22 13:20 Alkaline Phosphatase 101 U/L (45-117) 03/18/22 13:20 Home Medications: Beclomethasone Dipropionate [Qnasl] 8.7 gm NS DAILY 01/23/15 Escitalopram Oxalate [Lexapro] 10 mg PO DAILY 01/23/15 Flaxseed Oil [Flaxseed] 1,000 mg PO DAILY 01/23/15 Montelukast Sodium [Singulair] 10 mg PO DAILY 01/23/15 Turm/Ging/Harsh/Yuc/Juan/Bruce/Hor [Tumersaid Tablet] 1 each PO DAILY 01/23/15 hydroCHLOROthiazide [Hydrochlorothiazide] 25 mg PO DAILY 01/23/15 Aspirin 81 mg PO DAILY #30 tab.chew 01/24/15 Ciprofloxacin HCl [Cipro] 500 mg PO BID 5 Days #10 tab 03/18/22 New Medications: Ciprofloxacin HCl [Cipro] 500 mg PO BID 5 Days #10 tab Physician Discharge Instructions: You have a right ureteral stent now in place. Your stone was not immediately accessible for me to remove today. The stent is a foreign body, and it must be removed within 6 months maximum. My office will reach out to you to schedule an appointment to discuss the details of the necessary neck steps for surgery and the evaluation to figure out why you form the stones. You may certainly contact my office if you do not hear from them by Monday of next week. We typically like to allow a couple of weeks for the stent to cause the ureter to dilate, which makes the surgery easier and safer for you. The stent itself can cause a degree of discomfort. It typically causes one to need to urinate frequently or urgently, and there may be a degree of flank pain associated with urination. It also can cause a slight degree of burning with urination. This is typical from the stent. If it is excessively bothersome to you, notify me via the office and I can arrange for a prescription for oxybutynin to assist that symptomatology. Notify me if you develop any fever (temperature greater than 100.4 Fahrenheit), intractable nausea or vomiting, increasing pain not controlled by pain medic ations, or other unusual signs or symptoms. You have prescriptions for Tylenol with codeine, which is a gentle narcotic, and tramadol given by the emergency department for pain management. You do not need to take the narcotic/tramadol if your pain is not severe. You may simply take plain Tylenol (up to 1000 mg every 6 hours maximum) and alternate it every 4 hours with Motrin/ibuprofen (up to 400 mg every 8 hours maximum) for pain. Please take note and keep the total 24-hour daily dose of Tylenol/acetaminophen from all sources less than 4000 mg / 4 g. Notify me if you develop bright red and thick/nontranslucent blood in the urine (appearing like tomato juice). It is otherwise common for you to note pink or cranberry colored urine when the bleeding is fresh. Once the blood becomes old, it will become dark tea colored but still see-through/translucent. You may also purchase gfiz-bzm-khyrmar Azo (Pyridium) for burning with urination. Please note that it will turn your urine bright orange. All the best! WBR Diet: Low sodium Activity: Ad félix Followup: Wilmar Garcia DO [Primary Care Provider] - Rafael Dove [ACTIVE - CAN ADMIT] - Time spent managing pt's care (in minutes): 25
--- NOTE | 2022-03-18 22:46 | P.CNS ---
Date of Consult: 03/18/22 Reason for Consult: MARCOS Requesting Physician: Mikael Kate Chief Complaint: Kidney stone History of Present Illness: This is a 66-year-old female with prior medical history of mitral valve prolapse and anxiety who presents to the emergency room via wheelchair with complaints of flank pain, nausea and vomiting. Patient reports coming to the emergency room 2 days ago and was diagnosed with a 4 mm kidney stone. She describes the pain as being a throbbing, sharp, stabbing pain that radiates to her right flank. She reported associated symptoms of nausea, vomiting and chills. She reports taking Tylenol with codeine and tramadol, which did not alleviate the pain. She says the pain is aggravated with any sort of movement. She denies any chest pain, shortness of breath, palpitation, and cough. Abdominal was soft and tender to palpation with mild CVA tenderness. [facility] 13:28 This 66 yrs old Female presents to ER via Wheelchair with complaints of Flank Pain, ms3 Nausea/Vomiting. 13:28 66-year-old female with past medical history of hypercholesterolemia presents for right ms3 flank pain. Patient states she was seen in emergency department 2 days ago and diagnosed with a 4 mm kidney stone. Patient describes her pain as 10/10 and being sharp, stabbing, throbbing. Patient denies alleviating or inciting factors. Patient endorses nausea and vomiting. Allergies Penicillins Allergy (Verified 01/23/15 17:49) Hives/Rash Home medications list reviewed: Yes Home Medications: Beclomethasone Dipropionate [Qnasl] 8.7 gm NS DAILY 01/23/15 Escitalopram Oxalate [Lexapro] 10 mg PO DAILY 01/23/15 Flaxseed Oil [Flaxseed] 1,000 mg PO DAILY 01/23/15 Montelukast Sodium [Singulair] 10 mg PO DAILY 01/23/15 Turm/Ging/Harsh/Yuc/Juan/Bruce/Hor [Tumersaid Tablet] 1 each PO DAILY 01/23/15 hydroCHLOROthiazide [Hydrochlorothiazide] 25 mg PO DAILY 01/23/15 Aspirin 81 mg PO DAILY #30 tab.chew 01/24/15 Ciprofloxacin HCl [Cipro] 500 mg PO BID 5 Days #10 tab 03/18/22 - Past Medical/Surgical History Diabetic: No -: Mitral valve prolapse -: anxiety -: hysterectomy -: cyst removal -: tonsillectomy -: bunionectomy -: neck sx - Family History Mother Medical History: Hypertension, Cancer Notes: Colon cancer - Social History Smoking Status: Unknown if ever smoked Alcohol use: Yes CD- Drugs: No Caffeine use: No Review of Systems 10-point ROS is otherwise unremarkable Gastrointestinal: Abdominal Pain Physical Examination Temp Pulse Resp BP Pulse Ox 98.0 F 79 93 H 105/55 L 99 03/18/22 20:23 03/18/22 20:23 03/18/22 20:23 03/18/22 20:23 03/18/22 18:25 General: Oriented x3, Cooperative HEENT: Atraumatic Neck: Supple Respiratory: Clear to auscultation bilaterally Cardiovascular: No edema, Regular rate/rhythm Gastrointestinal: Tenderness Musculoskeletal: No clubbing, No contractures Integumentary: No rashes, No cyanosis Neurological: Normal speech Laboratory Data (last 24 hrs) 03/18/22 13:20: Sodium 141, Potassium 4.3, BUN 14, Creatinine 1.30 H, Glucose 110 H, Total Bilirubin 0.4, AST 19, ALT 20, Alkaline Phosphatase 101 03/18/22 13:20: WBC 13.60 H, Hgb 12.8, Hct 38.3, Plt Count 351 Imagings Data: [place] EXAM DESCRIPTION: CT - Abdomen Pelvis Wo Contrast - 03/18/2022 1:10 pm CLINICAL HISTORY: Right flank pain COMPARISON: Stone Protocol dated 03/16/2022; Stone Protocol dated 03/11/2022 TECHNIQUE: Axial [address] imaging of the abdomen and pelvis was performed without IV contrast. No IV contrast was given because of allergy, abnormal renal function, patient refusal or physician request. No oral contrast administered. All CT scans are performed using dose optimization technique as appropriate and may include automated exposure control or mA/KV adjustment according to patient size. FINDINGS: No suspicious findings in the lung bases. The liver, spleen and pancreas show no suspicious findings on non-contrast imaging. Gallbladder and biliary tree are also without suspicious finding. The prominent right-sided hydronephrosis secondary to the obstructing calculus at the right UVJ has not increased in severity since March 16 imaging. No change in positioning of the stone. Right kidney has an edematous appearance. There is trace amount of stranding in the right-sided perinephric fat not grossly different from March 16. Stranding along the right periureteral fat has increased. No new left-sided finding. No significant adrenal finding. Isodense renal masses and pyelonephritis cannot be excluded in the absence of IV contrast. The urinary bladder is without significant finding. No dilated bowel loops or bowel wall thickening. No free air, free fluid or inflammatory stranding. No hernia, mass or bulky lymphadenopathy. No suspicious bony findings. IMPRESSION: Prominent right-sided hydronephrosis has not changed. The obstructing right UVJ calcification unchanged in size or position. Increase in the periureteral stranding along the course of the right ureter. Full assessment is limited is the absence of IV contrast. Conclusions/Impression: MARCOS likely due to urinary obstruction -No NSAIDs -Start IVF with 1/2NS -Urology to stent the patient Obstructive right nephrolithiasis at the UVJ with hydronephrosis Microscopic hematuria -Start Flomax BID -Urology to take her to the OR for stenting Case reviewed with Dr. Dove and Dr. Kate Thank you kindly for the consultation
--- NOTE | 2022-03-21 13:16 | OP ---
Surgeon: SCOTT GONZALEZ Preoperative Diagnoses: 1.Right obstructive ureterolithiasis. 2.Right hydroureteronephrosis. 3.Severe intractable right flank pain. Postoperative Diagnoses: 1.Right obstructive ureterolithiasis. 2.Right hydroureteronephrosis. 3.Severe intractable right flank pain. 4.Papillary necrosis. 5.Grade 3 cystocele and grade 1-2 rectocele. Indication For Procedure: Ms. Riojas presented via the emergency department with intractable pain as sociated with a 3.2 mm distal ureteral calculus within the intramural ureter, potentially at the UVJ. Because her pain was unable to be adequately managed, a cystoscopy and stent placement was recommen ded with potential stone extraction depending on its location. Procedure In Detail: The patient was consented in the preoperative holding area before being transfe rred to the operative suite where general anesthesia was induced. She was given ciprofloxacin 400 mg IV antimicrobial prophylaxis and pneumo boots were provided for DVT prophylaxis. She was placed in the lithotomy position, padded and secured to the table appropriately. Her genitalia were prepped wi th Hibiclens and she was draped in standard fashion. The case was begun using a 22-Macedonian rigid cyst oscope to traverse the urethra and enter the bladder with ease. The bladder was decompressed of flui d and urine, and there was noted to be significant descent of the bladder resulting in need for extre me angulation of the scope in order to visualize the right ureteral orifice. No mucosal lesions, for eign bodies, or stones were noted throughout. This stone was not visible, at the right uret eral orifice. As a result, with some difficulty, we were able to utilize a Sensor wire and a 5-Frenc h ureteral access catheter to cannulate the right ureteral orifice. A retrograde pyelogram was then performed. 1.Right retrograde pyelography: Using a 70:30 mixture of Omnipaque and saline, contrast was injecte d via the lumen of the 5-Macedonian ureteral access catheter and did propagate up the 5-Macedonian ureteral a ccess catheter and filled a very dilated distal into the mid and proximal ureter. There was also sig nificant pelvocaliectasis, such that the contrast would not even fill the pelvis and calices. As a r esult, I passed a Sensor wire via the 5-Macedonian ureteral access catheter into the renal pelvis as obse rved fluoroscopically and over the wire I removed the 5-Macedonian ureteral access catheter instead passi ng a 6-Macedonian x 24 cm double-J ureteral stent. A coil was observed fluoroscopically in the renal pel vis and one cystoscopically was observed in the bladder. Her bladder did decompress with evidence of papillary necrosis emanating from around the wire and from out of the stent once it was placed. As a result, I decompressed her bladder of fluid and urine and then removed the scope. A pelvic exam wa s then performed, where the clearly present vaginal bulge of cystocele was evident with a lesser bulg e of a rectocele. When the bladder was reduced, there was evidence of stress incontinence. As a res ult, the patient was taken out of the lithotomy position, awakened from general anesthesia, transferr ed to a stretcher, and then transferred to the recovery room in good condition. Complications: None. Discharge Disposition: Subsequent follow up will be established for ureteroscopy and likely stone ba sketing/extraction, but possible need for laser lithotripsy. This may be scheduled within the coming weeks with a preoperative outpatient consult arranged in my office. LESLY/FERNY Voice ID: [id number] Report ID: [id number]
== END 2022-03-18 20:57 | disposition home or self-care (01) | DRG 661 ==
LOC: ER 12:19 → ERHOLD 17:04
PROVIDERS: ADMIT Internal Medicine; ATTEND Internal Medicine
PROC: BT1D1ZZ Fluoroscopy of Right Kidney, Ureter and Bladder using Low Osmolar Contrast (ICD-10-PCS; 2022-03-18)
PROC: 0T768DZ Dilation of Right Ureter with Intraluminal Device, Via Natural or Artificial Opening Endoscopic (ICD-10-PCS; principal; 2022-03-18 17:45)
DX: N13.2 Hydronephrosis with renal and ureteral calculous obstruction (principal); N17.2 Acute kidney failure with medullary necrosis; F41.9 Anxiety disorder, unspecified; I34.1 Nonrheumatic mitral (valve) prolapse; N81.6 Rectocele; N81.10 Cystocele, unspecified; R31.29 Other microscopic hematuria; Z88.0 Allergy status to penicillin; Z79.82 Long term (current) use of aspirin; Z90.710 Acquired absence of both cervix and uterus; Z79.899 Other long term (current) drug therapy; Z20.822 Contact with and (suspected) exposure to COVID-19
CPT/HCPCS: 36415; 51610; 74176; 74450; 76377; 80053; 81003; 81015; 85025; 87811; 96365; 96366; 96374; 96375; 99284; 99285; J0744; J1100; J1170; J2250; J2405; J2704; J3010; J3475; J7030

== ENCOUNTER 2022-04-05 09:19 | Day surgery (SDC) | payer OTHER ==
[2022-03-30 16:22] LABS: Absolute Lymphocytes (CBC) 2.4 K/uL (0.7-4.9); Hematocrit 36.6 % (36.0-45.0); Lymphocytes % 25.8 % (15.3-44.8); MCV 91.1 fL (80-100); RBC Red Blood Cell Count 4.02 M/uL (3.86-4.86)
[2022-03-30 16:25] LABS: Protime INR 1.08
--- NOTE | 2022-03-31 15:33 | EKG ---
Test Date: 2022-03-30 Test Time: 15:21:58 Delivery Specialist: HUMBERTO MEASUREMENT RESULTS: Intervals: Rate: 64 UT: 156 QRSD: 82 QT: 396 QTc: 408 [place]: P: 47 UT: 156 QRS: 12 T: 12 INTERPRETIVE STATEMENTS: Normal sinus rhythm with sinus arrhythmia Cannot rule out Inferior infarct, age undetermined Abnormal ECG Compared to ECG 10/07/2016 11:53:44 ST (T wave) deviation no longer present Possible ischemia no longer present Myocardial infarct finding still present Electronically Signed On 03-31-22 15:31:09 PLASTIC TOP ASSEM[employer]ER by Beto Damon
[~2022-04-05 09:19] MED LIST: Gentamicin Inj 160 MG in NA CHLORIDE 0.9% 100 ML IV SCH
[2022-04-05] MEDS ORDERED: Ringers Lactate 1,000 ML IV ONE (09:42)
[2022-04-05] MEDS ORDERED: ONDANSETRON 4 MG/2 ML VIAL ONE ×2 (09:45→10:54)
[2022-04-05] MEDS ORDERED: ROCURONIUM 50 MG/5 ML VIAL IV ONE (10:52)
[2022-04-05] MEDS ORDERED: LIDOCAINE 1% MPF 5 ML VIAL ONE (10:52)
[2022-04-05] MEDS ORDERED: FENTANYL CITR 100 MCG/2 ML ONE (10:52)
[2022-04-05] MEDS ORDERED: propofoL 200 MG/20 ML VIAL IV ONE (10:52)
[2022-04-05] MEDS ORDERED: MIDAZOLAM HCL 2 MG/2 ML INJ ONE (10:52)
[2022-04-05] MEDS: CLINDAMYCIN 600MG/D5W 50 ML IV SCH ×2 (10:54→11:40)
[2022-04-05] MEDS ORDERED: CODEINE 30MG/APAP 300MG TAB PO PRN (12:23)
[2022-04-05 12:46] VITALS: TEMP 98.3; O2SAT 96
--- NOTE | 2022-04-05 13:11 | RAD REPORT ---
EXAM DESCRIPTION: RAD - Urethrocystogrphy Retrograde - 04/05/2022 12:15 pm FINDINGS: There were 6 portable KUB images obtained during fluoroscopic assisted placement of a righ t ureteral stent. No suspicious or unexpected findings. Fluoro time was 5 seconds. Cumulative dose was 3.2 mGy.
[2022-04-05 14:40] VITALS: BP 125/65
--- NOTE | 2022-04-05 16:24 | OP ---
Surgeon: SCOTT GONZALEZ Preoperative Diagnoses: 1.Right ureterolithiasis. 2.Right hydronephrosis. 3.Right flank pain. 4.Status post right ureteral stent placement. Postoperative Diagnoses: 1.Right ureterolithiasis. 2.Right hydronephrosis. 3.Right flank pain. 4.Status post right ureteral stent placement. Principal Procedures: 1.Cystoscopy with right retrograde pyelography. 2.Right ureteroscopy with stone basketing. 3.Right 5-Panamanian straight ureteral stent placement. 4.Urethral Scott catheter placement. Indication For Procedure: Ms. Riojas presented via the emergency department with severe flank pain a nd signs of acute kidney injury associated with a tiny right distal ureteral calculus approximately 3 -4 mm in diameter. She underwent stent placement because the stone was not immediately visible and a ccessible due to ureteral orifice stenosis. She presents today for definitive management of the ston e. Procedure In Detail: The patient was consented in the preoperative holding area before being transfe rred to operative suite where general anesthesia was induced. She was given clindamycin and gentamic in 160 mg IV antimicrobial prophylaxis and pneumo boots were provided for DVT prophylaxis. She was p laced in the lithotomy position, padded and secured to the table appropriately and her genitalia were prepped with Hibiclens and draped in standard fashion. The case was begun using a 22-Panamanian rigid c ystoscope to traverse the urethra and into the bladder with ease. The bladder was decompressed of fl uid and some old blood containing urine. The stent was emanating from the right ureteral orifice and the coil of the stent was grasped using an alligator grasper and delivered to the meatus. The proxi mal tip of the stent remained in the mid ureter and the Sensor wire was passed via the ureteral stent and did coil successfully in the putative renal pelvis. I then removed the stent leaving the wire i n place as a safety wire and using pressurized saline as an irrigation, I utilized the semi-rigid ure teroscope to perform direct vision ureteroscopy into the distal ureter where the stone was noted. I was able to grasp the stone using a 1.9-Panamanian 0 tip Nitinol basket and delivered from the meatus wit h ease and without any resistance noted. As a result, because of the distal location of the stone an d the minimal procedure required, I simply passed a 5-Panamanian ureteral access catheter into the distal ureter and performed a retrograde pyelogram. Right retrograde pyelography: Using a 70:30 mixture of Omnipaque and saline, contrast was injected via the 5-Panamanian ureteral access catheter and did propagate up a dilated distal into the mid and proximal ureter before entering a mo derately dilated renal pelvis with moderate pelvocaliectasis. As a result, I left the 5-Panamanian urete ral access catheter, which I navigated into the renal pelvis over the Sensor wire, in the upper pole of the kidney and pelvis draining and did place an 18-Panamanian urethral Scott catheter into her bladder and passed the 5-Panamanian ureteral access catheter into the catheter for close drainage. She was then taken out of the lithotomy position, awakened from general anesthesia, transferred to a stretcher, a nd then transferred to the recovery room in good condition. Complications: None. Discharge Disposition: We will leave her with closed catheter and stent drainage for the next hour o r so while she is in recovery and then remove urethral Scott catheter along with the straight stent s imultaneously. She will subsequently be discharged home per PACU protocol. Subsequent followup shou ld be established in about 2 months' time with a [facility] metabolic profile assessment of 2 collecti ons done about a month prior to that followup appointment. LESLY/MODL Voice ID: [id number] Report ID: [id number]
== END 2022-04-05 13:40 | disposition home or self-care (01) ==
LOC: OR 09:19
PROVIDERS: ATTEND Urology
PROC: 0TC68ZZ Extirpation of Matter from Right Ureter, Via Natural or Artificial Opening Endoscopic (ICD-10-PCS; principal; 2022-04-05 10:30)
DX: N13.2 Hydronephrosis with renal and ureteral calculous obstruction (principal); R10.9 Unspecified abdominal pain
CPT/HCPCS: 93005; 87088; 85025; 87086; 80048; 36415; 85610; 88300; 85730; 82360; 74450; 51610; 52352; J2704; J2001; J1580; J2250; J3010; J7120; J2405 ×2